=== PATIENT | female | born 1950 | race Caucasian/White ===

== ENCOUNTER → 2016-05-26 | Outpatient (REF) | payer MEDICARE, MEDICAID ==
[~2016-05-26] MED LIST: AMLO25TA PO; ASPI81TA85 PO; CARB20TA PO; CARV25TA PO; FLUO20CA8 PO; HYDR12.55 PO; LOSA100T36 PO; METF500T PO; OYST1TAB PO; PROZ20CA11 PO
== END ==
LOC: M SFHCCLAY 09:13
PROVIDERS: ATTEND Family Medicine
DX: R51 Headache (principal)
CPT/HCPCS: 85652; G0463

== ENCOUNTER → 2016-09-08 | Outpatient (REF) | payer MEDICARE, MEDICAID ==
[2016-09-08 18:33] LABS: ALBUMIN 3.8 GM/DL (3.2-5.2); ALBUMIN/GLOBULIN RATIO 1.12 (1.00-1.93); BILIRUBIN,TOTAL 0.4 MG/DL (0.2-1.0); CALCIUM LEVEL 9.2 MG/DL (8.8-10.2); CREATININE FOR GFR 1.03 MG/DL (0.55-1.02); GLOMERULAR FILTRATION RATE 56.7 (>45); POTASSIUM SERUM 3.9 MEQ/L (3.5-5.1); TOTAL PROTEIN 7.2 GM/DL (6.4-8.2)
[2016-09-08 18:57] LABS: MEAN CORPUSCULAR HEMOGLOBIN 31.2 pg (27.0-33.0); MEAN CORPUSCULAR HGB CONC 34.8 g/dl (32.0-36.5); MEAN CORPUSCULAR VOLUME 89.6 fl (80.0-96.0); PLATELET COUNT, AUTOMATED 109 k/mm3 (150-450); RED CELL DISTRIBUTION WIDTH 12.7 % (11.5-14.5)
[2016-09-08 21:47] LABS: BASOPHILS 1 % (0-4); EOSINOPHILS 3 % (0-5); PLATELET CLUMPS MODERATE AMT
== END ==
LOC: M SFHCCLAY 10:18
PROVIDERS: ATTEND Family Medicine
DX: G40.909 Epilepsy, unspecified, not intractable, without status epilepticus (principal); E11.9 Type 2 diabetes mellitus without complications; E78.2 Mixed hyperlipidemia; I10 Essential (primary) hypertension; K76.0 Fatty (change of) liver, not elsewhere classified; G47.30 Sleep apnea, unspecified; F32.9 Major depressive disorder, single episode, unspecified
CPT/HCPCS: 36415; 80053; 80061; 80156; 83036; 85025; G0463

== ENCOUNTER 2017-01-10 11:08 | Emergency (ER) | payer MEDICARE, MEDICAID ==
[~2017-01-10] VITALS: Ht 165.1 cm; Wt 78.5 kg
[2017-01-10 11:08] VITALS: BP 175/90
[~2017-01-10 11:08] MED LIST changes: -METF500T PO; +METF500T13 PO
[2017-01-10] MEDS ORDERED: METHOCARBAMOL 500 MG TAB PO ONE (12:45)
[2017-01-10] MEDS ORDERED: IBUPROFEN 600 MG TAB PO ONE (12:45)
[2017-01-10] MEDS ORDERED: ROBA500T PO (12:47)
[2017-01-10] MEDS ORDERED: IBUP-1022 PO (12:47)
[2017-01-10] MEDS ORDERED: DIAZ5TAB PO (13:43)
== END 2017-01-10 13:10 | disposition home or self-care (01) ==
LOC: M ED 11:08
DX: M54.41 Lumbago with sciatica, right side (principal); E11.9 Type 2 diabetes mellitus without complications; I10 Essential (primary) hypertension; Z79.899 Other long term (current) drug therapy; Z79.82 Long term (current) use of aspirin; Z88.8 Allergy status to other drugs, medicaments and biological substances

== ENCOUNTER → 2017-01-26 | Outpatient (REF) | payer MEDICARE, MEDICAID ==
[~2017-01-26] MED LIST changes: +DIAZ5TAB PO; +IBUP-1022 PO; +ROBA500T PO
[2017-01-26 19:19] LABS: ANION GAP 6 MEQ/L (8-16); BLOOD UREA NITROGEN 10 MG/DL (7-18); CALCIUM LEVEL 9.1 MG/DL (8.8-10.2); CARBON DIOXIDE LEVEL 26 MEQ/L (21-32); CHLORIDE LEVEL 109 MEQ/L (98-107); CREATININE FOR GFR 0.79 MG/DL (0.55-1.02); GLOMERULAR FILTRATION RATE > 60.0 (>45); GLUCOSE, FASTING 162 MG/DL (80-110); SODIUM LEVEL 141 MEQ/L (136-145)
== END ==
LOC: M SFHCCLAY 10:52
PROVIDERS: ATTEND Family Medicine
DX: M54.40 Lumbago with sciatica, unspecified side (principal); E11.9 Type 2 diabetes mellitus without complications
CPT/HCPCS: 80048; 83036; G0463

== ENCOUNTER → 2017-02-02 | Outpatient (CLI) | payer MEDICARE, MEDICAID ==
--- NOTE | 2017-02-02 14:42 | REP ---
MR LUMBAR SPINE WITHOUT CONTRAST: HISTORY: Back pain. Decreased signal intensity on T2-weighted images is present in the lumbar intervertebral discs. The discs are decreased in height. These findings are consistent with disc degeneration. There is no disc bulge or herniation at the L1-2 level. The L1 nerves exit the neural foramina without compression. A diffuse disc bulge and small central disc protrusion are present at the L2-3 level. There is hypertrophy of the ligamenta flava and the posterior articulating facets. These findings produce minimal central canal stenosis. The L2 nerves exit the neural foramina without compression. A diffuse disc bulge and small left paracentral and intraforaminal disc protrusion are present at the L3-4 level. There is hypertrophy of the ligamenta flava and posterior articulating facets. There are 2 mm of grade 1 spondylolisthesis of L3 on L4. These findings produce mild central canal stenosis. There is compression of the left L3 nerve in the neural foramen. The right L3 nerve exits the neural foramen without compression. A diffuse disc bulge and small right paracentral disc extrusion are present at the L4-5 level. There is inferior migration of disc material. There is hypertrophy of the ligamenta flava and posterior articulating facets. These findings produce minimal central canal stenosis. There is compression of the right L5 nerve in the right L5 lateral recess. The L4 nerves exit the neural foramina without compression. A diffuse disc bulge and small disc extrusion central and eccentric to the left are present at the L5-S1 level. There is minimal compression of the thecal sac and right S1 nerve as it exits the thecal sac. There is hypertrophy of the posterior articulating facets. The L5 nerves exit the neural foramina without compression. The conus medullaris is normal in appearance terminating at the level of the L1-2 intervertebral disc. Normal signal intensity is present in the lumbar vertebr al bodies. IMPRESSION: 1. Minimal central canal stenosis at the L2-3 level secondary to disc bulge, disc protrusion, ligamentous and facet hypertrophy. 2. Mild central canal stenosis at the L3-4 level secondary to disc bulge, disc protrusion, ligamentous and facet hypertrophy and grade 1 spondylolisthesis. There is compression of the left L3 nerve in the neural foramen. 3. Minimal central canal stenosis at the L4-5 level secondary to disc bulge, disc extrusion, ligamentous and facet hypertrophy. 4. Diffuse disc bulge and small disc extrusion at the L5-S1 level with minimal compression of the thecal sac and left S1 nerve as it exits the thecal sac. Signed by Eugene Soriano MD 02/02/2017 02:59 P
== END ==
LOC: M RAD 12:21
PROVIDERS: ATTEND Family Medicine
DX: M54.40 Lumbago with sciatica, unspecified side (principal); M51.06 Intervertebral disc disorders with myelopathy, lumbar region

== ENCOUNTER → 2017-04-09 | Outpatient (CLI) | payer MEDICARE, MEDICAID ==
--- NOTE | 2017-04-09 14:53 | REP ---
Right ankle four views : There is no fracture or dislocation. Mineralization and joint spaces are normal. There are no calcifications or foreign bodies. There are calcaneal plantar and Achilles spurs. Impression: Negative right ankle. Except for plantar and Achilles spurs . Signed by Jacob Clifton MD 04/09/2017 02:45 P
--- NOTE | 2017-04-09 14:55 | REP ---
Right foot four views: There is joint space narrowing of the PIP and DIP articulations compatible with early osteoarthritis. The joint spaces are otherwise unremarkable. There is no fracture or dislocation. There are calcaneal plantar and Achilles spurs. Impression: PIP and DIP joint space narrowing. Calcaneal plantar and Achilles spurs. Signed by Jacob Clifton MD 04/09/2017 02:47 P
== END ==
LOC: M WUC 13:36
PROVIDERS: ATTEND Physician Assistant
DX: M77.31 Calcaneal spur, right foot (principal)

== ENCOUNTER → 2017-06-01 | Outpatient (REF) | payer MEDICARE, MEDICAID ==
[2017-06-01 18:09] LABS: BASO # 0.1 10^3/uL (0.0-0.2); BASO % 0.9 % (0.0-1.0); EOS # 0.1 10^3/uL (0.0-0.50); EOS % 1.8 % (0.0-3.0); HEMATOCRIT 38.1 % (36.0-47.0); IMMATURE GRANULOCYTE % 0.4 % (0-3.0); LYMPH # 1.5 10^3/uL (1.5-4.5); LYMPH % 26.8 % (24.0-44.0); MEAN CORPUSCULAR HEMOGLOBIN 30.4 pg (27.0-33.0); MEAN CORPUSCULAR HGB CONC 34.1 g/dl (32.0-36.5); MEAN CORPUSCULAR VOLUME 89.2 fl (80.0-96.0); MONO # 0.6 10^3/uL (0.0-0.8); MONO % 11.2 % (0.0-5.0); NEUTROPHILS # 3.3 10^3/uL (1.8-7.7); NEUTROPHILS % 58.9 % (36.0-66.0); RED BLOOD COUNT 4.27 10^6/uL (4.00-5.40); RED CELL DISTRIBUTION WIDTH 12.6 % (11.5-14.5); WHITE BLOOD COUNT 5.5 10^3/uL (4.0-10.0)
[2017-06-01 18:30] LABS: ESTIMATED AVERAGE GLUCOSE 151 MG/DL (60-110); HEMOGLOBIN A1c 6.9 %
[2017-06-01 18:41] LABS: ALBUMIN 4.1 GM/DL (3.2-5.2); ALBUMIN/GLOBULIN RATIO 1.24 (1.00-1.93); ALKALINE PHOSPHATASE 50 U/L (45-117); ALT/SGPT 39 U/L (12-78); ANION GAP 8 MEQ/L (8-16); AST/SGOT 32 U/L (7-37); BILIRUBIN,TOTAL 0.4 MG/DL (0.2-1.0); BLOOD UREA NITROGEN 14 MG/DL (7-18); CARBAMAZEPINE (TEGRETOL) LEVEL 6.5 UG/ML (4.0-10.0); CARBON DIOXIDE LEVEL 27 MEQ/L (21-32); CHLORIDE LEVEL 108 MEQ/L (98-107); CHOLESTEROL LEVEL 165 MG/DL (<200); CHOLESTEROL RISK RATIO 3.928 (<5); CREATININE FOR GFR 0.87 MG/DL (0.55-1.30); GLOMERULAR FILTRATION RATE > 60.0 (>45); GLUCOSE, FASTING 145 MG/DL (70-100); HDL CHOLESTEROL 42 MG/DL (>40); NON-HDL-C 123 MG/DL; POTASSIUM SERUM 3.8 MEQ/L (3.5-5.1); SODIUM LEVEL 143 MEQ/L (136-145); TOTAL PROTEIN 7.4 GM/DL (6.4-8.2); TRIGLYCERIDES LEVEL 135 MG/DL (<150)
[2017-06-01 18:44] LABS: POS COUNT POS FLAG
== END ==
LOC: M SFHCCLAY 10:27
DX: R53.81 Other malaise (principal); E11.9 Type 2 diabetes mellitus without complications; E78.2 Mixed hyperlipidemia; G40.909 Epilepsy, unspecified, not intractable, without status epilepticus
CPT/HCPCS: 84443

== ENCOUNTER → 2017-08-29 | Outpatient (REF) | payer MEDICARE, MEDICAID ==
[2017-08-29 17:43] LABS: ALBUMIN 3.9 GM/DL (3.2-5.2); ALBUMIN/GLOBULIN RATIO 1.15 (1.00-1.93); ALKALINE PHOSPHATASE 52 U/L (45-117); ALT/SGPT 28 U/L (12-78); ANION GAP 6 MEQ/L (8-16); AST/SGOT 25 U/L (7-37); BILIRUBIN,TOTAL 0.4 MG/DL (0.2-1.0); BLOOD UREA NITROGEN 9 MG/DL (7-18); CALCIUM LEVEL 9.1 MG/DL (8.8-10.2); CARBON DIOXIDE LEVEL 26 MEQ/L (21-32); CHLORIDE LEVEL 108 MEQ/L (98-107); CREATININE FOR GFR 0.89 MG/DL (0.55-1.30); GAMMA GLUTAMYLTRANSPEPTIDASE 131 U/L (5-55); GLOMERULAR FILTRATION RATE > 60.0 (>45); GLUCOSE, FASTING 191 MG/DL (70-100); POTASSIUM SERUM 3.8 MEQ/L (3.5-5.1); SODIUM LEVEL 140 MEQ/L (136-145); TOTAL PROTEIN 7.3 GM/DL (6.4-8.2)
[2017-08-29 17:45] LABS: ESTIMATED AVERAGE GLUCOSE 166 MG/DL (60-110); HEMOGLOBIN A1c 7.4 %
== END ==
LOC: M SFHCCLAY 11:32
DX: E11.9 Type 2 diabetes mellitus without complications (principal); K76.0 Fatty (change of) liver, not elsewhere classified
CPT/HCPCS: 82977

== ENCOUNTER 2017-09-21 09:50 | Outpatient (RCR) | payer MEDICARE, MEDICAID | END 2017-09-22 | disposition home or self-care (01) | LOC: M PT 09:50 | DX: Z51.89 Encounter for other specified aftercare (principal); M19.011 Primary osteoarthritis, right shoulder | CPT/HCPCS: 97162 ==

== ENCOUNTER 2017-09-28 12:31 | Outpatient (RCR) | payer MEDICARE, MEDICAID | END 2017-10-22 | LOC: M PT 12:31 | DX: Z51.89 Encounter for other specified aftercare (principal); M19.011 Primary osteoarthritis, right shoulder | CPT/HCPCS: 97110 ==

== ENCOUNTER → 2018-04-03 | Outpatient (REF) | payer MEDICARE, MEDICAID ==
[~2018-04-03] MED LIST changes: +LOSA-4 PO; -LOSA100T36 PO
[2018-04-03 17:32] LABS: BASO # 0.1 10^3/uL (0.0-0.2); BASO % 0.7 % (0.0-1.0); EOS # 0.2 10^3/uL (0.0-0.50); EOS % 2.4 % (0.0-3.0); HEMATOCRIT 37.1 % (36.0-47.0); HEMOGLOBIN 12.3 g/dl (12.0-15.5); LYMPH # 1.5 10^3/uL (1.5-4.5); LYMPH % 21.7 % (24.0-44.0); MEAN CORPUSCULAR HEMOGLOBIN 30.1 pg (27.0-33.0); MEAN CORPUSCULAR HGB CONC 33.2 g/dl (32.0-36.5); MEAN CORPUSCULAR VOLUME 90.9 fl (80.0-96.0); MONO # 0.8 10^3/uL (0.0-0.8); MONO % 11.2 % (0.0-5.0); NEUTROPHILS # 4.4 10^3/uL (1.8-7.7); NEUTROPHILS % 63.7 % (36.0-66.0); RED BLOOD COUNT 4.08 10^6/uL (4.00-5.40)
[2018-04-03 17:57] LABS: ALBUMIN 3.8 GM/DL (3.2-5.2); BILIRUBIN,TOTAL 0.4 MG/DL (0.2-1.0); CALCIUM LEVEL 9.2 MG/DL (8.8-10.2); CHOLESTEROL RISK RATIO 3.444 (<5); CREATININE FOR GFR 1.23 MG/DL (0.55-1.30); POTASSIUM SERUM 3.7 MEQ/L (3.5-5.1); TOTAL PROTEIN 7.3 GM/DL (6.4-8.2)
[2018-04-03 18:06] LABS: HEMOGLOBIN A1c 7.3 %
== END ==
LOC: M SFHCCLAY 11:43
PROVIDERS: ATTEND Family Medicine
DX: E11.9 Type 2 diabetes mellitus without complications (principal); E78.2 Mixed hyperlipidemia; Z51.81 Encounter for therapeutic drug level monitoring; Z79.01 Long term (current) use of anticoagulants; K76.0 Fatty (change of) liver, not elsewhere classified
CPT/HCPCS: 36415; 80053; 80061; 82977; 83036; 85025; G0463

== ENCOUNTER → 2018-04-14 | Outpatient (REF) | payer MEDICARE, MEDICAID ==
[2018-04-14 16:22] LABS: BASO # 0.1 10^3/uL (0.0-0.2); BASO % 0.9 % (0.0-1.0); EOS # 0.2 10^3/uL (0.0-0.50); EOS % 2.1 % (0.0-3.0); HEMATOCRIT 38.6 % (36.0-47.0); HEMOGLOBIN 12.9 g/dl (12.0-15.5); IMMATURE GRANULOCYTE % 0.4 % (0-3.0); LYMPH # 2.1 10^3/uL (1.5-4.5); LYMPH % 26.1 % (24.0-44.0); MEAN CORPUSCULAR HEMOGLOBIN 29.9 pg (27.0-33.0); MEAN CORPUSCULAR HGB CONC 33.4 g/dl (32.0-36.5); MEAN CORPUSCULAR VOLUME 89.4 fl (80.0-96.0); MONO # 0.9 10^3/uL (0.0-0.8); MONO % 11.5 % (0.0-5.0); NEUTROPHILS # 4.8 10^3/uL (1.8-7.7); RED BLOOD COUNT 4.32 10^6/uL (4.00-5.40); RED CELL DISTRIBUTION WIDTH 12.8 % (11.5-14.5); WHITE BLOOD COUNT 8.1 10^3/uL (4.0-10.0)
[2018-04-14 16:32] LABS: POS COUNT POS FLAG
[2018-04-14 16:34] LABS: ALBUMIN 3.7 GM/DL (3.2-5.2); ALKALINE PHOSPHATASE 57 U/L (45-117); ALT/SGPT 26 U/L (12-78); ANION GAP 11 MEQ/L (8-16); AST/SGOT 25 U/L (7-37); BILIRUBIN,TOTAL 0.5 MG/DL (0.2-1.0); BLOOD UREA NITROGEN 22 MG/DL (7-18); CARBAMAZEPINE (TEGRETOL) LEVEL 5.5 UG/ML (4.0-10.0); CARBON DIOXIDE LEVEL 23 MEQ/L (21-32); CHLORIDE LEVEL 108 MEQ/L (98-107); CREATININE FOR GFR 1.16 MG/DL (0.55-1.30); GLOMERULAR FILTRATION RATE 49.2 (>39); GLUCOSE, FASTING 101 MG/DL (70-100); POTASSIUM SERUM 3.9 MEQ/L (3.5-5.1); SODIUM LEVEL 142 MEQ/L (136-145); TOTAL PROTEIN 7.4 GM/DL (6.4-8.2)
[2018-04-14 17:05] LABS: ERYTHROCYTE SEDIMENTATION RATE 11 mm/hr (0-30)
== END ==
LOC: M SFHCCLAY 12:01
DX: R53.83 Other fatigue (principal)
CPT/HCPCS: 84443

== ENCOUNTER → 2018-07-03 | Outpatient (REF) | payer MEDICARE, MEDICAID ==
[~2018-07-03] MED LIST changes: +AMIO200T; +GLIP2.5T6; -LOSA-4 PO; +LOSA100T50 PO; +XARE20TA
[2018-07-03 16:50] LABS: HEMOGLOBIN A1c 6.4 %
[2018-07-03 16:53] LABS: ALBUMIN 3.8 GM/DL (3.2-5.2); BILIRUBIN,TOTAL 0.3 MG/DL (0.2-1.0); CALCIUM LEVEL 9.5 MG/DL (8.8-10.2); CREATININE FOR GFR 1.02 MG/DL (0.55-1.30); POTASSIUM SERUM 3.8 MEQ/L (3.5-5.1); TOTAL PROTEIN 7.5 GM/DL (6.4-8.2)
== END ==
LOC: M SFHCCLAY 11:48
PROVIDERS: ATTEND Family Medicine
DX: E11.9 Type 2 diabetes mellitus without complications (principal)

== ENCOUNTER → 2018-07-10 | Outpatient (CLI) | payer MEDICARE, MEDICAID ==
[~2018-07-10] MED LIST changes: -AMIO200T; -GLIP2.5T6; -XARE20TA
--- NOTE | 2018-07-10 13:36 | REPMRS ---
Patient History The patient states she has not had a clinical breast exam in over a year. Patient is postmenopausal. Family history of breast cancer under age 50 in daughter. 3D TOMOSYNTHESIS WAS PERFORMED. Digital Woman Screen Mammo: July 10, 2018 - Exam #: [id number] Bilateral CC and MLO view(s) were taken. Technologist: Louisa Stone Technologist Prior study comparison: April 12, 2016, digital woman screen mammo performed at [facility]. FINDINGS: There are scattered fibroglandular densities. There has been no change in the appearance of the mammogram from the prior studies. There is a mild amount of residual fibroglandular tissue which is fairly symmetric. There is no interval development of dominant mass, architectural distortion, or clustered microcalcification suggestive of malignancy. Assessment: BI-RADS/ACR category 1 mammogram. Negative Mammogram. Recommendation Routine screening mammogram in 1 year (for women over age 40). This mammogram was interpreted with the aid of an FDA-approved computer-aided dectection system. Electronically Signed By: Jacob Saucedo MD 07/10/18 [id number]
== END ==
LOC: M WHC 11:34
PROVIDERS: ATTEND Family Medicine
DX: Z12.31 Encounter for screening mammogram for malignant neoplasm of breast (principal); Z80.3 Family history of malignant neoplasm of breast

== ENCOUNTER 2018-07-29 12:09 | Emergency (ER) | payer MEDICARE, MEDICAID ==
[~2018-07-29] VITALS: Ht 162.6 cm; Wt 77.3 kg
[2018-07-29] MEDS ORDERED: GLIP2.5T6 (12:21)
[2018-07-29] MEDS ORDERED: XARE20TA (12:21)
[2018-07-29] MEDS ORDERED: AMIO200T (12:21)
--- NOTE | 2018-07-29 12:56 | REP ---
Clinical: Headache. Comparison: 01/23/2014 . Findings: Age-related atrophy and microvascular ischemic changes are appreciated. The ventricles and sulci are symmetric. Saucedo-white differentiation is maintained. There is no evidence for acute intracranial hemorrhage, mass/mass effect, pathology or infarction. No extra-axial fluid collection. Calvarium is intact. Paranasal sinuses and mastoid air cells are clear. Impression: Age related atrophy and microvascular ischemic changes. No acute intracranial hemorrhage, infarction, or mass/mass effect. Electronically Signed by Jerome Person MD 07/29/2018 12:47 P
--- NOTE | 2018-07-29 12:58 | REP ---
Clinical: Neck pain and headache. Technique: Axial noncontrast images from the skull base to the thoracic inlet with coronal and sagittal re-formations. Comparison: 01/23/2014. Findings: Moderate multilevel degenerative disc osteophyte complexes are appreciated primarily involving C4-5, C5-6, C6-7 which remain relatively similar to prior examination. Alignment and lordosis maintained. No acute fracture / compression injury or subluxation. Spinal canal is patent. Posterior elements and spinous processes are intact. Neural foramen are grossly normal bilaterally. Surrounding soft tissues are unremarkable. Impression: Moderate multilevel degenerative disc osteophyte complexes similar to prior examination. Electronically Signed by Jerome Person MD 07/29/2018 12:49 P
[2018-07-29] MEDS ORDERED: ACETAMINOPHEN 325 MG TAB PO ONE (13:00)
[2018-07-29] MEDS ORDERED: ONDANSETRON 4 MG ORAL DISINTEGRATING TAB (Q0162 PER 1MG) PO ONE (13:00)
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
--- NOTE | 2018-07-29 13:26 | REP ---
Clinical: Trauma . Comparison: 01/24/2015 . Technique: PA and lateral. Findings: The mediastinum and cardiac silhouette are normal. The lung ov[place]o are clear and without acute consolidation, effusion, or pneumothorax. The skeletal structures are intact and normal. Impression: 1. No acute cardiopulmonary process. Electronically Signed by Jerome Person MD 07/29/2018 01:17 P
[2018-07-29 14:13] VITALS: BP 136/65
== END 2018-07-29 14:14 | disposition home or self-care (01) ==
LOC: M ED 12:09
DX: S00.90XA Unspecified superficial injury of unspecified part of head, initial encounter (principal); S49.91XA Unspecified injury of right shoulder and upper arm, initial encounter; R07.89 Other chest pain; M50.30 Other cervical disc degeneration, unspecified cervical region; M19.011 Primary osteoarthritis, right shoulder; T76.11XA Adult physical abuse, suspected, initial encounter; Y04.8XXA Assault by other bodily force, initial encounter; Y92.098 Other place in other non-institutional residence as the place of occurrence of the external cause; I10 Essential (primary) hypertension; R56.9 Unspecified convulsions; E78.00 Pure hypercholesterolemia, unspecified; E11.9 Type 2 diabetes mellitus without complications; M54.9 Dorsalgia, unspecified; Z79.899 Other long term (current) drug therapy; Z79.82 Long term (current) use of aspirin; Z79.84 Long term (current) use of oral hypoglycemic drugs; Z79.01 Long term (current) use of anticoagulants
CPT/HCPCS: 70450; 71046; 72125; 73030; 99284; Q0162

== ENCOUNTER → 2018-10-04 | Outpatient (REF) | payer MEDICARE, MEDICAID ==
[~2018-10-04] MED LIST changes: +AMIO200T; +GLIP2.5T6; +XARE20TA
[2018-10-04 17:03] LABS: ALBUMIN 3.4 GM/DL (3.2-5.2); BILIRUBIN,TOTAL 0.2 MG/DL (0.2-1.0); CALCIUM LEVEL 8.6 MG/DL (8.8-10.2); CREATININE FOR GFR 1.1 MG/DL (0.55-1.30); GLOMERULAR FILTRATION RATE 52.3 (>39); POTASSIUM SERUM 4.3 MEQ/L (3.5-5.1); TOTAL PROTEIN 6.9 GM/DL (6.4-8.2)
== END ==
LOC: M SFHCCLAY 11:59
PROVIDERS: ATTEND Family Medicine
DX: E11.9 Type 2 diabetes mellitus without complications (principal)
CPT/HCPCS: 36415; 80053; 83036; G0463

== ENCOUNTER 2018-11-11 14:35 | Inpatient (IN) | payer MEDICARE, MEDICAID ==
[~2018-11-11] VITALS: Ht 162.6 cm; Wt 79.1 kg
[~2018-11-11 14:35] MED LIST changes: -AMIO200T; +AMIO200T PO; -GLIP2.5T6; +GLIP2.5T6 PO; -XARE20TA; +XARE20TA PO
[2018-11-11 16:00] LABS: BASO % 0.6 % (0.0-1.0); EOS % 0.4 % (0.0-3.0); HEMATOCRIT 24.2 % (36.0-47.0); HEMOGLOBIN 7.6 g/dl (12.0-15.5); LYMPH # 1.1 10^3/uL (1.5-4.5); LYMPH % 16.3 % (24.0-44.0); MEAN CORPUSCULAR HEMOGLOBIN 26.6 pg (27.0-33.0); MEAN CORPUSCULAR HGB CONC 31.4 g/dl (32.0-36.5); MEAN CORPUSCULAR VOLUME 84.6 fl (80.0-96.0); MONO # 0.6 10^3/uL (0.0-0.8); MONO % 8.4 % (0.0-5.0); NEUTROPHILS # 5.2 10^3/uL (1.8-7.7); PLATELET COUNT, AUTOMATED 182 10^3/uL (150-450); RED BLOOD COUNT 2.86 10^6/uL (4.00-5.40)
[2018-11-11] MEDS ORDERED: NS 500 ML IV ONE (16:15)
[2018-11-11 16:30] LABS: INR 2.46; PARTIAL THROMBOPLASTIN TIME 33.7 SECONDS (25.0-38.4); PROTHROMBIN TIME 26.5 SECONDS (11.8-14.0)
[2018-11-11 16:39] LABS: ALBUMIN 3.3 GM/DL (3.2-5.2); ALT/SGPT 20 U/L (12-78); BILIRUBIN,DIRECT < 0.1 MG/DL (0.0-0.2); BILIRUBIN,TOTAL 0.3 MG/DL (0.2-1.0); BLOOD UREA NITROGEN 24 MG/DL (7-18); CALCIUM LEVEL 9.2 MG/DL (8.8-10.2); CARBON DIOXIDE LEVEL 25 MEQ/L (21-32); CHLORIDE LEVEL 107 MEQ/L (98-107); CK-MB VALUE MASS 1.1 NG/ML (<3.6); CPK CREATINE PHOSPHOKINASE 63 U/L (26-192); CREATININE FOR GFR 1.02 MG/DL (0.55-1.30); GLUCOSE, FASTING 134 MG/DL (70-100); MB/CK RELATIVE INDEX 1.75 (< OR =4); POTASSIUM SERUM 3.6 MEQ/L (3.5-5.1); SODIUM LEVEL 141 MEQ/L (136-145); TOTAL PROTEIN 7.1 GM/DL (6.4-8.2); TROPONIN I < 0.02 NG/ML (< 0.10)
[2018-11-11] MEDS ORDERED: HYDR25TAB PO (16:45)
[2018-11-11] MEDS ORDERED: SPIR-10 PO (16:48)
[2018-11-11] MEDS ORDERED: SYST1SOL4 OU (16:49)
[2018-11-11] MEDS ORDERED: PANTOPRAZOLE 40MG INJ (PROTONIX) (C9113) IV ONE (18:15)
[2018-11-11] MEDS: D5W/0.9% SODIUM CHLORIDE 1,000 ML IV SCH (18:30)
[2018-11-11] MEDS: PANTOPRAZOLE SODIUM 40 MG in D5W 50 ML IV SCH ×2 (18:55→23:22)
--- NOTE | 2018-11-11 19:27 | ECGEPIP ---
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
[2018-11-11] MEDS ORDERED: OCTREOTIDE ACETATE 100 MCG/ML VIAL (J2354) IV ONE (19:30)
[2018-11-11] MEDS: cefTRIAXone SOD 1 GM in D5W MINI-BAG PLUS 50 ML IV SCH (20:00)
[2018-11-11] MEDS: OCTREOTIDE ACETATE 1,200 MCG in NS 238.8 ML IV SCH (20:00)
[2018-11-11] MEDS ORDERED: ACETAMINOPHEN 325 MG TAB As Ordered ONE (20:57)
[2018-11-11] MEDS: carBAMazepine 200 MG TAB PO SCH (21:00)
[2018-11-11] MEDS: CARVedilol 12.5 MG TAB PO SCH (21:00)
[2018-11-11] MEDS: LOSARTAN 50 MG TAB PO SCH (21:00)
[2018-11-11] MEDS: AMIODARONE 200 MG TAB (PACERONE) PO SCH (21:00)
[2018-11-11] MEDS ORDERED: ONDANSETRON 4MG/2ML VIAL (J2405) As Ordered ONE (21:32)
[2018-11-12] VITALS (12 sets, daily range): BP systolic 118–160; BP diastolic 58–86
[2018-11-12] MEDS ORDERED: FUROSEMIDE 40 MG/4 ML VIAL (J1940) IV SCH
[2018-11-12 00:01] LABS: HEMATOCRIT 29.4 % (36.0-47.0); HEMOGLOBIN 9.4 g/dl (12.0-15.5); MEAN CORPUSCULAR HEMOGLOBIN 27.1 pg (27.0-33.0); MEAN CORPUSCULAR VOLUME 84.7 fl (80.0-96.0); PLATELET COUNT, AUTOMATED 167 10^3/uL (150-450); RED BLOOD COUNT 3.47 10^6/uL (4.00-5.40); WHITE BLOOD COUNT 9.3 10^3/uL (4.0-10.0)
[2018-11-12] MEDS: PANTOPRAZOLE SODIUM 40 MG in D5W 50 ML IV SCH ×5 (00:16→22:52)
[2018-11-12] MEDS: ONDANSETRON 4MG/2ML VIAL (J2405) IV PRN ×2 (00:18→04:06)
--- NOTE | 2018-11-12 02:35 | HPEPDOC ---
General Date of Admission Nov 11, 2018 at 17:54 Date of Service: Nov 11, 2018 Chief Complaint The patient is a 68-year-old female admitted with a reason for visit of Gib, Syncope. Source: Patient, Family History of Present Illness 68 year olfd female with pmh of afib on coumadin, diabetes, hypertension, seizure disorder presented to the ED for syncopal episode. The patient was in her usual state of health last light before she went to bed. She woke up at 1 am feeling "sick to my stomach" She had a large amount of vomiting of blood mixed with clots. She did not want to come to ED then or contact her PMD. This afternoon she went to the [employer] with her family and were having a cook out at around noon she again felt sick and wanted to walk to the bathroom . But then she started to walk to wards the bathrooms with her walker but became very weak and dizzy so sat down on her seat in the wheel chair. Then as per daughter who wa with her said that she became non responsive. She was lowered to the ground and the life guards could not feel her pulse so started CPR. As per family cpr was continued for 15 mins however no such report was obtained from the EMS people. Patient her self said that she remembers severe pressure in her chest once only. Then the lifeguards turned he to her side until the ambulance arrived. In the ED she was found to have an HH of 7.9 much lower than usual. Guaiac done in the ED showed significant amount of melanotic stool in the rectum. She was admitted for GIB and syncope. in the ED she complained of some chest pain on the left chest wall below the breast 5/10 in intensity with no radiation, dull aching in character some time sharp also Home Medications Scheduled Amiodarone HCl (Amiodarone HCl) 200 Mg Tab, 200 MG PO BID, (Reported) Aspirin (Aspir 81) 81 Mg Tab, 81 MG PO DAILY, (Reported) Calcium Carbonate (Calcium) 500 Mg Tab, 500 MG PO DAILY, (Reported) Carbamazepine (Carbamazepine) 200 Mg Tab, 200 MG PO TID, (Reported) Carvedilol (Carvedilol) 25 Mg Tab, 25 MG PO BID, (Reported) Fluoxetine Hcl (Fluoxetine HCl) 20 Mg Cap, 20 MG PO DAILY, (Reported) Glipizide (Glipizide ER) 2.5 Mg Tab, 2.5 MG PO DAILY, (Reported) Hydrochlorothiazide (Hydrochlorothiazide) 25 Mg Tablet, 25 MG PO DAILY, (Reported) Losartan Potassium (Losartan Potassium) 100 Mg Tab, 100 MG PO DAILY, (Reported) Metformin HCl (Metformin HCl) 500 Mg Tab, 500 MG PO BID, (Reported) Rivaroxaban (Xarelto) 20 Mg Tab, 20 MG PO DAILY, (Reported) Spironolactone (Spironolactone) 25 Mg Tablet, 25 MG PO DAILY, (Reported) Scheduled PRN Propylene Glycol/Peg 400/Pf (Systane 0.3-0.4% Eye Drop) 1 Each Droperette, 1 DROP OU QID PRN for DRY EYES, (Reported) Allergies Coded Allergies: cyclobenzaprine (Verified Adverse Reaction, Intermediate, confusion, 07/29/18) propoxyphene (Verified Adverse Reaction, Intermediate, CONFUSION, 07/29/18) Past Medical History Medical History ATRIAL FIBRILLATION , TYPE II DIABETES , HYPERTENSION , SEIZURES , HERNIATED DISCS IN THE LUMBER REGION , CHRONIC BACK PAIN , DEGENERATIVE DISC DISEASE OF THE CERVICAL SPINE DEPRESSION , FX.LEFT HUMERUS , LIVER CIRRHOSIS PER CT IN 2014 WITH RECANALIZED UMBILICAL VEIN LUMBER SPINAL STENOSIS LEFT TOE FRACTURE HAD CAST REMOVED RECENTLY OSTEOARTHRITIS OF SHOULDER Surgical History BACK SURGERY CARDIAC CATHETERIZATION CHOLECYSTECTOMY 03/28/15 Hysteroscopy with polypectomy and dilatation and curettage. Family History FATHER: , UNCERTAIN MOTHER: , HEART 7 BROTHER(S) , 7 SISTER(S) . YOUNGEST BROTHER OF HEART PROBLEMS, ANOTHER BROTHER DRANK AND HAD HEART PROBLEMS. SOME SISTERS HAVE DIABETES Social History * Smoker: non-smoker Alcohol: Denies Drugs: denies A-FIB/CHADSVASC A-FIB History Current/History of A-Fib/PAF?: Yes Current PO Anticoag Therapy: Yes Review of Systems Constitutional: Reports: Weakness; Denies: Chills, Fever, Night Sweats Eyes: Denies: Pain, Vision change ENT: Denies: Head Aches, Ear Pain, Dysphagia Skin: Denies: Rash, Lesions, Breakdown Pulmonary: Denies: Dyspnea, Cough Cardiovascular: Reports: Chest Pain (HAD SOME CHEST COMPRESSIONS AT THE BEECH), Lt Headedness; Denies: Palpitations, Orthopnea, Paroxysmal Noc. Dyspnea Gastrointestinal: Reports: Nausea, Vomiting, Melena, Other Symptoms (HEMETEMESIS) Genitourinary: Denies: Dysuria, Frequency, Incontinence, Retention Hematologic: Denies: Bruising, Bleeding Excessively Musculoskeletal: Reports: Neck Pain, Back Pain, Shoulder Pain, Foot Pain, Joint Pain Neurological: Denies: Weakness, Numbness, Change in speech, Confusion Psych: Reports: Anxiety Physical Examination General Exam: Positive: Alert, Cooperative, No Acute Distress Eye Exam: Positive: Conjunctiva & lids normal, EOMI; Negative: Sclera icteric ENT Exam: Positive: Atraumatic, Mucous membr. moist/pink, Pharynx Normal Neck Exam: Positive: Supple; Negative: JVD, thyromegaly Chest Exam: Positive: Clear to auscultation, Normal air movement Heart Exam: Positive: Irregular Rhythm, Normal S1, Normal S2; Negative: Gallops, Murmurs, Rubs Telemetry: Positive: Atrial fibrillation Abdomen Exam: Positive: BS Hyperactive, Soft, Other (OBESE); Negative: Tenderness, Hepatospenomegaly Extremity Exam: Negative: Clubbing, Cyanosis, Edema Skin Exam: Positive: Nl turgor and temperature; Negative: Breakdown, Lesion Neuro Exam: Positive: Normal Speech, Strength at 5/5 X4 ext, Normal Tone Psych Exam: Positive: Memory Intact, Oriented x 3 Vital Signs Vital Signs Date Time Temp Pulse Resp B/P (MAP) Pulse Ox O2 Delivery O2 Flow Rate FiO2 11/11/18 18:45 98.2 76 16 147/83 (104) 99 Room Air Laboratory Data Labs 24H Laboratory Tests 2 11/11/18 15:48: Prothrombin Time 26.5H, Prothromb Time International Ratio 2.46, Activated Partial Thromboplast Time 33.7 11/11/18 15:49: Immature Granulocyte % (Auto) 0.3, White Blood Count 7.0, Red Blood Count 2.86L, Hemoglobin 7.6L, Hematocrit 24.2L, Mean Corpuscular Volume 84.6, Mean Corpuscular Hemoglobin 26.6L, Mean Corpuscular Hemoglobin Concent 31.4L, Red Cell Distribution Width 14.4, Platelet Count 182, Neutrophils (%) (Auto) 74.0H, Lymphocytes (%) (Auto) 16.3L, Monocytes (%) (Auto) 8.4H, Eosinophils (%) (Auto) 0.4, Basophils (%) (Auto) 0.6, Neutrophils # (Auto) 5.2, Lymphocytes # (Auto) 1.1L, Monocytes # (Auto) 0.6, Eosinophils # (Auto) 0.0, Basophils # (Auto) 0.0, Nucleated Red Blood Cells % (auto) 0.0, Anion Gap 9, Glomerular Filtration Rate 57.0, Calcium Level 9.2, Aspartate Amino Transf (AST/SGOT) 15, Alanine Aminotransferase (ALT/SGPT) 20, Alkaline Phosphatase 44L, Total Bilirubin 0.3, Direct Bilirubin < 0.1, Total Creatine Kinase 63, Creatine Kinase MB 1.1, Creatine Kinase MB Relative Index 1.75, Troponin I < 0.02, Total Protein 7.1, Albumin 3.3, Albumin/Globulin Ratio 0.87L, Thyroid Stimulating Hormone (TSH) 1.500 11/11/18 15:59: Bedside Glucose (Misc Panel) 135H CBC/BMP Laboratory Tests 11/11/18 15:49 Red Blood Count 2.86 L, Mean Corpuscular Volume 84.6, Mean Corpuscular Hemoglobin 26.6 L, Mean Corpuscular Hemoglobin Concent 31.4 L, Red Cell Distribution Width 14.4, Neutrophils (%) (Auto) 74.0 H, Lymphocytes (%) (Auto) 16.3 L, Monocytes (%) (Auto) 8.4 H, Eosinophils (%) (Auto) 0.4, Basophils (%) (Auto) 0.6, Neutrophils # (Auto) 5.2, Lymphocytes # (Auto) 1.1 L, Monocytes # (Auto) 0.6, Eosinophils # (Auto) 0.0, Basophils # (Auto) 0.0 Assessment/Plan Gastrointestinal bleeding with Acute blood loss anemia upper GIB as had hemetemesis and melvina. ordered 2 units of transfusion. monitor HH and transfuse as necessary Old CT abdomen for 2014 revealed cirrhotic nature of the liver with scalloped margin and recanalization of umbilical vein. The etiology could be Peptic ulcer disease, varices, AVMS, oral anticoagulant. started on pronix infusion and octreotide infusion will monitor for hepatic encephalopathy will cover with ceftriaxone GI for EGD tomorrow NPO Dex/ Ns Syncope probably due to blood loss and acute anemia will monitor under tele Chronic Afib rate controlled continue coreg, amiodarone xarelto on hold. Hypertension continue home meds with hold parameters, losartan and coreg. Diabetes Hold all home meds will put on sliding scale of insulin Seizure disorder continue carbamazepine. Plan / VTE VTE Prophylaxis Ordered?: Yes NIKKI WALTERS MD Nov 11, 2018 19:44
[2018-11-12 05:39] LABS: BASO # 0.1 10^3/uL (0.0-0.2); BASO % 0.9 % (0.0-1.0); EOS # 0.1 10^3/uL (0.0-0.50); EOS % 0.8 % (0.0-3.0); HEMATOCRIT 27.8 % (36.0-47.0); HEMOGLOBIN 8.7 g/dl (12.0-15.5); LYMPH # 1.3 10^3/uL (1.5-4.5); LYMPH % 16.1 % (24.0-44.0); MEAN CORPUSCULAR HEMOGLOBIN 26.2 pg (27.0-33.0); MEAN CORPUSCULAR HGB CONC 31.3 g/dl (32.0-36.5); MEAN CORPUSCULAR VOLUME 83.7 fl (80.0-96.0); MONO # 0.6 10^3/uL (0.0-0.8); NEUTROPHILS # 5.9 10^3/uL (1.8-7.7); NEUTROPHILS % 73.8 % (36.0-66.0); PLATELET COUNT, AUTOMATED 168 10^3/uL (150-450); RED BLOOD COUNT 3.32 10^6/uL (4.00-5.40)
[2018-11-12 05:48] LABS: CALCIUM LEVEL 8.2 MG/DL (8.8-10.2); CREATININE FOR GFR 1.26 MG/DL (0.55-1.30); GLOMERULAR FILTRATION RATE 44.7 (>39); POTASSIUM SERUM 3.7 MEQ/L (3.5-5.1)
[2018-11-12] MEDS ORDERED: PROPOFOL 200 MG/20 ML VIAL As Ordered ONE (07:20)
[2018-11-12] MEDS ORDERED: LIDOCAINE 2% INJ 100 MG/5 ML SDV (FOR ANES.) As Ordered ONE (07:20)
[2018-11-12] MEDS ORDERED: MIDAZOLAM INJ 2 MG/2 ML VIAL (J2250) As Ordered ONE (08:01)
[2018-11-12] MEDS ORDERED: METOCLOPRAMIDE INJ 10MG/2ML VIAL (J2765) As Ordered ONE (08:01)
[2018-11-12] MEDS ORDERED: SUCCINYLCHOLINE 100 MG/5 ML SYRINGE (J0330) As Ordered ONE (08:19)
[2018-11-12] MEDS ORDERED: ROCURONIUM BROMIDE 50 MG/5 ML VIAL As Ordered ONE (08:20)
[2018-11-12] MEDS ORDERED: fentaNYL 100 MCG/2 ML INJECTION (J3010) As Ordered ONE (08:21)
--- NOTE | 2018-11-12 08:46 | REP ---
CHEST, PORTABLE UPRIGHT: Two AP portable upright views of the chest are performed. There is cardiomegaly again noted. There is mild bibasilar interstitial prominence, which is chronic and unchanged. Mediastinal silhouette is unchanged. There are degenerative changes of the spine. IMPRESSION: Cardiomegaly without evidence of acute infiltrate. Electronically Signed by Jacob Saucedo MD 11/12/2018 10:42 P
--- NOTE | 2018-11-12 09:08 | ROOR ---
Patient Name: Ronda Mejia Procedure Date: 11/12/2018 7:50 AM Note Status: Finalized Procedure: Upper GI endoscopy Indications: Acute post hemorrhagic anemia, Hematemesis, Melena Providers: Mike Sanchez MD Referring MD: 2. Inpatient 2. Inpatient Requesting Provider: Medicines: Monitored Anesthesia Care Complications: No immediate complications. Procedure: Pre-Anesthesia Assessment: - Prior to the procedure, a History and Physical was performed, and patient medications and allergies were reviewed. The patient is competent. The risks and benefits of the procedure and the sedation options and risks were discussed with the patient. All questions were answered and informed consent was obtained. Patient identification and proposed procedure were verified by the physician, the nurse and the anesthesiologist in the procedure room. Mental Status Examination: alert and oriented. Airway Examination: normal oropharyngeal airway and neck mobility. Respiratory Examination: clear to auscultation. CV Examination: normal. Prophylactic Antibiotics: The patient does not require prophylactic antibiotics. Prior Anticoagulants: The patient has taken no previous anticoagulant or antiplatelet agents. ASA Grade Assessment: III - A patient with severe systemic disease. After reviewing the risks and benefits, the patient was deemed in satisfactory condition to undergo the procedure. The anesthesia plan was to use monitored anesthesia care (MAC). Immediately prior to administration of medications, the patient was re-assessed for adequacy to receive sedatives. The heart rate, respiratory rate, oxygen saturations, blood pressure, adequacy of pulmonary ventilation, and response to care were monitored throughout the procedure. The physical status of the patient was re-assessed after the procedure. The Endoscope was introduced through the mouth, and advanced to the second part of duodenum. The upper GI endoscopy was accomplished without difficulty. The patient tolerated the procedure well. Findings: Three columns of grade III, large (> 5 mm) varices were found in the lower third of the esophagus, 26 cm from the incisors. Stigmata of recent bleeding were evident and red lucina signs were present. Four bands were successfully placed with complete eradication, resulting in deflation of varices. There was no bleeding at the end of the procedure. Diffuse moderate inflammation characterized by congestion (edema), erosions and granularity was found in the gastric antrum. The duodenal bulb and second portion of the duodenum were normal. Impression: - Recently bleeding grade III and large (> 5 mm) esophageal varices. Completely eradicated. Banded. - Gastritis. - Normal duodenal bulb and second portion of the duodenum. - No specimens collected. Recommendation: - Patient has a contact number available for emergencies. The signs and symptoms of potential delayed complications were discussed with the patient. Return to normal activities tomorrow. Written discharge instructions were provided to the patient. - NPO for 6 hours and then start on clear liquid diet for 24 hours and then advance if tolerated to low sodium diet ( <2gm per day). - IV PPI drip for 24 hours and then switch to oral PPI for total of 6 weeks. - Continue IV Octreotide drip of 50mcg/hr for 3- 5 days - Antibiotics (ceftriaxone - 1 gm once daily if not contra-indicated) for total of 7 days. ( if being discharged can switch to ciprofloxacin oral). - Monitor Hemoglobin/Hematocrit every 6- 8 hours: transfuse as needed to maintain Hb around 7-8. ( Do not transfuse over that level). - ICU/PCU monitoring for 24 hours. - Do Not place NG or OG tube. - Give antiemetics PRN for 24 hours. - Depending on clinical status, to discuss the risks and benefits of anti-coagulants use. At this time the risk of recurrent variceal bleeding is very high and to consider holding Xarelto if not contraindicated for atleast 5 - 7 days. - Update GI if any acute change in status. - At the time of discharge, please start on non selective betablocker ( prefer propranolol)-- dose titrated based on the BP and heart rate ( goal 55 - 60 / min). - Upon discharge please give outpatient appointment in GI clinic in 2-3 weeks. ( please call [phone]). Attending Participation: I personally performed the entire procedure. Mike Sanchez MD Mike Sanchez MD 11/12/2018 9:08:24 AM Electronically signed by Mike Sanchez MD Number of Addenda: 0 Note Initiated On: 11/12/2018 7:50 AM Estimated Blood Loss: Estimated blood loss: none.
--- NOTE | 2018-11-12 09:12 | REP ---
CT BRAIN WITHOUT CONTRAST: CT brain performed without IV contrast. There is mild atrophy. There is no midline shift or mass effect. Saucedo-white differentiation is well maintained. There is no acute hemorrhage or extra-axial fluid collection. No skull fracture is seen. IMPRESSION: No evidence of acute bleed or skull fracture. Electronically Signed by Jacob Saucedo MD 11/12/2018 10:47 P
[2018-11-12] MEDS ORDERED: ONDANSETRON 4MG/2ML VIAL (J2405) IV PRN (09:45)
[2018-11-12] MEDS ORDERED: LR 1,000 ML IV SCH (09:45)
[2018-11-12] MEDS ORDERED: fentaNYL 100 MCG/2 ML INJECTION (J3010) IV PRN (09:45)
--- NOTE | 2018-11-12 09:53 | CR.PDOC ---
General Date of Consultation: Nov 12, 2018 Referring Provider: NIKKI WALTERS MD Attending Physician: PAYTON HOU MD Consultation Primary physician/ hospitalist: Reason for consult: GI bleeding and syncope HPI: 68 year old female with of afib on Xarelto, DM, HTN , Cirrhosis, S/P cholecystectomy and seizure disorder presented to the ED for syncopal episode and vomiting along with blood and clots.GI was consulted for the same. Patient reports having one episode of vomiting with blood and clots at around 1am (11/11/18), Later feeling very weak and dizzy and had an episode of syncope Patient was admitted and noted with drop in hemoglobin and hematocrit . Patient reports one episode of dark tarry stools in ER and feeling nausea over night, but no further episodes of hematemesis or melena. Off Note: In ED patient complained of chest pain on the left chest wall below the breast 5/10 in intensity with no radiation, dull aching in character at time sharp as well. Pertinent negative GI symptoms: Patient denies fever, sick contacts, recent travel, diarrhea, abdominal pain, loss of appetite, early satiety or unintentional weight loss. No history of hematochezia. Review of Systems: GI: as stated above CVS: chest pain, No palpitations, No leg swelling. 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 Skin: No rash : No hematuria, No burning sensation of the urine ENT: No ear discharge/ pain, No dysphagia. Eyes: No photophobia. Jaundice Home medications: reviewed. Antithrombotic agents ASA-81mg, Xarelto 20mg. Medical h/o: As above. Surgical h/o: S/P cholecystectomy. Social h/o: Alcohol Denies , smoking Denies , IVDA/ drugs Denies . Family h/o of GI cancers - None Prior Endoscopies: --- EGD - none --- Colonoscopy - none. Prior GI evaluations: none in [facility]. Exam: Vitals: reviewed General: Alert and oriented x 3, not in distress HEENT: NO pallor, no icterus. Normal oropharynx, NO cervical lymph nodes. Chest: symmetric with bilateral clear air entry, CVS: S1, S2 heard, normal, no murmurs . Abdomen: non-distended, no surgical scars, soft, non-tender, no palpable masses, normal bowel sounds heard. Rectal exam: Patient refused / Deferred at this time in view of scheduled colonoscopy. Extremities: no pedal edema, pulses palpable. SENIOR INTEGRATION DEVELOPER: no focal motor or sensory deficits. Moves all extremities Skin: no rash. Labs: reviewed. Imaging: reviewed. Impression: - Acute onset hematemesis with melena , drop in hemaglobin and hematocrit, in a patient on anticoagulation with Xarelto and past abdominal imaging showing suspected cirrhosis.- DDX-- Variceal bleeding vs PUD vs MVT vs gastritis. Recommendations: - Patient educated about the test results, possible differential diagnoses and All questions answered. - Hold Xarelto for now if not contraindicated. - IV pantoprazole drip for 24 hours. - Monitor hemoglobin and hematocrit and transfuse as needed to keep HB around 7- 8mg/dl. - In view of suspected liver cirrhosis, will also start on IV octreotide drip and IV antibiotics for now. - Will schedule for urgent EGD after optimal resuscitation. - The procedure, indications, risks (bleeding, perforation, infection, hypotension, respiratory depression, allergy, need for endotracheal intubation, surgery, colostomy, cardiac arrest, even ), benefits, limitations (e.g., missing a lesion), and all other alternatives (including no intervention) were explained to the patient who understood and agreed for the procedure. - NPO . - Follow procedure for post procedure recommendations. Plan of care discussed with patient and primary team. Patient verbalized understanding and agreed with the plan. Laboratory Data CBC/BMP Laboratory Tests 11/11/18 15:49 Red Blood Count 2.86 L, Mean Corpuscular Volume 84.6, Mean Corpuscular Hemoglobin 26.6 L, Mean Corpuscular Hemoglobin Concent 31.4 L, Red Cell Distribution Width 14.4, Neutrophils (%) (Auto) 74.0 H, Lymphocytes (%) (Auto) 16.3 L, Monocytes (%) (Auto) 8.4 H, Eosinophils (%) (Auto) 0.4, Basophils (%) (Auto) 0.6, Neutrophils # (Auto) 5.2, Lymphocytes # (Auto) 1.1 L, Monocytes # (Auto) 0.6, Eosinophils # (Auto) 0.0, Basophils # (Auto) 0.0 11/11/18 23:50 Red Blood Count 3.47 L, Mean Corpuscular Volume 84.7, Mean Corpuscular Hemoglobin 27.1, Mean Corpuscular Hemoglobin Concent 32.0, Red Cell Distribution Width 14.2 11/12/18 04:58 Red Blood Count 3.32 L, Mean Corpuscular Volume 83.7, Mean Corpuscular Hemoglobin 26.2 L, Mean Corpuscular Hemoglobin Concent 31.3 L, Red Cell Distribution Width 14.4, Neutrophils (%) (Auto) 73.8 H, Lymphocytes (%) (Auto) 16.1 L, Monocytes (%) (Auto) 8.0 H, Eosinophils (%) (Auto) 0.8, Basophils (%) (Auto) 0.9, Neutrophils # (Auto) 5.9, Lymphocytes # (Auto) 1.3 L, Monocytes # (Auto) 0.6, Eosinophils # (Auto) 0.1, Basophils # (Auto) 0.1, Calcium Level 8.2 L Allergies Coded Allergies: cyclobenzaprine (Verified Adverse Reaction, Intermediate, confusion, 07/29/18) propoxyphene (Verified Adverse Reaction, Intermediate, CONFUSION, 07/29/18) Home Medications Scheduled Amiodarone HCl (Amiodarone HCl) 200 Mg Tab, 200 MG PO BID, (Reported) Aspirin (Aspir 81) 81 Mg Tab, 81 MG PO DAILY, (Reported) Calcium Carbonate (Calcium) 500 Mg Tab, 500 MG PO DAILY, (Reported) Carbamazepine (Carbamazepine) 200 Mg Tab, 200 MG PO TID, (Reported) Carvedilol (Carvedilol) 25 Mg Tab, 25 MG PO BID, (Reported) Fluoxetine Hcl (Fluoxetine HCl) 20 Mg Cap, 20 MG PO DAILY, (Reported) Glipizide (Glipizide ER) 2.5 Mg Tab, 2.5 MG PO DAILY, (Reported) Hydrochlorothiazide (Hydrochlorothiazide) 25 Mg Tablet, 25 MG PO DAILY, (Reported) Losartan Potassium (Losartan Potassium) 100 Mg Tab, 100 MG PO DAILY, (Reported) Metformin HCl (Metformin HCl) 500 Mg Tab, 500 MG PO BID, (Reported) Rivaroxaban (Xarelto) 20 Mg Tab, 20 MG PO DAILY, (Reported) Spironolactone (Spironolactone) 25 Mg Tablet, 25 MG PO DAILY, (Reported) Scheduled PRN Propylene Glycol/Peg 400/Pf (Systane 0.3-0.4% Eye Drop) 1 Each Droperette, 1 DROP OU QID PRN for DRY EYES, (Reported) PAYTON HOU MD Nov 12, 2018 08:01
--- NOTE | 2018-11-12 10:04 | IPNPDOC ---
Date Seen The patient was seen on 11/12/18. Progress Note Interval history: Patient underwent Urgent EGD in OR today. Patient tolerated procedure well. No immediate post procedure complications. Post procedure exam: Vitals: stable. Abdomen: soft, non distended, Non-tender, normal bowel sounds. Procedure findings: - Recently bleeding grade III and large (> 5 mm) esophageal varices. Completely eradicated. Banded. - Gastritis. - Normal duodenal bulb and second portion of the duodenum. - No specimens collected. Recommendations: - Patient has a contact number available for emergencies. The signs and symptoms of potential delayed complications were discussed with the patient. Return to normal activities tomorrow. Written discharge instructions were provided to the patient. - NPO for 6 hours and then start on clear liquid diet for 24 hours and then advance if tolerated to low sodium diet ( <2gm per day). - IV PPI drip for 24 hours and then switch to oral PPI for total of 6 weeks. - Continue IV Octreotide drip of 50mcg/hr for 3- 5 days - Antibiotics (ceftriaxone - 1 gm once daily if not contra-indicated) for total of 7 days. ( if being discharged can switch to ciprofloxacin oral). - Monitor Hemoglobin/Hematocrit every 6- 8 hours: transfuse as needed to maintain Hb around 7-8. ( Do not transfuse over that level). - ICU/PCU monitoring for 24 hours. - Do Not place NG or OG tube. - Give antiemetics PRN for 24 hours. - Depending on clinical status, to discuss the risks and benefits of anti- coagulants use. At this time the risk of recurrent variceal bleeding is very high and to consider holding Xarelto if not contraindicated for atleast 5 - 7 days. - Update GI if any acute change in status. - At the time of discharge, please start on non selective beta promise ( prefer propranolol or Coreg)-- dose titrated based on the BP and heart rate ( goal 55 - 60 / min). - Upon discharge please give outpatient appointment in GI clinic in 2-3 weeks. ( please call [phone]). Plan of care discussed with patient and primary team. VS, I&O, 24H, Fishbone Laboratory Data CBC/BMP Laboratory Tests 11/11/18 15:49 Red Blood Count 2.86 L, Mean Corpuscular Volume 84.6, Mean Corpuscular Hemoglobin 26.6 L, Mean Corpuscular Hemoglobin Concent 31.4 L, Red Cell Distribution Width 14.4, Neutrophils (%) (Auto) 74.0 H, Lymphocytes (%) (Auto) 1 6.3 L, Monocytes (%) (Auto) 8.4 H, Eosinophils (%) (Auto) 0.4, Basophils (%) (Auto) 0.6, Neutrophils # (Auto) 5.2, Lymphocytes # (Auto) 1.1 L, Monocytes # (Auto) 0.6, Eosinophils # (Auto) 0.0, Basophils # (Auto) 0.0 11/11/18 23:50 Red Blood Count 3.47 L, Mean Corpuscular Volume 84.7, Mean Corpuscular Hemoglobin 27.1, Mean Corpuscular Hemoglobin Concent 32.0, Red Cell Distribution Width 14.2 11/12/18 04:58 Red Blood Count 3.32 L, Mean Corpuscular Volume 83.7, Mean Corpuscular Hemoglobin 26.2 L, Mean Corpuscular Hemoglobin Concent 31.3 L, Red Cell Di stribution Width 14.4, Neutrophils (%) (Auto) 73.8 H, Lymphocytes (%) (Auto) 16.1 L, Monocytes (%) (Auto) 8.0 H, Eosinophils (%) (Auto) 0.8, Basophils (%) (Auto) 0.9, Neutrophils # (Auto) 5.9, Lymphocytes # (Auto) 1.3 L, Monocytes # (Auto) 0.6, Eosinophils # (Auto) 0.1, Basophils # (Auto) 0.1, Calcium Level 8.2 L PAYTON HOU MD Nov 12, 2018 10:04
[2018-11-12] MEDS: D5W/0.9% SODIUM CHLORIDE 1,000 ML IV SCH ×2 (10:42→21:40)
[2018-11-12] MEDS: AMIODARONE 200 MG TAB (PACERONE) PO SCH ×2 (10:43→21:04)
[2018-11-12] MEDS: carBAMazepine 200 MG TAB PO SCH ×3 (10:43→21:05)
[2018-11-12] MEDS: CARVedilol 12.5 MG TAB PO SCH ×2 (10:43→21:05)
[2018-11-12] MEDS: LOSARTAN 50 MG TAB PO SCH ×2 (10:44→21:04)
[2018-11-12 11:55] LABS: HEMOGLOBIN 8.5 g/dl (12.0-15.5)
[2018-11-12] MEDS ORDERED: GLUCAGON FOR INJ 1 MG VIAL (J1610) SC PRN (13:00)
[2018-11-12] MEDS ORDERED: GLUCOSE 4 GM CHEW TABLET PO PRN (13:00)
[2018-11-12] MEDS ORDERED: DEXTROSE 50% 50 ML SYRINGE IV PRN (13:00)
[2018-11-12] MEDS: HumaLOG INSULIN (NovoLOG) PER UNIT SC SCH ×2 (18:13→21:00)
[2018-11-12 18:27] LABS: HEMATOCRIT 28.7 % (36.0-47.0)
[2018-11-12] MEDS: cefTRIAXone SOD 1 GM in D5W MINI-BAG PLUS 50 ML IV SCH (19:46)
[2018-11-12] MEDS: OCTREOTIDE ACETATE 1,200 MCG in NS 238.8 ML IV SCH (19:47)
--- NOTE | 2018-11-12 21:43 | HPE ---
DATE OF ADMISSION: 11/12/2018 Ronda is seen after undergoing esophagogastroduodenoscopy (EGD) today. She was found to have bleeding grade III large esophageal varices eradicated by banding. She has a past history of cirrhosis. This was discovered on a CT scan of the abdomen and pelvis in 2014, prior to a cholecystectomy. In reviewing her office notes, it looks like she saw Dr. Killian for gastroenterology (GI) in 2016 for a few occasions, had alpha-fetoprotein monitoring in office visits, but then fell out of care and has not had a GI evaluation in the last three years ( was unaware of the cirrhosis, but daughter actually pointed out that "had cirrhosis on a CAT scan," prior to cholecystectomy). Patient had large volume hematemesis yesterday for which she refused to come to the emergency room. She ultimately came and was admitted for acute blood loss anemia secondary to esophageal variceal bleeding requiring a blood transfusion. SOCIAL HISTORY: She never smoked. Does not drink any alcohol. She has a history of: 1. Atrial fibrillation and is followed by [facility] cardiology/Dr. Saha, most recently there 03/07/2018. She had an echocardiogram done then that showed left atrium enlargement, 48 mm, ejection fraction 50-60%, severe biatrial enlargement, moderate aortic insufficiency, trace mitral insufficiency. She is on chronic anticoagulant therapy with Xarelto. 2. She has type 2 diabetes on glipizide. Last hemoglobin A1c showed good control of her diabetes at 7%. Previously was at 6.4%. 3. History of hypertensive heart disease. 4. Seizure disorder. 5. Depression. 6. Degenerative disc disease with some herniated discs. HOME MEDICATIONS: - metformin 5 mg twice a day - glipizide ER 2.5 mg a day - carbamazepine 200 mg three times a day - Xarelto 20 mg daily - hydrochlorothiazide 25 mg a day - aldactone 25 mg daily - amiodarone 200 mg twice a day - losartan 100 mg daily - carvedilol 25 mg twice a day - Prozac 20 mg daily - aspirin 81 mg daily PHYSICAL EXAMINATION: Blood pressure 140/80, pulse is 70, respiratory rate 20, 97.6 degrees. GENERAL APPEARANCE: She is lying in bed after returning from the postanesthesia care unit (PACU). She is now in the progressive care unit (PCU). She is alert, conversant, no distress. She has no asterixis. No facial droop or weakness. LUNGS: Clear. HEART: Regular rate and rhythm. No murmur. ABDOMEN: Soft. Nontender. No ascites. No masses. EXTREMITIES: No clubbing or cyanosis. Trace peripheral edema. LABORATORIES: Sodium 141, potassium 3.7, BUN 21, creatinine 1.2, glucose 212. White count 8, hemoglobin 8.5 after transfusion, platelets 168. IMPRESSION: 1. Upper gastrointestinal (GI) bleed with acute blood loss anemia requiring transfusion secondary to bleeding esophageal varices from cirrhosis. Appreciate Dr. Sanchez's input. The patient is now nothing by mouth for six hours and clear liquids for 24 hours and advance her diet to a 2 gram sodium diet. She is on intravenous (IV) Protonix until tomorrow and then switched to oral proton pump inhibitor (PPI) for six weeks. She is on IV octreotide at 50 mcg per hour for the next 3-5 days. She is receiving Rocephin 1 gram IV daily for subacute bacterial endocarditis (SBE) prophylaxis. If discharged less than seven days, advises oral Cipro. Advised holding the Xarelto for now. Recommends on selective beta-promise (patient already on carvedilol) upon discharge we will titrate the dose to 55-60%. He plans to follow her in the office. Serial complete blood counts (CBCs) have been ordered. I met with the family. We discussed the case. There are aware of the serious nature of her condition. 2. Cirrhosis. She had a workup for this in 2016. It was unrevealing. Antimitochondrial antibody was negative. Antinuclear antibody (MAEVE) was negative. Hepatitis B and C were negative. Antineutrophil cytoplasmic antibodies (ANCAs) were negative. Tissue transglutaminase (tTG) was unremarkable. With a history of diabetes, I will do a hemachromatosis workup. Will also order an alpha-fetoprotein. This has not been done since 2016 and at that time, her alpha-fetoprotein had gone from 1.8 to 3.6 over a short period of time. 3. Diabetes. Sliding scale insulin with fingerstick blood sugars ordered. Hold her metformin and her glipizide. 4. Atrial fibrillation. Discussed with family the dilemma of anticoagulant therapy in a patient with esophageal varices who has suffered significant GI bleeding. They are aware of this diagnosis now and the implications. We are holding her Xarelto. Continue her carvedilol 25 mg twice a day and amiodarone. 5. Hypertensive heart disease. Continue her carvedilol as well as her losartan 50 mg twice a day. 6. Seizure disorder. On Tegretol 200 mg three times a day. Will get a Tegretol level in the morning. 7. History of fatty liver. Previous imaging has shown fatty liver. That is probably the etiology of the cirrhosis.
[2018-11-13] VITALS (8 sets, daily range): BP systolic 120–180; BP diastolic 57–84
[2018-11-13 00:47] LABS: HEMATOCRIT 25.5 % (36.0-47.0); HEMOGLOBIN 8.1 g/dl (12.0-15.5)
[2018-11-13] MEDS: PANTOPRAZOLE SODIUM 40 MG in D5W 50 ML IV SCH ×2 (04:07→08:49)
[2018-11-13 05:19] LABS: BASO % 0.7 % (0.0-1.0); EOS # 0.2 10^3/uL (0.0-0.50); EOS % 2.5 % (0.0-3.0); HEMATOCRIT 25.2 % (36.0-47.0); LYMPH # 0.9 10^3/uL (1.5-4.5); MEAN CORPUSCULAR HEMOGLOBIN 27.5 pg (27.0-33.0); MEAN CORPUSCULAR HGB CONC 31.7 g/dl (32.0-36.5); MEAN CORPUSCULAR VOLUME 86.6 fl (80.0-96.0); MONO # 0.5 10^3/uL (0.0-0.8); NEUTROPHILS # 4.3 10^3/uL (1.8-7.7); NEUTROPHILS % 72.5 % (36.0-66.0); PLATELET COUNT, AUTOMATED 135 10^3/uL (150-450); RED BLOOD COUNT 2.91 10^6/uL (4.00-5.40); WHITE BLOOD COUNT 5.9 10^3/uL (4.0-10.0)
[2018-11-13 05:37] LABS: CREATININE FOR GFR 1.02 MG/DL (0.55-1.30); POTASSIUM SERUM 3.3 MEQ/L (3.5-5.1)
[2018-11-13] MEDS: carBAMazepine 200 MG TAB PO SCH ×3 (08:45→20:19)
[2018-11-13] MEDS: AMIODARONE 200 MG TAB (PACERONE) PO SCH ×2 (08:45→20:19)
[2018-11-13] MEDS: LOSARTAN 50 MG TAB PO SCH ×2 (08:46→20:06)
[2018-11-13] MEDS: CARVedilol 12.5 MG TAB PO SCH ×2 (08:46→20:06)
[2018-11-13] MEDS: HumaLOG INSULIN (NovoLOG) PER UNIT SC SCH ×4 (08:47→20:07)
[2018-11-13] MEDS ORDERED: POTASSIUM CHLORIDE 10 MEQ SR TABLET PO ONE (09:00)
--- NOTE | 2018-11-13 09:16 | IPNPDOC ---
Subjective Date Seen The patient was seen on 11/13/18. Subjective Chief Complaint/HPI GIB, syncope Events since last encounter Tolerating Clears liquids. Denies abdominal pain. Anxious to return home. Constitutional: Denies: Chills, Fever, Night Sweats Pulmonary: Denies: Dyspnea, Cough Cardiovascular: Denies: Chest Pain, Palpitations, Orthopnea, Paroxysmal Noc. Dyspnea, Lt Headedness Gastrointestinal: Denies: Nausea, Vomiting, Abdominal Pain, Diarrhea, Constipation Psych: Reports: Mood Normal; Denies: Depression, Memory Issues Objective Physical Examination General Exam: Positive: Alert, Cooperative, No Acute Distress Eye Exam: Positive: Conjunctiva & lids normal, EOMI; Negative: Sclera icteric ENT Exam: Positive: Atraumatic, Mucous membr. moist/pink, Pharynx Normal Neck Exam: Positive: Supple; Negative: JVD, thyromegaly Chest Exam: Positive: Clear to auscultation, Normal air movement Heart Exam: Positive: Irregular Rhythm, Normal S1, Normal S2; Negative: Gallops, Murmurs, Rubs Telemetry: Positive: Atrial fibrillation Abdomen Exam: Positive: Normal bowel sounds, Soft, Other (OBESE); Negative: Tenderness, Hepatospenomegaly Extremity Exam: Negative: Clubbing, Cyanosis, Edema Skin Exam: Positive: Nl turgor and temperature; Negative: Breakdown, Lesion Neuro Exam: Positive: Normal Speech, Strength at 5/5 X4 ext, Normal Tone Psych Exam: Positive: Memory Intact, Oriented x 3 Assessment /Plan Problems (1) GIB (gastrointestinal bleeding) Problem Text: Upper gastrointestinal (GI) bleed with acute blood loss anemia requiring transfusion secondary to bleeding esophageal varices from cirrhosis. Appreciate Dr. Sanchez's input. Will advance her diet to a 2 gram sodium diet. Switch to oral proton pump inhibitor (PPI) for six weeks. She is on IV octreotide at 50 mcg per hour for the next 3-5 days. She is receiving Rocephin 1 gram IV daily for subacute bacterial endocarditis (SBE) prophylaxis. If discharged less than seven days, advises oral Cipro. Advised holding the Xarelto for now. Serial complete blood counts (CBCs) have been ordered. I met with the family. We discussed the case. There are aware of the serious nature of her condition. (2) Syncope Status: Acute Problem Text: Cardio Recommends placing patient on selective beta-promise (patient already on HD carvedilol 25 BID c excellent rate control) upon discharge we will titrate the dose to 55-60%. favor non-selective BB for portal HTN He plans to follow her in the office. (3) Atrial fibrillation Status: Chronic Problem Text: Patient with esophageal varices who has suffered significant GI bleeding. patient and family aware of this diagnosis now and the implications. We are holding her Xarelto. Continue her carvedilol 25 mg twice a day and amiodarone. (4) Anemia Status: Acute (5) HTN (hypertension) Status: Chronic (6) Seizure disorder Status: Chronic Problem Text: On Tegretol 200 mg three times a day. (7) Diabetes Status: Chronic Problem Text: Sliding scale insulin per protocol with fingersticks. Hold her metformin and her glipizide. (8) Cirrhosis of liver Problem Text: he had a workup for this in 2016. It was unrevealing. Antimitochondrial antibody was negative. Antinuclear antibody (MAEVE) was negative. Hepatitis B and C were negative. Antineutrophil cytoplasmic antibodies (ANCAs) were negative. Tissue transglutaminase (tTG) was unremarkable. Hemachromatosis workup ordered and pending. Will also order an alpha-fetoprotein. This has not been done since 2016 and at that time, her alpha-fetoprotein had gone from 1.8 to 3.6 over a short period of time. Plan/VTE VTE Prophylaxis Ordered?: No VTE Exclusion Pharmacological: Bleeding Risk VS, I&O, 24H, Fishbone Vital Signs/I&O Vital Signs Date Time Temp Pulse Resp B/P (MAP) Pulse Ox O2 Delivery O2 Flow Rate FiO2 11/13/18 08:46 158/74 11/13/18 08:00 97.4 72 20 95 11/12/18 20:00 2.0 11/11/18 23:31 Room Air I&O- Last 24 Hours up to 6 AM 11/13/18 06:00 Intake Total 2867.5 ml Output Total 325 ml Balance 2542.5 ml Laboratory Data 24H LABS Laboratory Tests 2 11/12/18 18:04: Bedside Glucose (Misc Panel) 192H 11/12/18 18:08: 11/12/18 20:40: Bedside Glucose (Misc Panel) 168H 11/13/18 04:57: Immature Granulocyte % (Auto) 0.3, White Blood Count 5.9, Red Blood Count 2.91L, Hemoglobin 8.0L, Hematocrit 25.2L, Mean Corpuscular Volume 86.6, Mean Corpuscular Hemoglobin 27.5, Mean Corpuscular Hemoglobin Concent 31.7L, Red Cell Distribution Width 14.5, Platelet Count 135L, Neutrophils (%) (Auto) 72.5H, Lymphocytes (%) (Auto) 16.0L, Monocytes (%) (Auto) 8.0H, Eosinophils (%) (Auto) 2.5, Basophils (%) (Auto) 0.7, Neutrophils # (Auto) 4.3, Lymphocytes # (Auto) 0.9L, Monocytes # (Auto) 0.5, Eosinophils # (Auto) 0.2, Basophils # (Auto) 0.0, Nucleated Red Blood Cells % (auto) 0.0, Anion Gap 5L, Glomerular Filtration Rate 57.0, Blood Urea Nitrogen 18, Creatinine 1.02, Sodium Level 142, Potassium Level 3.3L, Chloride Level 111H, Carbon Dioxide Level 26, Calcium Level 8.0L CBC/BMP Laboratory Tests 11/12/18 11:46 11/12/18 18:08 11/13/18 00:23 11/13/18 04:57 Red Blood Count 2.91 L, Mean Corpuscular Volume 86.6, Mean Corpuscular Hemoglobin 27.5, Mean Corpuscular Hemoglobin Concent 31.7 L, Red Cell Distribution Width 14.5, Neutrophils (%) (Auto) 72.5 H, Lymphocytes (%) (Auto) 16.0 L, Monocytes (%) (Auto) 8.0 H, Eosinophils (%) (Auto) 2.5, Basophils (%) (Auto) 0.7, Neutrophils # (Auto) 4.3, Lymphocytes # (Auto) 0.9 L, Monocytes # (Auto) 0.5, Eosinophils # (Auto) 0.2, Basophils # (Auto) 0.0, Calcium Level 8.0 L Ines Patel Nov 13, 2018 09:16 Pierre Chavez M.D. Nov 13, 2018 16:23
[2018-11-13] MEDS: PANTOPRAZOLE 40MG TAB (PROTONIX) PO SCH ×2 (09:50→20:19)
[2018-11-13] MEDS: D5W/0.9% SODIUM CHLORIDE 1,000 ML IV SCH (10:30)
[2018-11-13 12:09] LABS: HEMATOCRIT 26.6 % (36.0-47.0); HEMOGLOBIN 8.1 g/dl (12.0-15.5)
[2018-11-13 17:40] LABS: HEMATOCRIT 26.9 % (36.0-47.0); HEMOGLOBIN 8.7 g/dl (12.0-15.5)
[2018-11-13] MEDS: OCTREOTIDE ACETATE 1,200 MCG in NS 238.8 ML IV SCH (20:19)
[2018-11-13] MEDS: cefTRIAXone SOD 1 GM in D5W MINI-BAG PLUS 50 ML IV SCH (20:20)
[2018-11-14 00:15] LABS: HEMATOCRIT 26.4 % (36.0-47.0); HEMOGLOBIN 8.3 g/dl (12.0-15.5)
[2018-11-14 04:00] VITALS: BP 141/79
[2018-11-14 05:05] LABS: BASO % 0.5 % (0.0-1.0); EOS # 0.2 10^3/uL (0.0-0.50); EOS % 2.7 % (0.0-3.0); HEMATOCRIT 25.9 % (36.0-47.0); HEMOGLOBIN 8.2 g/dl (12.0-15.5); LYMPH # 1.1 10^3/uL (1.5-4.5); LYMPH % 12.8 % (24.0-44.0); MEAN CORPUSCULAR HEMOGLOBIN 26.9 pg (27.0-33.0); MEAN CORPUSCULAR HGB CONC 31.7 g/dl (32.0-36.5); MEAN CORPUSCULAR VOLUME 84.9 fl (80.0-96.0); MONO # 0.8 10^3/uL (0.0-0.8); MONO % 9.5 % (0.0-5.0); NEUTROPHILS # 6.1 10^3/uL (1.8-7.7); NEUTROPHILS % 74.1 % (36.0-66.0); PLATELET COUNT, AUTOMATED 156 10^3/uL (150-450); RED BLOOD COUNT 3.05 10^6/uL (4.00-5.40); WHITE BLOOD COUNT 8.2 10^3/uL (4.0-10.0)
[2018-11-14 05:27] LABS: CALCIUM LEVEL 8.4 MG/DL (8.8-10.2); CREATININE FOR GFR 1.02 MG/DL (0.55-1.30); POTASSIUM SERUM 3.5 MEQ/L (3.5-5.1)
[2018-11-14 08:00] VITALS: BP 184/88
[2018-11-14] MEDS: PANTOPRAZOLE 40MG TAB (PROTONIX) PO SCH ×2 (08:33→20:25)
[2018-11-14] MEDS: CARVedilol 12.5 MG TAB PO SCH ×2 (08:34→20:25)
[2018-11-14] MEDS: AMIODARONE 200 MG TAB (PACERONE) PO SCH ×2 (08:34→20:25)
[2018-11-14] MEDS: LOSARTAN 50 MG TAB PO SCH ×2 (08:34→20:25)
[2018-11-14] MEDS: carBAMazepine 200 MG TAB PO SCH ×3 (08:34→20:25)
[2018-11-14] MEDS: HumaLOG INSULIN (NovoLOG) PER UNIT SC SCH ×4 (08:35→21:00)
--- NOTE | 2018-11-14 09:09 | IPNPDOC ---
Subjective Date Seen The patient was seen on 11/14/18. Subjective Chief Complaint/HPI GIB, syncope Constitutional: Denies: Chills, Fever, Night Sweats Pulmonary: Denies: Dyspnea, Cough Cardiovascular: Denies: Chest Pain, Palpitations, Orthopnea, Paroxysmal Noc. Dyspnea, Lt Headedness Gastrointestinal: Denies: Nausea, Vomiting, Abdominal Pain, Diarrhea, Constipation Genitourinary: Denies: Dysuria, Frequency, Incontinence, Retention Objective Physical Examination General Exam: Positive: Alert, Cooperative, No Acute Distress Eye Exam: Positive: Conjunctiva & lids normal, EOMI; Negative: Sclera icteric ENT Exam: Positive: Atraumatic, Mucous membr. moist/pink, Pharynx Normal Neck Exam: Positive: Supple; Negative: JVD, thyromegaly Chest Exam: Positive: Clear to auscultation, Normal air movement Heart Exam: Positive: Irregular Rhythm, Normal S1, Normal S2; Negative: Gallops, Murmurs, Rubs Telemetry: Positive: Atrial fibrillation Abdomen Exam: Positive: Normal bowel sounds, Soft, Other (OBESE); Negative: Tenderness, Hepatospenomegaly Extremity Exam: Negative: Clubbing, Cyanosis, Edema Skin Exam: Positive: Nl turgor and temperature; Negative: Breakdown, Lesion Neuro Exam: Positive: Normal Speech, Strength at 5/5 X4 ext, Normal Tone Psych Exam: Positive: Memory Intact, Oriented x 3 Assessment /Plan Problems (1) GIB (gastrointestinal bleeding) Problem Text: 11/14/18: will DC Octreotide today and monitor. Hgb is stable. Upper gastrointestinal (GI) bleed with acute blood loss anemia requiring transfusion secondary to bleeding esophageal varices from cirrhosis. Appreciate Dr. Sanchez's input. Will advance her diet to a 2 gram sodium diet. Switch to oral proton pump inhibitor (PPI) for six weeks. She is on IV octreotide at 50 mcg per hour for the next 3-5 days. She is receiving Rocephin 1 gram IV daily for subacute bacterial endocarditis (SBE) prophylaxis. If discharged less than seven days, advises oral Cipro. Advised holding the Xarelto for now. Serial complete blood counts (CBCs) have been ordered. I met with the family. We discussed the case. There are aware of the serious nature of her condition. (2) Syncope Status: Acute Problem Text: 11/14/18: Carvedilol hash been held due to BP parameters. Changes to hold for SBP <100 and HR<55. Per GI note: goal is to keep HR 55-60. Cardio Recommends placing patient on selective beta-promise (patient already on HD carvedilol 25 BID c excellent rate control) upon discharge we will titrate the dose to 55-60%. favor non-selective BB for portal HTN He plans to follow her in the office. (3) Atrial fibrillation Status: Chronic Problem Text: Patient with esophageal varices who has suffered significant GI bleeding. patient and family aware of this diagnosis now and the implications. We are holding her Xarelto. Continue her carvedilol 25 mg twice a day and amiodarone. (4) Anemia Status: Acute (5) HTN (hypertension) Status: Chronic (6) Seizure disorder Status: Chronic Problem Text: On Tegretol 200 mg three times a day. (7) Diabetes Status: Chronic Problem Text: Sliding scale insulin per protocol with fingersticks. Hold her metformin and her glipizide. (8) Cirrhosis of liver Problem Text: he had a workup for this in 2016. It was unrevealing. Antimitochondrial antibody was negative. Antinuclear antibody (MAEVE) was negative. Hepatitis B and C were negative. Antineutrophil cytoplasmic antibodies (ANCAs) were negative. Tissue transglutaminase (tTG) was unremarkable. Hemachromatosis workup ordered and pending. Will also order an alpha-fetoprotein. This has not been done since 2016 and at that time, her alpha-fetoprotein had gone from 1.8 to 3.6 over a short period of time. Plan/VTE VTE Prophylaxis Ordered?: No VTE Exclusion Pharmacological: Bleeding Risk VS, I&O, 24H, Fishbone Vital Signs/I&O Vital Signs Date Time Temp Pulse Resp B/P (MAP) Pulse Ox O2 Delivery O2 Flow Rate FiO2 11/14/18 08:34 184/88 11/14/18 08:34 78 11/14/18 08:00 100.0 20 91 11/12/18 20:00 2.0 11/11/18 23:31 Room Air I&O- Last 24 Hours up to 6 AM 11/14/18 06:00 Intake Total 2150 ml Output Total 600 ml Balance 1550 ml Laboratory Data 24H LABS Laboratory Tests 2 11/13/18 12:09: Bedside Glucose (Misc Panel) 179H 11/13/18 16:23: Bedside Glucose (Misc Panel) 130H 11/13/18 20:04: Bedside Glucose (Misc Panel) 159H 11/14/18 04:51: Immature Granulocyte % (Auto) 0.4, White Blood Count 8.2, Red Blood Count 3.05L, Hemoglobin 8.2L, Hematocrit 25.9L, Mean Corpuscular Volume 84.9, Mean Corpuscular Hemoglobin 26.9L, Mean Corpuscular Hemoglobin Concent 31.7L, Red Cell Distribution Width 14.9H, Platelet Count 156, Neutrophils (%) (Auto) 74.1H, Lymphocytes (%) (Auto) 12.8L, Monocytes (%) (Auto) 9.5H, Eosinophils (%) (Auto) 2.7, Basophils (%) (Auto) 0.5, Neutrophils # (Auto) 6.1, Lymphocytes # (Auto) 1.1L, Monocytes # (Auto) 0.8, Eosinophils # (Auto) 0.2, Basophils # (Auto) 0.0, Nucleated Red Blood Cells % (auto) 0.0 11/14/18 04:52: Anion Gap 8, Glomerular Filtration Rate 57.0, Blood Urea Nitrogen 15, Creatinine 1.02, Sodium Level 144, Potassium Level 3.5, Chloride Level 112H, Carbon Dioxide Level 24, Calcium Level 8.4L CBC/BMP Laboratory Tests 11/13/18 11:45 11/13/18 17:28 11/14/18 00:02 11/14/18 04:51 Red Blood Count 3.05 L, Mean Corpuscular Volume 84.9, Mean Corpuscular Hemoglobin 26.9 L, Mean Corpuscular Hemoglobin Concent 31.7 L, Red Cell Distribution Width 14.9 H, Neutrophils (%) (Auto) 74.1 H, Lymphocytes (%) (Auto) 12.8 L, Monocytes (%) (Auto) 9.5 H, Eosinophils (%) (Auto) 2.7, Basophils (%) (Auto) 0.5, Neutrophils # (Auto) 6.1, Lymphocytes # (Auto) 1.1 L, Monocytes # (Auto) 0.8, Eosinophils # (Auto) 0.2, Basophils # (Auto) 0.0 11/14/18 04:52 Calcium Level 8.4 L Ines Patel [facility] Nov 14, 2018 09:09
[2018-11-14 12:00] VITALS: BP 160/80
[2018-11-14 16:10] VITALS: BP 158/84
[2018-11-14] MEDS ORDERED: MAALOX 30 ML SUSP *UDC PO ONE (19:00)
[2018-11-14] MEDS: cefTRIAXone SOD 1 GM in D5W MINI-BAG PLUS 50 ML IV SCH (20:24)
[2018-11-14 22:00] VITALS: BP 158/79
[2018-11-15 06:00] VITALS: BP 150/94
[2018-11-15 06:16] LABS: BASO % 0.5 % (0.0-1.0); EOS # 0.1 10^3/uL (0.0-0.50); EOS % 2.2 % (0.0-3.0); HEMATOCRIT 25.5 % (36.0-47.0); HEMOGLOBIN 8.2 g/dl (12.0-15.5); LYMPH # 0.9 10^3/uL (1.5-4.5); LYMPH % 13.7 % (24.0-44.0); MEAN CORPUSCULAR HEMOGLOBIN 27.6 pg (27.0-33.0); MEAN CORPUSCULAR HGB CONC 32.2 g/dl (32.0-36.5); MEAN CORPUSCULAR VOLUME 85.9 fl (80.0-96.0); MONO # 0.7 10^3/uL (0.0-0.8); MONO % 10.3 % (0.0-5.0); NEUTROPHILS # 4.7 10^3/uL (1.8-7.7); NEUTROPHILS % 72.8 % (36.0-66.0); PLATELET COUNT, AUTOMATED 134 10^3/uL (150-450); RED BLOOD COUNT 2.97 10^6/uL (4.00-5.40); WHITE BLOOD COUNT 6.5 10^3/uL (4.0-10.0)
[2018-11-15 06:33] LABS: BLOOD UREA NITROGEN 13 MG/DL (7-18); CALCIUM LEVEL 8.2 MG/DL (8.8-10.2); CARBON DIOXIDE LEVEL 25 MEQ/L (21-32); CHLORIDE LEVEL 110 MEQ/L (98-107); GLOMERULAR FILTRATION RATE > 60.0 (>39); GLUCOSE, FASTING 160 MG/DL (70-100); POTASSIUM SERUM 3.6 MEQ/L (3.5-5.1); SODIUM LEVEL 141 MEQ/L (136-145)
[2018-11-15] MEDS: AMIODARONE 200 MG TAB (PACERONE) PO SCH (09:00)
[2018-11-15] MEDS: HumaLOG INSULIN (NovoLOG) PER UNIT SC SCH (09:14)
[2018-11-15] MEDS ORDERED: PANT40TA3 PO (09:16)
[2018-11-15 09:20] VITALS: BP 158/92
[2018-11-15] MEDS: CARVedilol 12.5 MG TAB PO SCH (09:20)
[2018-11-15] MEDS: LOSARTAN 50 MG TAB PO SCH (09:21)
[2018-11-15] MEDS: PANTOPRAZOLE 40MG TAB (PROTONIX) PO SCH (09:21)
[2018-11-15] MEDS ORDERED: COZA50TA PO (09:22)
[2018-11-15] MEDS: carBAMazepine 200 MG TAB PO SCH (09:22)
[2018-11-15] MEDS ORDERED: TESS100C PO (09:23)
[2018-11-15] MEDS ORDERED: CIPR500T3 PO (09:44)
--- NOTE | 2018-11-16 12:34 | DSES ---
DATE OF ADMISSION: 11/11/2018 DATE OF DISCHARGE: 11/15/2018 PRIMARY CARE PROVIDER: Esdras Araujo MD ATTENDING PHYSICIAN: Kenneth Haq MD HISTORY OF PRESENT ILLNESS: This is a 68-year-old female who presented to [facility] Emergency Department. Prior to the patient's presentation, she woke up the previous day feeling sick to her stomach with a large amount of vomiting of blood mixed with clots and declined calling her primary care doctor or going to the emergency department. The patient subsequently attended a family outing. She felt sick, attempted to walk to the bathroom, became weak, and then subsequently had a syncopal episode. Per reports of the family, the patient had cardiopulmonary resuscitation (CPR) administered by lifeguards. However, there is no emergency medical services (EMS) documentation of such. On presentation to the emergency department (ED), the patient was found to have a hemoglobin of 7.9 with a positive guaiac with melanotic stool. The patient was admitted for a gastrointestinal (GI) bleed and syncope to the family medicine service. HOSPITAL COURSE: The patient is status post GI consult with Dr. Sanchez, who provided an esophagogastroduodenoscopy (EGD) on 11/12/2018. The patient was noted to have grade 3 large esophageal varices. These were eradicated and banded. She was noted to have gastritis, as well. The patient was placed on pantoprazole 40 mg intravenous (IV) drip for 24 hours. She was subsequently switched over to an oral proton pump inhibitor (PPI), Protonix 40 mg by mouth twice a day. The patient was also maintained on an IV octreotide drip of 50 mcg/h for 72 hours. She tolerated this well. She was placed on ceftriaxone for subacute bacterial endocarditis (SBE) prophylaxis and should receive a full 7 days of antibiotics. Will be sent home on oral ciprofloxacin, as well. The patient's hemoglobin and hematocrit remained stable throughout her hospitalization. Most recent hemoglobin is 8.2. She has tolerated a regular diet. Has been able to ambulate and has been cleared with physical therapy. She has been maintained on her beta promise of carvedilol 25 mg by mouth twice a day for rate control, as well as for her cirrhosis of her liver, along with esophageal varices. On physical examination today, vital signs are stable. She is afebrile.] HEENT: Neck is supple without lymphadenopathy or jugular venous distention (JVD). Cardiovascular: Heart rate and rhythm are regular. Pulmonary: Lungs are clear. Abdomen: Is soft and nontender. Bilateral lower extremities are without any edema. Neurologic: The patient is alert and oriented times three. Psychiatric: Affect is appropriate. Conversation is congruent. DISCHARGE DIAGNOSES: 1. Syncopal episode. 2. Gastrointestinal bleed. 3. Acute blood loss anemia secondary to gastrointestinal bleed. 4. Cirrhosis of the liver with esophageal varices. 5. Hypertension. 6. Chronic obstructive pulmonary disease (COPD). PLAN: The patient will be discharged to home. Home health has been added on for monitoring within the home. She will followup with primary care provider within the next 5-7 days. She will followup with gastroenterology within the next 1-2 weeks. Diet is a carbohydrate-consistent as-tolerated diet. Medications are as follows: - Tessalon Perles 100 mg by mouth three times a day (The patient has significant cough, and it does cause some pain within the chest wall. She was advised bracing and to followup with her trial paralegal regarding recurrent cough.) - losartan potassium 50 mg by mouth twice a day - pantoprazole sodium 40 mg one by mouth twice a day - amiodarone 200 mg by mouth twice a day - aspirin 81 mg by mouth daily - calcium carbonate 500 mg by mouth daily - carbamazepine 200 mg by mouth three times a day - carvedilol 25 mg by mouth twice a day - fluoxetine 20 mg by mouth daily - glipizide 2.5 mg by mouth daily - hydrochlorothiazide 25 mg by mouth daily - metformin 500 mg by mouth twice a day - Systane eyedrops one drop both eyes (OU) four times a day as needed dry eyes - spironolactone 25 mg by mouth daily Medications that were changed include: losartan potassium was changed from 100 mg daily to 50 mg twice a day, and her Xarelto is on hold until she has followup with her primary care provider and consider resuming this medication. We are maintaining her on a baby aspirin daily. The patient is discharged in stable and satisfactory condition with no further questions at time of discharge.
== END 2018-11-15 10:51 | disposition home health service (06) | DRG 432 ==
LOC: M ED 15:44 → M ED INP 17:54 → M PCU 11-12 02:19 → M MSPAV 11-14 16:13
PROVIDERS: ADMIT Internal Medicine Nephrology; ATTEND Family Medicine
PROC: 0W3P8ZZ Control Bleeding in Gastrointestinal Tract, Via Natural or Artificial Opening Endoscopic (ICD-10-PCS; principal; 2018-11-12 08:00)
DX: K74.60 Unspecified cirrhosis of liver (principal); I85.01 Esophageal varices with bleeding; D62 Acute posthemorrhagic anemia; I11.9 Hypertensive heart disease without heart failure; J44.9 Chronic obstructive pulmonary disease, unspecified; Z79.82 Long term (current) use of aspirin; Z79.899 Other long term (current) drug therapy; Z79.01 Long term (current) use of anticoagulants; I48.91 Unspecified atrial fibrillation; E11.9 Type 2 diabetes mellitus without complications; G40.909 Epilepsy, unspecified, not intractable, without status epilepticus; R55 Syncope and collapse; Z88.8 Allergy status to other drugs, medicaments and biological substances; M50.30 Other cervical disc degeneration, unspecified cervical region; M51.26 Other intervertebral disc displacement, lumbar region; F32.9 Major depressive disorder, single episode, unspecified

== ENCOUNTER → 2018-11-23 | Outpatient (REF) | payer MEDICARE, MEDICAID ==
[~2018-11-23] MED LIST changes: +CIPR500T3 PO; +COZA50TA PO; +HYDR25TAB PO; +PANT40TA3 PO; +SPIR-10 PO; +SYST1SOL4 OU; +TESS100C PO
[2018-11-23 17:17] LABS: HEMATOCRIT 27.3 % (36.0-47.0); HEMOGLOBIN 8.6 g/dl (12.0-15.5); MEAN CORPUSCULAR HEMOGLOBIN 26.5 pg (27.0-33.0); MEAN CORPUSCULAR HGB CONC 31.5 g/dl (32.0-36.5); MEAN CORPUSCULAR VOLUME 84.3 fl (80.0-96.0); RED BLOOD COUNT 3.24 10^6/uL (4.00-5.40); WHITE BLOOD COUNT 6.3 10^3/uL (4.0-10.0)
== END ==
LOC: M SFHCCLAY 10:24
PROVIDERS: ATTEND Family Medicine
DX: K29.71 Gastritis, unspecified, with bleeding (principal); I85.11 Secondary esophageal varices with bleeding

== ENCOUNTER → 2018-12-20 | Outpatient (CLI) | payer MEDICARE, MEDICAID ==
[~2018-12-20] MED LIST changes: +FLUO20CA20 PO; -FLUO20CA8 PO
[2018-12-20 07:34] LABS: EOS # 0.1 10^3/uL (0.0-0.50); EOS % 2.3 % (0.0-3.0); HEMOGLOBIN 8.4 g/dl (12.0-15.5); LYMPH # 0.8 10^3/uL (1.5-4.5); LYMPH % 20.6 % (24.0-44.0); MEAN CORPUSCULAR HEMOGLOBIN 24.2 pg (27.0-33.0); MEAN CORPUSCULAR HGB CONC 31.1 g/dl (32.0-36.5); MEAN CORPUSCULAR VOLUME 77.8 fl (80.0-96.0); MONO # 0.5 10^3/uL (0.0-0.8); MONO % 11.8 % (0.0-5.0); NEUTROPHILS # 2.6 10^3/uL (1.8-7.7); PLATELET COUNT, AUTOMATED 174 10^3/uL (150-450); RED BLOOD COUNT 3.47 10^6/uL (4.00-5.40)
[2018-12-20 07:47] LABS: INR 1.26; PROTHROMBIN TIME 15.5 SECONDS (11.8-14.0)
[2018-12-20 07:48] LABS: PARTIAL THROMBOPLASTIN TIME 31.2 SECONDS (25.0-38.4)
[2018-12-20 07:57] LABS: ALBUMIN 3.6 GM/DL (3.2-5.2); ALT/SGPT 28 U/L (12-78); BILIRUBIN,DIRECT 0.1 MG/DL (0.0-0.2); BILIRUBIN,TOTAL 0.3 MG/DL (0.2-1.0); BLOOD UREA NITROGEN 13 MG/DL (7-18); CREATININE FOR GFR 0.99 MG/DL (0.55-1.30); IRON (FE) 24 UG/DL (50-170); PERCENT SATURATION 6.2 % (13.2-45.0); TOTAL IRON BINDING CAPACITY 388 UG/DL (250-450); TOTAL PROTEIN 7.4 GM/DL (6.4-8.2)
[2018-12-20 09:46] LABS: HEPATITIS B SURFACE ANTIBODY NEGATIVE (POSITIVE)
--- NOTE | 2018-12-20 12:09 | REP ---
Complete abdominal ultrasound for unspecified cirrhosis to evaluate for HCC, ascites and splenic size: The the patient has a cholecystectomy. There is no intrahepatic or extrahepatic biliary duct dilatation. The common duct measures 4.6 mm in diameter. The hepatic parenchyma is coarsened compatible with diffuse hepatocellular disease. No focal hepatic masses are identified. The The visualized areas of the pancreas are unremarkable. The spleen is enlarged measuring 14.2 x 5.1 x 14.8 cm today a splenic index is 1072. The kidneys are normal size. The right kidney measures 11.7 x 5.5 x 5.5 cm. The left kidney measures 11.7 x 4.1 x 4.1 cm. There are no solid or cystic renal masses. There are no calculi. There is no hydronephrosis. There is no abdominal aortic aneurysm. No ascites is identified in any of the abdominal quadrants. Impression: Coarsened hepatic echotexture compatible with diffuse hepatocellular disease. There are no hepatic masses. There is no ascites. The spleen is enlarged. There is a cholecystectomy. There is no biliary duct dilatation. Electronically Signed by Jacob Clifton MD 12/20/2018 09:41 A
[2018-12-22 00:06] LABS: ANTI-SMOOTH MUSCLE ANTIBODY 6 Units (0-19); HEPATITIS A IgG TOTAL Positive (Negative); LIVER-KIDNEY MICROSOMAL ABY <20.1 Units (0.0-20.0)
== END ==
LOC: M LAB 07:07
PROVIDERS: ATTEND Internal Medicine Gastroenterology
DX: R16.1 Splenomegaly, not elsewhere classified (principal); K74.60 Unspecified cirrhosis of liver
CPT/HCPCS: 36415; 76700; 80076; 82105; 82565; 83550; 84520; 85025; 85610; 85730; 86255; 86376; 86706; 86708; G0463

== ENCOUNTER 2019-01-24 18:51 | Emergency (ER) | payer MEDICARE, MEDICAID ==
[~2019-01-24] VITALS: Ht 167.6 cm; Wt 78.6 kg
[~2019-01-24 18:51] MED LIST changes: -FLUO20CA20 PO; +FLUO20CA8 PO
[2019-01-24 19:36] LABS: BASO % 0.6 % (0.0-1.0); EOS # 0.1 10^3/uL (0.0-0.5); EOS % 1.5 % (0.0-3.0); HEMATOCRIT 31.4 % (36.0-47.0); LYMPH # 0.6 10^3/uL (1.5-5.0); LYMPH % 12.1 % (24.0-44.0); MEAN CORPUSCULAR HEMOGLOBIN 25.7 pg (27.0-33.0); MEAN CORPUSCULAR HGB CONC 31.8 g/dl (32.0-36.5); MEAN CORPUSCULAR VOLUME 80.7 fl (80.0-96.0); MONO # 0.6 10^3/uL (0.0-0.8); MONO % 10.7 % (0.0-5.0); NEUTROPHILS % 74.5 % (36.0-66.0); PLATELET COUNT, AUTOMATED 155 10^3/uL (150-450); RED BLOOD COUNT 3.89 10^6/uL (4.00-5.40); WHITE BLOOD COUNT 5.3 10^3/uL (4.0-10.0)
[2019-01-24 19:46] LABS: INR 1.16; PARTIAL THROMBOPLASTIN TIME 28.1 SECONDS (25.0-38.4); PROTHROMBIN TIME 14.6 SECONDS (11.8-14.0)
[2019-01-24 19:55] LABS: ALBUMIN 3.6 GM/DL (3.2-5.2); ALT/SGPT 23 U/L (12-78); BILIRUBIN,DIRECT 0.2 MG/DL (0.0-0.2); BILIRUBIN,TOTAL 0.4 MG/DL (0.2-1.0); BLOOD UREA NITROGEN 15 MG/DL (7-18); CALCIUM LEVEL 8.9 MG/DL (8.8-10.2); CARBON DIOXIDE LEVEL 25 MEQ/L (21-32); CHLORIDE LEVEL 104 MEQ/L (98-107); CK-MB VALUE MASS 1.2 NG/ML (<3.6); CPK CREATINE PHOSPHOKINASE 69 U/L (26-192); CREATININE FOR GFR 1.11 MG/DL (0.55-1.30); GLOMERULAR FILTRATION RATE 51.7 (>39); GLUCOSE, FASTING 176 MG/DL (70-100); LIPASE 281 U/L (73-393); MB/CK RELATIVE INDEX 1.74 (< OR =4); POTASSIUM SERUM 3.8 MEQ/L (3.5-5.1); SODIUM LEVEL 138 MEQ/L (136-145); TOTAL PROTEIN 7.5 GM/DL (6.4-8.2); TROPONIN I < 0.02 NG/ML (< 0.10)
[2019-01-24] MEDS ORDERED: carBAMazepine 200 MG TAB PO ONE (20:00)
[2019-01-24] MEDS ORDERED: SPIRONOLACTONE 25 MG TAB PO ONE (20:00)
[2019-01-24] MEDS ORDERED: CARVedilol 12.5 MG TAB PO ONE (20:00)
[2019-01-24] MEDS ORDERED: MORPHINE 4 MG/ML 1ML VIAL/SYRINGE (J2270) IV ONE (20:00)
[2019-01-24] MEDS ORDERED: LOSARTAN 50 MG TAB PO ONE (20:00)
[2019-01-24] MEDS ORDERED: ISOVUE-370 76% 100ML VIAL (Q9967) As Ordered ONE (20:07)
[2019-01-24 20:25] VITALS: BP 175/79
--- NOTE | 2019-01-24 20:49 | REPVR ---
PROCEDURE INFORMATION: Exam: CT Angiography Chest With Contrast Exam date and time: 01/24/2019 8:10 PM Clinical history: 68 years old, female; Chest pain; Additional info: Chest and upper back pain TECHNIQUE: Imaging protocol: Computed tomographic angiography of the chest with intravenous contrast. 3D rendering: MIP reconstructed images were created and reviewed. Radiation optimization: All CT scans at this facility use at least one of these dose optimization techniques: automated exposure control; mA and/or kV adjustment per patient size (includes targeted exams where dose is matched to clinical indication); or iterative reconstruction. Contrast material: ISOVUE 370; Contrast volume: 75 ml; Contrast route: IV; COMPARISON: CR Chest, 1 view 11/11/2018 4:15 PM FINDINGS: Pulmonary arteries: No focal pulmonary artery filling defect to suggest acute pulmonary embolus. Aorta: No thoracic aortic aneurysm or dissection. Lungs: No suspicious lung mass or air space process. No central endobronchial lesion. Pleural space: No pleural effusion or pneumothorax. Heart: Multi-chamber cardiac dilatation is noted. No evidence of acute pulmonary edema. Liver: Liver demonstrates nodular contours, suggesting cirrhosis. Lymph nodes: No enlarged mediastinal lymph nodes. Bones/joints: Bony structures are unremarkable except for benign DISH changes. IMPRESSION: 1. No evidence of acute pulmonary emboli or aortic dissection. 2. No acute intrathoracic abnormality. 3. Multichamber cardiac enlargement but no active pulmonary edema. 4. Hepatic cirrhosis Electronically signed by: Александр Grant On 01/24/2019 20:49:10 PM
--- NOTE | 2019-01-24 20:51 | ECGEPIP ---
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
[2019-01-25 01:16] LABS: MB/CK RELATIVE INDEX 1.92 (< OR =4); TROPONIN I 0.03 NG/ML (< 0.10)
[2019-01-25 02:01] VITALS: BP 164/76
--- NOTE | 2019-01-25 07:12 | ECGEPIP ---
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
== END 2019-01-25 01:59 | disposition home or self-care (01) ==
LOC: M ED 18:51
DX: M54.6 Pain in thoracic spine (principal); I48.91 Unspecified atrial fibrillation; R94.31 Abnormal electrocardiogram [ECG] [EKG]; E11.9 Type 2 diabetes mellitus without complications; I10 Essential (primary) hypertension; R56.9 Unspecified convulsions; Z86.73 Personal history of transient ischemic attack (TIA), and cerebral infarction without residual deficits; Z82.49 Family history of ischemic heart disease and other diseases of the circulatory system; Z79.82 Long term (current) use of aspirin; Z79.84 Long term (current) use of oral hypoglycemic drugs; Z79.899 Other long term (current) drug therapy; Z88.8 Allergy status to other drugs, medicaments and biological substances
CPT/HCPCS: 71275; 80048; 80076; 82550; 82553; 83690; 84484; 85025; 85610; 85730; 93005; 93041; 94760; 96374; 99285; J2270; Q9967

== ENCOUNTER 2019-05-19 16:03 | Emergency (ER) | payer MEDICARE, MEDICAID ==
[~2019-05-19] VITALS: Ht 165.1 cm; Wt 80.4 kg
[~2019-05-19 16:03] MED LIST changes: +FLUO20CA20 PO; -FLUO20CA8 PO
[2019-05-19] MEDS ORDERED: IPRATROPIUM 0.5MG/ALBUTEROL 2.5MG INH SOL UD 3ML (DUONEB)(J7620) NEB ONE (16:30)
[2019-05-19] MEDS ORDERED: methylPREDNISolone INJ 125 MG/2 ML VIAL (J2930) IV ONE (16:30)
[2019-05-19 17:03] LABS: EOS # 0.2 10^3/uL (0.0-0.5); EOS % 3.7 % (0.0-3.0); HEMATOCRIT 34.3 % (36.0-47.0); LYMPH # 0.9 10^3/uL (1.5-5.0); LYMPH % 22.4 % (24.0-44.0); MEAN CORPUSCULAR HEMOGLOBIN 28.9 pg (27.0-33.0); MEAN CORPUSCULAR HGB CONC 32.1 g/dl (32.0-36.5); MEAN CORPUSCULAR VOLUME 90.3 fl (80.0-96.0); MONO # 0.4 10^3/uL (0.0-0.8); NEUTROPHILS # 2.5 10^3/uL (1.5-8.5); NEUTROPHILS % 61.7 % (36.0-66.0); PLATELET COUNT, AUTOMATED 113 10^3/uL (150-450)
[2019-05-19 17:27] LABS: INFLUENZA A AMPLIFICATION NEGATIVE (NEGATIVE); INFLUENZA B AMPLIFICATION NEGATIVE (NEGATIVE)
[2019-05-19 17:30] LABS: ALBUMIN 3.7 GM/DL (3.2-5.2); BILIRUBIN,DIRECT 0.2 MG/DL (0.0-0.2); BILIRUBIN,TOTAL 0.4 MG/DL (0.2-1.0); CALCIUM LEVEL 8.5 MG/DL (8.8-10.2); CREATININE FOR GFR 1.12 MG/DL (0.55-1.30); GLOMERULAR FILTRATION RATE 51.1 (>39); POTASSIUM SERUM 3.5 MEQ/L (3.5-5.1); TOTAL PROTEIN 7.5 GM/DL (6.4-8.2)
[2019-05-19] MEDS ORDERED: NS 1,000 ML IV ONE (17:45)
[2019-05-19 19:15] VITALS: BP 178/82
[2019-05-19] MEDS ORDERED: DOXY100C37 PO (19:35)
[2019-05-19] MEDS ORDERED: TESS100C PO (19:35)
[2019-05-19] MEDS ORDERED: DOXYCYCLINE HYCLATE 100 MG TAB PO ONE (19:45)
--- NOTE | 2019-05-20 08:13 | REP ---
AP PORTABLE CHEST: 05/19/2019. Comparison: 11/11/2018 AP portable chest, CT angio 01/24/2019. Clinical history: SIRS. Findings: Lungs are well inflated. The CP angles are sharply defined. No effusion, infiltrate, atelectasis or mass. Mild underlying interstitial changes are stable. There is cardiomegaly as before. There is no pulmonary edema. The aorta is normal for age. Airway intact. Bony thorax shows some marginal osteophytes . There are some degenerative changes in the shoulders. Impression: 1. Cardiomegaly without edema or effusion. 2. No definite infiltrate. Electronically Signed by George Nielsen MD 05/20/2019 08:12 P
== END 2019-05-19 19:54 | disposition home or self-care (01) ==
LOC: M ED 16:03
DX: J20.9 Acute bronchitis, unspecified (principal); I51.7 Cardiomegaly; H92.09 Otalgia, unspecified ear; R68.83 Chills (without fever); E11.9 Type 2 diabetes mellitus without complications; G47.30 Sleep apnea, unspecified; E78.5 Hyperlipidemia, unspecified; Z88.2 Allergy status to sulfonamides; Z88.6 Allergy status to analgesic agent; Z79.1 Long term (current) use of non-steroidal anti-inflammatories (NSAID); Z79.02 Long term (current) use of antithrombotics/antiplatelets; Z79.899 Other long term (current) drug therapy
CPT/HCPCS: 71045; 80048; 80076; 83605; 83880; 85025; 87040; 87502; 93041; 94640; 94760; 96361; 96374; 99285; J2930

== ENCOUNTER → 2019-06-14 | Outpatient (REF) | payer MEDICARE, MEDICAID ==
[~2019-06-14] MED LIST changes: +DOXY100C37 PO
[2019-06-14 12:27] LABS: BASO % 0.9 % (0.0-1.0); EOS # 0.1 10^3/uL (0.0-0.5); EOS % 2.9 % (0.0-3.0); HEMATOCRIT 34.9 % (36.0-47.0); HEMOGLOBIN 11.2 g/dl (12.0-15.5); LYMPH # 0.9 10^3/uL (1.5-5.0); LYMPH % 24.9 % (24.0-44.0); MEAN CORPUSCULAR HEMOGLOBIN 28.9 pg (27.0-33.0); MEAN CORPUSCULAR HGB CONC 32.1 g/dl (32.0-36.5); MEAN CORPUSCULAR VOLUME 89.9 fl (80.0-96.0); MONO # 0.4 10^3/uL (0.0-0.8); MONO % 12.3 % (0.0-5.0); NEUTROPHILS # 2.1 10^3/uL (1.5-8.5); NEUTROPHILS % 58.4 % (36.0-66.0); RED BLOOD COUNT 3.88 10^6/uL (4.00-5.40); WHITE BLOOD COUNT 3.5 10^3/uL (4.0-10.0)
[2019-06-14 12:33] LABS: ALBUMIN 3.4 GM/DL (3.2-5.2); BILIRUBIN,TOTAL 0.6 MG/DL (0.2-1.0); CALCIUM LEVEL 8.9 MG/DL (8.8-10.2); CHOLESTEROL RISK RATIO 4.325 (<5); CREATININE FOR GFR 1.07 MG/DL (0.55-1.30); GLOMERULAR FILTRATION RATE 53.8 (>39); POTASSIUM SERUM 3.6 MEQ/L (3.5-5.1)
[2019-06-14 13:33] LABS: HEMOGLOBIN A1c 8.2 %
== END ==
LOC: M SFHCCLAY 08:53
PROVIDERS: ATTEND Family Medicine
DX: D50.0 Iron deficiency anemia secondary to blood loss (chronic) (principal); I10 Essential (primary) hypertension; E11.9 Type 2 diabetes mellitus without complications; E78.2 Mixed hyperlipidemia

== ENCOUNTER → 2019-08-29 | Outpatient (CLI) | payer MEDICARE, MEDICAID ==
--- NOTE | 2019-08-29 09:43 | REP ---
RIGHT UPPER QUADRANT ULTRASOUND: Real-time sonographic evaluation of the right upper quadrant performed. The patient has had a prior cholecystectomy. There is no intrahepatic or extrahepatic biliary dilation, the common bile duct measuring 6 mm. No free fluid is seen. The liver is heterogeneous and coarsened in echotexture with a somewhat nodular pattern. Possible hypoechoic nodule in the right lobe measures 5 x 3 x 7 mm. Visualized pancreas is grossly unremarkable, not well seen due to underlying bowel gas. Right kidney demonstrates no hydronephrosis with normal size 10.3 cm in length. Exophytic cyst of the right kidney mid aspect measures 1.4 cm in diameter. IMPRESSION: Status post cholecystectomy with no biliary dilatation or free fluid. Heterogeneous coarsened echotexture of the liver may represent cirrhotic change. There is a possible nodule posteriorly of the right lobe of the liver 5 x 3 x 7 mm. Recommend followup ultrasound in 6 months. Electronically Signed by Jacob Saucedo MD 08/29/2019 10:53 A
== END ==
LOC: M RAD 08:00
PROVIDERS: ATTEND Internal Medicine Gastroenterology
DX: K74.60 Unspecified cirrhosis of liver (principal); Z90.49 Acquired absence of other specified parts of digestive tract

== ENCOUNTER → 2019-10-05 | Outpatient (REF) | payer MEDICARE, MEDICAID ==
[~2019-10-05] MED LIST changes: -AMIO200T PO; +AMIO200T3 PO; -ASPI81TA85 PO; +ASPI81TA86 PO; +PANT40TA29 PO; -PANT40TA3 PO
[2019-10-05 17:00] LABS: ALBUMIN 3.4 GM/DL (3.2-5.2); BILIRUBIN,TOTAL 0.6 MG/DL (0.2-1.0); CALCIUM LEVEL 8.9 MG/DL (8.8-10.2); CREATININE FOR GFR 1.01 MG/DL (0.55-1.30); GLOMERULAR FILTRATION RATE 57.5 (>39); POTASSIUM SERUM 4.1 MEQ/L (3.5-5.1); TOTAL PROTEIN 7.3 GM/DL (6.4-8.2)
[2019-10-05 18:09] LABS: HEMOGLOBIN A1c 8.8 %
== END ==
LOC: M SFHCCLAY 12:22
PROVIDERS: ATTEND Family Medicine
DX: E11.9 Type 2 diabetes mellitus without complications (principal)
CPT/HCPCS: 36415; 80053; 83036; G0463

== ENCOUNTER → 2020-01-29 | Outpatient (REF) | payer MEDICARE, MEDICAID ==
[2020-01-29 16:52] LABS: CALCIUM LEVEL 8.9 MG/DL (8.8-10.2); CREATININE FOR GFR 1.19 MG/DL (0.55-1.30); GLOMERULAR FILTRATION RATE 47.6 (>39); POTASSIUM SERUM 4.2 MEQ/L (3.5-5.1)
[2020-01-29 17:50] LABS: HEMOGLOBIN A1c 8.7 %
[2020-01-30 17:35] LABS: MALB URINE SIEMENS 21.7 MG/L; MAU/CREAT RATIO 16.5 MCG/MG (0.0-30.0)
== END ==
LOC: M SFHCCLAY 10:29
PROVIDERS: ATTEND Family Medicine
DX: E11.9 Type 2 diabetes mellitus without complications (principal); Z23 Encounter for immunization
CPT/HCPCS: 80048; 82043; 83036; 90682; 90732; G0008; G0009; G0463

== ENCOUNTER 2020-02-15 16:49 | Emergency (ER) | payer MEDICARE, MEDICAID ==
[~2020-02-15] VITALS: Ht 162.6 cm; Wt 78.3 kg
[2020-02-15 17:42] LABS: BASO % 0.9 % (0.0-1.0); EOS # 0.1 10^3/uL (0.0-0.5); EOS % 2.1 % (0.0-3.0); HEMATOCRIT 31.9 % (36.0-47.0); HEMOGLOBIN 10.6 g/dl (12.0-15.5); LYMPH # 0.9 10^3/uL (1.5-5.0); LYMPH % 26.6 % (24.0-44.0); MEAN CORPUSCULAR HGB CONC 33.2 g/dl (32.0-36.5); MEAN CORPUSCULAR VOLUME 87.2 fl (80.0-96.0); MONO # 0.3 10^3/uL (0.0-0.8); MONO % 10.4 % (0.0-5.0); NEUTROPHILS % 59.7 % (36.0-66.0); PLATELET COUNT, AUTOMATED 104 10^3/uL (150-450); RED BLOOD COUNT 3.66 10^6/uL (4.00-5.40); WHITE BLOOD COUNT 3.3 10^3/uL (4.0-10.0)
--- NOTE | 2020-02-15 17:50 | REP ---
INDICATION: CHEST PAIN COMPARISON: 05/19/2019 TECHNIQUE: PORTABLE AP FINDINGS: The mediastinum and cardiac silhouette are stable and within normal limits for portable technique. The lung [place] are clear without acute consolidation, effusion, or pneumothorax. Skeletal structures are intact. IMPRESSION: No acute cardiopulmonary process appreciated. <Electronically signed by Jerome Person > 02/15/20 [id number]
[2020-02-15 18:05] LABS: ALBUMIN 3.4 GM/DL (3.2-5.2); ALT/SGPT 26 U/L (12-78); BILIRUBIN,DIRECT 0.2 MG/DL (0.0-0.2); BILIRUBIN,TOTAL 0.4 MG/DL (0.2-1.0); BLOOD UREA NITROGEN 23 MG/DL (7-18); CALCIUM LEVEL 8.8 MG/DL (8.8-10.2); CARBON DIOXIDE LEVEL 22 MEQ/L (21-32); CHLORIDE LEVEL 108 MEQ/L (98-107); CK-MB VALUE MASS 1.1 NG/ML (<3.6); CPK CREATINE PHOSPHOKINASE 66 U/L (26-192); GLOMERULAR FILTRATION RATE 36.3 (>39); GLUCOSE, FASTING 222 MG/DL (70-100); MB/CK RELATIVE INDEX 1.67 (< OR =4); NT-PRO BNP 160 PG/ML (<125); POTASSIUM SERUM 3.9 MEQ/L (3.5-5.1); SODIUM LEVEL 141 MEQ/L (136-145); TOTAL PROTEIN 7.3 GM/DL (6.4-8.2); TROPONIN I < 0.02 NG/ML (< 0.10)
[2020-02-15] MEDS ORDERED: ISOVUE-370 76% 100ML VIAL As Ordered ONE (18:27)
--- NOTE | 2020-02-15 20:17 | REPVR ---
PROCEDURE INFORMATION: Exam: CT Angiography Chest With Contrast Exam date and time: 02/15/2020 6:13 PM Age: 70 years old Clinical indication: Chest pain TECHNIQUE: Imaging protocol: Computed tomographic angiography of the chest with intravenous contrast. 3D rendering (Not supervised by radiologist): MIP and/or 3D reconstructed images were created by the technologist. Radiation optimization: All CT scans at this facility use at least one of these dose optimization techniques: automated exposure control; mA and/or kV adjustment per patient size (includes targeted exams where dose is matched to clinical indication); or iterative reconstruction. Contrast material: ISOVUE 370; Contrast volume: 100 ml; Contrast route: INTRAVENOUS (IV); COMPARISON: CT ANGIO CHEST 01/24/2019 8:09 PM FINDINGS: Pulmonary arteries: There is opacification of the pulmonary arteries with no evidence of pulmonary embolus. Aorta: Unremarkable. No aortic aneurysm. No aortic dissection. Lungs: No consolidation. Pleural space: There is no evidence of pneumothorax or pleural effusion. Heart: There is mild cardiomegaly and there is no pericardial effusion. Mediastinal space: There is mild diffuse thickening of the esophagus and suggest correlation with a esophagram. Lymph nodes: There are small lymph nodes within the mediastinum. Bones/joints: There are bridging anterior osteophytes of the thoracic spine with mild kyphosis. Soft tissues: Unremarkable. Other findings: There is a 9 mm density at the junction of the left lung base and diaphragm and also seen on the examination of 2019 probably partial volume averaging of the diaphragm. IMPRESSION: 1. Mild cardiomegaly. 2. Clear appearing lungs. 3. There is mild thickening of the esophagus and suggest correlation with an esophagram to exclude any possibility of abnormality. Electronically signed by: Zac Albarado On 02/15/2020 20:17:28 PM
--- NOTE | 2020-02-15 20:39 | ECGEPIP ---
[facility] - ED Test Date: 2020-02-15 Pat Name: TU CUBA Department: Room: - Gender: Female Senior Partner: NASIR : 1950 Requested By: MADISYN Lombardo Order Number: [id number] Reading MD: Anu Zepeda Measurements Intervals [place] Rate: 77 P: MA: 0 QRS: 71 QRSD: 92 T: 133 QT: 391 QTc: 443 Interpretive Statements ATRIAL FIBRILLATION NSTTW abnormalities INCREASED RATE 01/25/19 Electronically Signed on 02-15-2020 20:38:56 EDT by Anu Zepeda
--- NOTE | 2020-02-15 21:12 | REPVR ---
PROCEDURE INFORMATION: Exam: CT Abdomen And Pelvis With Contrast Exam date and time: 02/15/2020 6:13 PM Age: 70 years old Clinical indication: Other: Pancytopenia; Abdominal pain; Additional info: Pancytopenia, epigastric pain TECHNIQUE: Imaging protocol: Computed tomography of the abdomen and pelvis with intravenous contrast. Radiation optimization: All CT scans at this facility use at least one of these dose optimization techniques: automated exposure control; mA and/or kV adjustment per patient size (includes targeted exams where dose is matched to clinical indication); or iterative reconstruction. Contrast material: ISOVUE 370; Contrast volume: 100 ml; Contrast route: INTRAVENOUS (IV); COMPARISON: CT ABD PELVIS WITH CONTRAST 01/24/2015 12:09 PM FINDINGS: Liver: There is lobulation of the margin of the liver which can be seen with cirrhosis. There is mild fatty infiltration liver. Gallbladder and bile ducts: Gallbladder has been removed. Normal common bile duct. Pancreas: Normal size pancreas. Spleen: There is mild splenomegaly. Adrenals: Normal appearing adrenal glands. Kidneys and ureters: There is enhancement of both kidneys. Left renal artery is small compared to the right. Stomach and bowel: Unremarkable. No obstruction. No mucosal thickening. Appendix: Normal appearing appendix. Intraperitoneal space: There is no evidence of pneumoperitoneum. Vasculature: There is atherosclerotic change in calcification of the aorta There is a linear flap at the proximal left iliac artery measuring 1.7 cm in length and this may be from chronic dissection and atherosclerotic change. This is unchanged since 2015 exam. There is opacification of the aorta and also opacification of the iliac arteries. There is opacification of the SMA with some atherosclerotic change the origin. Lymph nodes: There is no evidence mesenteric lymphadenopathy. Urinary bladder: Unremarkable as visualized. Reproductive: Normal size uterus. There is a 3.7 cm x 3.3 cm round mass probably from the right ovary. This may represent a complex cyst and this appears unchanged since 01/24/2015. Bones/joints: There is a large posterior disc osteophyte complex L2-L3 causing moderate impression on the thecal sac. There is moderate posterior disc protrusion L3-L4 causing moderate impression on the thecal sac and severe L3 neural foraminal narrowing. There is moderate broad-based disc protrusion L4-L5 causing moderate impression on the thecal sac. There is moderate broad-based disc protrusion L5-S1 causing moderate impression on the thecal sac much greater on the left. Soft tissues: Unremarkable. IMPRESSION: 1. Linear flap of the left iliac artery unchanged since 2014 and consistent with a chronic flap in atherosclerotic change. 2. 3.7 cm complex cyst right adnexa unchanged since 2014. 3. Multiple areas of disc protrusion as discussed. Electronically signed by: Zac Albarado On 02/15/2020 21:12:46 PM
[2020-02-15 21:45] VITALS: BP 177/76
--- NOTE | 2020-02-16 06:44 | ED PDOC ---
Post-Departure Follow-Up dr pugh faxed formal report of cta chest and ct abd/p for fu Annabel Chaves MD Feb 16, 2020 06:43
[2020-02-18 09:53] LABS: TOTAL PROTEIN 7.3 GM/DL (6.4-8.2)
[2020-02-18 10:24] LABS: ALBUMIN 4.09 GM/DL (3.29-5.55); ALPHA-1-GLOBULIN % 4.1 % (2.9-4.9); ALPHA-2-GLOBULINS 0.74 GM/DL (0.42-0.99); ALPHA-2-GLOBULINS % 10.1 % (7.1-11.8); BETA-1-GLOBULINS 0.47 GM/DL (0.28-0.60); BETA-1-GLOBULINS % 6.4 % (4.7-7.2); BETA-2-GLOBULINS 0.36 GM/DL (0.19-0.55); BETA-2-GLOBULINS % 4.9 % (3.2-6.5); GAMMA GLOBULIN % 18.5 % (11.1-18.8); GAMMA GLOBULINS 1.35 GM/DL (0.65-1.58)
== END 2020-02-15 21:58 | disposition home or self-care (01) ==
LOC: M ED 16:49
DX: R07.89 Other chest pain (principal); D61.818 Other pancytopenia; R06.02 Shortness of breath; I48.91 Unspecified atrial fibrillation; K22.8 Other specified diseases of esophagus; E11.9 Type 2 diabetes mellitus without complications; I51.7 Cardiomegaly; N83.291 Other ovarian cyst, right side; M51.26 Other intervertebral disc displacement, lumbar region; M51.27 Other intervertebral disc displacement, lumbosacral region; J45.909 Unspecified asthma, uncomplicated; G40.909 Epilepsy, unspecified, not intractable, without status epilepticus; F33.9 Major depressive disorder, recurrent, unspecified; Z88.6 Allergy status to analgesic agent; Z79.899 Other long term (current) drug therapy
CPT/HCPCS: 36415; 71045; 71275; 74177; 80047; 80048; 80076; 82550; 82553; 83880; 84165; 84484; 85025; 93005; 93041; 94760; 99285; Q9967

== ENCOUNTER 2020-07-10 21:42 | Emergency (ER) | payer MEDICARE, MEDICAID ==
[~2020-07-10] VITALS: Ht 170.2 cm; Wt 76.5 kg
[~2020-07-10 21:42] MED LIST changes: +ASPI81CH33 PO; +HYDR-3490 PO; -HYDR25TAB PO
[2020-07-10] MEDS ORDERED: NS 1,000 ML IV ONE (21:55)
[2020-07-10 22:12] LABS: BASO # 0.1 10^3/uL (0.0-0.2); BASO % 0.9 % (0.0-1.0); EOS # 0.2 10^3/uL (0.0-0.5); EOS % 3.4 % (0.0-3.0); HEMATOCRIT 25.8 % (36.0-47.0); HEMOGLOBIN 8.1 g/dl (12.0-15.5); LYMPH # 1.3 10^3/uL (1.5-5.0); MEAN CORPUSCULAR HGB CONC 31.4 g/dl (32.0-36.5); MEAN CORPUSCULAR VOLUME 92.5 fl (80.0-96.0); MONO # 0.8 10^3/uL (0.0-0.8); MONO % 12.1 % (2.0-8.0); NEUTROPHILS # 4.3 10^3/uL (1.5-8.5); NEUTROPHILS % 63.9 % (36.0-66.0); PLATELET COUNT, AUTOMATED 128 10^3/uL (150-450); RED BLOOD COUNT 2.79 10^6/uL (4.00-5.40); WHITE BLOOD COUNT 6.8 10^3/uL (4.0-10.0)
[2020-07-10 22:19] LABS: INR 1.35
[2020-07-10 22:20] LABS: PARTIAL THROMBOPLASTIN TIME 24.7 SECONDS (24.2-38.5)
[2020-07-10 22:42] LABS: ALBUMIN 2.8 GM/DL (3.2-5.2); BILIRUBIN,DIRECT 0.2 MG/DL (0.0-0.2); BILIRUBIN,TOTAL 0.4 MG/DL (0.2-1.0); TOTAL PROTEIN 5.9 GM/DL (6.4-8.2)
[2020-07-10] MEDS ORDERED: PANTOPRAZOLE 40MG VIAL (C9113 PER 1) IV ONE (23:00)
[2020-07-10] MEDS ORDERED: OCTREOTIDE ACETATE 1,200 MCG in NS 238.8 ML IV SCH (23:00)
[2020-07-10 23:44] VITALS: BP 161/75
[2020-07-10 23:59] VITALS: BP 158/75
[2020-07-11 00:02] LABS: RSV AMPLIFICATION NEGATIVE (NEGATIVE)
[2020-07-11 00:48] VITALS: BP 154/69
--- NOTE | 2020-07-11 07:49 | ECGEPIP ---
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
== END 2020-07-11 01:31 | disposition short-term general hospital (02) ==
LOC: EDBD 21:42 → M ED 21:42
DX: K92.2 Gastrointestinal hemorrhage, unspecified (principal); K92.0 Hematemesis; D64.9 Anemia, unspecified; I48.91 Unspecified atrial fibrillation; E11.9 Type 2 diabetes mellitus without complications; I11.0 Hypertensive heart disease with heart failure; E78.5 Hyperlipidemia, unspecified; G40.909 Epilepsy, unspecified, not intractable, without status epilepticus; Z88.8 Allergy status to other drugs, medicaments and biological substances; Z79.899 Other long term (current) drug therapy; Z79.84 Long term (current) use of oral hypoglycemic drugs
CPT/HCPCS: 36415; 36430; 80047; 80076; 83605; 83690; 85025; 85610; 85730; 86850; 86900; 86901; 86920; 87631; 93005; 93041; 96361; 96365; 96366; 96375; 99285; C9113; J2354; P9016

== ENCOUNTER → 2020-07-24 | Outpatient (REF) | payer MEDICARE, MEDICAID ==
[2020-07-24 11:48] LABS: HEMATOCRIT 29.4 % (36.0-47.0); HEMOGLOBIN 9.4 g/dl (12.0-15.5); MEAN CORPUSCULAR HEMOGLOBIN 29.5 pg (27.0-33.0); MEAN CORPUSCULAR VOLUME 92.2 fl (80.0-96.0); RED BLOOD COUNT 3.19 10^6/uL (4.00-5.40); WHITE BLOOD COUNT 4.5 10^3/uL (4.0-10.0)
[2020-07-24 13:42] LABS: CALCIUM LEVEL 8.6 MG/DL (8.8-10.2); CHOLESTEROL RISK RATIO 4.789 (<5); CREATININE FOR GFR 1.03 MG/DL (0.55-1.30); GLOMERULAR FILTRATION RATE 56.1 (>39); POTASSIUM SERUM 3.8 MEQ/L (3.5-5.1)
[2020-07-24 15:14] LABS: HEMOGLOBIN A1c 6.4 %
== END ==
LOC: M SFHCCLAY 07:31
PROVIDERS: ATTEND Family Medicine
DX: E11.9 Type 2 diabetes mellitus without complications (principal); Z87.19 Personal history of other diseases of the digestive system

== ENCOUNTER → 2020-11-04 | Outpatient (REF) | payer MEDICARE, MEDICAID ==
[~2020-11-04] MED LIST changes: -DOXY100C37 PO; +DOXY1CAP62 PO; +PROP20TA72
[2020-11-04 16:22] LABS: HEMATOCRIT 29.1 % (36.0-47.0); HEMOGLOBIN 8.7 g/dl (12.0-15.5); MEAN CORPUSCULAR HEMOGLOBIN 25.7 pg (27.0-33.0); MEAN CORPUSCULAR HGB CONC 29.9 g/dl (32.0-36.5); MEAN CORPUSCULAR VOLUME 86.1 fl (80.0-96.0); RED BLOOD COUNT 3.38 10^6/uL (4.00-5.40)
[2020-11-04 16:37] LABS: CALCIUM LEVEL 8.6 MG/DL (8.8-10.2); CREATININE FOR GFR 1.11 MG/DL (0.55-1.30); GLOMERULAR FILTRATION RATE 51.4 (>39); POTASSIUM SERUM 4.3 MEQ/L (3.5-5.1)
[2020-11-04 17:19] LABS: HEMOGLOBIN A1c 7.9 %
== END ==
LOC: M SFHCCLAY 10:23
PROVIDERS: ATTEND Family Medicine
DX: E11.9 Type 2 diabetes mellitus without complications (principal); Z87.19 Personal history of other diseases of the digestive system; J44.9 Chronic obstructive pulmonary disease, unspecified; R26.2 Difficulty in walking, not elsewhere classified
CPT/HCPCS: 80048; 83036; 85027; G0463

== ENCOUNTER 2020-11-05 09:17 | Emergency (ER) | payer MEDICARE, MEDICAID ==
[~2020-11-05] VITALS: Ht 160 cm; Wt 163.0 kg
[~2020-11-05 09:17] MED LIST changes: -PROP20TA72
[2020-11-05] MEDS ORDERED: PROP20TA72 (09:26)
--- NOTE | 2020-11-05 09:53 | REP ---
INDICATION: trauma COMPARISON: 11/11/2018 TECHNIQUE: Axial noncontrast images from the skull base to the thoracic inlet with coronal reformations. This CT examination was performed using the following dose reduction techniques: Automated exposure control, adjustment of mA and/or kv according to the patient's size, and use of iterative reconstruction technique. FINDINGS: Atrophy with periventricular leukomalacia and microvascular ischemic changes are appreciated. The ventricles and sulci are symmetric. Saucedo-white differentiation is maintained. There is no evidence for acute intracranial hemorrhage, mass/mass effect, pathology or infarction. No extra-axial fluid collection. Calvarium is intact. Paranasal sinuses and mastoid air cells are clear. IMPRESSION: Atrophy and microvascular ischemic changes. No acute intracranial hemorrhage, infarction, or mass/mass effect. <Electronically signed by Jerome Person > 11/05/20 [id number]
[2020-11-05] MEDS ORDERED: LIDOCAINE 1% MDV 20ML VIAL SC ONE (10:05)
[2020-11-05] MEDS ORDERED: BOOSTRIX/ADACEL VACCINE (DIPHTH/PERTUSS/ACELL/TETANUS) 0.5ML SYR IM ONE (10:35)
[2020-11-05 10:52] LABS: BASO # 0.1 10^3/uL (0.0-0.2); BASO % 1.1 % (0.0-1.0); EOS # 0.1 10^3/uL (0.0-0.5); HEMOGLOBIN 9.2 g/dl (12.0-15.5); LYMPH # 0.7 10^3/uL (1.5-5.0); LYMPH % 14.9 % (24.0-44.0); MEAN CORPUSCULAR HEMOGLOBIN 26.1 pg (27.0-33.0); MEAN CORPUSCULAR HGB CONC 30.7 g/dl (32.0-36.5); MEAN CORPUSCULAR VOLUME 85.2 fl (80.0-96.0); MONO # 0.5 10^3/uL (0.0-0.8); NEUTROPHILS # 3.3 10^3/uL (1.5-8.5); NEUTROPHILS % 70.6 % (36.0-66.0); PLATELET COUNT, AUTOMATED 116 10^3/uL (150-450); RED BLOOD COUNT 3.52 10^6/uL (4.00-5.40); WHITE BLOOD COUNT 4.6 10^3/uL (4.0-10.0)
[2020-11-05 11:19] LABS: ALBUMIN 3.6 GM/DL (3.2-5.2); ALT/SGPT 22 U/L (12-78); BILIRUBIN,DIRECT 0.2 MG/DL (0.0-0.2); BILIRUBIN,TOTAL 0.7 MG/DL (0.2-1.0); BLOOD UREA NITROGEN 17 MG/DL (7-18); CALCIUM LEVEL 9.1 MG/DL (8.8-10.2); CARBON DIOXIDE LEVEL 23 MEQ/L (21-32); CHLORIDE LEVEL 108 MEQ/L (98-107); CK-MB VALUE MASS < 1.0 NG/ML (<3.6); CPK CREATINE PHOSPHOKINASE 64 U/L (26-192); CREATININE FOR GFR 1.34 MG/DL (0.55-1.30); FREE T4 0.87 NG/DL (0.76-1.46); GLOMERULAR FILTRATION RATE 41.4 (>39); GLUCOSE, FASTING 162 MG/DL (70-100); MB/CK RELATIVE INDEX 1.56 (< OR =4); POTASSIUM SERUM 4.2 MEQ/L (3.5-5.1); SODIUM LEVEL 140 MEQ/L (136-145); TOTAL PROTEIN 8.1 GM/DL (6.4-8.2); TROPONIN I < 0.02 NG/ML (< 0.10)
--- NOTE | 2020-11-05 11:25 | REP ---
INDICATION: trauma. COMPARISON: Comparison portable chest x-ray February 15, 2020. TECHNIQUE: Two views.. FINDINGS: The heart is moderately enlarged. Cardiothoracic ratio is 58.7%. Pulmonary vasculature is cephalized. There is no evidence of pleural effusion or pulmonary edema. There are degenerative changes in the thoracic spine. No focal infiltrate is seen. EKG monitoring electrodes are seen. IMPRESSION: Moderate cardiac enlargement. Vascular cephalization. Otherwise no acute disease.. <Electronically signed by Billy Alston > 11/05/20 1129
[2020-11-05 12:28] VITALS: BP 175/74
--- NOTE | 2020-11-05 20:49 | ECGEPIP ---
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
== END 2020-11-05 12:29 | disposition home or self-care (01) ==
LOC: M ED 09:17
DX: S01.01XA Laceration without foreign body of scalp, initial encounter (principal); W01.0XXA Fall on same level from slipping, tripping and stumbling without subsequent striking against object, initial encounter; Y92.003 Bedroom of unspecified non-institutional (private) residence as the place of occurrence of the external cause; Y93.9 Activity, unspecified; Y99.8 Other external cause status; D64.9 Anemia, unspecified; I48.91 Unspecified atrial fibrillation; E11.9 Type 2 diabetes mellitus without complications; I51.7 Cardiomegaly; R56.9 Unspecified convulsions; J44.9 Chronic obstructive pulmonary disease, unspecified; K74.60 Unspecified cirrhosis of liver; F33.9 Major depressive disorder, recurrent, unspecified; Z88.8 Allergy status to other drugs, medicaments and biological substances; Z79.899 Other long term (current) drug therapy

== ENCOUNTER → 2020-11-26 | Outpatient (CLI) | payer MEDICARE, MEDICAID ==
[~2020-11-26] MED LIST changes: +PROP20TA72
[2020-11-26 11:07] LABS: EOS # 0.1 10^3/uL (0.0-0.5); EOS % 2.3 % (0.0-3.0); HEMATOCRIT 28.1 % (36.0-47.0); HEMOGLOBIN 8.5 g/dl (12.0-15.5); LYMPH # 0.7 10^3/uL (1.5-5.0); LYMPH % 16.7 % (24.0-44.0); MEAN CORPUSCULAR HEMOGLOBIN 26.6 pg (27.0-33.0); MEAN CORPUSCULAR HGB CONC 30.2 g/dl (32.0-36.5); MEAN CORPUSCULAR VOLUME 87.8 fl (80.0-96.0); MONO # 0.4 10^3/uL (0.0-0.8); MONO % 9.5 % (2.0-8.0); NEUTROPHILS # 2.7 10^3/uL (1.5-8.5); WHITE BLOOD COUNT 3.9 10^3/uL (4.0-10.0)
[2020-11-26 11:44] LABS: ALBUMIN 3.4 GM/DL (3.2-5.2); ALT/SGPT 22 U/L (12-78); BILIRUBIN,DIRECT 0.2 MG/DL (0.0-0.2); BILIRUBIN,TOTAL 0.4 MG/DL (0.2-1.0); IRON (FE) 36 UG/DL (50-170); PERCENT SATURATION 9.3 % (13.2-45.0); TOTAL IRON BINDING CAPACITY 387 UG/DL (250-450); TOTAL PROTEIN 7.4 GM/DL (6.4-8.2)
[2020-11-26 11:50] LABS: FOLATE 7.9 NG/ML; VITAMIN B12 LEVEL 378 PG/ML
== END ==
LOC: M LAB 09:47
PROVIDERS: ATTEND Internal Medicine Gastroenterology
DX: K74.60 Unspecified cirrhosis of liver (principal)

== ENCOUNTER 2021-01-01 11:57 | Emergency (ER) | payer MEDICARE, MEDICAID ==
[~2021-01-01] VITALS: Ht 162.6 cm; Wt 77.7 kg
--- NOTE | 2021-01-01 12:36 | REP ---
INDICATION: DYSPNEA/COUGH. COMPARISON: Comparison chest x-ray November 05, 2020. TECHNIQUE: Portable upright AP chest radiograph. FINDINGS: The lungs are symmetrically aerated and free of infiltrate. There is mild linear fibrosis behind the heart in the left base. Pleural angles are sharp. Heart is mildly enlarged unchanged. Pulmonary vasculature is slightly cephalized. There is no evidence of pleural effusion or pulmonary edema. IMPRESSION: Cardiomegaly with cephalization. No pleural effusion or pulmonary edema. Mild linear fibrosis left base. <Electronically signed by Billy Alston > 01/01/21 [id number]
[2021-01-01 12:44] LABS: VENOUS BASE EXCESS -3.2 (-2.0-2.0); VENOUS HCO3 20.7 MEQ/L (23.0-27.0); VENOUS PARTIAL PRESSURE CO2 32.3 mmHg (38.0-50.0); VENOUS PARTIAL PRESSURE O2 95.9 mmHg (30.0-50.0); VENOUS PH 7.424 UNITS (7.330-7.430); VENOUS STANDARD HCO3 21.8 MEQ/L; VENOUS TOTAL CO2 21.7 MEQ/L (24.0-28.0)
[2021-01-01 12:50] LABS: EOS # 0.1 10^3/uL (0.0-0.5); EOS % 2.4 % (0.0-3.0); HEMATOCRIT 26.1 % (36.0-47.0); HEMOGLOBIN 8.3 g/dl (12.0-15.5); LYMPH # 0.6 10^3/uL (1.5-5.0); LYMPH % 20.8 % (24.0-44.0); MEAN CORPUSCULAR HGB CONC 31.8 g/dl (32.0-36.5); MONO # 0.3 10^3/uL (0.0-0.8); MONO % 11.6 % (2.0-8.0); NEUTROPHILS # 1.9 10^3/uL (1.5-8.5); NEUTROPHILS % 63.9 % (36.0-66.0); PLATELET COUNT, AUTOMATED 110 10^3/uL (150-450); RED BLOOD COUNT 3.07 10^6/uL (4.00-5.40); WHITE BLOOD COUNT 2.9 10^3/uL (4.0-10.0)
[2021-01-01 14:00] LABS: ALBUMIN 3.1 GM/DL (3.2-5.2); ALT/SGPT 25 U/L (12-78); BILIRUBIN,DIRECT 0.2 MG/DL (0.0-0.2); BILIRUBIN,TOTAL 0.4 MG/DL (0.2-1.0); BLOOD UREA NITROGEN 14 MG/DL (7-18); CALCIUM LEVEL 8.6 MG/DL (8.8-10.2); CARBON DIOXIDE LEVEL 22 MEQ/L (21-32); CHLORIDE LEVEL 110 MEQ/L (98-107); CK-MB VALUE MASS 1.1 NG/ML (<3.6); CPK CREATINE PHOSPHOKINASE 63 U/L (26-192); CREATININE FOR GFR 1.07 MG/DL (0.55-1.30); GLOMERULAR FILTRATION RATE 53.7 (>39); GLUCOSE, FASTING 160 MG/DL (70-100); MB/CK RELATIVE INDEX 1.75 (< OR =4); NT-PRO BNP 270 PG/ML (<125); POTASSIUM SERUM 3.5 MEQ/L (3.5-5.1); SODIUM LEVEL 141 MEQ/L (136-145); TOTAL PROTEIN 7.2 GM/DL (6.4-8.2); TROPONIN I < 0.02 NG/ML (< 0.10)
--- NOTE | 2021-01-01 14:26 | REP ---
INDICATION: abdominal swelling; ?liver mass; HCC evaluation; ascites?. COMPARISON: Ultrasound 08/29/2019, CT 02/15/2020. TECHNIQUE: Real-time sonographic evaluation of right upper quadrant performed. FINDINGS: There has been a prior cholecystectomy.. There is no intrahepatic or extrahepatic biliary dilatation, common bile duct measures 6 mm in maximum diameter. There is diffuse coarsened heterogeneous echotexture of the liver compatible with cirrhosis. Possible solid nodule is seen in the periphery of the right lobe of the liver 1.5 x 1.1 x 1.2 cm. Pancreas is not well seen due to overlying bowel gas, the visualized portions are grossly unremarkable. The right kidney demonstrates no hydronephrosis, with a normal size of 10.2 cm in length. There is a simple appearing cyst in the mid right kidney 8 mm in diameter.There is very mild diffuse ascites. IMPRESSION: Possible solid nodule periphery right lobe of the liver 1.5 cm in maximum diameter. Recommend further evaluation with dedicated MRI of the liver with and without contrast. Mild diffuse ascites. <Electronically signed by Jacob Saucedo > 01/01/21 [id number]
[2021-01-01] MEDS ORDERED: hydrALAZINE 20MG/ML 1ML VIAL (J0360 PER 20MG) IV ONE (14:35)
[2021-01-01 14:39] VITALS: BP 207/93
[2021-01-01 15:56] VITALS: BP 166/78
[2021-01-01] MEDS ORDERED: FUROSEMIDE 20 MG TAB PO ONE (16:05)
[2021-01-01] MEDS ORDERED: LASI20TA3 PO (16:08)
--- NOTE | 2021-01-01 19:04 | ECGEPIP ---
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
--- NOTE | 2021-01-05 15:01 | ED PDOC ---
Post-Departure Follow-Up radiology repor tfaxed to Anu Louie MD Jan 05, 2021 15:01
== END 2021-01-01 16:52 | disposition home or self-care (01) ==
LOC: M ED 11:57
DX: R18.8 Other ascites (principal); K76.89 Other specified diseases of liver; R06.02 Shortness of breath; I48.91 Unspecified atrial fibrillation; I51.7 Cardiomegaly; J44.9 Chronic obstructive pulmonary disease, unspecified; Z86.73 Personal history of transient ischemic attack (TIA), and cerebral infarction without residual deficits; K74.60 Unspecified cirrhosis of liver; K57.30 Diverticulosis of large intestine without perforation or abscess without bleeding; K21.9 Gastro-esophageal reflux disease without esophagitis; Z88.8 Allergy status to other drugs, medicaments and biological substances; Z79.899 Other long term (current) drug therapy
CPT/HCPCS: 71045; 76705; 80048; 80076; 82550; 82553; 82803; 83605; 83880; 84443; 84484; 85025; 87798; 93005; 93041; 94760; 96374; 99284; J0360

== ENCOUNTER → 2021-02-06 | Outpatient (CLI) | payer MEDICARE, MEDICAID ==
[~2021-02-06] MED LIST changes: +FURO20TA2 PO; +LASI20TA3 PO; +PANT-23 PO; +PROP20TA72 PO
[2021-02-06 14:18] LABS: CREATININE FOR GFR 1.95 MG/DL (0.55-1.30); GLOMERULAR FILTRATION RATE 26.8 (>39)
== END ==
LOC: M LAB 12:22
PROVIDERS: ATTEND Internal Medicine Gastroenterology
DX: D37.6 Neoplasm of uncertain behavior of liver, gallbladder and bile ducts (principal); K74.60 Unspecified cirrhosis of liver

== ENCOUNTER → 2021-02-06 | Outpatient (CLI) | payer MEDICARE, MEDICAID ==
[2021-02-06 13:58] LABS: BASO % 0.7 % (0.0-1.0); EOS # 0.1 10^3/uL (0.0-0.5); EOS % 1.4 % (0.0-3.0); HEMATOCRIT 30.9 % (36.0-47.0); HEMOGLOBIN 9.7 g/dl (12.0-15.5); LYMPH # 0.7 10^3/uL (1.5-5.0); LYMPH % 17.8 % (24.0-44.0); MEAN CORPUSCULAR HEMOGLOBIN 26.6 pg (27.0-33.0); MEAN CORPUSCULAR HGB CONC 31.4 g/dl (32.0-36.5); MEAN CORPUSCULAR VOLUME 84.9 fl (80.0-96.0); MONO # 0.4 10^3/uL (0.0-0.8); MONO % 10.1 % (2.0-8.0); NEUTROPHILS # 2.9 10^3/uL (1.5-8.5); NEUTROPHILS % 69.8 % (36.0-66.0); RED BLOOD COUNT 3.64 10^6/uL (4.00-5.40); WHITE BLOOD COUNT 4.2 10^3/uL (4.0-10.0)
[2021-02-06 14:28] LABS: ALBUMIN 3.6 GM/DL (3.2-5.2); BILIRUBIN,TOTAL 0.5 MG/DL (0.2-1.0); CALCIUM LEVEL 9.4 MG/DL (8.8-10.2); CREATININE FOR GFR 1.87 MG/DL (0.55-1.30); FREE T4 0.85 NG/DL (0.76-1.46); GLOMERULAR FILTRATION RATE 28.2 (>39); POTASSIUM SERUM 3.5 MEQ/L (3.5-5.1); TOTAL PROTEIN 7.9 GM/DL (6.4-8.2)
== END ==
LOC: M LAB 12:19
PROVIDERS: ATTEND Family Medicine
DX: R41.0 Disorientation, unspecified (principal); K70.30 Alcoholic cirrhosis of liver without ascites; D50.0 Iron deficiency anemia secondary to blood loss (chronic)

== ENCOUNTER 2021-02-07 14:13 | Inpatient (IN) | payer MEDICARE, MEDICAID ==
[~2021-02-07] VITALS: Ht 162.6 cm; Wt 84.3 kg
[2021-02-07] MEDS: amLODIPine 5 MG TAB PO SCH (09:00)
[~2021-02-07 14:13] MED LIST changes: +DOXY-443 PO; -DOXY1CAP62 PO; -FURO20TA2 PO; +MIRALAX *UNIT DOSE* 17GM PACKET PO SCH; -PANT-23 PO; -PROP20TA72 PO
--- OUTSIDE RECORDS SUMMARY | 2021-02-07 14:20 | CCD | Continuity of Care Document ---
Author Author Ronda HOU M.D. Organization Unknown Address [address] [place] [address], [address] [place] [address] Phone [phone] Care Team Providers Care Costumer Assistant Name Role Phone Esdras Araujo MD ([place]) AUTM [phone] AUTM Unavailable AUTM Unavailable Shahida Franklin D.O. AUTM [phone] Problems Active Problems Provider Date Difficulty breathing Katheryn Chen M.D. Onset: Obstructive sleep apnea syndrome Jeanne Fontaine Onset: 07/21/2011 Sleep apnea Katheryn Chen M.D. Onset: 07/2010 Pulmonary function studies abnormal Katheryn Chen M.D. Onset: 11/26/2010 Essential hypertension Katheryn Chen M.D. Onset: 02/22/2011 Body mass index 30+ - obesity Katheryn Chen M.D. Onset: 06/07/2012 Obesity Katheryn Chen M.D. Onset: Periodic limb movement disorder Miah Fontaine Onset: 06/05/2013 Disturbance of consciousness Katheryn Chen M.D. O nset: 10/14/2015 Chronic nonalcoholic liver disease KERRY Prather Onset: 02/16/2017 Cirrhosis - non-alcoholic LUCRECIA Prather Onset: 02/16/2017 Cirrhosis - non-alcoholic Itz Killian MD Onset: 10/25/2 017 [place] Farshad Phillip MD Onset: 02/16/2017 Biliary cirrhosis Farshad Phillip MD Onset: 02/16/2017 Body mass index 25-29 - overweight Katheryn Chen M.D. Onset: 02/16/2017 Overweight Katheryn Chen M.D. Onset: Social History Type Date Description Comments Sex Unknown ETOH Use Denies alcohol use Tobacco Use Reviewed: 01/10/19 Patient has never smoked Recreational Drug Use Denies Drug Use Smoking Status Reviewed: 01/03/20 Patient has never smoked Allergies, Adverse Reactions, Alerts Active Allergies Criticality Reaction | Severity Comments Date Flexeril Unable to assess criticality hallucinations 11/26/2010 Darvocet Unable to assess criticality hallucinations 11/26/2010 Medications Active Medications SIG Qnty Indications Ordering Provide r Date Aerochamber Plus Misc as directed with mdi 1units Katheryn Chne M.D. Losartan Potassium 100mg Tablets 1tab bid Unknown Metformin HCL 500mg Tablets 1 tab bid Unknown Carvedilol 25mg Tablets 1tab bid Unknown Hydrochlorothiazide 25mg Tablets 1tab qd Unknown Carbamazepine 200mg Tablets 1tab po tid Unknown Aspirin 81mg Tablets 1tab qd Unknown CPAP 13cm marras Katheryn Chen M.D. Prozac 20mg Capsules 1cap qd Unknown Pantoprazole Sodium 40mg Tablets D R 1tab bid Unknown Spironolactone 25mg Tablets 1 tab qd Unknown Immunizations CPT Code Status Date Vaccine Lot # [id number] Given 03/02/2012 Influenza Virus Split 3 Yrs And Above For Intramuscular Use 58655 Given 02/01/2011 Influenza Virus Split 3 Yrs And Above For Intramuscular Use 62066 Given 03/07/2009 Pneumococcal PPSV23 36074 Given 02/28/2009 Influenza Vaccine 14498 Given Unknown TB Intradermal Test Vital Signs Date Vital Result Comment 11/26/2020 9:21am BP Systolic 122 mmHg BP Diastolic 64 mmHg Height 64 inches 5'4" Weight 170.00 lb BMI (Body Mass Index) 29.2 kg/m2 [place] Body Weight 120 lb Weight 77.112 kg BSA (Body Surface Area) 1.83 m2 08/07/2020 9:34am Height 65 inches 5'5" Weight 176.00 lb BMI (Body Mass Index) 29.3 kg/m2 [place] Body Weight 125 lb Weight 79.834 kg BSA (Body Surface Area) 1.87 m2 Results Test Acquired Date Facility Test Result H/L Range Note Liver Profile 11/26/2020 [facility] nter Main Lab [address] [place] [address] [phone] Ast/Sgot 21 U/L Normal 7-37 Alt/SGPT 22 U/L Normal 12-78 Alkaline Phosphatase 115 U/L Normal 45-117 Bilirubin,Total 0.4 mg/dL Normal 0.2-1.0 Bilirubin,Direct 0.2 mg/dL Normal 0.0-0.2 Total Protein 7.4 GM/DL Normal 6.4-8.2 Albumin 3.4 GM/DL Normal 3.2-5.2 Albumin/Globulin Ratio 0.9 Low 1.2-2.2 Laboratory test finding 11/26/2020 [facility] Main Lab [address] [place] [address] [phone] Alpha Fetoprotein Tumor Quant < 1.3 NG/ML Normal < 8.1 1 CBC With Differential 11/26/2020 [facility] Main Lab [address] [place] [address] [phone] White Blood Count 3.9 10 Low 4.0-10.0 Red Blood Count 3.20 10 Low 4.00-5.40 Hemoglobin 8.5 g/dL Low 12.0-15.5 Hematocrit 28.1 % Low 36.0-47.0 Mean Corpuscular Volume 87.8 fl Normal 80.0-96.0 Mean Corpuscular Hemoglobin 26.6 pg Low 27.0-33.0 Mean Corpuscular HGB Conc 30.2 g/dL Low 32.0-36.5 Red Cell Distribution Width 15.9 % High 11.5-14.5 Platelet Count, Automated TNP 10 Normal 150-450 2 Neutrophils % 70.0 % High 36.0-66.0 Lymph % 16.7 % Low 24.0-44.0 [place] % 9.5 % High 2.0-8.0 Eos % 2.3 % Normal 0.0-3.0 Baso % 1.0 % Normal 0.0-1.0 Immature Granulocyte % 0.5 % Normal 0-3.0 Nucleated Red Blood Cell % 0.0 % Normal 0-0 Neutrophils # 2.7 10 Normal 1.5-8.5 Lymph # 0.7 10 Low 1.5-5.0 [place] # 0.4 10 Normal 0.0-0.8 Eos # 0.1 10 Normal 0.0-0.5 Baso # 0.0 10 Normal 0.0-0.2 Total Iron Binding Capacit 11/26/2020 [facility] Main Lab [address] [place] [address] [phone] Iron (Fe) 36 g/dL Low 50-170 Total Iron Binding Capacity 387 g/dL Normal 250-450 Percent Saturation 9.3 % Low 13.2-45.0 Vitamin B12 & Folate 11/26/2020 [facility] enter Main Lab [address] [place] [address] [phone] Vitamin B12 Level 378 pg/mL Normal 3 Folate 7.9 NG/ML Normal 4 1 THE AFP ASSAY IS PERFORMED O N THE [place] BY CHEMILUMINESCENCE AND SHOULD NOT BE COMPARED INTERCHANGEABLY WITH OTHER METHODS. IT SHOULD NOT BE USED ALONE A SCREENING TEST OR DIAGNOSIS FOR THE PRESENCE OR ABSENCE OF MALIGNANT DISEASE. THESE RESULTS ARE NOT INTERPRETABLE IN FEMALES. PREDICTIONS OF DISEASE RECURRENCE SHOULD NOT BE BASED SOLELY ON VALUES OBTAINED FROM SERIAL PATIENT SERUM VALUES. 2 Platelet count invalid due t o platelet clumping. Suggest ordering platelet blue test to confirm clumping is not due to EDTA. 3 VITAMIN B12 NORMAL RANGE NORMAL 247 - 911 PG/ML INDETERMINATE 211 - 246 PG/ML DEFICIENT LESS THAN 211 PG/ML 4 FOLATE NORMAL RANGE NORMAL GREATER THAN 5.4 NG/ML INDETERMINATE 3.4-5.4 NG/ML DEFICIENT LESS THAN 3.4 NG/ML Procedures Date Code Description Status 11/26/2020 52572 Office/Outpatient Established Mo d MDM 30-39 Min Completed 08/07/2020 66007 Office/Outpatient Established Lo w MDM 20-29 Min Completed Medical Devices Description No Information Available Encounters Type Date Location Provider Dx Diagnosis Office Visit 11/26/2020 8:30a [facility] Mike Hou M.D. K74.60 Unspecified cirrhosis of aayush er I85.01 Esophageal varices with blee ding K76.0 Fatty (change of) liver, not elsewhere classified D64.9 Anemia, unspecified Office Visit 08/07/2020 10:15a [facility] Montana Law MD K14.0 Glossitis Assessments Date Code Description Provider 11/26/2020 K74.60 Unspecified cirrhosis of liver C karishma Hou M.D. 11/26/2020 I85.01 Esophageal varices with bleeding Mike Hou M.D. 11/26/2020 K76.0 Fatty (change of) liver, not els ewhere classified Mike Hou M.D. 11/26/2020 D64.9 Anemia, unspecified Mike abdi M.D. 08/07/2020 K14.0 Glossitis [place] Law MD Plan of Treatment Future Appointment(s):* 01/21/2021 11:40 am - Mike Hou M.D. at [facility] * 01/06/2021 9:30 am - Roni Douglas MD at [facility] Pulmonary/Thoracic Functional Status Functional Condition Comment Date Status Independent with all ADL's Activ e Independent with all IADL's Acti ve Mental Status Mental Condition Comment Date Status Cognitive ability not impaired A ctive Referrals Refer to Reason for Referral Status Appt Date Itz Killian M.D. CIRRHOSIS OF LIVER, HEMATEMESIS Scheduled 09/24/2020 [facility], Gastroenterology [address], [address] [place] [address] [phone]
--- OUTSIDE RECORDS SUMMARY | 2021-02-07 14:20 | CCD | Continuity of Care Document ---
Author Author Ronda HARDING N.P. Organization Unknown Address [address] [place] [address] Phone [phone] Care Team Providers Care Wetlands Technician Name Role Phone Esdras Araujo MD ([place]) AUTM AUTM Unavailable AUTM Unavailable Shahida Franklin D.O. AUTM [phone] Problems Active Problems Provider Date Difficulty breathing [...] Cirrhosis - non-alcoholic Itz Killian MD Onset: 017 [place] Phillip MD Onset: 02/16/2017 Biliary cirrhosis Farshad Phillip MD Onset: 02/16/2017 Body mass index 25-29 - overweight Katheryn Chen M.D. Onset: 02/16/2017 Overweight Katheryn Chen M.D. Onset: Social History Type Date Description Comments Sex Unknown ETOH Use Denies alcohol use Tobacco Use Reviewed: 01/10/19 Patient has never smoked Recreational Drug Use Denies Drug Use Smoking Status Reviewed: 01/01/21 Patient has never smoked Allergies, Adverse Reactions, Alerts Active Allergies Criticality Reaction | Severity Comments Date Flexeril Unable to assess criticality hallucinations 11/26/2010 Darvocet Unable to assess criticality hallucinations 11/26/2010 Medications Active Medications SIG Qnty Indications Ordering Provide r Date Aerochamber Plus Misc as directed with mdi 1units Katheryn Chen M.D. Losartan Potassium 100mg Tablets 1tab bid Unknown Metformin HCL 500mg Tablets 1 tab bid Unknown Carvedilol 25mg Tablets 1tab bid Unknown Hydrochlorothiazide 25mg Tablets 1tab qd Unknown Carbamazepine 200mg Tablets 1tab po tid Unknown CPAP 13cm marras Katheryn Chen M.D. Prozac 20mg Capsules 1cap qd Unknown Pantoprazole Sodium 40mg Tablets D R 1tab bid Unknown Spironolactone 25mg Tablets 1 tab qd Unknown Immunizations CPT Code Status Date Vaccine Lot # [id number] Given 03/02/2012 Influenza Virus Split 3 Yrs And Above For Intramuscular Use 92846 Given 02/01/2011 Influenza Virus Split 3 Yrs And Above For Intramuscular Use 48944 Given 03/07/2009 Pneumococcal PPSV23 23594 Given 02/28/2009 Influenza Vaccine 48740 Given Unknown TB Intradermal Test Vital Signs Date Vital Result Comment 01/01/2021 10:57am BP Systolic 162 mmHg [employer]D SERVICES ARCHITECT Recheck: 1 50/84 BP Diastolic 80 mmHg [employer]OUD SERVICES ARCHITECT Recheck: 150/84 Heart Rate 92 /min O2 % BldC Oximetry 99 % Height 64 inches 5'4" [place] Body Weight 120 lb 11/26/2020 9:21am BP Systolic 122 mmHg BP Diastolic 64 mmHg Height 64 inches 5'4" Weight 170.00 lb BMI (Body Mass Index) 29.2 kg/m2 [place] Body Weight 120 lb Weight 77.112 kg BSA (Body Surface Area) 1.83 m2 Results Test Acquired Date Facility Test Result H/L Range Note Liver Profile 11/26/2020 [facility] nter Main Lab [address] [place] [address] [phone] Ast/Sgot 21 U/L Normal 7-37 Alt/SGPT 22 U/L Normal 12-78 Alkaline Phosphatase 115 U/L Normal 45-117 Bilirubin,Total 0.4 mg/dL Normal 0.2-1.0 Bilirubin,Direct 0.2 mg/dL Normal 0.0-0.2 Total Protein 7.4 GM/DL Normal 6.4-8.2 Albumin 3.4 GM/DL Normal 3.2-5.2 Albumin/Globulin Ratio 0.9 Low 1.2-2.2 Laboratory test finding 11/26/2020 [facility] Main Lab [address] [place] [address] [phone] Alpha Fetoprotein Tumor Quant < 1.3 NG/ML Normal < 8.1 1 CBC With Differential 11/26/2020 [facility] Main Lab [address] [place] [address] [phone] White Blood Count 3.9 10 Low 4.0-10.0 [...] 36.0-66.0 Lymph % 16.7 % Low 24.0-44.0 [place] % 9.5 % High 2.0-8.0 Eos % 2.3 % Normal 0.0-3.0 Baso % 1.0 % Normal 0.0-1.0 Immature Granulocyte % 0.5 % Normal 0-3.0 Nucleated Red Blood Cell % 0.0 % Normal 0-0 Neutrophils # 2.7 10 Normal 1.5-8.5 Lymph # 0.7 10 Low 1.5-5.0 [place] # 0.4 10 Normal 0.0-0.8 Eos # 0.1 10 Normal 0.0-0.5 Baso # 0.0 10 Normal 0.0-0.2 Total Iron Binding Capacit 11/26/2020 [facility] Center Main Lab [address] [place], [place] [id number] [phone] Iron (Fe) 36 g/dL Low 50-170 Total Iron Binding Capacity 387 g/dL Normal 250-450 Percent Saturation 9.3 % Low 13.2-45.0 Vitamin B12 & Folate 11/26/2020 [facility] enter Main Lab [address] [place] [address] [phone] Vitamin B12 Level 378 pg/mL Normal 3 Folate 7.9 NG/ML Normal 4 1 THE AFP ASSAY IS PERFORMED O N THE [place] BY CHEMILUMINESCENCE AND SHOULD NOT BE COMPARED [...] NG/ML Procedures Date Code Description Status 11/26/2020 24377 Office/Outpatient Established Mo d MDM 30-39 Min Completed 08/07/2020 01543 Office/Outpatient Established Lo w MDM 20-29 Min Completed Medical Devices Description No Information Available Encounters Type Date Location Provider Dx Diagnosis Office Visit 11/26/2020 8:30a [facility] Mike Sanchez M.D. K74.60 Unspecified cirrhosis of aayush er I85.01 Esophageal varices with blee ding K76.0 Fatty (change of) liver, not elsewhere classified D64.9 Anemia, unspecified Office Visit 08/07/2020 10:15a [facility] Montana Law MD K14.0 Glossitis Assessments Date Code Description Provider 01/01/2021 G47.33 Obstructive sleep apnea (adult) (pediatric) Teresita Harding, N.P. 11/26/2020 K74.60 Unspecified cirrhosis of liver C karishma Sanchez M.D. 11/26/2020 I85.01 Esophageal varices with bleeding Mike Sanchez M.D. 11/26/2020 K76.0 Fatty (change of) liver, not els ewhere classified Mike Sanchez M.D. 11/26/2020 D64.9 Anemia, unspecified Mike abdi M.D. 08/07/2020 K14.0 Glossitis [place] Law MD Plan of Treatment Future Appointment(s):* 01/21/2021 11:40 am - Mike Sanchez M.D. at [facility] 01/01/2021 - Teresita Harding, N.P.* G47.33 Obstructive sleep apnea (adult) (pediatric) * * Comments:* 1. No changes were made to the CPAP pressure at today's visit. 2. The patient is aware to call with any problems related to CPAP use, snoring through the mask or return of daytime sleepiness. 3. Per the patient's request, a CPAP supply order has been sent to the [facility]. * Follow up:* 1. Patient going to ER by POV. 2. Follow up in one year to reassess CPAP compliance or sooner should problems develop. Functional Status Functional Condition Comment Date Status Independent with all ADL's Activ e Independent with all IADL's Acti ve Mental Status Mental Condition Comment Date Status Cognitive ability not impaired A ctive Referrals Refer to Reason for Referral Status Appt Date Itz Killian M.D. CIRRHOSIS OF LIVER, HEMATEMESIS Scheduled 09/24/2020 [facility], Gastroenterology [address], [address] [place] [address] [phone]
--- OUTSIDE RECORDS SUMMARY | 2021-02-07 14:21 | CCD ---
Author Author [facility] Organization [facility] Address Unknown Phone Unavailable Care Team Providers Care Mens Locker Room Attendant Name Role Phone Lenny Ibarra Unavailable PROBLEMS Type Condition ICD9-CM Code [id number] Code Onset Dates Condition S tatus W/U Status Risk SNOMED Code Notes Problem Type 2 diabetes mellitus without complications E11 .9 Active confirmed 42113847 Problem Epilepsy G40.909 Active confirmed 33522338 Problem Depression F32.9 Active confirmed 08070763 Problem Essential (primary) hypertension I10 Active conf irmed 71598211 Problem Mixed hyperlipidemia E78.2 Active confirmed 922819727 Problem Sleep apnea G47.30 Active confirmed 26608000 Problem Sciatica of right side M54.31 Active confirmed 21783378 Problem Fatty liver K76.0 Active confirmed 55627775 7 Problem Atrial fibrillation, chronic I48.2 Active confirme d 05040821 Problem penitentiary current use of anticoagulant Z79.01 A ctive confirmed 983150327 Problem Anemia, blood loss D50.0 Active confirmed 4 15365412 Problem Alcoholic cirrhosis of liver without ascites K70.3 0 Active confirmed 275064490 Problem Low back pain with radiation M54.40 Active confirme d 974832995 Problem Impaired ambulation R26.2 Active confirmed 902485603 Problem Unilateral hearing loss H91.90 Active confirmed 84603735 Problem Secondary esophageal varices with bleeding I85.11 Active confirmed 29263299 Problem Chronic obstructive pulmonary disease, unspecified COPD ty pe J44.9 Active confirmed 27417135 Problem Bilateral hearing loss, unspecified hearing loss type H91.93 Active confirmed 67516428 Problem Pancytopenia D61.818 Active confirmed 408845 005 ALLERGIES Allergen (clinical drug ingredient) Drug/Non Drug Allergy do cumented on EMR Reaction Allergy Type Onset Date Status Darvocet-N 100 dizzy Drug Allergy Active Flexeril dizzy Drug Allergy Active ENCOUNTERS from 1950 to 2020-11-14 Encounter Location Date Provider Diagnosis [address] [place] [address] Oct, Lenny Gwinn Laceration of scalp without complication, subsequent encounter S01.01XD and Encounter for staple removal Z48.02 IMMUNIZATIONS Vaccine Route Administration Date Status Influenza 18 yrs & older Flublok IM Intramuscular Jan 29, 2020 Administered Pneumococcal Adult 0.5mL Pneumovax 23 IM Intramuscular Jan 28 020 Administered Influenza (High Dose 65 & up) IM Intramuscular Feb 25, 2016 A dministered Influenza (High Dose 65 & up) IM Intramuscular Feb 28, 2017 A dministered Influenza 18 yrs & older Flublok IM Intramuscular Jan 29, 2019 Administered Influenza 6mo & up Fluzone IM Intramuscular Jan 27, 2010 Admi nistered Influenza (High Dose 65 & up) IM Intramuscular Mar 04, 2015 A dministered Pneumococcal 0.5mL Prevnar 13 IM Intramuscular Mar 04, 2015 A dministered Pneumococcal Adult 0.5mL Pneumovax 23 Unknown Jan 17 007 Administered Pneumococcal Adult 0.5mL Pneumovax 23 IM Intramuscular Jan 17, 2007 Administered Influenza 6mo & up Fluzone IM Intramuscular Feb 14, 2014 Admi nistered Influenza 6mo & up Fluzone IM Intramuscular Jan 09, 2013 Admi nistered Influenza 6mo & up Fluzone IM Intramuscular Mar 21, 2012 Admi nistered Influenza 6mo & up Fluzone IM Intramuscular Jan 26, 2011 Admi nistered SOCIAL HISTORY Tobacco Use: Social History Observation Description Date Details (start date - stop date) Never Smoker Sex Assigned At : Social History Observation Description Sex Assigned At Unknown Education: Question Answer Notes Level of Education: Not finished High School Audit Question Answer Notes Total Score: 0 Interpretation: Alcohol Education Language: Question Answer Notes Languages spoken: Pashto Adventist: Question Answer Notes Adventist 33 None Sexual Hx: Question Answer Notes Had sex in the last 12 months (vaginal, oral, or anal)? No Have you ever had an STD? No Drug and Alcohol Question Answer Notes Total Score: 0 Interpretation: No problems reported Alcohol Screening: Question Answer Notes Did you have a drink containing alcohol in the past year? No Points 0 Interpretation Negative BMI Care Goal Follow-Up Question Answer Notes Above Normal BMI Follow-Up Dietary management educatio n, guidance, and counseling -29.3 Tobacco Use: Question Answer Notes Are you a: never smoker never smoker/updated 07/04/2019 REASON FOR REFERRAL No Information VITAL SIGNS Weight 166 lbs Oct, Height 5'3 1/2" in Oct, BMI 28.94 kg/m2 Oct, Heart Rate 75 /min Oct, Respiratory Rate 18 /min Oct, Temperature 97.1 degrees Fahrenheit Oct, Oximetry 99%RA Oct, Blood pressure systolic 144 mm Hg Oct, Blood pressure diastolic 76 mm Hg Oct, MEDICATIONS Medication SIG (Take, Route, Frequency, Duration) Notes Start Da te End Date Status Lactulose 10 GM 1 packet Orally Once a day for 30 day(s) Active Folic Acid 1 MG 1 tablet Orally Once a day for 30 day(s) Active Lancets 0 Dx: E11.9 SQ BID for 90 day(s) May, Active Propranolol HCl 20 MG 1 tablet Orally bid Active One Touch Ultra System Kit -- as directed -- daily Jun, Active One Touch Delica 33 gauge as directed BID Dx E11.9 Active carBAMazepine 200 MG TAKE ONE TABLET BY MOUTH THREE TIMES A DAY for 9 0 Active Glucometer as directed _ _ for 30 days Jul, Active Blood Glucose Test - as directed In Vitro bid for 30 days Jun, Active Hydrochlorothiazide 25 mg 1 tablet Orally Once a day for 90 Active Prozac 20 mg 1 capsule in the morning Orally Once a day for 90 days Active Aldactone 25 MG 1 tablet Orally Once a day for 90 Active metFORMIN HCl 500 mg 1 tablet with meals Orally Twice a day for 90 da y(s) Active Multivitamin Adult - as directed Orally Not-Taking Losartan Potassium 100 MG 1/2 tab Orally twice daily for 30 Days Active One Touch Ultra Test Strips . dx: e11.9 Dx code E11.9 BID for 90 day(s) May, Active Pantoprazole Sodium 40 MG 1 tablet Orally twice daily for 90 day(s) Active PROCEDURES No Information RESULTS No Results REASON FOR VISIT [facility] follow up - staple removal MEDICAL (GENERAL) HISTORY Type Description Date Medical History chest pain Medical History type II diabetes Medical History hypertension Medical History seizures Medical History herniated disc Medical History depression Medical History ? TIA Medical History fx.left humerus Medical History Gall bladder sludge Medical History A-fib Medical History Liver cirrhosis with varicies Medical History COPD Surgical History back surgery Surgical History cardiac catheterization Surgical History Gall bladder removed 03/28/15 Hospitalization History ? of TIA 11/29/2012 Hospitalization History with surgery -one night 03/28/15 Hospitalization History [facility] 08/26/16 Hospitalization History Urgent Care-right foot /ankle pain Hospitalization History [facility] left little toe 10/10 Hospitalization History [facility] GI bleed 10/2018 Hospitalization History [facility]-ER chest pain 01/25/19 Hospitalization History [facility] neck and back 01/27/19 Hospitalization History [facility] ER-bronchitis 05/19/2019 Hospitalization History [facility]- Hematemesis/ Upper GI Bleed 07/10-07/16/2020 Goals Section No Information Health Concerns No Information MEDICAL EQUIPMENT No Information MENTAL STATUS No Information FUNCTIONAL STATUS No Information ASSESSMENTS Encounter Date Diagnosis Assessment Notes Treatment Notes Treatm ent Clinical Notes Oct, Laceration of scalp without complication, subsequent encounter (ICD-10 - S01.01XD) You have a laceration at this time that was closed with liliam. The wound is healing well.the liliam were removed without incident. Return here or follow up with your primary care provider if wound develops any signs of infection such as redness, pain/tenderness, foul smelling discharge, swelling, or wound dehiscence. You may take motrin or Tylenol for the pain as needed. Oct, Encounter for staple removal (ICD-10 - Z48.02) Oct, Other Medication/s di scussed with patient and questions answered. RTC as needed for worsening or unresolved symptoms. Patient states understanding and agreement with this plan. PLAN OF TREATMENT Treatment Notes Assessment Notes Clinical Notes Laceration of scalp without complication, subsequent e ncounter You have a laceration at this time that was closed with lilima. The wound is healing well.the liliam were removed without incident. Return here or follow up with your primary care provider if wound develops any signs of infection such as redness, pain/tenderness, foul smelling discharge, swelling, or wound dehiscence. You may take motrin or Tylenol for the pain as needed. Next Appt Details As needed Reason: Provider Name:Shahida Franklin, 2021-01 03:00:00 PM, [address] , , [place], [address], Insurance Providers Payer Name Payer Address Payer Phone Insured Name Patient Relati onship to Insured Coverage Start Date Coverage End Date MEDICARE Part A and B [address] [facility] [phone] [place] MEDICAID [employer] [address] [facility] [id number] [place]
--- OUTSIDE RECORDS SUMMARY | 2021-02-07 14:21 | CCD ---
Author Author [facility] Organization [facility] Address Unknown Phone Unavailable Care Team Providers Care Residential Direct Support Professional Name Role Phone Shahida Franklin Unavailable PROBLEMS Type Condition ICD9-CM Code GYR93-WB Code Onset Dates Condition S tatus W/U Status Risk SNOMED Code Notes Problem Type 2 diabetes mellitus without complications E11 .9 Active confirmed 73871149 Problem Epilepsy G40.909 Active confirmed 66666404 Problem Depression F32.9 Active confirmed 40678228 Problem Essential (primary) hypertension I10 Active conf irmed 89977338 Problem Mixed hyperlipidemia E78.2 Active confirmed 795631194 Problem Sleep apnea G47.30 Active confirmed 79531384 Problem Sciatica of right side M54.31 Active confirmed 07858374 Problem Fatty liver K76.0 Active confirmed 15039567 7 Problem Atrial fibrillation, chronic I48.2 Active confirme d 01093577 Problem retirement current use of anticoagulant Z79.01 A ctive confirmed 413167396 Problem Anemia, blood loss D50.0 Active confirmed 4 90517951 Problem Alcoholic cirrhosis of liver without ascites K70.3 0 Active confirmed 057850535 Problem Low back pain with radiation M54.40 Active confirme d 174946025 Problem Impaired ambulation R26.2 Active confirmed 706083803 Problem Unilateral hearing loss H91.90 Active confirmed 39669896 Problem Secondary esophageal varices with bleeding I85.11 Active confirmed 51122187 Problem Chronic obstructive pulmonary disease, unspecified COPD ty pe J44.9 Active confirmed 59024457 Problem Bilateral hearing loss, unspecified hearing loss type H91.93 Active confirmed 72145519 Problem Pancytopenia D61.818 Active confirmed 651496 005 ALLERGIES Allergen (clinical drug ingredient) Drug/Non Drug Allergy do cumented on EMR Reaction Allergy Type Onset Date Status Darvocet-N 100 dizzy Drug Allergy Active Flexeril dizzy Drug Allergy Active ENCOUNTERS from 1950 to 2020-12-02 Encounter Location Date Provider Diagnosis [facility] Pedro Pablo [address]OWN [phone] [place] [address] Nov, Shahida Franklin IMMUNIZATIONS Vaccine Route Administration Date Status Influenza [...] 23 IM Intramuscular Jan 17, 2007 Administered Pneumococcal 0.5mL Prevnar 13 IM Intramuscular Mar 04, 2015 A dministered Influenza 6mo & up Fluzone IM Intramuscular [...] Education Language: Question Answer Notes Languages spoken: Chinese Worship: Question Answer Notes Worship 33 None Sexual Hx: Question Answer Notes [...] REASON FOR REFERRAL No Information VITAL SIGNS No information MEDICATIONS Medication SIG (Take, Route, Frequency, Duration) Notes Start Da te End Date Status Propranolol HCl 20 MG 1 tablet Orally bid Active Lactulose 10 GM 1 packet Orally Once a day for 30 day(s) Active Lancets 0 Dx: E11.9 SQ BID for 90 day(s) May, Active Spironolactone 25 MG TAKE ONE TABLET BY MOUTH EVERY DAY for 90 Active One Touch Ultra System Kit -- as directed -- daily Jun, Active One Touch Delica 33 gauge as directed BID Dx E11.9 Active carBAMazepine 200 MG TAKE ONE TABLET BY MOUTH THREE TIMES A DAY for 9 0 Active Glucometer as directed _ _ for 30 days 1 TOUCH BARRELL FLEX Jul, Active Blood Glucose Test - as directed In Vitro bid for 30 days On e touch verio. Dx: E11.9 Jun, Active Hydrochlorothiazide 25 mg 1 tablet Orally Once a day for 90 Active Prozac 20 mg 1 capsule in the morning Orally Once a day for 90 days Active Pantoprazole Sodium 40 MG 1 tablet Orally twice daily for 90 day(s) Active metFORMIN HCl 500 mg 1 tablet with meals Orally Twice a day for 90 da y(s) Active Multivitamin Adult - as directed Orally Not-Taking Losartan Potassium 100 MG 1/2 tab Orally twice daily for 30 Days Active One Touch Ultra Test Strips . dx: e11.9 Dx code E11.9 BID for 90 day(s) May, Active Folic Acid 1 MG 1 tablet Orally Once a day for 30 day(s) Active PROCEDURES No Information RESULTS No Results REASON FOR VISIT Low hemoglobin MEDICAL (GENERAL) HISTORY Type Description Date Medical [...] with surgery -one night 03/28/15 Hospitalization History [facility]-Low back pain 5/4/17 Hospitalization History Urgent Care-right foot /ankle pain Hospitalization History [facility] left little toe 10/[address] [facility] GI bleed 10/[address] [facility]-ER chest pain 01/25/19 Hospitalization History [facility] neck and back 01/27/[address] [facility] ER-bronchitis 05/19/[address] [facility]- Hematemesis/ Upper GI Bleed 07/10-07/16/2020 Goals Section No Information Health Concerns No Information MEDICAL EQUIPMENT No Information MENTAL STATUS No Information FUNCTIONAL STATUS No Information ASSESSMENTS No Information PLAN OF TREATMENT Medication Medication Name Sig Start Date Stop Date Spironolactone 25 MG TAKE ONE TABLET BY MOUTH EVERY DAY for 90 Next Appt Details Provider Name:Shahida Franklin, 2021-01 03:00:00 PM, [address] , , [place], [address], Insurance Providers Payer Name Payer Address Payer Phone Insured Name Patient Relati onship to Insured Coverage Start Date Coverage End Date MEDICAID [employer] [address] [facility] [id number] [place] MEDICARE Part A and B [address] [facility] [address] [phone] [place]
--- OUTSIDE RECORDS SUMMARY | 2021-02-07 14:21 | CCD | Continuity of Care Document ---
Author Author Ronda HOU M.D. Organization Unknown Address [address] [place] [address], [address] [place] [address] Phone [phone] Care Team Providers Care Theater Manager Name Role Phone Esdras Araujo MD ([place]) AUTM [phone] AUTM Unavailable AUTM Unavailable Shahida Franklin D.O. AUTM [phone] Problems Active Problems Provider Date Difficulty breathing [...] - non-alcoholic Itz Killian MD Onset: 017 [place] Farshad Phillip MD Onset: 02/16/2017 [...] smoked Allergies, Adverse Reactions, Alerts Active Allergies Reaction Severity Comments Date Flexeril hallucinations 11/26/2010 Darvocet hallucinations 11/26/2010 Medications Active Medications SIG Qnty Indications Ordering Provide r Date Nystatin 129723Sari/ML Suspension 2 teaspoon swish and spit three times a day 473ml London Law MD 10/24/2019 Thiamine HCL 100mg Tablets 1 by mouth every day 30tabs Mike Hou M.D. 2019 Folic Acid 1mg Tablets one tablet by mouth every day after meals 30tabs Mike Hou M.D. 09/21/2019 Multivitamin Adults Tablets 1 tab by mouth every day before meals 30tabs K74.60 Mike Hou M.D. 12/05/2018 Aerochamber Plus Misc as directed with michael 1units Katheryn Chen M.D. Spironolactone 25mg Tablets 1tab po qd Unknown Calcium Carbonate 500mg Chewtabs 1tab po qd Unknown Amiodarone HCL 200mg Tablets 1tab po bid Unknown Pantoprazole Sodium 40mg Tablets D R 1tab po bid Unknown Prozac 20mg Capsules 1cap po qd Unknown CPAP 13cm marras Katheryn Chen M.D. Aspirin 81mg Tablets 1tab po qd Unknown Carbamazepine 200mg Tablets 1tab po tid Unknown Hydrochlorothiazide 25mg Tablets 1tab po qd Unknown Carvedilol 25mg Tablets 1tab po bid Unknown Metformin HCL 500mg Tablets 1tab po bid Unknown Losartan Potassium 50mg Tablets 1tab po qd Unknown Immunizations CPT Code Status Date Vaccine Lot # 15670 Given 03/02/2012 Influenza Virus Split 3 Yrs And Above For Intramuscular Use 03443 Given 02/01/2011 Influenza Virus Split 3 Yrs And Above For Intramuscular Use 44964 Given 03/07/2009 Pneumococcal PPSV23 53451 Given 02/28/2009 Influenza Vaccine 04822 Given Unknown TB Intradermal Test Vital Signs Date Vital Result Comment 08/07/2020 9:34am Height 65 inches 5'5" Weight 176.00 lb BMI (Body Mass Index) 29.3 kg/m2 [place] Body Weight 125 lb Weight 79.834 kg BSA (Body Surface Area) 1.87 m2 01/03/2020 12:54pm BP Systolic 118 mmHg BP Diastolic 80 mmHg Heart Rate 80 /min O2 % BldC Oximetry 96 % Room Air Height 65 inches 5'5" Weight 176.00 lb BMI (Body Mass Index) 29.3 kg/m2 [place] Body Weight 125 lb Weight 79.834 kg BSA (Body Surface Area) 1.87 m2 Results Description No Information Available Procedures Date Code Description Status 08/07/2020 05704 Office/Outpatient Established Lo w MDM 20-29 Min Completed Medical Devices Description No Information Available Encounters Type Date Location Provider Dx Diagnosis Office Visit 08/07/2020 10:15a [facility] [place] Law MD K14.0 Glossitis Assessments Date Code Description Provider 11/26/2020 K74.60 Unspecified cirrhosis of liver C karishma Hou M.D. 11/26/2020 I85.01 Esophageal varices with bleeding Mike Hou M.D. 11/26/2020 K76.0 Fatty (change of) liver, not els ewhere classified Mike Hou M.D. 11/26/2020 D64.9 Anemia, unspecified Mike abdi M.D. 08/07/2020 K14.0 Glossitis Montnaa Law MD Plan of Treatment Future Appointment(s):* 01/06/2021 9:30 am - Roni Douglas MD at [facility] Pulmonary/Thoracic 11/26/2020 - Mike Hou M.D.* K74.60 Unspecified cirrhosis of liver * I85.01 Esophageal varices with bleeding * K76.0 Fatty (change of) liver, not elsewhere classified * D64.9 Anemia, unspecified * * Recommendations:* -- Educated patient about the prior test results and differential diagnosis. All questions answered. -- Recommend Hepatitis B vaccination at PCP clinic or public health clinic. -- Continue Coreg ( will cover for secondary variceal bleeding prevention prophylaxis). -- Avoid NSAIDS. No contraindication for Aspirin if required for cardiac reasons. -- For obesity patient educated about weight loss - atleast 10 % over the next 6 Months. Patient is educated about [employer] assistant manager referral as well. -- Decision for anticoagulation by Patients jury consultant, depending on the risks and benefits. Currently no overt GI bleeding. -- Continue on lactulose 1- 2 times daily for encephalopathy. titrate dose to get atleast 1-2 loose stools per day. -- Will continue with iron supplements with colace, Thiamine and folic acid ( multivitamin tablet) -- Patient to continue with pantoprazole 40 mg once daily for now. -- Patient is recommended Colonoscopy due to persistent ROSEMARIE but patient refused colonoscopy. Patient explained about the risks. -- Next surveillance ultrasound and labs in 6 months - Feb 2020 -- Discussed with patient about the referral to liver transplant center but she refused. Routine care of cirrhotic patient: -- Alcohol cessation/abstinence. Alcohol consumption worsens liver disease even in small quantities when you have underlying cirrhosis. -- Hepatocellular cancer screening: Twice yearly ultrasound and AFP level. -- Esophageal Variceal screening: At least every 3 years if not taking nonselective beta promise. -- Vaccination: Hepatitis A, hepatitis B, pneumococcal vaccine if not taken before. Yearly influenza vaccine. -- Bone health: Bone density every 3 years and measurement of vitamin D level twice yearly. -- Nutrition: A high-protein ( 1.6 gm/ kg body weight) and low sodium ( <2gm/day) diet. Patients with encephalopathy, benefit from protein snack in the evening. -- Medications to avoid: Benzodiazepines, NSAIDs, sedating medications. Use opioids only then absolutely necessary. Tylenol <2gm/day dose is safe in cirrhotic patients who do not consume alcohol. -- Return to GI clinic in 2 months for follow up of the symptoms.. -- Follow up with PMD for routine medical care and other age appropriate health maintenance. Functional Status Functional Condition Comment Date Status Independent with all ADL's Activ e Independent with all IADL's Acti ve Mental Status Mental Condition Comment Date Status Cognitive ability not impaired A ctive Referrals Refer to Reason for Referral Status Appt Date Itz Killian M.D. CIRRHOSIS OF LIVER, HEMATEMESIS Scheduled 09/24/2020 [facility], Gastroenterology [address] [place] [address], [place] [address] [phone]
--- OUTSIDE RECORDS SUMMARY | 2021-02-07 14:22 | CCD ---
Author Author [facility] Organization [facility] Address Unknown Phone Unavailable Care Team Providers Care Mental Health Counselor Name Role Phone Wooten, P Ramses Unavailable Unavailable Wooten, P Ramses Unavailable Unavailable Wooten, P Ramses Unavailable Unavailable Wooten, P Ramses Unavailable Unavailable Wooten, P Ramses Unavailable Unavailable Wooten, P Ramses Unavailable Unavailable Wooten, P Ramses Unavailable Unavailable Ketty HOU MD Unavailable Unavailable Ketty HOU MD Unavailable Unavailable Ketty HOU MD Unavailable Unavailable Ketty HOU MD Unavailable Unavailable Ketty HOU MD Unavailable Unavailable Ketty HOU MD Unavailable Unavailable Ketty HOU MD Unavailable Unavailable Ketty HOU MD Unavailable Unavailable Ketty HOU MD Unavailable Unavailable Ketty HOU MD Unavailable Unavailable Ketty HOU MD Unavailable Unavailable Ketty HOU MD Unavailable Unavailable Ketty HOU MD Unavailable Unavailable Ketty HOU MD Unavailable Unavailable Ketty HOU MD Unavailable Unavailable Ketty HOU MD Unavailable Unavailable Ketty HOU MD Unavailable Unavailable Ketty HOU MD Unavailable Unavailable Ketty HOU MD Unavailable Unavailable Ketty HOU MD Unavailable Unavailable Ketty HOU MD Unavailable Unavailable Ketty HOU MD Unavailable Unavailable Ketty HOU MD Unavailable Unavailable Ketty HOU MD Unavailable Unavailable Ketty HOU MD Unavailable Unavailable Ketty HOU MD Unavailable Unavailable Ketty HOU MD Unavailable Unavailable Ketty HOU MD Unavailable Unavailable Ketty HOU MD Unavailable Unavailable Ketty HOU MD Unavailable Unavailable Ketty HOU MD Unavailable Unavailable Ketty HOU MD Unavailable Unavailable Ketty HOU MD Unavailable Unavailable CHEPAK, ILONA Unavailable Unavailable Faustino, Nicole Lanceupa Unavailable Unavailable FaustinoNicoleupa Unavailable Unavailable FaustinoNicoleupa Unavailable Unavailable FaustinoNicoleupa Unavailable Unavailable FaustinoNicoleupa Unavailable Unavailable FaustinoNicoleupa Unavailable Unavailable Faustino, Nicole Lanceupa Unavailable Unavailable FaustinoNicoleupa Unavailable Unavailable FaustinoNicoleupa Unavailable Unavailable Faustino R Casiupa MD Unavailable Unavailable Faustino, Nicole Lanceupa MD Unavailable Unavailable Faustino, R Anupa Unavailable Unavailable SUSHANT MULLEN MD Unavailable Unavailable SUSHANT MULLEN MD Unavailable Unavailable SUSHANT MULLEN MD Unavailable Unavailable SUSHANT MULLEN MD Unavailable Unavailable Oly GAMBLE Unavailable Unavailable TANIA DENG MD Unavailable Unavailable TANIA DENG MD Unavailable Unavailable TANIA DENG MD Unavailable Unavailable TANIA DENG MD Unavailable Unavailable TANIA DENG MD Unavailable Unavailable TANIA DENG MD Unavailable Unavailable TANIA DENG MD Unavailable Unavailable TANIA DENG MD Unavailable Unavailable TANIA DENG MD Unavailable Unavailable TANIA DENG MD Unavailable Unavailable TANIA DENG MD Unavailable Unavailable TANIA DENG MD Unavailable Unavailable TANIA DENG MD Unavailable Unavailable TANIA DENG MD Unavailable Unavailable TANIA DENG MD Unavailable Unavailable Kvng Law MD Unavailable Unavailable Abriss, Kvng Boyle MD Unavailable Unavailable Abrshira, Kvng Boyle MD Unavailable Unavailable Abrshira, Kvng Boyle MD Unavailable Unavailable Abrshira, Kvng Boyle MD Unavailable Unavailable Abrshira, Kvng Boyle MD Unavailable Unavailable Kvng Law MD Unavailable Unavailable Abrshira, Kvng Boyle MD Unavailable Unavailable Abrshira, Kvng Boyle MD Unavailable Unavailable Abriss, Kvng Boyle MD Unavailable Unavailable Abriss, Kvng Boyle MD Unavailable Unavailable Abriss, Kvng Boyle MD Unavailable Unavailable Abriss, Kvng Boyle MD Unavailable Unavailable Abriss, Kvng Boyle MD Unavailable Unavailable Abriss, Kvng Boyle MD Unavailable Unavailable Abrshira, Kvng Boyle MD Unavailable Unavailable Abrshira, Kvng Boyle MD Unavailable Unavailable Abrshira, Kvng Boyle MD Unavailable Unavailable Abriss, Kvng Boyle MD Unavailable Unavailable Nicole CAMPA PATRICIA Unavailable Unavailable Hurtado, Satya Unavailable Unavailable Hurtado, Satya Unavailable Unavailable Hurtado, Satya Unavailable Unavailable Hurtado, Satya Unavailable Unavailable Hurtado, Satya Unavailable Unavailable Frost, L Vanessa PA Unavailable Unavailable Frost, L Vanessa PA Unavailable Unavailable Frost, L Vanessa PA Unavailable Unavailable Frost, L Vanessa PA Unavailable Unavailable Frost, L Vanessa PA Unavailable Unavailable Frost, L Vanessa PA Unavailable Unavailable Frost, L Vanessa PA Unavailable Unavailable Frost, L Vanessa PA Unavailable Unavailable Frost, L Vanessa PA Unavailable Unavailable Frost, L Vanessa PA Unavailable Unavailable Frost, L Vanessa PA Unavailable Unavailable Frost, L Vanessa PA Unavailable Unavailable Frost, L Vanessa PA Unavailable Unavailable Frost, L Vanessa PA Unavailable Unavailable Frost, L Vanessa PA Unavailable Unavailable Frost, L Vanessa PA Unavailable Unavailable Frost, L Vanessa PA Unavailable Unavailable Frost, L Vanessa PA Unavailable Unavailable Frost, L Vanessa PA Unavailable Unavailable Frost, L Vanessa PA Unavailable Unavailable Frost, L Vanessa PA Unavailable Unavailable Frost, L Vanessa PA Unavailable Unavailable Frost, L Vanessa PA Unavailable Unavailable Frost, L Vanessa PA Unavailable Unavailable Frost, L Vanessa PA Unavailable Unavailable Frost, L Vanessa PA Unavailable Unavailable Frost, L Vanessa PA Unavailable Unavailable Frost, L Vanessa PA Unavailable Unavailable Frost, L Vanessa PA Unavailable Unavailable Frost, L Vanessa PA Unavailable Unavailable Frost, L Vanessa PA Unavailable Unavailable Frost, L Vanessa PA Unavailable Unavailable Frost, L Vanessa PA Unavailable Unavailable Frost, L Vanessa PA Unavailable Unavailable Frost, L Vanessa PA Unavailable Unavailable Frost, L Vanessa PA Unavailable Unavailable Frost, L Vanessa PA Unavailable Unavailable Frost, L Vanessa PA Unavailable Unavailable Frost, L Vanessa PA Unavailable Unavailable HADZIPASICRISTHIAN Aldridge MD Unavailable Unavailable HADZIPASICCRISTHIAN MD Unavailable Unavailable DouglasMode MD Unavailable Unavailable Douglas, Mode Tamayo MD Unavailable Unavailable Douglas, Mode Tamayo MD Unavailable Unavailable Douglas, Mode Tamayo MD Unavailable Unavailable Douglas, Mode Tamayo MD Unavailable Unavailable Douglas, Mode Tamayo MD Unavailable Unavailable DouglasMode MD Unavailable Unavailable Douglas, Mode Tamayo MD Unavailable Unavailable Douglas, Mode Tamayo MD Unavailable Unavailable Douglas, Mode Tamayo MD Unavailable Unavailable Douglas, Mode Tamayo MD Unavailable Unavailable Douglas, Mode Tamayo MD Unavailable Unavailable Douglas, Mode Tamayo MD Unavailable Unavailable DouglasMode MD Unavailable Unavailable Mode Douglas MD Unavailable Unavailable Mode Douglas MD Unavailable Unavailable Mode Douglas MD Unavailable Unavailable DouglasMode MD Unavailable Unavailable DouglasMode MD Unavailable Unavailable DouglasMode MD Unavailable Unavailable DouglasMode MD Unavailable Unavailable DouglasMode MD Unavailable Unavailable DouglasMode MD Unavailable Unavailable DouglasMode MD Unavailable Unavailable DouglasMode MD Unavailable Unavailable DouglasMode MD Unavailable Unavailable DouglasMode MD Unavailable Unavailable Douglas, Mode Tamayo MD Unavailable Unavailable DouglasMode MD Unavailable Unavailable DouglasMode MD Unavailable Unavailable DouglasMode MD Unavailable Unavailable Mode Douglas MD Unavailable Unavailable Mode Douglas MD Unavailable Unavailable Mode Douglas MD Unavailable Unavailable Mode Douglas MD Unavailable Unavailable DouglasMode MD Unavailable Unavailable DouglasMode MD Unavailable Unavailable DouglasMode MD Unavailable Unavailable DouglasMode MD Unavailable Unavailable DouglasMode MD Unavailable Unavailable DouglasMode MD Unavailable Unavailable Mode Douglas MD Unavailable Unavailable DouglasMode MD Unavailable Unavailable DouglasMode MD Unavailable Unavailable DouglasMode MD Unavailable Unavailable DouglasMode MD Unavailable Unavailable DouglasMode MD Unavailable Unavailable DouglasMode MD Unavailable Unavailable DouglasMode MD Unavailable Unavailable DouglasMode MD Unavailable Unavailable Mode Douglas MD Unavailable Unavailable Mode Douglas MD Unavailable Unavailable Mode Douglas MD Unavailable Unavailable Mode Douglas MD Unavailable Unavailable Re-disclosure Warning The records that you are about to access may contain information from federally-assisted alcohol or drug abuse programs. If such information is present, then the following federally mandated warning applies: This information has been disclosed to you from records protected by federal confidentiality rules (42 CFR part 2). The federal rules prohibit you from making any further disclosure of this information unless further disclosure is expressly permitted by the written consent of the person to whom it pertains or as otherwise permitted by 42 CFR part 2. A general authorization for the release of medical or other information is NOT sufficient for this purpose. The Federal rules restrict any use of the information to criminally investigate or prosecute any alcohol or drug abuse patient.The records that you are about to access may contain highly sensitive health information, the redisclosure of which is protected by Article 27-F of the [facility] Public Health law. If you continue you may have access to information: Regarding HIV / AIDS; Provided by facilities licensed or operated by the [facility] Office of Mental Health; or Provided by the [facility] Office for People With Developmental Disabilities. If such information is present, then the following [facility] mandated warning applies: This information has been disclosed to you from confidential records which are protected by state law. State law prohibits you from making any further disclosure of this information without the specific written consent of the person to whom it pertains, or as otherwise permitted by law. Any unauthorized further disclosure in violation of state law may result in a fine or senior care sentence or both. A general authorization for the release of medical or other information is NOT sufficient authorization for further disc losure. Family History Family Member Name Family Member Gender Family Member Status Date o f Status Description Data Source(s) Unknown Unknown Problem MEDENT ([facility]) Unknown Male Problem MEDENT ([facility]) Unknown Female Problem MEDENT ([facility]) Unknown Unknown Problem [facility] ([facility] Encounters Encounter Providers Location Date Indications Data Source(s ) Outpatient Attender: Satya HurtadoAttender: SATYA MERRITT 05/27/2021 12:00:00 AM [facility] Outpatient Attender: PAYTON Silver/Stefanie/Damaso narvaez/Maria D 11/26/2020 08:30:00 AM EDT MEDENT ([facility]) [place] [address] [facility] [facility] [address] 11/26/2020 12:00:00 AM EDT eCW1 ([facility]) [place]patient [address] [facility] [address] 11/10/2020 12:00:00 AM EDT eCW1 ([facility]) Unknown [address] [facility] [address] 11/07/2020 12:00:00 AM EDT eCW1 ([facility]) Outpatient [address] [facility] [address] 11/04/2020 12:00:00 AM EDT eCW1 ([facility] [place] [address] [facility] [address] 11/04/2020 12:00:00 AM EDT eCW1 ([facility] Unknown [address] [facility] [address] 11/03/2020 12:00:00 AM EDT eCW1 ([facility]) Unknown [address] [facility] [place] [address] 10/29/2020 12:00:00 AM EDT eCW1 ([facility] Unknown [address] [facility] [address] 09/30/2020 12:00:00 AM EDT eCW1 ([facility] Unknown [address] [facility] [address] 09/23/2020 12:00:00 AM EDT eCW1 ([facility]) Outpatient Attender: [place] Silver/Stefanie/Thomas/Re indl 08/07/2020 10:15:00 AM EDT MEDENT ([facility]) Unknown [address] [facility] [place] [address] 07/29/2020 12:00:00 AM EDT eCW1 ([facility] Outpatient [address] [facility] [address] 07/28/2020 12:00:00 AM EDT eCW1 ([facility]) Outpatient [address] [facility] [address] 07/23/2020 12:00:00 AM EDT eCW1 ([facility]) Inpatient Attender: JIGNESH Freddie er: Anupa Faustino MDAttender: SUSHANT MULLEN MDAttender: TANIA DENG MDAttender: CRISTHIAN HADZIPASIC MDAttender: Ramses SepulvedaaraAdmitter: CRISTHIAN HADZIPASIC MDReferrer: CRISTHIAN HADZIPASIC MDConsultant: Anupa Faustino MDConsultant: PATRICIA KATHERYN [id number] 07/11/2020 12:00:00 AM EDT - 07/16/2020 06:25:00 PM EDT Hematemesis [facility] Hematemesis Patient discharged. Unknown [address] [facility] [place] [address] 07/04/2020 12:00:00 AM EST eCW1 ([facility]) Unknown [address] [facility] [address] 07/03/2020 12:00:00 AM EST eCW1 ([facility]) Outpatient [address] [facility] [place] [address] 04/29/2020 12:00:00 AM EST eCW1 ([facility]) Unknown [address] [facility] [place] [address] 04/09/2020 12:00:00 AM EST eCW1 ([facility]) Unknown [address] [facility] [place] [address] 04/03/2020 12:00:00 AM EST eCW1 ([facility]) Unknown [address] [facility] [place] [address] 03/24/2020 12:00:00 AM EST eCW1 ([facility]) Outpatient [address] [facility] [place] [address] 02/26/2020 12:00:00 AM EST eCW1 ([facility]) Unknown [address] [facility] [place] [address] 02/18/2020 12:00:00 AM EDT eCW1 ([facility]) Outpatient Attender: Vanessa MERA [email or web address] 12:00:00 AM EDT - 02/15/2020 02:27:44 PM EDT [facility] Outpatient [address] [facility] [address] 01/29/2020 12:00:00 AM EDT eCW1 ([facility]) Outpatient Attender: Roni Silver/Princess/Nicole velasco 01/03/2020 01:00:00 PM EDT MEDDON ([facility] Immunizations Vaccine Date Status Description Data Source(s) influenza, recombinant, quadrIvalent,injectable, prese rvative free 01/29/2020 04:52:00 PM EDT completed eCW1 ([facility]) influenza, recombinant, quadrIvalent,injectable, prese rvative free 01/29/2020 04:52:00 PM EDT completed eCW1 ([facility]) influenza, recombinant, quadrIvalent,injectable, prese rvative free 01/29/2020 04:52:00 PM EDT completed eCW1 ([facility]) influenza, recombinant, quadrIvalent,injectable, prese rvative free 01/29/2020 04:52:00 PM EDT completed eCW1 ([facility]) influenza, recombinant, quadrIvalent,injectable, prese rvative free 01/29/2020 04:52:00 PM EDT completed eCW1 ([facility]) influenza, recombinant, quadrIvalent,injectable, prese rvative free 01/29/2020 04:52:00 PM EDT completed eCW1 ([facility]) influenza, recombinant, quadrIvalent,injectable, prese rvative free 01/29/2020 04:52:00 PM EDT completed eCW1 ([facility]) influenza, recombinant, quadrIvalent,injectable, prese rvative free 01/29/2020 04:52:00 PM EDT completed eCW1 ([facility]) influenza, recombinant, quadrIvalent,injectable, prese rvative free 01/29/2020 04:52:00 PM EDT completed eCW1 ([facility]) influenza, recombinant, quadrIvalent,injectable, prese rvative free 01/29/2020 04:52:00 PM EDT completed eCW1 ([facility]) influenza, recombinant, quadrIvalent,injectable, prese rvative free 01/29/2020 04:52:00 PM EDT completed eCW1 ([facility]) influenza, recombinant, quadrIvalent,injectable, prese rvative free 01/29/2020 04:52:00 PM EDT completed eCW1 ([facility]) influenza, recombinant, quadrIvalent,injectable, prese rvative free 01/29/2020 04:52:00 PM EDT completed eCW1 ([facility]) influenza, recombinant, quadrIvalent,injectable, prese rvative free 01/29/2020 04:52:00 PM EDT completed eCW1 ([facility]) influenza, recombinant, quadrIvalent,injectable, prese rvative free 01/29/2020 04:52:00 PM EDT completed eCW1 ([facility]) influenza, recombinant, quadrIvalent,injectable, prese rvative free 01/29/2020 04:52:00 PM EDT completed eCW1 ([facility]) influenza, recombinant, quadrIvalent,injectable, prese rvative free 01/29/2020 04:52:00 PM EDT completed eCW1 ([facility]) influenza, recombinant, quadrIvalent,injectable, prese rvative free 01/29/2020 04:52:00 PM EDT completed eCW1 ([facility]) influenza, recombinant, quadrIvalent,injectable, prese rvative free 01/29/2020 04:52:00 PM EDT completed eCW1 ([facility]) influenza, recombinant, quadrIvalent,injectable, prese rvative free 01/29/2020 04:52:00 PM EDT completed eCW1 ([facility]) influenza, recombinant, quadrIvalent,injectable, prese rvative free 01/29/2020 04:52:00 PM EDT completed eCW1 ([facility]) pneumococcal polysaccharide PPV23 01/29/2020 04:51:00 PM EDT comple bola eCW1 ([facility]) pneumococcal polysaccharide PPV23 01/29/2020 04:51:00 PM EDT comple bola eCW1 ([facility]) pneumococcal polysaccharide PPV23 01/29/2020 04:51:00 PM EDT comple bola eCW1 ([facility]) pneumococcal polysaccharide PPV23 01/29/2020 04:51:00 PM EDT comple bola eCW1 ([facility]) pneumococcal polysaccharide PPV23 01/29/2020 04:51:00 PM EDT comple bola eCW1 ([facility]) pneumococcal polysaccharide PPV23 01/29/2020 04:51:00 PM EDT comple bola eCW1 ([facility]) pneumococcal polysaccharide PPV23 01/29/2020 04:51:00 PM EDT comple bola eCW1 ([facility]) pneumococcal polysaccharide PPV23 01/29/2020 04:51:00 PM EDT comple bola eCW1 ([facility]) pneumococcal polysaccharide PPV23 01/29/2020 04:51:00 PM EDT comple bola eCW1 ([facility]) pneumococcal polysaccharide PPV23 01/29/2020 04:51:00 PM EDT comple bola eCW1 ([facility]) pneumococcal polysaccharide PPV23 01/29/2020 04:51:00 PM EDT comple bola eCW1 ([facility]) pneumococcal polysaccharide PPV23 01/29/2020 04:51:00 PM EDT comple bola eCW1 ([facility]) pneumococcal polysaccharide PPV23 01/29/2020 04:51:00 PM EDT comple bola eCW1 ([facility]) pneumococcal polysaccharide PPV23 01/29/2020 04:51:00 PM EDT comple bola eCW1 ([facility]) pneumococcal polysaccharide PPV23 01/29/2020 04:51:00 PM EDT comple bola eCW1 ([facility]) pneumococcal polysaccharide PPV23 01/29/2020 04:51:00 PM EDT comple bola eCW1 ([facility]) pneumococcal polysaccharide PPV23 01/29/2020 04:51:00 PM EDT comple bola eCW1 ([facility]) pneumococcal polysaccharide PPV23 01/29/2020 04:51:00 PM EDT comple bola eCW1 ([facility]) pneumococcal polysaccharide PPV23 01/29/2020 04:51:00 PM EDT comple bola eCW1 ([facility]) pneumococcal polysaccharide PPV23 01/29/2020 04:51:00 PM EDT comple bola eCW1 ([facility]) pneumococcal polysaccharide PPV23 01/29/2020 04:51:00 PM EDT comple bola eCW1 ([facility]) Medications Medication Brand Name Start Date Product Form Dose Route Admi nistrative Instructions Pharmacy Instructions Status Indications Reaction Description Data Source(s) 20 mg 01/30/2021 12:00:00 AM EDT tablet 60 TAKE ONE TABLET BY MOUTH IN THE MORNING AND TAKE ONE TABLET IN THE EVENING FOR DIURESIS TAKE ONE TABLET BY MOUTH IN THE MORNING AND TAKE ONE TABLET IN THE EVENING FOR DIURESIS SOLD: 01/31/2021 [facility] 20 mg 01/01/2021 12:00:00 AM EDT tablet 30 TAKE ONE TABLET BY MOUTH EVERY DAY TAKE ONE TABLET BY MOUTH EVERY DAY SOLD: 01/02/2021 [facility] 100 mg 12/02/2020 12:00:00 AM EDT tablet 90 TAKE ONE TABLET BY MOUTH EVERY DAY TAKE ONE TABLET BY MOUTH EVERY DAY SOLD: 12/02/2020 [facility] 25 mg 12/01/2020 12:00:00 AM EDT tablet 90 TAKE ONE TABLET BY MOUTH EVERY DAY TAKE ONE TABLET BY MOUTH EVERY DAY SOLD: 12/02/2020 [facility] pantoprazole 40 MG Delayed Release Oral Tablet PANTOPRAZOLE SODIUM 11/04/2020 12:00:00 AM EDT tablet,delayed release (DR/EC) 180 T LYLE ONE TABLET BY MOUTH TWICE A DAY TAKE ONE TABLET BY MOUTH TWICE A DAY SOLD: 11/05/2020 [facility] 25 mg 09/30/2020 12:00:00 AM EDT tablet 90 TAKE ONE TABLET BY MOUTH EVERY DAY TAKE ONE TABLET BY MOUTH EVERY DAY SOLD: 01/05/2021 [facility] 200 mg 09/30/2020 12:00:00 AM EDT tablet 270 TAKE ONE TABLET BY MOUTH THREE TIMES A DAY TAKE ONE TABLET BY MOUTH THREE TIMES A DAY SOLD: 10/02/2020 [facility] 25 mg 09/30/2020 12:00:00 AM EDT tablet 90 TAKE ONE TABLET BY MOUTH EVERY DAY TAKE ONE TABLET BY MOUTH EVERY DAY SOLD: 10/02/2020 [facility] 500 mg 09/30/2020 12:00:00 AM EDT tablet 180 TAKE ONE TABLET BY MOUTH TWICE A DAY WITH MEALS TAKE ONE TABLET BY MOUTH TWICE A DAY WITH MEALS SOLD: 10/02/[address] [facility] pantoprazole 40 MG Delayed Release Oral Tablet PANTOPRAZOLE SODIUM 09/30/2020 12:00:00 AM EDT tablet,delayed release (DR/EC) 60 T LYLE ONE TABLET BY MOUTH TWICE A DAY TAKE ONE TABLET BY MOUTH TWICE A DAY SOLD: 10/02/2020 [facility] 500 mg 09/30/2020 12:00:00 AM EDT tablet 180 TAKE ONE TABLET BY MOUTH TWICE A DAY WITH MEALS TAKE ONE TABLET BY MOUTH TWICE A DAY WITH MEALS SOLD: 01/05/2021 [facility] 200 mg 09/30/2020 12:00:00 AM EDT tablet 270 TAKE ONE TABLET BY MOUTH THREE TIMES A DAY TAKE ONE TABLET BY MOUTH THREE TIMES A DAY SOLD: 01/05/2021 [facility] 20 mg 09/23/2020 12:00:00 AM EDT capsule 90 TAKE ONE CAPSULE BY MOUTH EVERY MORNING TAKE ONE CAPSULE BY MOUTH EVERY MORNING SOLD: 09/26/2020 [facility] 100 mg 08/25/2020 12:00:00 AM EDT tablet 30 TAKE ONE-HALF TABLET BY MOUTH TWICE A DAY TAKE ONE-HALF TABLET BY MOUTH TWICE A DAY SOLD: 08/28/2020 [facility] 100 mg 08/25/2020 12:00:00 AM EDT tablet 30 TAKE ONE-HALF TABLET BY MOUTH TWICE A DAY TAKE ONE-HALF TABLET BY MOUTH TWICE A DAY SOLD: 10/02/2020 [facility] 100 mg 08/25/2020 12:00:00 AM EDT tablet 30 TAKE ONE-HALF TABLET BY MOUTH TWICE A DAY TAKE ONE-HALF TABLET BY MOUTH TWICE A DAY SOLD: 11/02/2020 [facility] 200 mg 08/21/2020 12:00:00 AM EDT tablet 90 TAKE ONE TABLET BY MOUTH THREE TIMES A DAY TAKE ONE TABLET BY MOUTH THREE TIMES A DAY SOLD: 08/28/[address] [facility] BLOOD-GLUCOSE METER 07/30/2020 12:00:00 AM EDT misc 1 DIRECTED DIRECTED SOLD: 08/01/2020 [facility] Glucometer UNK 07/29/2020 12:00:00 AM EDT active Glucometer eCW1 ([facility]) Glucometer UNK 07/29/2020 12:00:00 AM EDT active Glucometer eCW1 ([facility]) Glucometer UNK 07/29/2020 12:00:00 AM EDT active Glucometer eCW1 ([facility]) Glucometer UNK 07/29/2020 12:00:00 AM EDT active Glucometer eCW1 ([facility]) Glucometer UNK 07/29/2020 12:00:00 AM EDT active Glucometer eCW1 ([facility]) Glucometer UNK 07/29/2020 12:00:00 AM EDT active Glucometer eCW1 ([facility]) Glucometer UNK 07/29/2020 12:00:00 AM EDT active Glucometer eCW1 ([facility]) Glucometer UNK 07/29/2020 12:00:00 AM EDT active Glucometer eCW1 ([facility]) Glucometer UNK 07/29/2020 12:00:00 AM EDT active Glucometer eCW1 ([facility]) Glucometer UNK 07/29/2020 12:00:00 AM EDT active Glucometer eCW1 ([facility]) Glucometer UNK 07/29/2020 12:00:00 AM EDT active Glucometer eCW1 ([facility]) 10 gram/15 mL 07/17/2020 12:00:00 AM EDT solution 450 TAKE 15 MLS BY MOUTH THREE TIMES A DAY FOR 10 DAYS. TITRATE TO HAVE 2 TO 3 BOWEL MOVEMENTS PER DAY. CAN HOLD DOSE IF REACHED TARGET NUMBER OF BM TAKE 15 MLS BY MOUTH THREE TIMES A DAY FOR 10 DAYS. TITRATE TO HAVE 2 TO 3 BOWEL MOVEMENTS PER DAY. CAN HOLD DOSE IF REACHED TARGET NUMBER OF BM SOLD: 07/17/[facility] 20 mg 07/17/2020 12:00:00 AM EDT tablet 60 TAKE ONE TABLET BY MOUTH TWO TIMES A DAY TAKE ONE TABLET BY MOUTH TWO TIMES A DAY SOLD: 10/18/[facility] 200 mg 07/17/2020 12:00:00 AM EDT tablet 4 TAKE ONE TABLET BY MOUTH TWICE A DAY FOR 2 DAYS TAKE ONE TABLET BY MOUTH TWICE A DAY FOR 2 DAYS SOLD: 2020 [facility] 20 mg 07/17/2020 12:00:00 AM EDT tablet 60 TAKE ONE TABLET BY MOUTH TWO TIMES A DAY TAKE ONE TABLET BY MOUTH TWO TIMES A DAY SOLD: 11/18/[address] [facility] 20 mg 07/17/2020 12:00:00 AM EDT tablet 60 TAKE ONE TABLET BY MOUTH TWO TIMES A DAY TAKE ONE TABLET BY MOUTH TWO TIMES A DAY SOLD: 07/17/[address] [facility] Nadolol 40 MG Oral Tablet Nadolol 40 MG Oral Tablet (C ORGARD) Nadolol 40 MG Oral Tablet (CORGARD) 07/17/2020 12:00:00 AM EDT 40 mg Oral a ctive Take 1 tablet by mouth daily [facility] Nadolol 20 MG Oral Tablet Nadolol 20 MG Oral Tablet (C ORGARD) Nadolol 20 MG Oral Tablet (CORGARD) 07/17/2020 12:00:00 AM EDT 20 mg Oral a borted Take 1 tablet by mouth daily [facility] 20 mg 07/17/2020 12:00:00 AM EDT tablet 60 TAKE ONE TABLET BY MOUTH TWO TIMES A DAY TAKE ONE TABLET BY MOUTH TWO TIMES A DAY SOLD: 08/15/[address] [facility] 20 mg 07/17/2020 12:00:00 AM EDT tablet 60 TAKE ONE TABLET BY MOUTH TWO TIMES A DAY TAKE ONE TABLET BY MOUTH TWO TIMES A DAY SOLD: 09/15/[address] [facility] pantoprazole 40 MG Delayed Release Oral Tablet pantoprazole (PROTONIX) EC tablet 40 mg pantoprazole (PROTONIX) EC tablet 40 mg 07/16/2020 05:30:00 PM E DT 40 mg Oral active 40 mg, Ora l, Two times daily before breakfast and dinner, First dose (after last modification) on Tue07/16/20 at 1730, For 30 doses
Do not crush or chew
[facility] Medication administered onsite Nadolol 20 MG Oral Tablet nadolol (CORGARD) tablet 20 mg nadolol (CORGARD) tablet 20 mg 07/16/2020 04:30:00 PM EDT 20 mg Oral activ e 20 mg, Oral, Once, Tue07/16/20 at 1630, For 1 dose [facility] Medication administered onsite pantoprazole 40 MG Delayed Release Oral Tablet pantoprazole (PROTONIX) EC tablet 40 mg pantoprazole (PROTONIX) EC tablet 40 mg 07/16/2020 09:00:00 AM E DT 40 mg Oral aborted 40 mg, Ora l, Daily Standard, First dose on Tue07/16/20 at 0900, For 30 days
Do not crush or chew
[facility] Medication administered onsite potassium chloride (K-DUR) dissolvable tablet 20 mEq [id number] 07/16/2020 08:00:00 AM EDT 20 meq Oral completed 20 mEq, Oral, Every 4 hours, First dose on Tue07/16/20 at 0800, For 2 doses
Do not crush or chew
[facility] Medication administered onsite pantoprazole 40 MG Delayed Release Oral Tablet Pantoprazole Sodium 40 MG Oral Tablet Delayed Release (PROTONIX) Pantoprazole Sodium 40 MG Oral Tablet De layed Release (PROTONIX) 07/16/2020 12:00:00 AM EDT 40 mg Oral active Take 1 tablet by mouth Two Times Daily [facility] cefpodoxime 200 MG Oral Tablet Cefpodoxime Proxetil 20 0 MG Oral Tablet (VANTIN) Cefpodoxime Proxetil 200 MG Oral Tablet (VANTIN) 07/16/2020 12:00:00 AM EDT 200 mg Oral active Take 1 tablet by mouth T wo Times Daily for 2 days [facility] Lactulose 83.3 MG/ML Oral Solution Lactulose 10 GM Ora l Packet (CEPHULAC) Lactulose 10 GM Oral Packet (CEPHULAC) 07/16/2020 12:00:00 AM EDT 10 g Oral active Take 1 packet by mouth Three times daily [facility] insulin lispro (HUMALOG) injection LOW D OSE CLEAR LIQUID INSULIN patients 1-8 Units [id number] 07/15/2020 08:00:00 AM EDT U Subcutaneous active 1-8 Units, Subcutaneous, Three Times Daily-With Meals, First dose on Tue07/15/20 at 0800, For 30 days
Nursing MUST open the 'SQ Insulin Dosing Charts' Sidebar Report, or, the Patient Summary or Summary Report within the ED.
[facility] Medication administered onsite 50 ML Magnesium Sulfate 40 MG/ML Injecti on magnesium sulfate infusion 2 g/50 mL (premix) magnesium sulfate infusion 2 g/50 mL (premix) 07/15/19 09:15:00 AM EDT 2 g Intravenous completed 2 g, Intravenous, Administer over 60 Minutes, Once, Tue07/14/20 at 0915, For 1 dose [facility] Medication administered onsite calcium gluconate 2 g in sodium chloride 0.9 % 50 mL IVPB 07/14/2020 09:00:00 AM EDT 2 g Intravenous completed 2 g, Intravenous, Administer over 60 Minutes, Once, Tue07/14/20 at 0900, For 1 dose
Dosed in mg of calcium gluconate. 1 g calcium gluconate = 93 mg elemental calcium = 4.65 mEq elemental calcium.
[facility] Medication administered onsite Nadolol 20 MG Oral Tablet nadolol (CORGARD) tablet 20 mg nadolol (CORGARD) tablet 20 mg 07/14/2020 09:00:00 AM EDT 20 mg Oral abort ed 20 mg, Oral, Daily Standard, First dose on Tue07/14/20 at 0900, For 30 days [facility] Medication administered onsite Acetaminophen 10 MG/ML Injectable Soluti on acetaminophen (OFIRMEV) infusion 1,000 mg acetaminophen (OFIRMEV) infusion 1,000 mg 07/13/2020 07:00:00 PM EDT 1000 mg Intravenous completed 1,000 mg , Intravenous, Once, Tue07/13/20 at 1900, For 1 dose
Maximum daily dose of acetaminophen is 3,000 mg from all sources in 24 hours.
[facility] Medication administered onsite insulin lispro (HUMALOG) injection LOW DOSE NPO INSULI N patients 1-5 Units [id number] 07/13/2020 06:30:00 PM EDT U Subcutaneous aborted 1-5 Units, Subcutaneous, Every 4 hours, First dose on 07/13/20 at 1830, For 30 days
Nursing MUST open the 'SQ Insulin Dosing Charts' Sidebar Report, or, the Patient Summary or Summary Report within the ED.
[facility] Medication administered onsite Glucagon 1 MG Injection glucagon (human recombinant) ( GLUCAGEN) injection 1 mg glucagon (human recombinant) (GLUCAGEN) injection 1 mg 07/13/2020 06:16:54 PM EDT 1 mg Intramuscular active 1 mg, Intramuscular, PRN, for glucose <55 without IV access, Starting 07/13/20 at 1816, For 30 days [facility] Medication administered onsite pantoprazole (PROTONIX) 0.4 mg/mL in sodium chloride 0.9 % 2 50 mL infusion 07/13/2020 06:00:00 PM EDT 8 mg/h Intravenous aborted 8 mg/hr (20 mL/hr), Intravenous, at 20 mL/hr, Continuous, Starting 07/13/20 at 1800, For 30 days
Indication: Active GI bleed [facility] Medication administered onsite ondansetron (ZOFRAN) injection 4 mg [id number] 07/13/2020 04:51:3 2 PM EDT 4 mg Intravenous completed 4 mg, In travenous, Once PRN, Nausea, Vomiting, Starting 07/13/20 at 1651, For 1 dose, Recovery [facility] Medication administered onsite 2 ML Metoclopramide 5 MG/ML Prefilled Sy ringe metoclopramide (REGLAN) injection 10 mg metoclopramide (REGLAN) injection 10 mg 07/13/2020 11:43:31 AM E DT 10 mg Intravenous active 10 mg, I ntravenous, Every 6 hours PRN, Nausea, Starting 07/13/20 at 1143, For 30 days [facility] Medication administered onsite Acetaminophen 10 MG/ML Injectable Soluti on acetaminophen (OFIRMEV) infusion 1,000 mg acetaminophen (OFIRMEV) infusion 1,000 mg 07/13/2020 11:30:00 AM EDT 1000 mg Intravenous completed 1,000 mg , Intravenous, Once, 07/13/20 at 1130, For 1 dose
Maximum daily dose of acetaminophen is 3,000 mg from all sources in 24 hours.
[facility] Medication administered onsite octreotide (SANDOSTATIN) 5 mcg/mL in sodium chloride 0.9 % 2 50 mL infusion 07/12/2020 05:00:00 PM EDT 50 ug/h Intravenous aborted 50 mcg/hr (10 mL/hr), Intravenous, at 10 mL/hr, Continuous, Starting 07/12/20 at 1700, For 30 days [facility] Medication administered onsite Lactulose 83.3 MG/ML Oral Solution lactulose (CEPHULAC ) packet 10 g lactulose (CEPHULAC) packet 10 g 07/12/2020 05:00:00 PM EDT 10 g Oral active 10 g, Oral, Three Times Daily Standard, First dose on 07/12/20 at 1700, For 30 days
Dissolve in 4 oz water
[facility] Medication administered onsite 1 ML Octreotide 0.05 MG/ML Prefilled Syr girish octreotide (SANDOSTATIN) injection 50 mcg octreotide (SANDOSTATIN) injection 50 mcg 07/12/2020 05:00:00 PM EDT 50 ug Intravenous completed 50 mcg, Intravenous, Once, 07/12/20 at 1700, For 1 dose [facility] Medication administered onsite iohexol (OMNIPAQUE) 300 MG/ML contrast injection 100 mL [id number] 07/12/2020 02:00:00 PM EDT 100 mL Given by IV completed 100 mL, Given by IV, 1 TIME IMAGING, 07/12/20 at 1400, For 1 dose [facility] Medication administered onsite insulin lispro (HumaLOG) injection LOW DOSE EATING INS ULIN patients 1-8 Units [id number] 07/12/2020 01:00:00 PM EDT U Subcutaneous aborted 1-8 Units, Subcutaneous, Three Times Daily-With Meals, First dose on 07/12/20 at 1300, For 30 days
Nursing MUST open the 'SQ Insulin Dosing Charts' Sidebar Report, or, the Patient Summary or Summary Report within the ED.
[facility] Medication administered onsite Glucose 0.417 MG/MG Oral Gel glucose (GLUTOSE) 40 % or al gel 15 g glucose (GLUTOSE) 40 % oral gel 15 g 07/12/2020 12:28:39 PM EDT 15 g Oral active 15 g, Oral, PRN, Low blood s ugar, for gluose 55-69 mg/dl and able to take PO, Starting 07/12/20 at 1228, For 30 days [facility] Medication administered onsite dextrose 50 % IV solution 25 mL [id number] 07/12/2020 12:28:39 PM E DT 25 mL Intravenous active 25 mL, Intrav enous, PRN, Other, blood glucose <55, Starting 07/12/20 at 1228, For 30 days
Not for midline administration.
[facility] Medication administered onsite Propranolol Hydrochloride 10 MG Oral Tablet propranolo l (INDERAL) tablet 10 mg propranolol (INDERAL) tablet 10 mg 07/12/2020 09:00:00 AM EDT 10 mg Oral aborted 10 mg, Oral, 2 Times Daily, First dose on 07/12/20 at 0900, For 30 days
Check vital signs before administering
[facility] Medication administered onsite multivitamin tablet 1 tablet [id number] 07/12/2020 09:00:00 AM EDT 1 {tbl} Oral active 1 tablet, Oral , Daily Standard, First dose on 07/12/20 at 0900, For 30 days [facility] Medication administered onsite pantoprazole 4 MG/ML Injectable Solution pantoprazole (PROTONIX) injection 40 mg pantoprazole (PROTONIX) injection 40 mg 07/11/2020 09:00:00 PM EDT 40 mg Intravenous aborted 40 mg, Intrav enous, Every 12 hours Standard (2 times per day), First dose on Tue07/11/20 at 2100, For 30 days
Dilute with 10 mL of 0.9% NaCl.Give IVP over 2 minutes. Flush before and after.
[facility] Medication administered onsite Lactulose 83.3 MG/ML Oral Solution lactulose (CEPHULAC ) packet 10 g lactulose (CEPHULAC) packet 10 g 07/11/2020 07:00:00 PM EDT 10 g Oral completed 10 g, Oral, Once, Tue07/11/20 at 1900, For 1 dose
Dissolve in 4 oz water
[facility] Medication administered onsite sodium chloride 0.9 % infusion [id number] 07/11/2020 11:01:04 AM EDT completed Starting 06/23 at 1101, For 1 dose
Amelia Yusuf: antoniat override
[facility] Medication administered onsite Carbamazepine 200 MG Oral Tablet carBAMazepine (TEGRET OL) tablet 200 mg carBAMazepine (TEGRETOL) tablet 200 mg 07/11/2020 09:00:00 AM EDT 2 00 mg Oral active 200 mg, Oral, T hree Times Daily Standard, First dose on Tue07/11/20 at 0900, For 30 days [facility] Medication administered onsite Acetaminophen 325 MG Oral Tablet acetaminophen (TYLENO L) tablet 650 mg acetaminophen (TYLENOL) tablet 650 mg 07/11/2020 07:16:03 AM EDT 65 0 mg Oral aborted 650 mg, Oral, E very 4 hours PRN, Mild Pain (Pain Scale Score 1- 3), Headaches, Fever, Starting Tue07/11/20 at 0716, For 30 days
Maximum daily dose of acetaminophen is 3,000 mg from all sources in 24 hours.
[facility] Medication administered onsite Calcium Chloride 0.0014 MEQ/ML / Potassi um Chloride 0.004 MEQ/ML / Sodium Chloride 0.103 MEQ/ML / Sodium Lactate 0.028 MEQ/ML Injectable Solution lactated ringers infusion lactated ringers infusion 07/11/2020 07:15:00 AM EDT 100 mL/h Intravenous completed at 100 m L/hr, Intravenous, Continuous, Starting Tue07/11/20 at 0715, For 24 hours [facility] Medication administered onsite Ceftriaxone 1000 MG Injection cefTRIAXone (ROCEPHIN) I VPB (premix) 1 g cefTRIAXone (ROCEPHIN) IVPB (premix) 1 g 07/11/2020 07:15:00 AM EDT 1 g Intravenous active 1 g, Intraven ous, at 100 mL/hr, Every 24 hours, First dose on Tue07/11/20 at 0715, For 7 days
Discouraged Uses: Empiric treatment of post-surgical meningitis (ceftazidime preferred)
[facility] Medication administered onsite insulin lispro (HUMALOG) injection LOW DOSE NPO INSULI N patients 1-5 Units [id number] 07/11/2020 06:45:00 AM EDT U Subcutaneous aborted 1-5 Units, Subcutaneous, Every 4 hours, First dose on Tue07/11/20 at 0645, For 30 days
Nursing MUST open the 'SQ Insulin Dosing Charts' Sidebar Report, or, the Patient Summary or Summary Report within the ED.
[facility] Medication administered onsite lactated ringers bolus 1,000 mL [id number] 07/11/2020 05:15:00 AM EDT 1000 mL Intravenous completed 1,000 mL , Intravenous, Once, Tue07/11/20 at 0515, For 1 dose [facility] Medication administered onsite octreotide (SANDOSTATIN) 5 mcg/mL in sodium chloride 0.9 % 2 50 mL infusion 07/11/2020 04:00:00 AM EDT 50 ug/h Intravenous aborted 50 mcg/hr (10 mL/hr), Intravenous, at 10 mL/hr, Continuous, Starting Tue07/11/20 at 0400, For 30 days [facility] Medication administered onsite pantoprazole (PROTONIX) 0.4 mg/mL in sodium chloride 0.9 % 2 50 mL infusion 07/11/2020 03:45:00 AM EDT 8 mg/h Intravenous aborted 8 mg/hr (20 mL/hr), Intravenous, at 20 mL/hr, Continuous, Starting Tue07/11/20 at 0345, For 30 days
Indication: Other (please write indication in comments) [facility] Medication administered onsite Blood Glucose Test - Blood Glucose Test - 07/08/2020 12:00:00 AM EDT active Blood Glucose Test - eCW1 ([facility]) Blood Glucose Test - Blood Glucose Test - 07/08/2020 12:00:00 AM EDT active Blood Glucose Test - eCW1 ([facility]) Blood Glucose Test - Blood Glucose Test - 07/08/2020 12:00:00 AM EDT active Blood Glucose Test - eCW1 ([facility]) BLOOD SUGAR DIAGNOSTIC 07/08/2020 12:00:00 AM EDT strip 100 USE DIRECTED TWO TIMES A DAY USE DIRECTED TWO TIMES A DAY SOLD: 12/25/[address] [facility] Blood Glucose Test - Blood Glucose Test - 07/08/2020 12:00:00 AM EDT active Blood Glucose Test - eCW1 ([facility]) BLOOD SUGAR DIAGNOSTIC 07/08/2020 12:00:00 AM EDT strip 100 USE DIRECTED TWO TIMES A DAY USE DIRECTED TWO TIMES A DAY SOLD: 07/10/[address] [facility] Blood Glucose Test - Blood Glucose Test - 07/08/2020 12:00:00 AM EDT active Blood Glucose Test - eCW1 ([facility]) Blood Glucose Test - Blood Glucose Test - 07/08/2020 12:00:00 AM EDT active Blood Glucose Test - eCW1 ([facility]) Blood Glucose Test - Blood Glucose Test - 07/08/2020 12:00:00 AM EDT active Blood Glucose Test - eCW1 ([facility]) Blood Glucose Test - Blood Glucose Test - 07/08/2020 12:00:00 AM EDT active Blood Glucose Test - eCW1 ([facility]) Blood Glucose Test - Blood Glucose Test - 07/08/2020 12:00:00 AM EDT active Blood Glucose Test - eCW1 ([facility]) Blood Glucose Test - Blood Glucose Test - 07/08/2020 12:00:00 AM EDT active Blood Glucose Test - eCW1 ([facility]) Blood Glucose Test - Blood Glucose Test - 07/08/2020 12:00:00 AM EDT active Blood Glucose Test - eCW1 ([facility]) Blood Glucose Test - Blood Glucose Test - 07/08/2020 12:00:00 AM EDT active Blood Glucose Test - eCW1 ([facility]) Blood Glucose Test - Blood Glucose Test - 07/08/2020 12:00:00 AM EDT active Blood Glucose Test - eCW1 ([facility]) Hydrochlorothiazide 25 MG Oral Tablet hy droCHLOROthiazide 25 MG Oral Tablet (HYDRODIURIL) hydroCHLOROthiazide 25 MG Oral Tablet (HYDRODIURIL) 12:00:00 AM EST 25 mg Oral active Take 25 mg by mouth daily [facility] pantoprazole 40 MG Delayed Release Oral Tablet Pantoprazole Sodium 40 MG Oral Tablet Delayed Release (PROTONIX) Pantoprazole Sodium 40 MG Oral Tablet De layed Release (PROTONIX) 06/26/2020 12:00:00 AM EST 40 mg Oral aborted Take 40 mg by mouth Two Times Daily [facility] carvedilol 25 MG Oral Tablet Carvedilol 25 MG Oral Tab let (COREG) Carvedilol 25 MG Oral Tablet (COREG) 06/26/2020 12:00:00 AM EST aborted TAKE ONE TABLET BY MOUTH TWICE A DAY WITH FOOD [facility] Losartan Potassium 100 MG Oral Tablet Lo sartan Potassium 100 MG Oral Tablet (COZAAR) Losartan Potassium 100 MG Oral Tablet (COZAAR) 12:00:00 AM EST active TAKE ONE HALF TAB LET BY MOUTH TWICE A DAY [facility] Metformin hydrochloride 500 MG Oral Tabl et metFORMIN HCl 500 MG Oral Tablet (GLUCOPHAGE) metFORMIN HCl 500 MG Oral Tablet (GLUCOPHAGE) 06/19/19 12:00:00 AM EST 500 mg Oral active Take 500 mg by mo uth Two Times Daily [facility] 25 mg 05/07/2020 12:00:00 AM EST tablet 90 TAKE ONE TABLET BY MOUTH EVERY DAY TAKE ONE TABLET BY MOUTH EVERY DAY SOLD: 05/14/[facility] 25 mg 05/07/2020 12:00:00 AM EST tablet 90 TAKE ONE TABLET BY MOUTH EVERY DAY TAKE ONE TABLET BY MOUTH EVERY DAY SOLD: 09/02/2020 [facility] Spironolactone 25 MG Oral Tablet Spironolactone 25 MG Oral Tablet (ALDACTONE) Spironolactone 25 MG Oral Tablet (ALDACTONE) 05/07/2020 12:00:00 AM EST 25 mg Oral active Take 25 mg by mouth daily [facility] 200 mg 05/06/2020 12:00:00 AM EST tablet 90 TAKE ONE TABLET BY MOUTH THREE TIMES A DAY TAKE ONE TABLET BY MOUTH THREE TIMES A DAY SOLD: 07/28/2020 [facility] 200 mg 05/06/2020 12:00:00 AM EST tablet 90 TAKE ONE TABLET BY MOUTH THREE TIMES A DAY TAKE ONE TABLET BY MOUTH THREE TIMES A DAY SOLD: 05/07/2020 [facility] Carbamazepine 200 MG Oral Tablet carBAMazepine 200 MG Oral Tablet (TEGRETOL) carBAMazepine 200 MG Oral Tablet (TEGRETOL) 05/06/2020 12:00:00 AM EST 200 mg Oral active Take 200 mg by mouth Three times daily [facility] 33 gauge 04/10/2020 12:00:00 AM EST misc 100 USE DIRECTED TWO TIMES A DAY USE DIRECTED TWO TIMES A DAY SOLD: 04/12/2020 [facility] 100 mg 04/04/2020 12:00:00 AM EST tablet 30 TAKE ONE-HALF TABLET BY MOUTH TWICE A DAY TAKE ONE-HALF TABLET BY MOUTH TWICE A DAY SOLD: 04/05/2020 [facility] 100 mg 04/04/2020 12:00:00 AM EST tablet 30 TAKE ONE-HALF TABLET BY MOUTH TWICE A DAY TAKE ONE-HALF TABLET BY MOUTH TWICE A DAY SOLD: 05/07/2020 [facility] 100 mg 04/04/2020 12:00:00 AM EST tablet 30 TAKE ONE-HALF TABLET BY MOUTH TWICE A DAY TAKE ONE-HALF TABLET BY MOUTH TWICE A DAY SOLD: 07/28/2020 [facility] 100 mg 04/04/2020 12:00:00 AM EST tablet 30 TAKE ONE-HALF TABLET BY MOUTH TWICE A DAY TAKE ONE-HALF TABLET BY MOUTH TWICE A DAY SOLD: 06/25/2020 [facility] carvedilol 25 MG Oral Tablet CARVEDILOL 03/25/2020 12:00:00 AM EST tab let 180 TAKE ONE TABLET BY MOUTH TWICE A DAY WITH FOOD TAKE ONE TABLET BY MOUTH TWICE A DAY WITH FOOD SOLD: 03/26/2020 [facility] 25 mg 03/25/2020 12:00:00 AM EST tablet 90 TAKE ONE TABLET BY MOUTH EVERY DAY TAKE ONE TABLET BY MOUTH EVERY DAY SOLD: 03/26/2020 [facility] pantoprazole 40 MG Delayed Release Oral Tablet PANTOPRAZOLE SODIUM 03/25/2020 12:00:00 AM EST tablet,delayed release (DR/EC) 180 T LYLE ONE TABLET BY MOUTH TWICE A DAY TAKE ONE TABLET BY MOUTH TWICE A DAY SOLD: 06/28/2020 [facility] pantoprazole 40 MG Delayed Release Oral Tablet PANTOPRAZOLE SODIUM 03/25/2020 12:00:00 AM EST tablet,delayed release (DR/EC) 180 T LYLE ONE TABLET BY MOUTH TWICE A DAY TAKE ONE TABLET BY MOUTH TWICE A DAY SOLD: 03/26/2020 [facility] carvedilol 25 MG Oral Tablet CARVEDILOL 03/25/2020 12:00:00 AM EST tab let 180 TAKE ONE TABLET BY MOUTH TWICE A DAY WITH FOOD TAKE ONE TABLET BY MOUTH TWICE A DAY WITH FOOD SOLD: 07/01/2020 [facility] 25 mg 03/25/2020 12:00:00 AM EST tablet 90 TAKE ONE TABLET BY MOUTH EVERY DAY TAKE ONE TABLET BY MOUTH EVERY DAY SOLD: 07/01/2020 [facility] 25 mg 02/19/2020 12:00:00 AM EDT tablet 90 TAKE ONE TABLET BY MOUTH EVERY DAY TAKE ONE TABLET BY MOUTH EVERY DAY SOLD: 02/20/2020 [facility] benzonatate 100 MG Oral Capsule [Tessalon Perles] Constance santos Perles 100 MG Tessalon Perles 100 MG 01/29/2020 12:00:00 AM EDT 1.0 {capsule_as_nee ded} active Tessalon Perles 100 MG eCW1 ([facility]) benzonatate 100 MG Oral Capsule [Tessalon Perles] Constance santos Perles 100 MG Tessalon Perles 100 MG 01/29/2020 12:00:00 AM EDT 1.0 {capsule_as_nee ded} active Tessalon Perles 100 MG eCW1 ([facility]) benzonatate 100 MG Oral Capsule [Tessalon Perles] Constance [facility]os Perles 100 MG Tessalon Perles 100 MG 01/29/2020 12:00:00 AM EDT 1.0 {capsule_as_nee ded} active Tessalon Perles 100 MG eCW1 ([facility]) benzonatate 100 MG Oral Capsule [Tessalon Perles] Constance [facility]os Per[facility] 100 MG Tessalon Perles 100 MG 01/29/2020 12:00:00 AM EDT 1.0 {capsule_as_nee ded} active Tessalon Perles 100 MG eCW1 ([facility]) benzonatate 100 MG Oral Capsule [Tessalon Perles] [facility] Per[facility] 100 MG Tessalon Perles 100 MG 01/29/2020 12:00:00 AM EDT 1.0 {capsule_as_nee ded} active Tessalon Perles 100 MG eCW1 ([facility]) benzonatate 100 MG Oral Capsule [Tessalon Perles] [facility] Per[facility] 100 MG Tessalon Perles 100 MG 01/29/2020 12:00:00 AM EDT 1.0 {capsule_as_nee ded} active Tessalon Perles 100 MG eCW1 ([facility]) benzonatate 100 MG Oral Capsule BENZONATATE 01/29/2020 12:00:00 AM EDT capsule 42 TAKE ONE CAPSULE BY MOUTH THREE TIMES A DAY NEEDED FOR 14 DAYS TAKE ONE CAPSULE BY MOUTH THREE TIMES A DAY NEEDED FOR 14 DAYS SOLD: 01/30/[facility] benzonatate 100 MG Oral Capsule [Tessalon Perles] Constance santos Perles 100 MG Tessalon Perles 100 MG 01/29/2020 12:00:00 AM EDT 1.0 {capsule_as_nee ded} active Tessalon Perles 100 MG eCW1 ([facility]) benzonatate 100 MG Oral Capsule [Tessalon Perles] [facility] Per[facility] 100 MG Tessalon Perles 100 MG 01/29/2020 12:00:00 AM EDT 1.0 {capsule_as_nee ded} active Tessalon Perles 100 MG eCW1 ([facility]) benzonatate 100 MG Oral Capsule [Tessalon Perles] [facility]os Perles 100 MG Tessalon Perles 100 MG 01/29/2020 12:00:00 AM EDT 1.0 {capsule_as_nee ded} active Tessalon Perles 100 MG eCW1 ([facility]) 200 mg 01/18/2020 12:00:00 AM EDT tablet 90 TAKE ONE TABLET BY MOUTH THREE TIMES A DAY TAKE ONE TABLET BY MOUTH THREE TIMES A DAY SOLD: 03/07/[facility] 200 mg 01/18/2020 12:00:00 AM EDT tablet 90 TAKE ONE TABLET BY MOUTH THREE TIMES A DAY TAKE ONE TABLET BY MOUTH THREE TIMES A DAY SOLD: 01/20/[address] [facility] 200 mg 01/18/2020 12:00:00 AM EDT tablet 90 TAKE ONE TABLET BY MOUTH THREE TIMES A DAY TAKE ONE TABLET BY MOUTH THREE TIMES A DAY SOLD: 04/07/2020 [facility] 33 gauge 12/28/2019 12:00:00 AM EDT misc 200 USE TO CHECK BLOOD GLUCOSE TWO TIMES A DAY DIRECTED USE TO CHECK BLOOD GLUCOSE TWO TIMES A DAY DIRECTED SOLD: 12/30/2019 [facility] BLOOD SUGAR DIAGNOSTIC 12/28/2019 12:00:00 AM EDT strip 200 USE TO TEST BLOOD GLUCOSE TWO TIMES A DAY DIRECTED USE TO TEST BLOOD GLUCOSE TWO TIMES A DAY DIRECTED SOLD: 12/30/2019 [facility] Metformin hydrochloride 500 MG Oral Tablet METFORMIN HCL 12/26/2019 12:00:00 AM EDT tablet 180 TAKE ONE TABLET BY MOUTH TWI CE A DAY TAKE ONE TABLET BY MOUTH TWICE A DAY SOLD: 06/23/2020 [facility] 500 mg 12/26/2019 12:00:00 AM EDT tablet 180 TAKE ONE TABLET BY MOUTH TWICE A DAY TAKE ONE TABLET BY MOUTH TWICE A DAY SOLD: 03/26/2020 [facility] Metformin hydrochloride 500 MG Oral Tablet METFORMIN HCL 12/26/2019 12:00:00 AM EDT tablet 180 TAKE ONE TABLET BY MOUTH TWI CE A DAY TAKE ONE TABLET BY MOUTH TWICE A DAY SOLD: 12/30/2019 [facility] Fluoxetine 20 MG Oral Capsule FLUoxetine HCl 20 MG Ora l Capsule (PROZAC) FLUoxetine HCl 20 MG Oral Capsule (PROZAC) 12/26/2019 12:00:00 AM EDT 20 mg Oral active Take 20 mg by mouth every morning [facility] Folic Acid 1 MG Oral Tablet Folic Acid 1 MG Oral Table t (FOLVITE) Folic Acid 1 MG Oral Tablet (FOLVITE) 12/26/2019 12:00:00 AM EDT active TAKE ONE TABLET BY MOUTH EVERY DAY AFTER A MEAL [facility] MULTIVITAMIN 09/21/2019 12:00:00 AM EDT tablet 30 TAKE ONE TABLET BY MOUTH EVERY DAY BEFORE A MEAL TAKE ONE TABLET BY MOUTH EVERY DAY BEFORE A MEAL SOLD: 12/30/2019 [facility] carvedilol 25 MG Oral Tablet CARVEDILOL 09/21/2019 12:00:00 AM EDT tab let 180 TAKE ONE TABLET BY MOUTH TWICE A DAY WITH FOOD TAKE ONE TABLET BY MOUTH TWICE A DAY WITH FOOD SOLD: 12/30/2019 [facility] 1 mg 09/21/2019 12:00:00 AM EDT tablet 30 TAKE ONE TABLET BY MOUTH EVERY DAY AFTER A MEAL TAKE ONE TABLET BY MOUTH EVERY DAY AFTER A MEAL SOLD: 12/30/2019 [facility] 20 mg 09/15/2019 12:00:00 AM EDT capsule 90 TAKE ONE CAPSULE BY MOUTH EVERY MORNING TAKE ONE CAPSULE BY MOUTH EVERY MORNING SOLD: 12/30/2019 [facility] 40 mg 09/05/2019 12:00:00 AM EDT tablet,delayed release (DR/EC) 60 TAKE ONE TABLET BY MOUTH TWICE A DAY TAKE ONE TABLET BY MOUTH TWICE A DAY SOLD: 12/20/2019 [facility] 25 mg 09/05/2019 12:00:00 AM EDT tablet 30 TAKE ONE TABLET BY MOUTH EVERY DAY TAKE ONE TABLET BY MOUTH EVERY DAY SOLD: 12/20/2019 [facility] pantoprazole 40 MG Delayed Release Oral Tablet PANTOPRAZOLE SODIUM 09/05/2019 12:00:00 AM EDT tablet,delayed release (DR/EC) 60 T LYLE ONE TABLET BY MOUTH TWICE A DAY TAKE ONE TABLET BY MOUTH TWICE A DAY SOLD: 01/20/2020 [facility] 100 mg 09/05/2019 12:00:00 AM EDT tablet 30 TAKE ONE-HALF TABLET BY MOUTH TWICE A DAY TAKE ONE-HALF TABLET BY MOUTH TWICE A DAY SOLD: 03/02/2020 [facility] 100 mg 09/05/2019 12:00:00 AM EDT tablet 30 TAKE ONE-HALF TABLET BY MOUTH TWICE A DAY TAKE ONE-HALF TABLET BY MOUTH TWICE A DAY SOLD: 12/20/2019 [facility] 100 mg 09/05/2019 12:00:00 AM EDT tablet 30 TAKE ONE-HALF TABLET BY MOUTH TWICE A DAY TAKE ONE-HALF TABLET BY MOUTH TWICE A DAY SOLD: 01/27/2020 [facility] 25 mg 09/05/2019 12:00:00 AM EDT tablet 30 TAKE ONE TABLET BY MOUTH EVERY DAY TAKE ONE TABLET BY MOUTH EVERY DAY SOLD: 02/20/2020 [facility] 25 mg 09/05/2019 12:00:00 AM EDT tablet 30 TAKE ONE TABLET BY MOUTH EVERY DAY TAKE ONE TABLET BY MOUTH EVERY DAY SOLD: 01/20/2020 [facility] pantoprazole 40 MG Delayed Release Oral Tablet PANTOPRAZOLE SODIUM 09/05/2019 12:00:00 AM EDT tablet,delayed release (DR/EC) 60 T LYLE ONE TABLET BY MOUTH TWICE A DAY TAKE ONE TABLET BY MOUTH TWICE A DAY SOLD: 02/20/2020 [facility] Insurance Providers Payer name Policy type / Coverage type Policy ID Covered republican ID Covered republican's relationship to minaya Policy Minaya Plan Information [facility] I [id number] Self [id number] MEDICAID [id number] Self [id number] MEDICARE [id number] Kelle [id number] MEDICARE [id number] M [place] Primary [id number] Self [id number] [place] Primary [id number] Self [id number] [place] Primary [id number] Self [id number] MEDICARE A [id number] Self [id number] [place] Primary [id number] Self [facility] [[email or web address]] MEDICARE DIVISION [id number] S [id number] MEDICARE - [facility] [id number] S [id number] Medicaid [place] Medigap Part B [id number] Self [id number] Medicaid [place] Med[place] Part B [id number] Self [id number] [place] [id number] Self [place] [id number] Self [id number] [place] Primary [id number] Self [id number] [place] Primary [id number] Self [id number] Medicare [place] Medicare Primary [id number] Self [id number] [place] Primary [id number] Self [id number] MEDICAID [id number] SP [id number] MEDICAID [id number] S [id number] MEDICAID [id number] Kelle [id number] ANS-Medicare Part B [id number] ANSI-Medicaid [id number] ANSI-Medicaid [id number] Medicaid [facility] Part B [id number] Self [id number] Medicare Natl Gov't Servi Medicare Primary [id number] Self [id number] ANS-Medicare Part B [id number] ANSI-Medicaid [id number] ANSI-Medicaid [id number] MEDICAID [id number] S [id number] [facility] [[email or web address] MEDICARE DIVISION [id number] S [id number] MEDICARE - [place] [id number] S [id number] ANSI-Medicaid [id number] ANSI-Medicare Part B [id number] ANSI-Medicaid [id number] ANSI-Medicaid [id number] ANSI-Medicaid [id number] ANSI-Medicare Part B [id number] ANSI-Medicaid [id number] ANSI-Medicare Part B [id number] ANSI-Medicaid [id number] ANSI-Medicare Part B [id number] ANSI-Medicaid [id number] ANSI-Medicaid [id number] ANSI-Medicaid [id number] ANSI-Medicare Part B [id number] ANSI-Medicaid [id number] Medicaid [facility] Part B [id number] Self [id number] Medicare Natl Gov't Servi Medicare Primary [id number] Self [id number] Medicaid [facility] Part B [id number] Self [id number] Medicare [facility] Gov't Servi Medicare Primary [id number] Self [id number] MEDICARE [id number] SP [id number] M MEDICAID [id number] SP [id number] MEDICARE [id number] SP [id number] M MEDICARE C [id number] S [id number] [place] [id number] Self Medicare [facility] Medicare Primary [id number] Self [facility] S [id number] S [id number] UNHC COMMUNITY PLAN MCDO [id number] SP [id number] MEDICAID GME W [id number] S [id number] PCP [facility] COMMUNITY PL O [id number] S [id number] MEDICAID W [id number] S [id number] UNHC COMMUNITY PLAN MCDO [id number] SP [id number] UNAVAILABLE [place] BLE [id number] [facility] MEDICAID [id number] SP [id number] UNAVAILABLE [place] BLE MEDICARE [id number] SP [id number] [place] [id number] SP [id number] MEDICARE [id number] SP [id number] SELF PAY ONLY [id number] SP [id number] MEDICARE C [id number] S [id number] MEDICAID M [id number] S [id number] MEDICAID [id number] SP [id number] [facility] PART B C [id number] S [id number] [facility]-Medicaid [id number] [facility]-Medicaid [id number] [facility]-Medicare Part B [id number] ANSI-Medicaid [id number] ANSI-Medicaid [id number] ANSI-Medicare Part B [id number] ANSI-Medicaid [id number] ANSI-Medicare Part B [id number] ANSI-Medicaid [id number] ANSI-Medicaid [id number] ANSI-Medicaid [id number] ANSI-Medicare Part B [id number] [place] [id number] Self [id number] Problems, Conditions, and Diagnoses Code Display Name Description Problem Type Effective Dates Data Source(s) K92.0 Hematemesis Hematemesis Diagnosis 07/11/2020 06:26:48 AM EDT [facility] K70.30 Alcoholic cirrhosis of liver without asc ites Alcoholic cirrhosis of liver without ascites Diagnosis 07/11/2020 05:18:02 AM EDT [facility] E11.9 Type 2 diabetes mellitus without complic ations Type 2 diabetes mellitus without complications Diagnosis 07/11/2020 03:07:00 AM EDT [facility] I10 Essential (primary) hypertension Essential (primary) h ypertension Diagnosis 07/11/2020 03:07:00 AM [facility] Z20.822 Contact with and (suspected) exposure to covid-19 Contact with and (suspected) exposure to covid-19 Diagnosis 07/11/2020 03:07:00 AM [facility] N17.9 Acute kidney failure, unspecified Acute kidney f ailure, unspecified Diagnosis 07/11/2020 03:07:00 AM [facility] I85.10 Secondary esophageal varices without ble eding Secondary esophageal varices without bleeding Diagnosis 07/11/2020 03:07:00 AM [facility] R69 Illness, unspecified Illness, unspecified Diagnosis 07/11/2020 03:07:00 AM [facility] variceal bleed, hematemesis variceal bleed, hematemesi s Diagnosis 07/11/2020 03:07:00 AM [facility] E78.2 Mixed hyperlipidemia Mixed hyperlipidemia Diagnosis 02/15/2020 01:08:37 PM EDT [facility] I48.91 Unspecified atrial fibrillation Unspecified atri al fibrillation Diagnosis 02/15/2020 01:08:37 PM EDT [facility] R26.2 [id number] Impaired ambulation Problem 11/04/2020 12:00 :00 AM EDT [facility] ([facility]) K70.30 [id number] Alcoholic cirrhosis of liver without asci caryl Problem 07/23/2020 12:00:00 AM EDT eCW1 ([facility]) D61.818 [id number] Pancytopenia Problem 02/26/2020 12:00:00 AM EST eCW1 ([facility]) J44.9 [id number] Chronic obstructive pulmonary di sease, unspecified COPD type Problem 01/29/2020 12:00:00 AM EDT eCW1 ([facility]) Surgeries/Procedures Procedure Description Date Indications Data Source(s) OFFICE OUTPATIENT VISIT 25 MINUTES 11/26/2020 12:00:00 AM EDT [facility] ([facility], ) OFFICE OUTPATIENT VISIT 15 MINUTES 08/07/2020 12:00:00 AM EDT [facility] ([facility], ) POCT GLUCOSE, DOCKED <td>POCT GLUCOSE, DOCKED</td ><td>Routine</td><td>07/16/2020 4:44 PM EDT</td><td></td><td> </td> 07/16/2020 04:44:00 PM [facility] BLOOD COUNT COMPLETE AUTO&AUTO DIFRNTL WBC COUNT <td>C BC AND DIFFERENTIAL</td><td>Routine</td><td>07/16/2020 4:26 PM EDT</td><td></td><td> </td> 07/16/2020 04:26:00 PM [facility] TRANSFUSE RBC (ONCE) <td>TRANSFUSE RBC (ONCE)</td ><td>STAT</td><td>07/16/2020 2:13 PM EDT</td><td></td><td></td> 07/16/2020 02:13:25 PM [facility] POCT GLUCOSE, DOCKED <td>POCT GLUCOSE, DOCKED</td ><td>Routine</td><td>07/16/2020 7:48 AM EDT</td><td></td><td> </td> 07/16/2020 07:48:00 AM [facility] BLOOD TYPING ABO <td>TYPE AND SCREEN</td><td> Routine</td><td>07/16/2020 6:52 AM EDT</td><td></td><td></td> 07/16/2020 06:52:00 AM EDT [facility] BLOOD COUNT COMPLETE AUTO&AUTO DIFRNTL WBC COUNT <td>C BC AND DIFFERENTIAL</td><td>Timed</td><td>07/16/2020 4:45 AM EDT</td><td></td><td> </td> 07/16/2020 04:45:00 AM [facility] AMMONIA <td>AMMONIA LEVEL</td><td>Ro utine</td><td>07/16/2020 4:45 AM EDT</td><td></td><td> </td> 07/16/2020 04:45:00 AM [facility] COMPREHENSIVE METABOLIC PANEL <td>COMPREHENSIVE METABO LIC PANEL</td><td>Routine</td><td>07/16/2020 4:45 AM EDT</td><td></td><td> </td> 07/16/2020 04:45:00 AM [facility] BLOOD COUNT COMPLETE AUTO&AUTO DIFRNTL WBC COUNT <td>C BC AND DIFFERENTIAL</td><td>Timed</td><td>07/16/2020 12:00 AM EDT</td><td></td><td> </td> 07/16/2020 12:00:00 AM [facility] GLUCOSE QUANTITATIVE BLOOD XCPT REAGENT STRIP <td>POCT GLUCOSE, DOCKED</td><td>Routine</td><td>07/15/2020 9:14 PM EDT</td><td></td><td> </td> 07/15/2020 09:14:00 PM [facility] BLOOD COUNT COMPLETE AUTO&AUTO DIFRNTL WBC COUNT <td>C BC AND DIFFERENTIAL</td><td>Timed</td><td>07/15/2020 6:41 PM EDT</td><td></td><td> </td> 07/15/2020 06:41:00 PM [facility] GLUCOSE QUANTITATIVE BLOOD XCPT REAGENT STRIP <td>POCT GLUCOSE, DOCKED</td><td>Routine</td><td>07/15/2020 4:56 PM EDT</td><td></td><td> </td> 07/15/2020 04:56:00 PM [facility] BLOOD COUNT COMPLETE AUTOMATED <td>CBC</td><td>STAT</t d><td>07/15/2020 1:46 PM EDT</td><td></td><td> </td> 07/15/2020 01:46:00 PM [facility] BLOOD COUNT COMPLETE AUTO&AUTO DIFRNTL WBC COUNT <td>C BC AND DIFFERENTIAL</td><td>Timed</td><td>07/15/2020 12:27 PM EDT</td><td></td><td> </td> 07/15/2020 12:27:00 PM [facility] GLUCOSE QUANTITATIVE BLOOD XCPT REAGENT STRIP <td>POCT GLUCOSE, DOCKED</td><td>Routine</td><td>07/15/2020 12:26 PM EDT</td><td></td><td> </td> 07/15/2020 12:26:00 PM [facility] GLUCOSE QUANTITATIVE BLOOD XCPT REAGENT STRIP <td>POCT GLUCOSE, DOCKED</td><td>Routine</td><td>07/15/2020 7:49 AM EDT</td><td></td><td> </td> 07/15/2020 07:49:00 AM [facility] BLOOD COUNT COMPLETE AUTO&AUTO DIFRNTL WBC COUNT <td>C BC AND DIFFERENTIAL</td><td>Timed</td><td>07/15/2020 5:53 AM EDT</td><td></td><td> </td> 07/15/2020 05:53:00 AM [facility] AMMONIA <td>AMMONIA LEVEL</td><td>Ro utine</td><td>07/15/2020 5:53 AM EDT</td><td></td><td> </td> 07/15/2020 05:53:00 AM [facility] BASIC METABOLIC PANEL CALCIUM TOTAL <td>BASIC METABOLI C PANEL</td><td>Routine</td><td>07/15/2020 5:53 AM EDT</td><td></td><td> </td> 07/15/2020 05:53:00 AM [facility] BLOOD COUNT COMPLETE AUTO&AUTO DIFRNTL WBC COUNT <td>C BC AND DIFFERENTIAL</td><td>Timed</td><td>07/14/2020 11:51 PM EDT</td><td></td><td> </td> 07/14/2020 11:51:00 PM [facility] GLUCOSE QUANTITATIVE BLOOD XCPT REAGENT STRIP <td>POCT GLUCOSE, DOCKED</td><td>Routine</td><td>07/14/2020 10:09 PM EDT</td><td></td><td> </td> 07/14/2020 10:09:00 PM [facility] GLUCOSE QUANTITATIVE BLOOD XCPT REAGENT STRIP <td>POCT GLUCOSE, DOCKED</td><td>Routine</td><td>07/14/2020 8:25 PM EDT</td><td></td><td> </td> 07/14/2020 08:25:00 PM [facility] BLOOD COUNT COMPLETE AUTO&AUTO DIFRNTL WBC COUNT <td>C BC AND DIFFERENTIAL</td><td>Timed</td><td>07/14/2020 5:45 PM EDT</td><td></td><td> </td> 07/14/2020 05:45:00 PM [facility] GLUCOSE QUANTITATIVE BLOOD XCPT REAGENT STRIP <td>POCT GLUCOSE, DOCKED</td><td>Routine</td><td>07/14/2020 3:49 PM EDT</td><td></td><td> </td> 07/14/2020 03:49:00 PM [facility] BLOOD COUNT COMPLETE AUTO&AUTO DIFRNTL WBC COUNT <td>C BC AND DIFFERENTIAL</td><td>Timed</td><td>07/14/2020 12:01 PM EDT</td><td></td><td> </td> 07/14/2020 12:01:00 PM [facility] GLUCOSE QUANTITATIVE BLOOD XCPT REAGENT STRIP <td>POCT GLUCOSE, DOCKED</td><td>Routine</td><td>07/14/2020 11:58 AM EDT</td><td></td><td> </td> 07/14/2020 11:58:00 AM [facility] GLUCOSE QUANTITATIVE BLOOD XCPT REAGENT STRIP <td>POCT GLUCOSE, DOCKED</td><td>Routine</td><td>07/14/2020 8:05 AM EDT</td><td></td><td> </td> 07/14/2020 08:05:00 AM [facility] GLUCOSE QUANTITATIVE BLOOD XCPT REAGENT STRIP <td>POCT GLUCOSE, DOCKED</td><td>Routine</td><td>07/14/2020 6:16 AM EDT</td><td></td><td> </td> 07/14/2020 06:16:00 AM [facility] PROTHROMBIN TIME <td>PROTIME INR</td><td>Rout ine</td><td>07/14/2020 6:12 AM EDT</td><td></td><td> </td> 07/14/2020 06:12:00 AM [facility] BLOOD COUNT COMPLETE AUTO&AUTO DIFRNTL WBC COUNT <td>C BC AND DIFFERENTIAL</td><td>Timed</td><td>07/14/2020 6:12 AM EDT</td><td></td><td> </td> 07/14/2020 06:12:00 AM [facility] PHOSPHORUS INORGANIC <td>PHOSPHORUS LEVEL</td><td >Routine</td><td>07/14/2020 6:12 AM EDT</td><td></td><td> </td> 07/14/2020 06:12:00 AM [facility] MAGNESIUM <td>MAGNESIUM LEVEL</td><td> Routine</td><td>07/14/2020 6:12 AM EDT</td><td></td><td> </td> 07/14/2020 06:12:00 AM [facility] CALCIUM IONIZED <td>CALCIUM, IONIZED</td><td >Routine</td><td>07/14/2020 6:12 AM EDT</td><td></td><td> </td> 07/14/2020 06:12:00 AM [facility] BASIC METABOLIC PANEL CALCIUM TOTAL <td>BASIC METABOLI C PANEL</td><td>Routine</td><td>07/14/2020 6:12 AM EDT</td><td></td><td> </td> 07/14/2020 06:12:00 AM [facility] TRANSFUSE RBC (ONCE) <td>TRANSFUSE RBC (ONCE)</td ><td>STAT</td><td>07/14/2020 5:48 AM EDT</td><td></td><td></td> 07/14/2020 05:48:43 AM [facility] GLUCOSE QUANTITATIVE BLOOD XCPT REAGENT STRIP <td>POCT GLUCOSE, DOCKED</td><td>Routine</td><td>07/14/2020 2:23 AM EDT</td><td></td><td> </td> 07/14/2020 02:23:00 AM [facility] CONFIRMATORY TYPE <td>CONFIRMATORY TYPE</td><t d>Routine</td><td>07/14/2020 1:23 AM EDT</td><td></td><td> </td> 07/14/2020 01:23:00 AM [facility] BLOOD COUNT COMPLETE AUTOMATED <td>CBC</td><td>STAT</t d><td>07/14/2020 1:23 AM EDT</td><td></td><td> </td> 07/14/2020 01:23:00 AM [facility] BLOOD COUNT COMPLETE AUTO&AUTO DIFRNTL WBC COUNT <td>C BC AND DIFFERENTIAL</td><td>Timed</td><td>07/14/2020 12:25 AM EDT</td><td></td><td> </td> 07/14/2020 12:25:00 AM [facility] GLUCOSE QUANTITATIVE BLOOD XCPT REAGENT STRIP <td>POCT GLUCOSE, DOCKED</td><td>Routine</td><td>07/13/2020 10:35 PM EDT</td><td></td><td> </td> 07/13/2020 10:35:00 PM [facility] XR ABDOMEN AP ABD SUPINE ONLY [id number] <td>XR ABDOMEN AP ABD SUPINE ONLY [id number]</td><td>STAT</td><td>07/13/2020 9:01 PM EDT</td><td></td><td> </td> 07/13/2020 09:01:23 PM [facility] GLUCOSE QUANTITATIVE BLOOD XCPT REAGENT STRIP <td>POCT GLUCOSE, DOCKED</td><td>Routine</td><td>07/13/2020 6:14 PM EDT</td><td></td><td> </td> 07/13/2020 06:14:00 PM [facility] GLUCOSE QUANTITATIVE BLOOD XCPT REAGENT STRIP <td>POCT GLUCOSE, DOCKED</td><td>Routine</td><td>07/13/2020 5:14 PM EDT</td><td></td><td> </td> 07/13/2020 05:14:00 PM [facility] UPPER GI ENDOSCOPY; DX, W/WO SPECIMEN COLLECTION, BRUS MARILU/WASHING (SEP PROC) <td>UPPER GI ENDOSCOPY; DX, W/WO SPECIMEN COLLECTION, BRUSHING/WASHING (SEP PROC)</td><td></td><td>07/13/2020 4:30 PM EDT</td><td> hematemesis</td><td></td> 07/13/2020 04:30:00 PM EDT - 07/13/2020 05:02:00 PM [facility] DUP-SCAN ARTL CHENG ABDL/PEL/SCROT&/RPR ORGN LMTD <td>US DOPPLER ABDOMEN PELVIS ORGANS LIMITED [id number]</td><td>Routine</td><td>07/13/2020 12:47 PM EDT</td><td></td><td> </td> 07/13/2020 12:47:50 PM EDT [facility] US PELVIC NONOBSTETRIC REAL-TIME IMAGE COMPLETE <td>US PELVIS COMPLETE [id number]</td><td>Routine</td><td>07/13/2020 12:47 PM EDT</td><td> Diagnosis unknown</td><td> </td> 07/13/2020 12:47:39 PM EDT Diagnosis unknown [facility] Diagnosis unknown GLUCOSE QUANTITATIVE BLOOD XCPT REAGENT STRIP <td>POCT GLUCOSE, DOCKED</td><td>Routine</td><td>07/13/2020 12:16 PM EDT</td><td></td><td> </td> 07/13/2020 12:16:00 PM [facility] GLUCOSE QUANTITATIVE BLOOD XCPT REAGENT STRIP <td>POCT GLUCOSE, DOCKED</td><td>Routine</td><td>07/13/2020 7:52 AM EDT</td><td></td><td> </td> 07/13/2020 07:52:00 AM [facility] LEVEL I SURG PATHOLOGY GROSS EXAMINATION ONLY <td>SURG ICAL PATHOLOGY EXAM ([facility] ONLY)</td><td>Routine</td><td>07/13/2020 12:00 AM EDT</td><td></td><td> </td> 07/13/2020 12:00:00 AM [facility] UPPER GI ENDOSCOPY <td>UPPER GI ENDOSCOPY</td>< td></td><td>07/13/2020 12:00 AM EDT</td><td></td><td></td> 07/13/2020 12:00:00 AM EDT [facility] GLUCOSE QUANTITATIVE BLOOD XCPT REAGENT STRIP <td>POCT GLUCOSE, DOCKED</td><td>Routine</td><td>07/12/2020 9:30 PM EDT</td><td></td><td> </td> 07/12/2020 09:30:00 PM [facility] BLOOD COUNT COMPLETE AUTO&AUTO DIFRNTL WBC COUNT <td>C BC AND DIFFERENTIAL</td><td>Timed</td><td>07/12/2020 6:51 PM EDT</td><td></td><td> </td> 07/12/2020 06:51:00 PM [facility] GLUCOSE QUANTITATIVE BLOOD XCPT REAGENT STRIP <td>POCT GLUCOSE, DOCKED</td><td>Routine</td><td>07/12/2020 4:31 PM EDT</td><td></td><td> </td> 07/12/2020 04:31:[address] [facility] [address] ABDOEN & PELVIS W/CONTRAST MATERIAL <td>CT ABDOMEN PELVIS WITH CONTRAST [id number]</td><td>Routine</td><td>07/12/2020 2:43 PM EDT</td><td></td><td> </td> 07/12/2020 02:43:28 PM [facility] GLUCOSE QUANTITATIVE BLOOD XCPT REAGENT STRIP <td>POCT GLUCOSE, DOCKED</td><td>Routine</td><td>07/12/2020 12:09 PM EDT</td><td></td><td> </td> 07/12/2020 12:09:00 PM [facility] ALPHA-FETOPROTEIN SERUM <td>AFP TUMOR MARKER</td><td >Routine</td><td>07/12/2020 8:44 AM EDT</td><td></td><td> </td> 07/12/2020 08:44:00 AM [facility] ANTIBODY HELICOBACTER PYLORI <td>H. PYLORI IGM AB</td><td>Routine</td><td>07/12/2020 8:44 AM EDT</td><td></td><td> </td> 07/12/2020 08:44:00 AM [facility] BASIC METABOLIC PANEL CALCIUM TOTAL <td>BASIC METABOLI C PANEL</td><td>Routine</td><td>07/12/2020 8:44 AM EDT</td><td></td><td> </td> 07/12/2020 08:44:00 AM [facility] GLUCOSE QUANTITATIVE BLOOD XCPT REAGENT STRIP <td>POCT GLUCOSE, DOCKED</td><td>Routine</td><td>07/12/2020 8:00 AM EDT</td><td></td><td> </td> 07/12/2020 08:00:00 AM [facility] BLOOD COUNT COMPLETE AUTO&AUTO DIFRNTL WBC COUNT <td>C BC AND DIFFERENTIAL</td><td>Timed</td><td>07/12/2020 6:48 AM EDT</td><td></td><td> </td> 07/12/2020 06:48:00 AM [facility] GLUCOSE QUANTITATIVE BLOOD XCPT REAGENT STRIP <td>POCT GLUCOSE, DOCKED</td><td>Routine</td><td>07/12/2020 4:34 AM EDT</td><td></td><td> </td> 07/12/2020 04:34:00 AM [facility] [facility] HELICOBACTER PYLORI <td>HELICOBACT PYLORI AB IGG</td><td>Routine</td><td>07/12/2020 12:39 AM EDT</td><td></td><td> </td> 07/12/2020 12:39:00 AM [facility] BLOOD COUNT COMPLETE AUTO&AUTO DIFRNTL WBC COUNT <td>C BC AND DIFFERENTIAL</td><td>Timed</td><td>07/12/2020 12:39 AM EDT</td><td></td><td> </td> 07/12/2020 12:39:00 AM [facility] FOLIC ACID SERUM <td>FOLATE</td><td>Routine</ td><td>07/12/2020 12:39 AM EDT</td><td></td><td> </td> 07/12/2020 12:39:00 AM [facility] GLUCOSE QUANTITATIVE BLOOD XCPT REAGENT STRIP <td>POCT GLUCOSE, DOCKED</td><td>Routine</td><td>07/11/2020 11:33 PM EDT</td><td></td><td> </td> 07/11/2020 11:33:00 PM [facility] GLUCOSE QUANTITATIVE BLOOD XCPT REAGENT STRIP <td>POCT GLUCOSE, DOCKED</td><td>Routine</td><td>07/11/2020 7:50 PM EDT</td><td></td><td> </td> 07/11/2020 07:50:00 PM [facility] PROTHROMBIN TIME <td>PROTIME INR</td><td>Rout ine</td><td>07/11/2020 6:15 PM EDT</td><td></td><td> </td> 07/11/2020 06:15:00 PM [facility] BLOOD COUNT COMPLETE AUTO&AUTO DIFRNTL WBC COUNT <td>C BC AND DIFFERENTIAL</td><td>Timed</td><td>07/11/2020 6:15 PM EDT</td><td></td><td> </td> 07/11/2020 06:15:00 PM [facility] UPPER GI ENDOSCOPY; DX, W/WO SPECIMEN COLLECTION, BRUS MARILU/WASHING (SEP PROC) <td>UPPER GI ENDOSCOPY; DX, W/WO SPECIMEN COLLECTION, BRUSHING/WASHING (SEP PROC)</td><td></td><td>07/11/2020 4:45 PM EDT</td><td> concern for hematemesis</td><td></td> 07/11/2020 04:45:00 PM EDT - 07/11/2020 05:08:00 PM [facility] GLUCOSE QUANTITATIVE BLOOD XCPT REAGENT STRIP <td>POCT GLUCOSE, DOCKED</td><td>Routine</td><td>07/11/2020 3:46 PM EDT</td><td></td><td> </td> 07/11/2020 03:46:00 PM [facility] HEPATITIS C ANTIBODY <td>HEPATITIS C ANTIBODY</td ><td>Routine</td><td>07/11/2020 12:09 PM EDT</td><td></td><td> </td> 07/11/2020 12:09:00 PM [facility] BLOOD COUNT COMPLETE AUTO&AUTO DIFRNTL WBC COUNT <td>C BC AND DIFFERENTIAL</td><td>Timed</td><td>07/11/2020 12:09 PM EDT</td><td></td><td> </td> 07/11/2020 12:09:00 PM [facility] GLUCOSE QUANTITATIVE BLOOD XCPT REAGENT STRIP <td>POCT GLUCOSE, DOCKED</td><td>Routine</td><td>07/11/2020 11:59 AM EDT</td><td></td><td> </td> 07/11/2020 11:59:00 AM [facility] GLUCOSE QUANTITATIVE BLOOD XCPT REAGENT STRIP <td>POCT GLUCOSE, DOCKED</td><td>Routine</td><td>07/11/2020 7:40 AM EDT</td><td></td><td> </td> 07/11/2020 07:40:00 AM [facility] XR CHEST FRONTAL ONLY [id number] <td>XR CHEST FRONTAL ONLY 79939</td><td>STAT</td><td>07/11/2020 4:39 AM EDT</td><td></td><td> </td> 07/11/2020 04:39:09 AM [facility] RESPIRATORY PATHOGEN PANEL <td>RESPIRATORY PATHOGEN PANEL</td><td>Routine</td><td>07/11/2020 3:59 AM EDT</td><td></td><td> </td> 07/11/2020 03:59:00 AM [facility] COVID-19 PCR <td>COVID-19 PCR</td><td>Rou nieves</td><td>07/11/2020 3:59 AM EDT</td><td></td><td> </td> 07/11/2020 03:59:00 AM [facility] PROTHROMBIN TIME <td>PROTIME INR</td><td>STAT </td><td>07/11/2020 3:22 AM EDT</td><td></td><td> </td> 07/11/2020 03:22:00 AM [facility] BLOOD COUNT COMPLETE AUTO&AUTO DIFRNTL WBC COUNT <td>C BC AND DIFFERENTIAL</td><td>Routine</td><td>07/11/2020 3:22 AM EDT</td><td></td><td> </td> 07/11/2020 03:22:00 AM [facility] BLOOD TYPING ABO <td>TYPE AND SCREEN</td><td> STAT</td><td>07/11/2020 3:22 AM EDT</td><td></td><td> </td> 07/11/2020 03:22:00 AM [facility] TROPONIN QUANTITATIVE <td>TROPONIN T</td><td>STAT< /td><td>07/11/2020 3:22 AM EDT</td><td></td><td> </td> 07/11/2020 03:22:00 AM [facility] LIPASE <td>LIPASE LEVEL</td><td>STA T</td><td>07/11/2020 3:22 AM EDT</td><td></td><td> </td> 07/11/2020 03:22:00 AM [facility] HEMOGLOBIN GLYCOSYLATED A1C <td>HEMOGLOBIN A1C</td><td>Routine</td><td>07/11/2020 3:22 AM EDT</td><td></td><td> </td> 07/11/2020 03:22:00 AM [facility] COMPREHENSIVE METABOLIC PANEL <td>COMPREHENSIVE METABO LIC PANEL</td><td>STAT</td><td>07/11/2020 3:22 AM EDT</td><td></td><td> </td> 07/11/2020 03:22:00 AM [facility] UPPER GI ENDOSCOPY <td>UPPER GI ENDOSCOPY</td>< td></td><td>07/11/2020 12:00 AM EDT</td><td></td><td></td> 07/11/2020 12:00:00 AM EDT [facility] RADEX FOOT COMPLETE MINIMUM 3 VIEWS 12/18/2019 12:00:0 0 AM EDT [facility] ([facility] ) Results ID Date Data Source [id number] 01/01/2021 12:41:00 PM EDT [facility] Name Value Range Interpretation Code Description Data Rosemary rce(s) Supporting Document(s) SARS-CoV-2 (COVID 19) NEGATIVE - SARS-CoV-2 (COVID19) [facility] This lab was ordered by [facility] a nd reported by [facility]. ID Date Data Source [id number] 11/26/2020 10:02:00 AM EDT [facility] ([facility], ) Name Value Range Interpretation Code Description Data Rosemary rce(s) Supporting Document(s) Vitamin B12 Level 378 pg/mL Normal (applies to non-numeri c results) [facility] ([facility], ) VITAMIN B12 NORMAL RANGE NORMAL 247 - 911 PG/ML INDETERMINATE 211 - 246 PG/ML DEFICIENT LESS THAN 211 PG/ML Folate 7.9 ng/mL Normal (applies to non-numeric resul ts) [facility] ([facility]) FOLATE NORMAL RANGE NORMAL GREATER THAN 5.4 NG/ML INDETERMINATE 3.4-5.4 NG/ML DEFICIENT LESS THAN 3.4 NG/ML ID Date Data Source [id number] 11/26/2020 10:02:00 AM EDT [facility] ([facility], ) Name Value Range Interpretation Code Description Data Rosemary rce(s) Supporting Document(s) Total Iron Binding Capacity 387 ug/dL 250-450 Norm al (applies to non-numeric results) [facility] ([facility], ) Iron (Fe) 36 ug/dL 50-170 Below low normal [facility] ( [facility], ) Percent Saturation 9.3 % 13.2-45.0 Below low normal [facility]) ID Date Data Source [id number] 11/26/2020 10:02:00 AM EDT [facility] ([facility]) Name Value Range Interpretation Code Description Data Rosemary rce(s) Supporting Document(s) Red Blood Count 3.20 10 4.00-5.40 Below low normal [facility] ([facility]) White Blood Count 3.9 10 4.0-10.0 Below low normal [facility] ([facility]) Hemoglobin 8.5 g/dL 12.0-15.5 Below low normal [facility] ( [facility]) Hematocrit 28.1 % 36.0-47.0 Below low normal [facility] Mean Corpuscular Volume 87.8 fl 80.0-96.0 Normal ( applies to non-numeric results) [facility] ([facility]) Mean Corpuscular Hemoglobin 26.6 pg 27.0-33.0 Below low normal [facility] Red Cell Distribution Width 15.9 % 11.5-14.5 Above high normal [facility] Mean Corpuscular HGB Conc 30.2 g/dL 32.0-36.5 Below low normal [facility]) Platelet Count, Automated Laboratory test result 150-450 Normal (applies to non- numeric results) [facility] ([facility]) Platelet count invalid due to platelet c lumping. Suggest ordering platelet blue test to confirm clumping is not due to EDTA. Neutrophils % 70.0 % 36.0-66.0 Above high normal [facility] ([facility]) [place] % 9.5 % 2.0-8.0 Above high normal [facility] ([facility]) Lymph % 16.7 % 24.0-44.0 Below low normal [facility] ( [facility]) Eos % 2.3 % 0.0-3.0 Normal (applies to non-numeric resul ts) [facility] ([facility]) Baso % 1.0 % 0.0-1.0 Normal (applies to non-numeric resul ts) [facility]) Immature Granulocyte % 0.5 % 0-3.0 Normal (applies to non-n umeric results) [facility] ([facility]) Nucleated Red Blood Cell % 0.0 % 0-0 Normal (applies to n on-numeric results) [facility] ([facility]) Neutrophils # 2.7 10 1.5-8.5 Normal (applies to non-numeric re sults) [facility] ([facility]) Lymph # 0.7 10 1.5-5.0 Below low normal [facility] ( [facility]) Eos # 0.1 10 0.0-0.5 Normal (applies to non-numeric resul ts) [facility]) [place] # 0.4 10 0.0-0.8 Normal (applies to non-numeric resul ts) [facility] ([facility]) Baso # 0.0 10 0.0-0.2 Normal (applies to non-numeric resul ts) [facility]) ID Date Data Source [id number] [facility] Name Value Range Interpretation Code Description Data Rosemary rce(s) Supporting Document(s) Aqchs-3-Vhwrdscdtum [Mass/volume] in Serum or Plasma Laboratory test result Normal (applies to non-numeric results) [facility]) THE AFP ASSAY IS PERFORMED ON THE [employer] BY CHEMILUMINESCENCE AND SHOULD NOT BE COMPARED INTERCHANGEABLY WITH OTHER METHODS. IT SHOULD NOT BE USED ALONE A SCREENING TEST OR DIAGNOSIS FOR THE PRESENCE OR ABSENCE OF MALIGNANT DISEASE. THESE RESULTS ARE NOT INTERPRETABLE IN FEMALES. PREDICTIONS OF DISEASE RECURRENCE SHOULD NOT BE BASED SOLELY ON VALUES OBTAINED FROM SERIAL PATIENT SERUM VALUES. ID Date Data Source [id number] 11/26/2020 10:02:00 AM EDT [facility] ([facility]) Name Value Range Interpretation Code Description Data Rosemary rce(s) Supporting Document(s) Ast/Sgot 21 U/L 7-37 Normal (applies to non-numeric resul ts) [facility]) Alt/SGPT 22 U/L 12-78 Normal (applies to non-numeric resul ts) [facility]) Alkaline Phosphatase 115 U/L 45-117 Normal (applies to non-num guillermo results) [facility]) Bilirubin,Total 0.4 mg/dL 0.2-1.0 Normal (applies to non-numeric results) [facility] ([facility], ) Bilirubin,Direct 0.2 mg/dL 0.0-0.2 Normal (applies to non-numeric results) [facility] ([facility]) Total Protein 7.4 GM/DL 6.4-8.2 Normal (applies to non-numeric re sults) [facility] ([facility]) Albumin 3.4 GM/DL 3.2-5.2 Normal (applies to non-numeric resul ts) [facility] ([facility]) Albumin/Globulin Ratio 0.9 1.2-2.2 Below low normal [facility] ([facility]) ID Date Data Source Basic Metabolic Profile (BMP) 11/04/2020 12:00:00 AM EDT eCW 1 ([facility]) Name Value Range Interpretation Code Description Data Rosemary rce(s) Supporting Document(s) 194 70-100 GLUCOSE, FASTING eCW1 ([facility]) 1.11 0.55-1.30 CREATININE FOR GFR eCW1 ([facility]) 17 7-18 BLOOD UREA NITROGEN eCW1 ([facility]) 51.4 >39 GLOMERULAR FILTRATION RATE eCW 1 ([facility]) 138 136-145 SODIUM LEVEL eCW1 ([facility]) 108 98-107 CHLORIDE LEVEL eCW1 ([facility]) 4.3 3.5-5.1 POTASSIUM SERUM eCW1 ([facility] 1928[facility]1983) 23 21-32 CARBON DIOXIDE LEVEL eCW1 ([facility]) 8.6 8.8-10.2 CALCIUM LEVEL eCW1 ([facility]) ID Date Data Source [id number] 11/04/2020 12:00:00 AM EDT eCW1 ([facility]) Name Value Range Interpretation Code Description Data Rosemary rce(s) Supporting Document(s) Hemoglobin A1c/Hemoglobin.total in Blood 7.9 HEMOGLOBIN A1c eCW1 ([facility]) ID Date Data Source CBC - Complete Blood Count 11/04/2020 12:00:00 AM EDT eCW1 ( [facility]) Name Value Range Interpretation Code Description Data Rosemary rce(s) Supporting Document(s) 3.38 4.00-5.40 RED BLOOD COUNT eCW1 ([facility] 1928[facility]1983) 4.0 4.0-10.0 WHITE BLOOD COUNT eCW1 ([facility]) 8.7 12.0-15.5 HEMOGLOBIN eCW1 ([facility]) 86.1 80.0-96.0 MEAN CORPUSCULAR VOLUME e CW1 ([facility]) 29.1 36.0-47.0 HEMATOCRIT eCW1 ([facility]) 16.0 11.5-14.5 RED CELL DISTRIBUTION WID TH eCW1 ([facility]) 25.7 27.0-33.0 MEAN CORPUSCULAR HEMOGLOB IN eCW1 ([facility]) 29.9 32.0-36.5 MEAN CORPUSCULAR HGB CONC eCW1 ([facility]) TNP 150-450 PLATELET COUNT, AUTOMATED eCW1 ([facility]) ID Date Data Source [id number] 07/16/2020 05:22:25 PM EDT [facility] Name Value Range Interpretation Code Description Data Rosemary rce(s) Supporting Document(s) Discharge Summary [facility] HRGGOi2rKjOPYeBj93/SRCdoQXTik9VzFBajEHo9RBvgIEPpC8PuGEO5nY2eJPT0XYgDCkWxHkTiZtT8 lbm [file] 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 lead+HAGflIReJXNzSrhAtfYf8nP4vyYCqaO73CR5jV8GmbSWP6+wU9kg0MqMA+90vm6a8hJsI1iZGUrN [file] AgICAgICAgICAgICAgICAgICAgICAgICAgICAgICAg ICAgICAgICAgICAgICAgICAgICAgICAgICAgICAgICANCiAgICAgICAgICAgICAgICAgICAgICAgICAg ICAgICAgICAgICAgICAgICAgICAgICAgICAgICAgICAgICAgICAgICAgICAgICAgICAgICAgICAgICAg ICAgICAgICAgICAgICANCiAgICAgICAgICAgICAgIC AgICAgICAgICAgICAgICAgICAgICAgICAgICAgICAgICAgICAgICAgICAgICAgICAgICAgICAgICAgIC AgICAgICAgICAgICAgICAgICAgICAgICANCiAgICAgICAgICAgICAgICAgICAgICAgICAgICAgICAgIC AgICAgICAgICAgICAgICAgICAgICAgICAgICAgICAg ICAgICAgICAgICAgICAgICAgICAgICAgICAgICAgICAgICANCiAgICAgICAgICAgICAgICAgICAgICAg ICAgICAgICAgICAgICAgICAgICAgICAgICAgICAgICAgICAgICAgICAgICAgICAgICAgICAgICAgICAg ICAgICAgICAgICAgICAgICANCiAgICAgICAgICAgIC AgICAgICAgICAgICAgICAgICAgICAgICAgICAgICAgICAgICAgICAgICAgICAgICAgICAgICAgICAgIC AgICAgICAgICAgICAgICAgICAgICAgICAgICANCiAgICAgICAgICAgICAgICAgICAgICAgICAgICAgIC AgICAgICAgICAgICAgICAgICAgICAgICAgICAgICAg ICAgICAgICAgICAgICAgICAgICAgICAgICAgICAgICAgICAgICANCiAgICAgICAgICAgICAgICAgICAg ICAgICAgICAgICAgICAgICAgICAgICAgICAgICAgICAgICAgICAgICAgICAgICAgICAgICAgICAgICAg ICAgICAgICAgICAgICAgICAgICANCiAgICAgICAgIC AgICAgICAgICAgICAgICAgICAgICAgICAgICAgICAgICAgICAgICAgICAgICAgICAgICAgICAgICAgIC AgICAgICAgICAgICAgICAgICAgICAgICAgICAgICANCiAgICAgICAgICAgICAgICAgICAgICAgICAgIC AgICAgICAgICAgICAgICAgICAgICAgICAgICAgICAg ICAgICAgICAgICAgICAgICAgICAgICAgICAgICAgICAgICAgICAgICANCjw/wJMhN5hltGIdxqR6J3rd Qk9EJm1YOI3fz7WsXCUwPDwbvaIkVseCEwDnKUFlIalBLkn0FBvvZO1HdNAcR6NdM9KoKSsfXC6EPMYy XOCjhHGtECWaHDVqUrX6OWKoGNbuLS9SnNTvZOxiPH PsHLDwTmCjQBEiXVOwKRBzQXIhXSZNUWPcGBGrAoXpFRkrXS5Gn6AobRB1KBx+Yt2DRA2cf8HiUBwcRN FeCG9qhx0CQMyVSjQrT5TnsjQ2KSX5YNYjMn1DRGCaAZTwhIAaWTNpANZGRbTtF0YwpF19YHWJTo1+DQ giirWwOxdOHcL1UFMen9ZuCCt0OD5ADLVeOMy3sLCz PCnvQ3roddqbUSS7xW8ofkvfRyyyGPC8mHusmcCXJRl3tW0lhyaiOKDbZONuFx1wIE3qRBTeROHuXeU2 XAKTYA6YNTUuWZNvvVBbXUWvLRTKZC4KQUfpBBI4RFZlboJkrPTjXXbvJO0BUGCxtqQuTtxxPYXEWRt+ Ru0TAZ1di4NhMZf0HHCrCU6cpf7ZWWoSLtMrL9L9nU EqL9L1XLalXb0VDSGbVYOsDiJhACJCTHnjUM5WRG2fwkT3DV9JiJUmZXAiSKBktLBxTYg0B83cnBLjTC rhZT3WBXG+Eleanor+Ah0AHLQmRNJfJMOlIjTmNXXVLpRrB1NuL2NTd6CoS7VjWA82pBnbliUwSZsuLT6WUR 4lEUFdGQLISS1DmSAmjE9uimVdXYDkXWRLRkCcJ43k pUJoWFHeHCG9YBDjOy3QYZKaB2MsnfSifBdxcjQoBYNjDNOONK3PIBidxnGtrDOjhGzwAE50lTxfBA0G Gm7VCdIoLU1rqg1OnJAaSt4WAIG6VT9JWGMiZMGyNCBoKBL7KRAfYcYjIWffXIHePNPoTMU2UVCqDMLa ZS4YRkPlYANqQujfXSVoWTFcMNYlaq0YPRZzTLQpMX c3ATIsZICzWOJfINecHQTcMFGbTQL3WPIoFBQxUX9RNeEwZOPyAMZqRRSuHDDbUGEypx3DVUCnYYJfFo ZqJGBqDLGlDYBvUKdhBWPuMIE1YRZsVZGqOXCsZG9DHhNbBIXvLCnfJeCtSZQeATXcai0PDMHpGFOdRR r7MXLdBGZjWLGdVYmxXVHdIMHmAbBbWKSwWBSmGH7H ItGtDROvLLC0IoEmLSHqVZJosd9MKNWbYEGiQfR1WXRzWMOqXQPwSCrwZHBnPVRcFPL6IUPvZVNnYH2H ZbLyITBnPCM6BtUuSCOiDHHqwh2YAXHkYEZjJFKjZoHyWPAaSOKpDZyiNBGwMWA5INT1FWAwEAMxHL7I PeXsMORyUOKfPQHlQKBqCOPvnx9RKATzSFCqJKl1PN ByIHZqSSAnDIdpNWLkEGG6EWarCDUzYVUbOO1JSoQvDYMzVQIuYtItYBQcTBGkgz3JXMPxQEElEsUqRY XwZOVkBCDfRUctEYUbEHO9GPQ9ALFxGQEbPB6SYlLaHDGwOQd0GTEdXTOqFYEldj9IZLUwSKSiYNG5Ug PvMFPvWQPzRDjiCGZzCKF5YLE0VSEnKAQlNH1WDoOe KRMbYma1XRClQGCtEUJcqe7YOXZdJRPuOBf3ApJvJGFwFCDyFMotPSMkZDQ0YAk5KUTcAVIdRT7GEzAf RLZpVyQ1DNJuGFWySVQtej6XVVQnJPSsEKNyFPKfQAPuCUHaJUwpBQOwFKVjSsR3NXWmASLkNB5ZRrFk APKzDlFuQoMkPVNwRBVlpb1ZLOMiSWYtWgU5YSOzHX CcISIuYOcaFPMrHFE3AzvgLVRjPLLvGY4HPlDfHMMcMaO3RqNoOKVjZBAphc6ACUNrXCJrZkQ0MKNwNI XxVICwXJzfTNXnLSK6ETZ3RUPsWKFdWU2NUjKuJIJbBtq1NUZzVVEtKXUeqx6NCIVaUHSlWTR6WCAwQZ OyOEScIBguLJDuWYW6DdK3NGLvSBUhMD6KVhOdQCvz RKPVTxs8UOpaJ6m4BOJ2QF7LX5Cas7FfOMEfFDNXMJvaDA3wooEjLOVvAq4XV3xUYrwwHDG6TQL9TCXo L0IpKMC3YXRcLlvlXZhwKTccXnj4EU7jVOF4IfcuNNAeIUM0IlD9MqhyKHE3LRNjNTU3AVCmECO2QaAt PN8NYh6OFgL8DBV8zNJiXk0JYfn2SnPNClQvYK4ZFOl= ID Date Data Source [id number] [facility] Value Range Interpretation Code Description Data Rosemary rce(s) Supporting Document(s) Glucose [Mass/volume] in Capillary blood by Glucometer 179 mg/dL 70- 140 H [facility] ID Date Data Source [id number] 07/16/2020 04:41:[address] [facility] Name Value Range Interpretation Code Description Data Rosemary rce(s) Supporting Document(s) Leukocytes [#/volume] in Blood by Automated count 8.1 10*3/uL 4-10 [facility] Erythrocytes [#/volume] in Blood by Automated count 3.01 10*6/uL 4.1- 5.3 L [facility] Hemoglobin [Mass/volume] in Blood 9.1 g/dL 11.5-15.5 L [facility] Hematocrit [Volume Fraction] of Blood by Automated count 27.0 % 3 6-45 L [facility] Erythrocyte mean corpuscular volume [Entitic volume] by Auto mated count 89.5 fL 80-96 [facility] Erythrocyte mean corpuscular hemoglobin [Entitic mass] by Automated count 30.1 pg 27-33 [facility] Erythrocyte mean corpuscular hemoglobin concentration [Mass/volume] by Automated count 33.7 g/dL 32.0-36.0 [facility] distribution width [Ratio] by Automated count 14.9 % 11.5-14.5 H [facility] Platelets [#/volume] in Blood by Automated count 121 10*3/uL 150-400 L [facility] Differential cell count method - Blood [facility] Neutrophils/100 leukocytes in Blood by Automated count 70 % [facility] Lymphocytes/100 leukocytes in Blood by Automated count 15 % [facility] Monocytes/100 leukocytes in Blood by Automated count 12 % [facility] Eosinophils/100 leukocytes in Blood by Automated count 2 % [facility] Basophils/100 leukocytes in Blood by Automated count 1 % [facility] Neutrophils [#/volume] in Blood by Automated count 5.72 10*3/uL 1.8-7 .0 [facility] Lymphocytes [#/volume] in Blood by Automated count 1.20 10*3/uL 1.2-4 .0 [facility] Monocytes [#/volume] in Blood by Automated count 0.99 10*3/uL 0-0.8 H [facility] Eosinophils [#/volume] in Blood by Automated count 0.17 10*3/uL 0-0.5 [facility] Basophils [#/volume] in Blood by Automated count 0.06 10*3/uL 0-0.2 [facility] Nucleated erythrocytes/100 leukocytes [Ratio] in Blood by Automated count 0 /100{WBCs} 0-0 [facility] ID Date Data Source [id number] 07/16/2020 07:58:35 AM EDT [facility] Name Value Range Interpretation Code Description Data Rosemary rce(s) Supporting Document(s) Glucose [Mass/volume] in Capillary blood by Glucometer 175 mg/dL 70- 140 H [facility] ID Date Data Source [id number] 07/18/2020 07:41:30 AM EDT [facility] Name Value Range Interpretation Code Description Data Rosemary rce(s) Supporting Document(s) ABO and Rh group [Type] in Blood [facility] Blood group antibody screen [Presence] in Serum or Plasma [facility] Performed at [facility], [address] , [place], [id number] ID Date Data Source [id number] 07/16/2020 05:55:[address] [facility] Name Value Range Interpretation Code Description Data Rosemary rce(s) Supporting Document(s) Leukocytes [#/volume] in Blood by Automated count 5.2 10*3/uL 4-10 [facility] Erythrocytes [#/volume] in Blood by Automated count 2.20 10*6/uL 4.1- 5.3 L [facility] Hemoglobin [Mass/volume] in Blood 6.9 g/dL 11.5-15.5 L [facility] Hematocrit [Volume Fraction] of Blood by Automated count 20.0 % 3 6-45 [facility] [place] [id number] at [phone] Erythrocyte mean corpuscular volume [Entitic volume] by Auto mated count 90.6 fL 80-96 [facility] Erythrocyte mean corpuscular hemoglobin [Entitic mass] by Automated count 31.3 pg 27-33 [facility] Erythrocyte mean corpuscular hemoglobin concentration [Mass/volume] by Automated count 34.5 g/dL 32.0-36.0 [facility] Erythrocyte distribution width [Ratio] by Automated count 15.2 % 11.5-14.5 H [facility] Platelets [#/volume] in Blood by Automated count 89 10*3/uL 150-400 L [facility] Differential cell count method - Blood [facility] Neutrophils/100 leukocytes in Blood by Automated count 62 % [facility] Lymphocytes/100 leukocytes in Blood by Automated count 23 % [facility] Monocytes/100 leukocytes in Blood by Automated count 11 % [facility] Eosinophils/100 leukocytes in Blood by Automated count 3 % [facility] Basophils/100 leukocytes in Blood by Automated count 1 % [facility] Neutrophils [#/volume] in Blood by Automated count 3.27 10*3/uL 1.8-7 .0 [facility] Lymphocytes [#/volume] in Blood by Automated count 1.18 10*3/uL 1.2-4 .0 L [facility] Monocytes [#/volume] in Blood by Automated count 0.56 10*3/uL 0-0.8 [facility] Eosinophils [#/volume] in Blood by Automated count 0.13 10*3/uL 0-0.5 [facility] Basophils [#/volume] in Blood by Automated count 0.04 10*3/uL 0-0.2 [facility] Nucleated erythrocytes/100 leukocytes [Ratio] in Blood by Automated count 0 /100{WBCs} 0-0 [facility] ID Date Data Source [id number] 07/16/2020 06:05:05 AM EDT [facility] Name Value Range Interpretation Code Description Data Rosemary rce(s) Supporting Document(s) Albumin [Mass/volume] in Serum or Plasma by Bromocresol green (BCG) dye binding method 3.3 g/dL 3.5-5.2 [facility] Bilirubin.total [Mass/volume] in Serum or Plasma 0.4 mg/dL <1.2 [facility] Calcium [Mass/volume] in Serum or Plasma 7.3 mg/dL 8.8-10.2 L [facility] Chloride [Moles/volume] in Serum or Plasma 108 mmol/L 98-107 H [facility] Creatinine [Mass/volume] in Serum or Plasma 0.95 mg/dL 0.50-0.90 H [facility] Glucose [Mass/volume] in Serum or Plasma 164 mg/dL 70-140 H [facility] Alkaline phosphatase [Enzymatic activity/volume] in Serum or Plasma 71 U/L 35-104 [facility] Potassium [Moles/volume] in Serum or Plasma 3.3 mmol/L 3.4-5.1 L [facility] Protein [Mass/volume] in Serum or Plasma 5.4 g/dL 6.4-8.3 L [facility] Sodium [Moles/volume] in Serum or Plasma 138 mmol/L 136-145 [facility] Aspartate aminotransferase [Enzymatic activity/volume] in Serum or Plasma 18 U/L <32 [facility] Urea nitrogen [Mass/volume] in Serum or Plasma 12 mg/dL 8-23 [facility] Osmolality of Serum or Plasma by calculation 289 mosm/kg 275-300 [facility] Creatinine/Urea nitrogen [Mass Ratio] in Serum or Plasma 13 [facility] Bicarbonate [Moles/volume] in Serum 22 mmol/L 22-29 [facility] Alanine aminotransferase [Enzymatic activity/volume] in Seru m or Plasma 9 U/L <33 [facility] Anion gap 3 in Serum or Plasma 9 mmol/L 8-15 [facility] Glomerular filtration rate/1.73 sq M pre dicted among non-blacks [Volume Rate/Area] in Serum or Plasma by Creatinine-based formula (MDRD) 59 mL/min/1.73m2 >60 L [facility] Glomerular filtration rate/1.73 sq M pre dicted among blacks [Volume Rate/Area] in Serum or Plasma by Creatinine-based formula (MDRD) 68 mL/min/1.73m2 >60 [facility] ID Date Data Source [id number] 07/16/2020 05:36:32 AM [facility] Name Value Range Interpretation Code Description Data Rosemary rce(s) Supporting Document(s) Ammonia [Moles/volume] in Plasma 38 umol/L 11-51 [facility] ID Date Data Source [id number] 07/16/2020 12:21:[address] [facility] Name Value Range Interpretation Code Description Data Rosemary rce(s) Supporting Document(s) Leukocytes [#/volume] in Blood by Automated count 6.8 10*3/uL 4-10 [facility] Erythrocytes [#/volume] in Blood by Automated count 2.32 10*6/uL 4.1- 5.3 L [facility] Hemoglobin [Mass/volume] in Blood 7.1 g/dL 11.5-15.5 [facility] Hematocrit [Volume Fraction] of Blood by Automated count 20.9 % 3 6-45 [facility] Called to and read back by [id number] at [id number] Erythrocyte mean corpuscular volume [Entitic volume] by Auto mated count 90.2 fL 80-96 [facility] Erythrocyte mean corpuscular hemoglobin [Entitic mass] by Automated count 30.4 pg 27-33 [facility] Erythrocyte mean corpuscular hemoglobin concentration [Mass/volume] by Automated count 33.7 g/dL 32.0-36.0 [facility] Erythrocyte distribution width [Ratio] by Automated count 15.2 % 11.5-14.5 H [facility] Platelets [#/volume] in Blood by Automated count 111 10*3/uL 150-400 L [facility] Differential cell count method - Blood [facility] Neutrophils/100 leukocytes in Blood by Automated count 64 % [facility] Lymphocytes/100 leukocytes in Blood by Automated count 19 % [facility] Monocytes/100 leukocytes in Blood by Automated count 13 % [facility] Eosinophils/100 leukocytes in Blood by Automated count 3 % [facility] Basophils/100 leukocytes in Blood by Automated count 1 % [facility] Neutrophils [#/volume] in Blood by Automated count 4.40 10*3/uL 1.8-7 .0 [facility] Lymphocytes [#/volume] in Blood by Automated count 1.29 10*3/uL 1.2-4 .0 [facility] Monocytes [#/volume] in Blood by Automated count 0.91 10*3/uL 0-0.8 H [facility] Eosinophils [#/volume] in Blood by Automated count 0.17 10*3/uL 0-0.5 [facility] Basophils [#/volume] in Blood by Automated count 0.08 10*3/uL 0-0.2 [facility] Nucleated erythrocytes/100 leukocytes [Ratio] in Blood by Automated count 0 /100{WBCs} 0-0 [facility] ID Date Data Source [id number] 07/15/2020 09:16:[address] [facility] Name Value Range Interpretation Code Description Data Rosemary rce(s) Supporting Document(s) Glucose [Mass/volume] in Capillary blood by Glucometer 139 mg/dL 70- 140 [facility] ID Date Data Source [id number] 07/15/2020 07:00:10 PM [facility] Value Range Interpretation Code Description Data Rosemary rce(s) Supporting Document(s) Leukocytes [#/volume] in Blood by Automated count 8.5 10*3/uL 4-10 [facility] Erythrocytes [#/volume] in Blood by Automated count 2.33 10*6/uL 4.1- 5.3 L [facility] Hemoglobin [Mass/volume] in Blood 7.2 g/dL 11.5-15.5 L [facility] Hematocrit [Volume Fraction] of Blood by Automated count 21.3 % 3 6-45 L [facility] Erythrocyte mean corpuscular volume [Entitic volume] by Auto mated count 91.2 fL 80-96 [facility] Erythrocyte mean corpuscular hemoglobin [Entitic mass] by Automated count 30.7 pg 27-33 [facility] Erythrocyte mean corpuscular hemoglobin concentration [Mass/volume] by Automated count 33.7 g/dL 32.0-36.0 [facility] Erythrocyte distribution width [Ratio] by Automated count 15.4 % 11.5-14.5 H [facility] Platelets [#/volume] in Blood by Automated count 127 10*3/uL 150-400 L [facility] Differential cell count method - Blood [facility] Neutrophils/100 leukocytes in Blood by Automated count 71 % [facility] Lymphocytes/100 leukocytes in Blood by Automated count 14 % [facility] Monocytes/100 leukocytes in Blood by Automated count 12 % [facility] Eosinophils/100 leukocytes in Blood by Automated count 2 % [facility] Basophils/100 leukocytes in Blood by Automated count 1 % [facility] Neutrophils [#/volume] in Blood by Automated count 6.11 10*3/uL 1.8-7 .0 [facility] Lymphocytes [#/volume] in Blood by Automated count 1.18 10*3/uL 1.2-4 .0 [facility] Monocytes [#/volume] in Blood by Automated count 0.99 10*3/uL 0-0.8 H [facility] Eosinophils [#/volume] in Blood by Automated count 0.20 10*3/uL 0-0.5 [facility] Basophils [#/volume] in Blood by Automated count 0.06 10*3/uL 0-0.2 [facility] Nucleated erythrocytes/100 leukocytes [Ratio] in Blood by Automated count 0 /100{WBCs} 0-0 [facility] ID Date Data Source [id number] 07/15/2020 04:58:[address] [facility] Name Value Range Interpretation Code Description Data Rosemary rce(s) Supporting Document(s) Glucose [Mass/volume] in Capillary blood by Glucometer 219 mg/dL 70- 140 H [facility] ID Date Data Source [id number] 07/15/2020 01:52:[address] [facility] Name Value Range Interpretation Code Description Data Rosemary rce(s) Supporting Document(s) Leukocytes [#/volume] in Blood by Automated count 9.3 10*3/uL 4-10 [facility] Erythrocytes [#/volume] in Blood by Automated count 2.69 10*6/uL 4.1- 5.3 L [facility] Hemoglobin [Mass/volume] in Blood 8.1 g/dL 11.5-15.5 L [facility] Hematocrit [Volume Fraction] of Blood by Automated count 24.7 % 3 6-45 L [facility] Erythrocyte mean corpuscular volume [Entitic volume] by Auto mated count 91.6 fL 80-96 [facility] Erythrocyte mean corpuscular hemoglobin [Entitic mass] by Automated count 30.0 pg -33 [facility] Erythrocyte mean corpuscular hemoglobin concentration [Mass/volume] by Automated count 32.8 g/dL 32.0-36.0 [facility] Erythrocyte distribution width [Ratio] by Automated count 15.6 % 11.5-14.5 H [facility] Platelets [#/volume] in Blood by Automated count 139 10*3/uL 150-400 L [facility] ID Date Data Source [id number] 07/15/2020 01:33:06 PM EDT [facility] Name Value Range Interpretation Code Description Data Rosemary rce(s) Supporting Document(s) Leukocytes [#/volume] in Blood by Automated count 4-10 [facility] RAMU/61093/4W ON [id number] AT 1332 BY 6511 Erythrocytes [#/volume] in Blood by Automated count 4.1-5. 3 [facility] RAMU/32507/4W ON [id number] AT 1332 BY 6511 Hemoglobin [Mass/volume] in Blood 11.5-15.5 [facility] RAMU/67800/4W ON [id number] AT 1332 BY 6511 Hematocrit [Volume Fraction] of Blood by Automated count 3 6-45 [facility] RAMU/60864/4W ON [id number] AT 1332 BY 6511 Erythrocyte mean corpuscular volume [Entitic volume] by Automate d count 80-96 [facility] RAMU/06715/4W ON [id number] AT 1332 BY 6511 Erythrocyte mean corpuscular hemoglobin [Entitic mass] by Au tomated count 27-33 [facility] RAMU/12579/4W ON 224690 AT 1332 BY 6511 Erythrocyte mean corpuscular hemoglobin concentration [Mass/volume] by Automated count 32.0-36.0 [facility] al RAMU/41786/4W ON 130425 AT 1332 BY 6511 Erythrocyte distribution width [Ratio] by Automated count 11.5-14.5 [facility]/94337/4W ON 621789 AT 1332 BY 6511 Platelets [#/volume] in Blood by Automated count 150-400 [facility] RAMU/09659/4W ON [id number] AT 1332 BY 6511 Sample quality of Dried blood spot [facility]/91836/4W ON 120596 AT 1332 BY 6511 Differential cell count method - Blood [facility]//4W ON 117859 AT 1332 BY 6511 ID Date Data Source [id number] 07/15/2020 12:32:18 PM [facility] Value Range Interpretation Code Description Data Rosemary rce(s) Supporting Document(s) Glucose [Mass/volume] in Capillary blood by Glucometer 223 mg/dL 70- 140 H [facility] ID Date Data Source [id number] 07/15/2020 07:55:45 AM [facility] Value Range Interpretation Code Description Data Rosemary rce(s) Supporting Document(s) Glucose [Mass/volume] in Capillary blood by Glucometer 161 mg/dL 70- 140 H [facility] ID Date Data Source [id number] 07/15/2020 06:54:58 AM [facility] Value Range Interpretation Code Description Data Rosemary rce(s) Supporting Document(s) Leukocytes [#/volume] in Blood by Automated count 6.4 10*3/uL 4-10 [facility] Erythrocytes [#/volume] in Blood by Automated count 2.35 10*6/uL 4.1- 5.3 L [facility] Hemoglobin [Mass/volume] in Blood 7.2 g/dL 11.5-15.5 L [facility] Hematocrit [Volume Fraction] of Blood by Automated count 21.5 % 3 6-45 L [facility] Erythrocyte mean corpuscular volume [Entitic volume] by Auto mated count 91.4 fL 80-96 [facility] Erythrocyte mean corpuscular hemoglobin [Entitic mass] by Automated count 30.6 pg 27-33 [facility] Erythrocyte mean corpuscular hemoglobin concentration [Mass/volume] by Automated count 33.4 g/dL 32.0-36.0 [facility] Erythrocyte distribution width [Ratio] by Automated count 15.1 % 11.5-14.5 H [facility] Platelets [#/volume] in Blood by Automated count 101 10*3/uL 150-400 L [facility] Differential cell count method - Blood [facility] Neutrophils/100 leukocytes in Blood by Automated count 67 % [facility] Lymphocytes/100 leukocytes in Blood by Automated count 18 % [facility] Monocytes/100 leukocytes in Blood by Automated count 11 % [facility] Eosinophils/100 leukocytes in Blood by Automated count 3 % [facility] Basophils/100 leukocytes in Blood by Automated count 1 % [facility] Neutrophils [#/volume] in Blood by Automated count 4.27 10*3/uL 1.8-7 .0 [facility] Lymphocytes [#/volume] in Blood by Automated count 1.17 10*3/uL 1.2-4 .0 L [facility] Monocytes [#/volume] in Blood by Automated count 0.71 10*3/uL 0-0.8 [facility] Eosinophils [#/volume] in Blood by Automated count 0.22 10*3/uL 0-0.5 [facility] Basophils [#/volume] in Blood by Automated count 0.05 10*3/uL 0-0.2 [facility] Nucleated erythrocytes/100 leukocytes [Ratio] in Blood by Automated count 0 /100{WBCs} 0-0 [facility] ID Date Data Source [id number] 07/15/2020 07:14:[address] [facility] Name Value Range Interpretation Code Description Data Rosemary rce(s) Supporting Document(s) Bicarbonate [Moles/volume] in Serum 23 mmol/L 22-29 [facility] Chloride [Moles/volume] in Serum or Plasma 107 mmol/L 98-107 [facility] Creatinine [Mass/volume] in Serum or Plasma 1.10 mg/dL 0.50-0.90 H [facility] Glucose [Mass/volume] in Serum or Plasma 180 mg/dL 70-140 H [facility] Potassium [Moles/volume] in Serum or Plasma 3.6 mmol/L 3.4-5.1 [facility] Sodium [Moles/volume] in Serum or Plasma 139 mmol/L 136-145 [facility] Urea nitrogen [Mass/volume] in Serum or Plasma 16 mg/dL 12-15 [facility] Anion gap 3 in Serum or Plasma 10 mmol/L 8- [facility] Osmolality of Serum or Plasma by calculation 294 mosm/kg 275-300 [facility] Creatinine/Urea nitrogen [Mass Ratio] in Serum or Plasma 15 [facility] Calcium [Mass/volume] in Serum or Plasma 8.3 mg/dL 8.8-10.2 L [facility] Glomerular filtration rate/1.73 sq M pre dicted among non-blacks [Volume Rate/Area] in Serum or Plasma by Creatinine-based formula (MDRD) 49 mL/min/1.73m2 >60 L [facility] Glomerular filtration rate/1.73 sq M pre dicted among blacks [Volume Rate/Area] in Serum or Plasma by Creatinine-based formula (MDRD) 57 mL/min/1.73m2 >60 L [facility] ID Date Data Source [id number] 07/15/2020 08:47:[address] [facility] Name Value Range Interpretation Code Description Data Rosemary rce(s) Supporting Document(s) Ammonia [Moles/volume] in Plasma 11 [facility] NOTIFIED [id number] ON 4W AT 0843 ID Date Data Source [id number] 07/15/2020 01:12:[address] [facility] Name Value Range Interpretation Code Description Data Rosemary rce(s) Supporting Document(s) Leukocytes [#/volume] in Blood by Automated count 9.3 10*3/uL 4-10 [facility] Erythrocytes [#/volume] in Blood by Automated count 2.59 10*6/uL 4.1- 5.3 L [facility] Hemoglobin [Mass/volume] in Blood 7.9 g/dL 11.5-15.5 [facility] Hematocrit [Volume Fraction] of Blood by Automated count 23.3 % 3 6-45 L [facility] Erythrocyte mean corpuscular volume [Entitic volume] by Auto mated count 89.9 fL 80-96 [facility] Erythrocyte mean corpuscular hemoglobin [Entitic mass] by Automated count 30.5 pg 27-33 [facility] Erythrocyte mean corpuscular hemoglobin concentration [Mass/volume] by Automated count 33.9 g/dL 32.0-36.0 [facility] Erythrocyte distribution width [Ratio] by Automated count 14.8 % 11.5-14.5 H [facility] Platelets [#/volume] in Blood by Automated count 139 10*3/uL 150-400 L [facility] Differential cell count method - Blood [facility] Neutrophils/100 leukocytes in Blood by Automated count 67 % [facility] Lymphocytes/100 leukocytes in Blood by Automated count 18 % [facility] Monocytes/100 leukocytes in Blood by Automated count 11 % [facility] Eosinophils/100 leukocytes in Blood by Automated count 3 % [facility] Basophils/100 leukocytes in Blood by Automated count 1 % [facility] Neutrophils [#/volume] in Blood by Automated count 6.26 10*3/uL 1.8-7 .0 [facility] Lymphocytes [#/volume] in Blood by Automated count 1.65 10*3/uL 1.2-4 .0 [facility] Monocytes [#/volume] in Blood by Automated count 0.97 10*3/uL 0-0.8 H [facility] Eosinophils [#/volume] in Blood by Automated count 0.31 10*3/uL 0-0.5 [facility] Basophils [#/volume] in Blood by Automated count 0.07 10*3/uL 0-0.2 [facility] Nucleated erythrocytes/100 leukocytes [Ratio] in Blood by Automated count 0 /100{WBCs} 0-0 [facility] ID Date Data Source [id number] 07/14/2020 10:12:[address] [facility] Name Value Range Interpretation Code Description Data Rosemary rce(s) Supporting Document(s) Glucose [Mass/volume] in Capillary blood by Glucometer 174 mg/dL 70- 140 H [facility] ID Date Data Source [id number] 07/14/2020 08:27:08 PM [facility] Value Range Interpretation Code Description Data Rosemary rce(s) Supporting Document(s) Glucose [Mass/volume] in Capillary blood by Glucometer 191 mg/dL 70- 140 H [facility] ID Date Data Source [id number] 07/14/2020 05:56:27 PM [facility] Value Range Interpretation Code Description Data Rosemary rce(s) Supporting Document(s) Leukocytes [#/volume] in Blood by Automated count 8.8 10*3/uL 4-10 [facility] Erythrocytes [#/volume] in Blood by Automated count 2.65 10*6/uL 4.1- 5.3 L [facility] Hemoglobin [Mass/volume] in Blood 7.9 g/dL 11.5-15.5 L [facility] Hematocrit [Volume Fraction] of Blood by Automated count 23.9 % 3 6-45 L [facility] Erythrocyte mean corpuscular volume [Entitic volume] by Auto mated count 90.4 fL 80-96 [facility] Erythrocyte mean corpuscular hemoglobin [Entitic mass] by Automated count 29.8 pg 27-33 [facility] Erythrocyte mean corpuscular hemoglobin concentration [Mass/volume] by Automated count 32.9 g/dL 32.0-36.0 [facility] Erythrocyte distribution width [Ratio] by Automated count 15.0 % 11.5-14.5 H [facility] Platelets [#/volume] in Blood by Automated count 126 10*3/uL 150-400 L [facility] Differential cell count method - Blood [facility] Neutrophils/100 leukocytes in Blood by Automated count 69 % [facility] Lymphocytes/100 leukocytes in Blood by Automated count 17 % [facility] Monocytes/100 leukocytes in Blood by Automated count 10 % [facility] Eosinophils/100 leukocytes in Blood by Automated count 3 % [facility] Basophils/100 leukocytes in Blood by Automated count 1 % [facility] Neutrophils [#/volume] in Blood by Automated count 6.09 10*3/uL 1.8-7 .0 [facility] Lymphocytes [#/volume] in Blood by Automated count 1.47 10*3/uL 1.2-4 .0 [facility] Monocytes [#/volume] in Blood by Automated count 0.90 10*3/uL 0-0.8 H [facility] Eosinophils [#/volume] in Blood by Automated count 0.24 10*3/uL 0-0.5 [facility] Basophils [#/volume] in Blood by Automated count 0.09 10*3/uL 0-0.2 [facility] Nucleated erythrocytes/100 leukocytes [Ratio] in Blood by Automated count 0 /100{WBCs} 0-0 [facility] ID Date Data Source [id number] 07/14/2020 03:59:16 PM EDT [facility] Name Value Range Interpretation Code Description Data Rosemary rce(s) Supporting Document(s) Glucose [Mass/volume] in Capillary blood by Glucometer 156 mg/dL 70- 140 H [facility] ID Date Data Source [id number] 07/14/2020 02:08:56 PM EDT [facility] Name Value Range Interpretation Code Description Data Rosemary rce(s) Supporting Document(s) History and Physical [facility] [id number] [file] [id number] ID Date Data Source [id number] 07/14/2020 12:14:05 PM T [facility] Name Value Range Interpretation Code Description Data Rosemary rce(s) Supporting Document(s) Leukocytes [#/volume] in Blood by Automated count 8.8 10*3/uL 4-10 [facility] Erythrocytes [#/volume] in Blood by Automated count 2.51 10*6/uL 4.1- 5.3 L [facility] Hemoglobin [Mass/volume] in Blood 7.6 g/dL 11.5-15.5 L [facility] Hematocrit [Volume Fraction] of Blood by Automated count 22.9 % 3 6-45 L [facility] Erythrocyte mean corpuscular volume [Entitic volume] by Auto mated count 91.1 fL 80-96 [facility] Erythrocyte mean corpuscular hemoglobin [Entitic mass] by Automated count 30.3 pg 27-33 [facility] Erythrocyte mean corpuscular hemoglobin concentration [Mass/volume] by Automated count 33.3 g/dL 32.0-36.0 [facility] Erythrocyte distribution width [Ratio] by Automated count 15.0 % 11.5-14.5 H [facility] Platelets [#/volume] in Blood by Automated count 115 10*3/uL 150-400 L [facility] Differential cell count method - Blood [facility] Neutrophils/100 leukocytes in Blood by Automated count 73 % [facility] Lymphocytes/100 leukocytes in Blood by Automated count 15 % [facility] Monocytes/100 leukocytes in Blood by Automated count 8 % [facility] Eosinophils/100 leukocytes in Blood by Automated count 3 % [facility] Basophils/100 leukocytes in Blood by Automated count 1 % [facility] Neutrophils [#/volume] in Blood by Automated count 6.40 10*3/uL 1.8-7 .0 [facility] Lymphocytes [#/volume] in Blood by Automated count 1.35 10*3/uL 1.2-4 .0 [facility] Monocytes [#/volume] in Blood by Automated count 0.74 10*3/uL 0-0.8 [facility] Eosinophils [#/volume] in Blood by Automated count 0.23 10*3/uL 0-0.5 [facility] Basophils [#/volume] in Blood by Automated count 0.06 10*3/uL 0-0.2 [facility] Nucleated erythrocytes/100 leukocytes [Ratio] in Blood by Automated count 0 /100{WBCs} 0-0 [facility] ID Date Data Source [id number] 07/14/2020 12:00:20 PM EDT [facility] Name Value Range Interpretation Code Description Data Rosemary rce(s) Supporting Document(s) Glucose [Mass/volume] in Capillary blood by Glucometer 156 mg/dL 70- 140 H [facility] ID Date Data Source [id number] 07/14/2020 08:07:[address] [facility] Name Value Range Interpretation Code Description Data Rosemary rce(s) Supporting Document(s) Glucose [Mass/volume] in Capillary blood by Glucometer 182 mg/dL 70- 140 H [facility] ID Date Data Source [id number] 07/14/2020 06:23:15 AM [facility] Value Range Interpretation Code Description Data Rosemary rce(s) Supporting Document(s) Glucose [Mass/volume] in Capillary blood by Glucometer 201 mg/dL 70- 140 [facility] ID Date Data Source [id number] 07/14/2020 06:39:51 AM [facility] Value Range Interpretation Code Description Data Rosemary rce(s) Supporting Document(s) Leukocytes [#/volume] in Blood by Automated count 10.3 10*3/uL 4-10 H [facility] Erythrocytes [#/volume] in Blood by Automated count 2.61 10*6/uL 4.1- 5.3 [facility] Hemoglobin [Mass/volume] in Blood 7.9 g/dL 11.5-15.5 [facility] Hematocrit [Volume Fraction] of Blood by Automated count 23.4 % 3 6-45 [facility] Erythrocyte mean corpuscular volume [Entitic volume] by Auto mated count 89.7 fL 80-96 [facility] Erythrocyte mean corpuscular hemoglobin [Entitic mass] by Automated count 30.4 pg 27-33 [facility] Erythrocyte mean corpuscular hemoglobin concentration [Mass/volume] by Automated count 33.9 g/dL 32.0-36.0 [facility] Erythrocyte distribution width [Ratio] by Automated count 15.0 % 11.5-14.5 [facility] Platelets [#/volume] in Blood by Automated count 107 10*3/uL 150-400 L [facility] Differential cell count method - Blood [facility] Neutrophils/100 leukocytes in Blood by Automated count 83 % [facility] Lymphocytes/100 leukocytes in Blood by Automated count 10 % [facility] Monocytes/100 leukocytes in Blood by Automated count 6 % [facility] Eosinophils/100 leukocytes in Blood by Automated count 1 % [facility] Basophils/100 leukocytes in Blood by Automated count 0 % [facility] Neutrophils [#/volume] in Blood by Automated count 8.44 10*3/uL 1.8-7 .0 H [facility] Lymphocytes [#/volume] in Blood by Automated count 1.06 10*3/uL 1.2-4 .0 L [facility] Monocytes [#/volume] in Blood by Automated count 0.64 10*3/uL 0-0.8 [facility] Eosinophils [#/volume] in Blood by Automated count 0.15 10*3/uL 0-0.5 [facility] Basophils [#/volume] in Blood by Automated count 0.04 10*3/uL 0-0.2 [facility] Nucleated erythrocytes/100 leukocytes [Ratio] in Blood by Automated count 0 /100{WBCs} 0-0 [facility] ID Date Data Source [id number] 07/14/2020 06:52:[address] [facility] Name Value Range Interpretation Code Description Data Rosemary rce(s) Supporting Document(s) Prothrombin time (PT) 17.7 s 12.5-14.9 H [facility] INR in Platelet poor plasma by Coagulation assay 1.43 [facility] Routine intensity oral anticoagulation I NR is typically 2.0-3.0. Target INR must be clinically individualized. ID Date Data Source [id number] 07/14/2020 07:04:24 AM [facility] Value Range Interpretation Code Description Data Rosemary rce(s) Supporting Document(s) Bicarbonate [Moles/volume] in Serum 22 mmol/L 22-29 [facility] Chloride [Moles/volume] in Serum or Plasma 106 mmol/L 98-107 [facility] Creatinine [Mass/volume] in Serum or Plasma 1.04 mg/dL 0.50-0.90 H [facility] Glucose [Mass/volume] in Serum or Plasma 216 mg/dL 70-140 H [facility] Potassium [Moles/volume] in Serum or Plasma 4.4 mmol/L 3.4-5.1 [facility] Sodium [Moles/volume] in Serum or Plasma 140 mmol/L 136-145 [facility] Urea nitrogen [Mass/volume] in Serum or Plasma 19 mg/dL 8-23 [facility] Anion gap 3 in Serum or Plasma 12 mmol/L 8-15 [facility] Osmolality of Serum or Plasma by calculation 299 mosm/kg 275-300 [facility] Creatinine/Urea nitrogen [Mass Ratio] in Serum or Plasma 18 [facility] Calcium [Mass/volume] in Serum or Plasma 7.8 mg/dL 8.8-10.2 L [facility] Glomerular filtration rate/1.73 sq M pre dicted among non-blacks [Volume Rate/Area] in Serum or Plasma by Creatinine-based formula (MDRD) 53 mL/min/1.73m2 >60 L [facility] Glomerular filtration rate/1.73 sq M pre dicted among blacks [Volume Rate/Area] in Serum or Plasma by Creatinine-based formula (MDRD) 61 mL/min/1.73m2 >60 [facility] ID Date Data Source [id number] 07/14/2020 07:04:[address] [facility] Name Value Range Interpretation Code Description Data Rosemary rce(s) Supporting Document(s) Magnesium [Mass/volume] in Serum or Plasma 1.6 mg/dL 1.6-2.4 [facility] ID Date Data Source [id number] 07/14/2020 07:04:24 AM [facility] Value Range Interpretation Code Description Data Rosemary rce(s) Supporting Document(s) Phosphate [Mass/volume] in Serum or Plasma 3.2 mg/dL 2.5-4.5 [facility] ID Date Data Source [id number] 07/14/2020 06:37:52 AM [facility] Value Range Interpretation Code Description Data Rosemary rce(s) Supporting Document(s) Calcium.ionized [Moles/volume] in Arterial blood 1.05 mmol/L 1.13-1.3 2 [facility] ID Date Data Source [id number] 07/14/2020 02:24:20 AM [facility] Value Range Interpretation Code Description Data Rosemary rce(s) Supporting Document(s) Glucose [Mass/volume] in Capillary blood by Glucometer 170 mg/dL 70- 140 H [facility] ID Date Data Source [id number] 07/14/2020 03:05:17 AM [facility] Value Range Interpretation Code Description Data Rosemary rce(s) Supporting Document(s) Leukocytes [#/volume] in Blood by Automated count 10.4 10*3/uL 4-10 H [facility] Erythrocytes [#/volume] in Blood by Automated count 2.15 10*6/uL 4.1- 5.3 [facility] Hemoglobin [Mass/volume] in Blood 6.5 g/dL 11.5-15.5 [facility] Hematocrit [Volume Fraction] of Blood by Automated count 19.2 % 3 6-45 [facility] Called to and read back by MIGUEL [id number] ICU 07/14/20 0200 3630 Erythrocyte mean corpuscular volume [Entitic volume] by Auto mated count 89.5 fL 80-96 [facility] Erythrocyte mean corpuscular hemoglobin [Entitic mass] by Automated count 30.4 pg 27-33 [facility] Erythrocyte mean corpuscular hemoglobin concentration [Mass/volume] by Automated count 33.9 g/dL 32.0-36.0 [facility] Erythrocyte distribution width [Ratio] by Automated count 15.4 % 11.5-14.5 [facility] Platelets [#/volume] in Blood by Automated count 68 10*3/uL 150-400 [facility] Confirmed ID Date Data Source [id number] 07/14/2020 02:42:[address] [facility] Name Value Range Interpretation Code Description Data Rosemary rce(s) Supporting Document(s) ABO and Rh group [Type] in Blood [facility] Blood bank comment [facility] ID Date Data Source [id number] 07/14/2020 12:49:[address] [facility] Name Value Range Interpretation Code Description Data Rosemary rce(s) Supporting Document(s) Leukocytes [#/volume] in Blood by Automated count 12.3 10*3/uL 4-10 H [facility] Erythrocytes [#/volume] in Blood by Automated count 2.28 10*6/uL 4.1- 5.3 [facility] Hemoglobin [Mass/volume] in Blood 6.8 g/dL 11.5-15.5 [facility] Hematocrit [Volume Fraction] of Blood by Automated count 20.3 % 3 6-45 [facility] [place] ENA [id number] ICU 07/14/20 0049 3630 Erythrocyte mean corpuscular volume [Entitic volume] by Auto mated count 89.0 fL 80-96 [facility] Erythrocyte mean corpuscular hemoglobin [Entitic mass] by Automated count 29.8 pg 27-33 [facility] Erythrocyte mean corpuscular hemoglobin concentration [Mass/volume] by Automated count 33.6 g/dL 32.0-36.0 [facility] Erythrocyte distribution width [Ratio] by Automated count 15.3 % 11.5-14.5 H [facility] Platelets [#/volume] in Blood by Automated count 131 10*3/uL 150-400 L [facility] Differential cell count method - Blood [facility] Neutrophils/100 leukocytes in Blood by Automated count 79 % [facility] Lymphocytes/100 leukocytes in Blood by Automated count 10 % [facility] Monocytes/100 leukocytes in Blood by Automated count 8 % [facility] Eosinophils/100 leukocytes in Blood by Automated count 2 % [facility] Basophils/100 leukocytes in Blood by Automated count 1 % [facility] Neutrophils [#/volume] in Blood by Automated count 9.78 10*3/uL 1.8-7 .0 H [facility] Lymphocytes [#/volume] in Blood by Automated count 1.25 10*3/uL 1.2-4 .0 [facility] Monocytes [#/volume] in Blood by Automated count 0.99 10*3/uL 0-0.8 H [facility] Eosinophils [#/volume] in Blood by Automated count 0.22 10*3/uL 0-0.5 [facility] Basophils [#/volume] in Blood by Automated count 0.07 10*3/uL 0-0.2 [facility] Nucleated erythrocytes/100 leukocytes [Ratio] in Blood by Automated count 0 /100{WBCs} 0-0 [facility] ID Date Data Source [id number] 07/13/2020 10:37:16 PM EDT [facility] Name Value Range Interpretation Code Description Data Rosemary rce(s) Supporting Document(s) Glucose [Mass/volume] in Capillary blood by Glucometer 152 mg/dL 70- 140 H [facility] ID Date Data Source [id number] 07/13/2020 09:12:06 PM EDT [facility] XR ABDOMEN AP ABD SUPINE ONLY [id number] RESULTInterpreted by:Krishna Thomas MDPROCEDURE INFORMATION: Exam: XR Abdomen Exam date and time: 07/13/2020 8:36 PM Age: 70 years old Clinical indication: Hematemesis; Illness, unspecified; Abdominal pain; Additional info: Luq pain post egd TECHNIQUE: Imaging protocol: XR of the abdomen. Views: Frontal supine view of the abdomen. 1 View. COMPARISON: CT Private^ABDOMEN ROUTINE (Adult) 07/12/2020 2:16 PM FINDINGS: Pleural space: The left lateral costophrenic angle is not visualized. The right lateral costophrenic angle is sharp. Gastrointestinal tract: No over distention of bowel loops is seen. There is gaseous filling of multiple loops of large and small bowel. Bones/joints: The spine, sacroiliac joints, and hip joints are normal. IMPRESSION: No acute abnormality. THIS DOCUMENT HAS BEEN ELECTRONICALLY SIGNED BY KRISHNA THOMAS MDThis document has been electronically signed by Krishna Thomas MD on 07/13/2020 9:12 PM Name Value Range Interpretation Code Description Data Rosemary rce(s) Supporting Document(s) ID Date Data Source [id number] 07/13/2020 06:16:[address] [facility] Name Value Range Interpretation Code Description Data Rosemary rce(s) Supporting Document(s) Glucose [Mass/volume] in Capillary blood by Glucometer 160 mg/dL 70- 140 H [facility] ID Date Data Source [id number] 07/14/2020 06:59:[address] [facility] Name Value Range Interpretation Code Description Data Rosemary rce(s) Supporting Document(s) Glucose [Mass/volume] in Capillary blood by Glucometer 154 mg/dL 70- 140 H [facility] ID Date Data Source [id number] 07/13/2020 04:25:[address] [facility] Name Value Range Interpretation Code Description Data Rosemary rce(s) Supporting Document(s) History and Physical [facility] DMQMBf4fQgUAMyKa82/EOIceMIWgs4UbDNjoUWe6RSkhTMPjG1HsQFW7jM1qQWR2YQrMJzDmXlNwCiLq [facility] [file] 9kRSOLEp5+MWtksJYctRnmCNTMNwJ6WYLnGLwyPKQLYk7I ID Date Data Source [id number] 07/13/2020 03:56:50 PM EDT [facility] Name Value Range Interpretation Code Description Data Rosemary rce(s) Supporting Document(s) Consultation [facility] LZXRFh0hXaYQJlYj47/IJPojFRMkh3VhOHosHKz2MNhxWRPcC1NcBPH4tR0vZVW8RHpVHqGoCzYdJyFt lbm [file] 5J6MHiO/jK//Ordoñez/wufi8uO486HgY92teCkFCpftpOY [file] AgICAgICAgICAgICAgICAgICAgICAgICAgICAgICAgICAgICAgICAgICAgICAgICAgICAgICAgICAgIC AgICAgICAgICAgICAgICAgICAgICAgICAgICAgICAgICAgICANCiAgICAgICAgICAgICAgICAgICAgIC AgICAgICAgICAgICAgICAgICAgICAgICAgICAgICAg ICAgICAgICAgICAgICAgICAgICAgICAgICAgICAgICAgICAgICAgICAgICAgICANCiAgICAgICAgICAg ICAgICAgICAgICAgICAgICAgICAgICAgICAgICAgICAgICAgICAgICAgICAgICAgICAgICAgICAgICAg ICAgICAgICAgICAgICAgICAgICAgICAgICAgICANCi AgICAgICAgICAgICAgICAgICAgICAgICAgICAgICAgICAgICAgICAgICAgICAgICAgICAgICAgICAgIC AgICAgICAgICAgICAgICAgICAgICAgICAgICAgICAgICAgICAgICANCiAgICAgICAgICAgICAgICAgIC AgICAgICAgICAgICAgICAgICAgICAgICAgICAgICAg ICAgICAgICAgICAgICAgICAgICAgICAgICAgICAgICAgICAgICAgICAgICAgICAgICANCiAgICAgICAg ICAgICAgICAgICAgICAgICAgICAgICAgICAgICAgICAgICAgICAgICAgICAgICAgICAgICAgICAgICAg ICAgICAgICAgICAgICAgICAgICAgICAgICAgICAgIC ANCiAgICAgICAgICAgICAgICAgICAgICAgICAgICAgICAgICAgICAgICAgICAgICAgICAgICAgICAgIC AgICAgICAgICAgICAgICAgICAgICAgICAgICAgICAgICAgICAgICAgICANCiAgICAgICAgICAgICAgIC AgICAgICAgICAgICAgICAgICAgICAgICAgICAgICAg ICAgICAgICAgICAgICAgICAgICAgICAgICAgICAgICAgICAgICAgICAgICAgICAgICAgICANCiAgICAg ICAgICAgICAgICAgICAgICAgICAgICAgICAgICAgICAgICAgICAgICAgICAgICAgICAgICAgICAgICAg ICAgICAgICAgICAgICAgICAgICAgICAgICAgICAgIC AgICANCiAgICAgICAgICAgICAgICAgICAgICAgICAgICAgICAgICAgICAgICAgICAgICAgICAgICAgIC AgICAgICAgICAgICAgICAgICAgICAgICAgICAgICAgICAgICAgICAgICAgICANCjw/iIQkR1hwwLOuym I7V4vyJp7DSo5IQX1tq9EcZWTkZPlldfMxLqwEOfJc POAlSbvEOzw1FJguMF5CcYClB1AnA7IzYZctQB4QBJMtRSTriLSjDSNyKUOaXjX4GPRuGLosUA6RmJYy UQovHDGxAPUjMvVrRJZdGINkLHScPOVvCQNSQGVgFWPyUwDdCPJmJZVpKA0JSBFhZ247dsPmCy1UAj2O CgOcGY6edo2ZEhGeGNDfIfkNYsc7DCjoNW7RgEAxhL MrUeSaFLJDUtFaW0rnm3MaZuBfGPLPEIpdCG8Xh4EcfRPvADw+It6ZLK9ts0PvCEirBhTiYF6kpq2YOR uUGvRaZ1XktVlyVMNfvbW5wXXjUSH9LVoyfTdbHMTmBF41alNwfiQvQGRTZTL7JRXrTdLnUcVrOWRgJb blHRYQOYsFTqRoY6Vsw1HnAlH2TABdIaKhPEgaNZPs JjD0VN68eJsqRS4GUBAsKVNsBS73EGBiQFHiJw3KDu0VNcNnHB3xfq9KZiHoFTMcXzoFLrt6DBeaFZ8F oIAtA9BflMXbg7iCAuGfS3VFVNXxNLLnKz7IMRUfIsSlQDNuJLsoES8zLYKkXXEGpDfosiS6NE0SNQ9a beHaPW9TCmRbNw1oCa5BUvQdV2UxX0NmNPQnNGUDWH zhTN4JOXblXR3uKO8Oc2CBaQFhnC4zxg6KEOPbVXCkBfibyg4MKokqZ4R9oSxoANOxScMmCKTVTUvlYG 5KNXIeJGF0WALhAUTdHPBRUdRqT69bAB8LQ1Lge76rEwD5YXCnUoRqWZuyND19uYrzinEuxCMbdCmpXQ 0NCj4+DQplbmRvYmoNCnhyZWYNCjAgMzUNCjAwMDAw OQHhDMWjPaE4XgDaHk1RXRXiLWEbOLSaBhRdHTVvHBHzOQhfCJMcBVD4TuMiBQYdNZZjZN3OIcPoSCKm JxKfYXlePQBcWBJrud8FFLZfTMWbLAX8DrNqUDZfINCsSDfvNGDdIYBtZZE8LLDdJKAiLC5SOhOwOBTh HIXcNvFiKFWrHQAfcv8GZNJpMYNkEyfbWpEjUVAwCZ ImHEbnLTHqDYA8ADM0AGTaLPOgMD1QHoNyUCLvEFKzIuPdRKDlKDTpxj5PIKWuOEVrPEY0UiOwDEOhKC RmIJpgRMXsQCLmHzX3SURwQHIeSF0QTgCfZXSyHOI5VmCnXGEbWQFmoc4VLRRmLSEjGlF0KIMlXRYtRM VmZTcwLPQeTGU6Wnl0YQZpZMJbMA7WDbCmFDCmUOlc RHpzCQAuMTTuxu6FTCHhKWRyTSQbYWCuNXFgCXZvPKepOQTkCLV5DeE8NNUmEGXpBG6EKrJfSQZbEUq2 ZcUhGKPwDRYvza4VAOIiDCRlLJC6COQsRBDbXPKuCHjsCOFdPBBqYzW2PNMoMGIdZJ0HRhNeEJZrRaF1 BBGuWRYbVCNkkh8EDOXwFFDuXXj5JROpRKSbWLDhEP qaFVMbIGYhCnx2LKIbLRYsLE4UFuGnXHRfPbP9POhlRWAuVGUrcp8YESZiMSUoRvvbLuOxZVGvGASxUW liDEAvFUSwWXB2CBYmZPIdCH9HYnHxRHKrSqVhBPSnHAVxCKNjwe5MHERrVPFuPUNbMUZoQLNqRTVnTS zaQDVbDLJ6WWGaAECfZHBaXU7CRnPbGHDlFwR3OOGr DLChCBOucy1TFBPmPIVvVECeLPYmJAZiKSZvIEfhCMItEVT9DIe5COGoSJEzDN0CEaJgMYUuQyG9XkRn ADGuSOJmaa9EXLVjWRTbJhvuLIGqNNPlSNHwXFm4giWhtBXxFFa5FC6NS1UrgsXdFhATCv9Ir700ZTB6 VUPwWz8PB7zrKn3bTDMyLYHPIi6YXRg7RQliGkM8SP S6OPDbYBCoUvS6N6U9XFA8GfEaBsfcHCC+RBkgWFIwAlObQXKwOEAoDhNgHLXsSmQ5HoegSES1KOQeKB 0xPFOPOv6+GEhpsYUnmBfjZXEFBmL7RIB8HVnsCUWEWj8O ID Date Data Source [id number] 07/13/2020 01:07:51 PM EDT [facility] US PELVIS COMPLETE [id number] RESULTInte rpreted by:JATIN DanielsROCDANTEURE INFORMATION: Exam: US Nonobstetric Pelvis; Complete Exam date and time: 07/13/2020 12:33 PM Age: 70 years old Clinical indication: Hematemesis; Illness, unspecified; Screening exam; ? Ovarian torsion; Additional info: Rule out ovarin artery supply impairment TECHNIQUE: Imaging protocol: Transabdominal pelvic nonobstetric ultrasound. Complete exam. Real time ultrasound with image documentation. COMPARISON: CT Private^ABDOMEN ROUTINE (Adult) 07/12/2020 2:16 PM FINDINGS: Uterus/cervix: The uterus measures 4.5 x 1.9 x 2.7 cm. No demonstrated lesion. The endometrium measures 3.5 mm in thickness. Right adnexa: The right ovary was not visualized. Left adnexa: The left ovary was not visualized. Intraperitoneal space: Free fluid is again present in the pelvis. IMPRESSION: Free fluid in the pelvis, as on CT of 1 day prior. Ovaries not visualized. Consider transvaginal imaging. THIS DOCUMENT HAS BEEN ELECTRONICALLY SIGNED BY ISABELA VELAZQUEZ MDThis document has been electronically signed by Isabela Velazquez MD on 07/13/2020 1:07 PM Name Value Range Interpretation Code Description Data Rosemary rce(s) Supporting Document(s) ID Date Data Source [id number] 07/13/2020 01:05:36 PM EDT [facility] US DOPPLER ABDOMEN PELVIS ORGANS LIMITED [id number] RESULTInterpreted by:JATIN DanielsROCEDURE INFORMATION: Exam: US Duplex Artery or Vein of the Abdominal and/or Reproductive Organs, Limited Mesenteric Exam date and time: 07/13/2020 12:33 PM Age: 70 years old Clinical indication: Hematemesis; Illness, unspecified; Screening exam; Sma; Additional info: Rule out thrombosis TECHNIQUE: Imaging protocol: Real-time duplex ultrasound scan of the arterial or venous flow of the abdomen and/or reproductive organs, with color Doppler flow and spectral waveform analysis with image documentation. Exam focused on the region of clinical interest. Duplex images were received to evaluate vascular conditions. COMPARISON: No relevant prior studies available. FINDINGS: Aorta: The abdominal aorta is largely obscured by bowel gas. It is patent as seen, and was not measured. Pancreas: The superior mesenteric artery is obscured by bowel gas. 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 Suggest alternate imaging, such as CT angiogram or MR angiogram. THIS DOCUMENT HAS BEEN ELECTRONICALLY SIGNED BY ISABELA VELAZQUEZ MDThis document has been electronically signed by Isabela Velazquez MD on 07/13/2020 1:05 PM Name Value Range Interpretation Code Description Data Rosemary rce(s) Supporting Document(s) ID Date Data Source [id number] 07/13/2020 12:41:50 PM EDT [facility] Name Value Range Interpretation Code Description Data Rosemary rce(s) Supporting Document(s) Glucose [Mass/volume] in Capillary blood by Glucometer 201 mg/dL 70- 140 H [facility] ID Date Data Source [id number] 07/13/2020 10:15:36 AM EDT [facility] Name Value Range Interpretation Code Description Data Rosemary rce(s) Supporting Document(s) ED Provider Note [facility] PWRPEx3gUyZAFvTz64/ROUzySEBal2BkRUanIYd2GFtoMSBvS2ZhIQC2qA9qDBT8WFwEKgMfUjSyNhXv [facility] [file] jpUFZGYUanRD0RME1bpxH3JB2XmXYtESZoXXMvgBHbYZt2H41xoTNrBEeyGR0CLWU+Eleanor+Hm4RCNNaZK UjHLDpUlLdEJJROgPdG9OnC7OXv2LwZ0HmUJ09xOwpkiAyOBxtSO7DLQ3rAQWqIPQXYB4ZdZNwoO6rgk S4MFXaENVVUoPkF09pqFItVVNyQLYoYMOjYp1QYGQk W9QekfVhhDxuipCoACVdNPFLNR3LACcvkeQgfEJucRquRD58rHnuPP8TSw8UQvUbQR8szp8WlVOpTe5P BYS3Wv1AAREoGAQcBJJcLLN1ZDZpHpMwFBrsPLJaVGMlMRG4GINgIFCuUR3OEoFfHZNrQnUnCbqeMXZy ARAcjr4XYPNcIIC2NGuoHSMsKQYzKRRpNSwcJIVfAT HbBLV6DPQcZJJjSI8PRsHdEJSwWLC6BzVmYFTvNRIeai3IUECvBWKpOyJaOSGvKMBwDAUrHXlvCXGnPX R4TBAsRYRiUUOkDG9XXkVkROOwMCK2VuQcLEIfFLPzby7TCQXcTGUsDRY8KnHlQCHjKMSoWUspKDVoQF Z5Msz2PIMcMXBrLM7ZLyXuYRQjVPI5GxNjWEXyQUNn ok7LBUVeSCYmWeyvCPGgEEOkMHApHYyzMBQaAOK5SEW8SVWyDEKdPL0UNyZkOQVgQDlrLLToAKFoXLUd hh8IRLHdSPTlNHA3KWMoAAMxTYUfXSlnGAEyQDQtQcL6WSMmFTZgYB2ULrNuYJZnXcF4EakvTMCpUVCh oa3HCZCeJDLyTkf4NXSuAYZeUSNxCIesKFQrAHM8Py I0PXTfBSGhLQ8KPoEvYXPeKpF2OYJmRVLwKQWvbi5CSBVpZEBoTHk4ErApQAPtGTLuZOnqZKCdLCUuSE k6XYBoNBClJK1OIbZnQYAsYkFaPchrSZMuPYCvcc0UDKLgIEJjZMPsMmVwJHIkDKUoUXehDIQiJHSgFW L1TRQaJLYyIL7PDsHaBJEfKxCyIlljAWPhSRJjeq8G LEFjPFAzSyR8HDNsUMDcFKPdGTyqHLCfSYRsRmC7SWDcZKKfYB5WWjWtKPWbOqX2UylwPXGyHGGwiq9U DZZuGYYuUucdQOSbYIBhJKCcDSuoYXHmQXW9JKG6XDDkGEIfCY9ZLyKzOJHeKiNeRLSdATCgTSVxfw1N QCWkRBY9TOk3PdNdRBSqRUEdVXauYZYlAFLgVHP0EY BaVYDnFE7WOeAqKUJcPqT7LRqjSOPvRTHujd9WECPhOIQ0IEhoHVCgLLMeYOBvFMjyDKDiPNPwLxq7DJ RsEZVtRO6YGtBxECIbJdQ4LmgfGWYvMIUfga1MTXQnIJT6QaA1APQaLOSfIGMkHEkvZBDqAELeVZm9PG JtHULkTG1PAjGuZMDeNgH0WuOzTWTrNLBqfw8SAMRw SCW6OUT7EXLaUDAjHYAxTDdsJXIvPEQ0GmN6DOIjSNEcTG5ZGvToAYFwOzBgPUPaHJIbOHTnkj7ROIGl UTO5OPI1ZTHxMYNlPMYqLDj4kvQzqTDnNDg6FX2TR0PuueHeERHDQg6Oc623AXK1WUGjVt7KZ8vaFj4x WEEmJFWTAw3XLFe9WyG1I9PfY2H0S0P4TLgwPQRoPP ZiNDlmZWZiNjgyZmM+NIyvHAusW4Z8PUB8Ztf3OEInCVW1KdO7GAXbFzO7AEKmSp9sLNVCLw2+DQpzdG TjoBzpRWCCVnC3SDR8OBroBRUARr4L ID Date Data Source [id number] 07/13/2020 08:12:28 AM EDT [facility] Name Value Range Interpretation Code Description Data Rosemary rce(s) Supporting Document(s) Glucose [Mass/volume] in Capillary blood by Glucometer 185 mg/dL 70- 140 H [facility] ID Date Data Source [id number] 07/16/2020 10:21:00 AM EDT [facility] Surgical Pathology ReportName: RONDA CUBAMRN: [id number] Number: [id number] Date: 07/13/2020 00:00Received Date: 07/14/2020 08:47Physician(s): JIGNESH TORREZ MD MANOCHA, DIVEY,MDCopy To:CRISTHIAN PAGE MDLAMICHHANE, JIVAN, MDSpecimen(s) ReceivedA: Gastric noduleClinical HistoryHematemesis. DiagnosisSTOMACH, BIOPSY: POLYPOID FRAGMENTS OF GASTRIC MUCOSA WITH NO SIGNIFICANTPATHOLOGIC CHANGES. Electronically Signed By Felisha Casey MD, Attending Pathologist 110:21:21Processed at [facility] Pathology Laboratory at [facility], [address] [place] [address]. [facility], [address] [place] [address]. Unless 'gross-only' is specified, the final diagnosis is based elvira microscopic examination of compliance representative dealer sections of tissue.Gross DescriptionThe specimen is received in formalin labeled with the patient's name"Ronda Turcott" and "gastric nodules". It consists of two soft del cid tissuefragments measuring less than 0.1 to 0.3 cm in greatest dimension. Note:smallest fragments may not survive processing. Totally submitted in onecassette. CTC/pmwThis report may include one or more immunohistochemical stain results thatuse analyte specific reagents. All positive and negative controls havebeen reviewed by the attending pathologist and are satisfactory. The testswere developed and their performance characteristics determined by [facility] Pathology department. They have not been cleared or approved by the USFood and Drug Administration. The FDA has determined that such clearanceor approval is not necessary. Name Value Range Interpretation Code Description Data Rosemary rce(s) Supporting Document(s) ID Date Data Source [id number] 07/12/2020 09:37:[address] [facility] Name Value Range Interpretation Code Description Data Rosemary rce(s) Supporting Document(s) Glucose [Mass/volume] in Capillary blood by Glucometer 150 mg/dL 70- 140 H [facility] ID Date Data Source [id number] 07/12/2020 07:16:[address] [facility] Name Value Range Interpretation Code Description Data Rosemary rce(s) Supporting Document(s) Leukocytes [#/volume] in Blood by Automated count 6.5 10*3/uL 4-10 [facility] Erythrocytes [#/volume] in Blood by Automated count 2.73 10*6/uL 4.1- 5.3 [facility] Hemoglobin [Mass/volume] in Blood 8.2 g/dL 11.5-15.5 [facility] Hematocrit [Volume Fraction] of Blood by Automated count 24.5 % 3 6-45 L [facility] Erythrocyte mean corpuscular volume [Entitic volume] by Auto mated count 89.6 fL 80-96 [facility] Erythrocyte mean corpuscular hemoglobin [Entitic mass] by Automated count 30.2 pg 27-33 [facility] Erythrocyte mean corpuscular hemoglobin concentration [Mass/volume] by Automated count 33.7 g/dL 32.0-36.0 [facility] E[facility]th[facility] distribution width [Ratio] by Automated count 15.7 % 11.5-14.5 [facility] Platelets [#/volume] in Blood by Automated count 113 10*3/uL 150-400 [facility] Differential cell count method - Blood [facility] Neutrophils/100 leukocytes in Blood by Automated count 68 % [facility] Lymphocytes/100 leukocytes in Blood by Automated count 18 % [facility] Monocytes/100 leukocytes in Blood by Automated count 9 % [facility] Eosinophils/100 leukocytes in Blood by Automated count 2 % [facility] Basophils/100 leukocytes in Blood by Automated count 3 % [facility] Neutrophils [#/volume] in Blood by Automated count 4.39 10*3/uL 1.8-7 .0 [facility] Lymphocytes [#/volume] in Blood by Automated count 1.17 10*3/uL 1.2-4 .0 L [facility] Monocytes [#/volume] in Blood by Automated count 0.57 10*3/uL 0-0.8 [facility] Eosinophils [#/volume] in Blood by Automated count 0.14 10*3/uL 0-0.5 [facility] Basophils [#/volume] in Blood by Automated count 0.19 10*3/uL 0-0.2 [facility] Nucleated erythrocytes/100 leukocytes [Ratio] in Blood by Automated count 0 /100{WBCs} 0-0 [facility] ID Date Data Source [id number] 07/12/2020 04:32:24 PM EDT [facility] Name Value Range Interpretation Code Description Data Rosemary rce(s) Supporting Document(s) Glucose [Mass/volume] in Capillary blood by Glucometer 181 mg/dL 70- 140 H [facility] ID Date Data Source [id number] 07/12/2020 03:57:06 PM EDT [facility] CT ABDOMEN PELVIS WITH CONTRAST [id number] [id number] RESULT - FINALInterpreted by:Abhi Bhandari BeginsSigned on TueJul 12, 2020 3:56 PM by Keerthi Bhandari discussed with Dr. Turner at 07/12/2020 3:55 PM EDT.THIS DOCUMENT HAS BEEN ELECTRONICALLY SIGNED BY MIGUEL Moe EndsPROCEDURE INFORMATION: Exam: CT Abdomen And Pelvis With Contrast Exam date and time: 07/12/2020 2:09 PM Age: 70 years old Clinical indication: Vomiting/hematemesis. Evaluate structural abnormalities that might contribute to hematemesis. TECHNIQUE: Imaging protocol: Computed tomography of the abdomen and pelvis with contrast. Radiation optimization: All CT scans at this facility use at least one of these dose optimization techniques: automated exposure control; mA and/or kV adjustment per patient size (includes targeted exams where dose is matched to clinical indication); or iterative reconstruction. Contrast material: OMNI 300; Contrast volume: 100 ml; Contrast route: INTRAVENOUS (IV); COMPARISON: No relevant prior studies available. FINDINGS: Pleural spaces: Small right and trace left pleural effusions. There is mild scarring and/or atelectasis at the lung bases. No pericardial effusion. No hiatal hernia. Liver: The liver is enlarged measuring 17.2 cm. There is cirrhotic hepatic morphology. Gallbladder and bile ducts: The gallbladder is not identified. Pancreas: The pancreas is unremarkable. Spleen: The spleen is enlarged measuring 15 cm. A hypodense lesion in the spleen measures 1.7 cm. This may represent a hemangioma. Adrenal glands: The adrenal glands are unremarkable. Kidneys and ureters: Subcentimeter renal hypodensities are too small to accurately characterize and require no follow-up. No hydronephrosis. Stomach and bowel: The stomach and small bowel are unremarkable. There is thickening of the wall of the ascending and transverse colon which could reflect mesenteric congestion related to cirrhosis. A mild colitis is a consideration. Correlate clinically. Occasional colonic diverticula without evidence of acute diverticulitis. Appendix: The appendix is unremarkable. Intraperitoneal space: No free intraperitoneal air is seen. There is mild ascites. Vasculature: Gastroesophageal varices are noted. No abdominal aortic aneurysm. 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 The mid and distal ovarian veins appear thrombosed bilaterally (series 6, image 50). The right ovary appears asymmetrically enlarged when compared to the left. Lymph nodes: A periportal lymph node measures 1.2 x 1.8 cm. An aortocaval lymph node measures 1.1 x 1.9 cm. Urinary bladder: The bladder is largely decompressed. Reproductive: See "Vasculature" finding. Bones/joints: No acute fracture is identified. There are degenerative changes in the lumbar spine with mild to moderate central spinal canal narrowing at several levels. Consider MRI if clinically warranted. Soft tissues: Small fat containing supraumbilical hernia. IMPRESSION: 1. Hepatosplenomegaly with hepatic cirrhosis, periportal/retroperitoneal lymphadenopathy, mild ascites and gastroesophageal varices. 2. There is thickening of the wall of the ascending and transverse colon which could reflect mesenteric congestion related to cirrhosis. A mild colitis is a consideration. Correlate clinically. 3. The mid and distal ovarian veins appear thrombosed bilaterally. The right ovary appears asymmetrically enlarged when compared to the left. Recommend pelvic ultrasound to further assess. 4. 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 5. There are degenerative changes in the lumbar spine with mild to moderate central spinal canal narrowing at several levels. Consider MRI if clinically warranted. 6. Small right and trace left pleural effusions. 7. Occasional colonic diverticula without evidence of acute diverticulitis. THIS DOCUMENT HAS BEEN ELECTRONICALLY SIGNED BY MIGUEL GREEN MDThis document has been electronically signed by Miguel Green MD on 07/12/2020 3:47 PM Name Value Range Interpretation Code Description Data Rosemary rce(s) Supporting Document(s) ID Date Data Source [id number] 07/12/2020 12:11:51 PM EDT [facility] Name Value Range Interpretation Code Description Data Rosemary rce(s) Supporting Document(s) Glucose [Mass/volume] in Capillary blood by Glucometer 196 mg/dL 70- 140 H [facility] ID Date Data Source [id number] 07/12/2020 09:27:46 AM T [facility] Name Value Range Interpretation Code Description Data Rosemary rce(s) Supporting Document(s) Consultation [facility] [id number]YfZ4PhLRJ1pF8cBZH5YIdTHtXzDrSeBiRz [facility] [file] [employer] model [employer]/gntMLFHBnLmnsJqB+rBHNv7TH0BEnZeQ/WPQ+l [file] [id number]= ID Date Data Source [id number] 07/12/2020 09:06:43 AM EDT [facility] Name Value Range Interpretation Code Description Data Rosemary e(s) Supporting Document(s) Bicarbonate [Moles/volume] in Serum 24 mmol/L 22-29 [facility] Chloride [Moles/volume] in Serum or Plasma 104 mmol/L 98-107 [facility] Creatinine [Mass/volume] in Serum or Plasma 1.07 mg/dL 0.50-0.90 H [facility] Glucose [Mass/volume] in Serum or Plasma 236 mg/dL 70-140 H [facility] Potassium [Moles/volume] in Serum or Plasma 4.2 mmol/L 3.4-5.1 [facility] Sodium [Moles/volume] in Serum or Plasma 138 mmol/L 136-145 [facility] Urea nitrogen [Mass/volume] in Serum or Plasma 15 mg/dL 8-23 [facility] Anion gap 3 in Serum or Plasma 10 mmol/L 8-15 [facility] Osmolality of Serum or Plasma by calculation 294 mosm/kg 275-300 [facility] Creatinine/Urea nitrogen [Mass Ratio] in Serum or Plasma 14 [facility] Calcium [Mass/volume] in Serum or Plasma 8.3 mg/dL 8.8-10.2 L [facility] Glomerular filtration rate/1.73 sq M pre dicted among non-blacks [Volume Rate/Area] in Serum or Plasma by Creatinine-based formula (MDRD) 51 mL/min/1.73m2 >60 L [facility] Glomerular filtration rate/1.73 sq M pre dicted among blacks [Volume Rate/Area] in Serum or Plasma by Creatinine-based formula (MDRD) 59 mL/min/1.73m2 >60 L [facility] ID Date Data Source [id number] 07/12/2020 02:47:[address] [facility] Name Value Range Interpretation Code Description Data Rosemary rce(s) Supporting Document(s) Arxdk-3-Uaqrczhwlvr [Mass/volume] in Serum or Plasma 1 ng/mL <9 [facility] ID Date Data Source [id number] 07/15/2020 04:07:29 PM [facility] Value Range Interpretation Code Description Data Rosemary rce(s) Supporting Document(s) Helicobacter pylori IgM Ab [Presence] in Serum 0.0-8.9 [facility] (NOTE) Neg ative <9.0 Equivocal 9.0 - 11.0 Positive >11.0This test was developed and its performance characteristicsdetermined by [employer]. It has not been cleared or approvedby the Food and Drug Administration.Performed At: [facility] [address] [id number] Calderon MD Ph:[id number] ID Date Data Source [id number] 07/12/2020 08:02:47 AM [facility] Value Range Interpretation Code Description Data Rosemary rce(s) Supporting Document(s) Glucose [Mass/volume] in Capillary blood by Glucometer 164 mg/dL 70- 140 H [facility] ID Date Data Source [id number] 07/12/2020 10:01:05 AM [facility] Value Range Interpretation Code Description Data Rosemary rce(s) Supporting Document(s) Leukocytes [#/volume] in Blood by Automated count 4.3 10*3/uL 4-10 [facility] Erythrocytes [#/volume] in Blood by Automated count 2.70 10*6/uL 4.1- 5.3 L [facility] Hemoglobin [Mass/volume] in Blood 8.2 g/dL 11.5-15.5 [facility] Hematocrit [Volume Fraction] of Blood by Automated count 24.2 % 3 6-45 L [facility] Erythrocyte mean corpuscular volume [Entitic volume] by Auto mated count 89.7 fL 80-96 [facility] Erythrocyte mean corpuscular hemoglobin [Entitic mass] by Automated count 30.2 pg 27-33 [facility] Erythrocyte mean corpuscular hemoglobin concentration [Mass/volume] by Automated count 33.7 g/dL 32.0-36.0 [facility] E[facility]th[facility] distribution width [Ratio] by Automated count 15.5 % 11.5-14.5 [facility] Platelets [#/volume] in Blood by Automated count 92 10*3/uL 150-400 L [facility] Differential cell count method - Blood [facility] Neutrophils/100 leukocytes in Blood by Automated count 63 % [facility] Lymphocytes/100 leukocytes in Blood by Automated count 22 % [facility] Monocytes/100 leukocytes in Blood by Automated count 11 % [facility] Eosinophils/100 leukocytes in Blood by Automated count 3 % [facility] Basophils/100 leukocytes in Blood by Automated count 1 % [facility] Neutrophils [#/volume] in Blood by Automated count 2.71 10*3/uL 1.8-7 .0 [facility] Lymphocytes [#/volume] in Blood by Automated count 0.96 10*3/uL 1.2-4 .0 L [facility] Monocytes [#/volume] in Blood by Automated count 0.47 10*3/uL 0-0.8 [facility] Eosinophils [#/volume] in Blood by Automated count 0.12 10*3/uL 0-0.5 [facility] Basophils [#/volume] in Blood by Automated count 0.04 10*3/uL 0-0.2 [facility] Nucleated erythrocytes/100 leukocytes [Ratio] in Blood by Automated count 0 /100{WBCs} 0-0 [facility] ID Date Data Source [id number] [facility] Interpretation Code Description Data Rosemary rce(s) Supporting Document(s) Glucose [Mass/volume] in Capillary blood by Glucometer 187 mg/dL 70- 140 H [facility] ID Date Data Source [id number] 07/12/2020 08:38:16 AM EDT [facility] Name Value Range Interpretation Code Description Data Rosemary rce(s) Supporting Document(s) Folate [Mass/volume] in Serum or Plasma 8.35 ng/mL >4.77 [facility] ID Date Data Source [id number] 07/12/2020 12:50:32 AM EDT [facility] Name Value Range Interpretation Code Description Data Rosemary rce(s) Supporting Document(s) Leukocytes [#/volume] in Blood by Automated count 6.0 10*3/uL 4-10 [facility] Erythrocytes [#/volume] in Blood by Automated count 2.71 10*6/uL 4.1- 5.3 L [facility] Hemoglobin [Mass/volume] in Blood 8.2 g/dL 11.5-15.5 L [facility] Hematocrit [Volume Fraction] of Blood by Automated count 24.0 % 3 6-45 L [facility] Erythrocyte mean corpuscular volume [Entitic volume] by Auto mated count 88.4 fL 80-96 [facility] Erythrocyte mean corpuscular hemoglobin [Entitic mass] by Automated count 30.4 pg 27-33 [facility] Erythrocyte mean corpuscular hemoglobin concentration [Mass/volume] by Automated count 34.3 g/dL 32.0-36.0 [facility] Erythrocyte distribution width [Ratio] by Automated count 15.6 % 11.5-14.5 [facility] Platelets [#/volume] in Blood by Automated count 114 10*3/uL 150-400 L [facility] Differential cell count method - Blood [facility] Neutrophils/100 leukocytes in Blood by Automated count 66 % [facility] Lymphocytes/100 leukocytes in Blood by Automated count 19 % [facility] Monocytes/100 leukocytes in Blood by Automated count 10 % [facility] Eosinophils/100 leukocytes in Blood by Automated count 4 % [facility] Basophils/100 leukocytes in Blood by Automated count 1 % [facility] Neutrophils [#/volume] in Blood by Automated count 4.00 10*3/uL 1.8-7 .0 [facility] Lymphocytes [#/volume] in Blood by Automated count 1.10 10*3/uL 1.2-4 .0 L [facility] Monocytes [#/volume] in Blood by Automated count 0.61 10*3/uL 0-0.8 [facility] Eosinophils [#/volume] in Blood by Automated count 0.21 10*3/uL 0-0.5 [facility] Basophils [#/volume] in Blood by Automated count 0.06 10*3/uL 0-0.2 [facility] Nucleated erythrocytes/100 leukocytes [Ratio] in Blood by Automated count 0 /100{WBCs} 0-0 [facility] ID Date Data Source [id number] 07/15/2020 11:07:[address] [facility] Name Value Range Interpretation Code Description Data Rosemary rce(s) Supporting Document(s) Helicobacter pylori IgG Ab [Units/volume] in Serum by Immunoassay 0.24 Index Value 0.00-0.79 [facility] (NOTE) Negati ve <0.80 Equivocal 0.80 - 0.89 Positive > 0.89Performed At: RN [facility] [address] [id number] Calderon MD Ph:[id number] ID Date Data Source [id number] 07/12/2020 12:28:44 AM [facility] Value Range Interpretation Code Description Data Rosemary rce(s) Supporting Document(s) Glucose [Mass/volume] in Capillary blood by Glucometer 169 mg/dL 70- 140 H [facility] ID Date Data Source [id number] 07/11/2020 07:52:20 PM [facility] Value Range Interpretation Code Description Data Rosemary rce(s) Supporting Document(s) Glucose [Mass/volume] in Capillary blood by Glucometer 190 mg/dL 70- 140 [facility] ID Date Data Source [id number] 07/11/2020 06:52:40 PM [facility] Value Range Interpretation Code Description Data Rosemary rce(s) Supporting Document(s) Leukocytes [#/volume] in Blood by Automated count 6.6 10*3/uL 4-10 [facility] Erythrocytes [#/volume] in Blood by Automated count 2.93 10*6/uL 4.1- 5.3 L [facility] Hemoglobin [Mass/volume] in Blood 8.9 g/dL 11.5-15.5 L [facility] Hematocrit [Volume Fraction] of Blood by Automated count 26.8 % 3 6-45 L [facility] Erythrocyte mean corpuscular volume [Entitic volume] by Auto mated count 91.2 fL 80-96 [facility] Erythrocyte mean corpuscular hemoglobin [Entitic mass] by Automated count 30.3 pg 27-33 [facility] Erythrocyte mean corpuscular hemoglobin concentration [Mass/volume] by Automated count 33.2 g/dL 32.0-36.0 [facility] Erythrocyte distribution width [Ratio] by Automated count 15.8 % 11.5-14.5 H [facility] Platelets [#/volume] in Blood by Automated count 112 10*3/uL 150-400 L [facility] Differential cell count method - Blood [facility] Neutrophils/100 leukocytes in Blood by Automated count 74 % [facility] Lymphocytes/100 leukocytes in Blood by Automated count 15 % [facility] Monocytes/100 leukocytes in Blood by Automated count 7 % [facility] Eosinophils/100 leukocytes in Blood by Automated count 3 % [facility] Basophils/100 leukocytes in Blood by Automated count 1 % [facility] Neutrophils [#/volume] in Blood by Automated count 4.83 10*3/uL 1.8-7 .0 [facility] Lymphocytes [#/volume] in Blood by Automated count 1.00 10*3/uL 1.2-4 .0 L [facility] Monocytes [#/volume] in Blood by Automated count 0.46 10*3/uL 0-0.8 [facility] Eosinophils [#/volume] in Blood by Automated count 0.20 10*3/uL 0-0.5 [facility] Basophils [#/volume] in Blood by Automated count 0.07 10*3/uL 0-0.2 [facility] Nucleated erythrocytes/100 leukocytes [Ratio] in Blood by Automated count 0 /100{WBCs} 0-0 [facility] ID Date Data Source [id number] 07/11/2020 06:57:[address] [facility] Name Value Range Interpretation Code Description Data Rosemary rce(s) Supporting Document(s) Prothrombin time (PT) 17.6 s 12.5-14.9 H [facility] INR in Platelet poor plasma by Coagulation assay 1.42 [facility] Routine intensity oral anticoagulation I NR is typically 2.0-3.0. Target INR must be clinically individualized. ID Date Data Source [id number] 07/11/2020 04:46:40 PM [facility] Value Range Interpretation Code Description Data Rosemary rce(s) Supporting Document(s) History and Physical [facility] PIRJCe2sVfEOOgQn38/IRCfwGICoc2YcWDeiLCy2MHpnLXRiW1DuQSJ4gN7fPVX4JEzRAuSnYmJnJbU3 lbm [file] [id number] ID Date Data Source [id number] 07/11/2020 03:53:[address] [facility] Name Value Range Interpretation Code Description Data Rosemary rce(s) Supporting Document(s) Glucose [Mass/volume] in Capillary blood by Glucometer 136 mg/dL 70- 140 [facility] ID Date Data Source [id number] 07/11/2020 03:05:[address] [facility] Name Value Range Interpretation Code Description Data Rosemary rce(s) Supporting Document(s) Hepatitis C virus Ab [Presence] in Serum or Plasma by Immuno assay Non Reactive [facility] No serological evidence of active infect ion. If recent exposure is suspected, test for HCV RNA. ID Date Data Source [id number] 07/11/2020 12:22:[address] [facility] Name Value Range Interpretation Code Description Data Rosemary rce(s) Supporting Document(s) Leukocytes [#/volume] in Blood by Automated count 5.1 10*3/uL 4-10 [facility] Erythrocytes [#/volume] in Blood by Automated count 2.80 10*6/uL 4.1- 5.3 L [facility] Hemoglobin [Mass/volume] in Blood 8.6 g/dL 11.5-15.5 [facility] Hematocrit [Volume Fraction] of Blood by Automated count 25.1 % 3 6-45 L [facility] Erythrocyte mean corpuscular volume [Entitic volume] by Auto mated count 89.6 fL 80-96 [facility] Erythrocyte mean corpuscular hemoglobin [Entitic mass] by Automated count 30.6 pg 27-33 [facility] Erythrocyte mean corpuscular hemoglobin concentration [Mass/volume] by Automated count 34.2 g/dL 32.0-36.0 [facility] Erythrocyte distribution width [Ratio] by Automated count 15.7 % 11.5-14.5 H [facility] Platelets [#/volume] in Blood by Automated count 102 10*3/uL 150-400 L [facility] Differential cell count method - Blood [facility] Neutrophils/100 leukocytes in Blood by Automated count 72 % [facility] Lymphocytes/100 leukocytes in Blood by Automated count 17 % [facility] Monocytes/100 leukocytes in Blood by Automated count 8 % [facility] Eosinophils/100 leukocytes in Blood by Automated count 2 % [facility] Basophils/100 leukocytes in Blood by Automated count 1 % [facility] Neutrophils [#/volume] in Blood by Automated count 3.60 10*3/uL 1.8-7 .0 [facility] Lymphocytes [#/volume] in Blood by Automated count 0.88 10*3/uL 1.2-4 .0 L [facility] Monocytes [#/volume] in Blood by Automated count 0.43 10*3/uL 0-0.8 [facility] Eosinophils [#/volume] in Blood by Automated count 0.11 10*3/uL 0-0.5 [facility] Basophils [#/volume] in Blood by Automated count 0.07 10*3/uL 0-0.2 [facility] Nucleated erythrocytes/100 leukocytes [Ratio] in Blood by Automated count 0 /100{WBCs} 0-0 [facility] ID Date Data Source [id number] 07/11/2020 12:12:15 PM EDT [facility] Name Value Range Interpretation Code Description Data Rosemary rce(s) Supporting Document(s) Glucose [Mass/volume] in Capillary blood by Glucometer 158 mg/dL 70- 140 H [facility] ID Date Data Source [id number] 07/11/2020 10:43:[address] [facility] Name Value Range Interpretation Code Description Data Rosemary rce(s) Supporting Document(s) Progress Note [facility] CPFBNp1zBaFMCcMy56/YXLsnZNPwa2OdBSciHWf7AZquCTXbD0KkHMW3mS7dRXG6ASxYZpNjBzBhQnJ1 [facility] [file] [id number] ID Date Data Source [id number] 07/11/2020 07:45:03 AM EDT [facility] Name Value Range Interpretation Code Description Data Rosemary rce(s) Supporting Document(s) Progress Note [facility] UOXGBp1gRgXNDaVv37/FHZfcMFPmk0AxZWynLBo0DKtiAKPtY3DmSRF4lP9wCGI9NUmFWmWeAdWhHwX5 lbm [file] ICAgICAgICAgICAgICAgICAgICAgICAgICAgICAgICAgICAgICAgICAgICAgICAgICAgICAgICAgICAg ICAgICAgICAgICAgICAgICANCiAgICAgICAgICAgIC AgICAgICAgICAgICAgICAgICAgICAgICAgICAgICAgICAgICAgICAgICAgICAgICAgICAgICAgICAgIC AgICAgICAgICAgICAgICAgICAgICAgICAgICANCiAgICAgICAgICAgICAgICAgICAgICAgICAgICAgIC AgICAgICAgICAgICAgICAgICAgICAgICAgICAgICAg ICAgICAgICAgICAgICAgICAgICAgICAgICAgICAgICAgICAgICANCiAgICAgICAgICAgICAgICAgICAg ICAgICAgICAgICAgICAgICAgICAgICAgICAgICAgICAgICAgICAgICAgICAgICAgICAgICAgICAgICAg ICAgICAgICAgICAgICAgICAgICANCiAgICAgICAgIC AgICAgICAgICAgICAgICAgICAgICAgICAgICAgICAgICAgICAgICAgICAgICAgICAgICAgICAgICAgIC AgICAgICAgICAgICAgICAgICAgICAgICAgICAgICANCiAgICAgICAgICAgICAgICAgICAgICAgICAgIC AgICAgICAgICAgICAgICAgICAgICAgICAgICAgICAg ICAgICAgICAgICAgICAgICAgICAgICAgICAgICAgICAgICAgICAgICANCiAgICAgICAgICAgICAgICAg ICAgICAgICAgICAgICAgICAgICAgICAgICAgICAgICAgICAgICAgICAgICAgICAgICAgICAgICAgICAg ICAgICAgICAgICAgICAgICAgICAgICANCiAgICAgIC AgICAgICAgICAgICAgICAgICAgICAgICAgICAgICAgICAgICAgICAgICAgICAgICAgICAgICAgICAgIC AgICAgICAgICAgICAgICAgICAgICAgICAgICAgICAgICANCiAgICAgICAgICAgICAgICAgICAgICAgIC AgICAgICAgICAgICAgICAgICAgICAgICAgICAgICAg ICAgICAgICAgICAgICAgICAgICAgICAgICAgICAgICAgICAgICAgICAgICANCiAgICAgICAgICAgICAg ICAgICAgICAgICAgICAgICAgICAgICAgICAgICAgICAgICAgICAgICAgICAgICAgICAgICAgICAgICAg ICAgICAgICAgICAgICAgICAgICAgICAgICANCjw/eH KgM3tshBPnejS5L2agWs5SRj8JIE4xk1UrQGCoEZibgkSpYhvOMaXqHODpTsfATle8BAvgZB5NeSUiJ7 XsX2HdWOycQY1XFGGgPLRpaBRkVJDdXBNiLeN0YTOdIJqhDS5AbPOlHIuiLBGwSHGxFZ4TOKUsL483uc CiSL0UCk4BSgMdWY9gtm4WUSWpHGPeKrlAXna0UUls QR9PpDWaiBBaZDRoWAKCXhLwB8ezk5WeGLQnGLDLLKbfGA6Tp5KwpXIxHAh+Ut5KFP2xn6YtWNlnZUVi CE5qcg5TRYiVViNeF9NhjJzyQCMak4vhQPAeEE1qfNAyQBG2LMPgv0qfIKFmDHQJWEoeszwaEo4tWEVb Yl8iAR7wDJSiWVM6DxA2IXJUTA0GZXGmVJKhkZBoRN FjAGORDR7UBPnfVZV5IXJvhiNvzWUePWfqUN4TVAXpebUpMLJiAQQIGNp+Yo5CTD7om7FqXYdhWuIeQE 6omq0HEYgJFiAhU0X1vQDyU7M0WUqiGa8RQUNtYCGwIHBeGVELWJdpWA7TZC2qngJ8EN7GqGBgHFXyBB KxbZKsEBc9P71nsNFkLMjwOY0ABTA+Eleanor+Rg0JYUHq RFYwSVQnLxLoJUDATdRfP5RlY9DVg1LhS0VgKT81jQchooAuNYlnMX8AJI7rVWHmRCMBIC1LoCSgaH6u jlBqBLGtNMETTkCdR63xnOXeRQRcSNPtYGMjPm3GOIEcC6WuqqQpqXcvvdPeCRGjCJOQXX3FTMfrqyXo lABbtPqbYG42eAwdIQ9PYe5OBrJlJI6lqt8QyEVmZs 1OWZMnUd7UAXGvGEGeZVIxRIL4MIGdHgWbYQuaSTXpDOLxPXY4RVPxYLNqKF1IWkOqQCKmKZO4IdJtXB XsLLYscy6OWULpZKLpCtN6ENLdRTHtGVQvKVqcXFRxBQBqYRN6FQAeCUNaCH0HXoJbSXTcDZS4SoKaOU KjPHXznf4AXPQiVKZwCPmoIYGqVXQdVZBmTIukQEKv JKMiJakcQLJzBTZlYM9VQyHoFSNgJIO5VfpeNCSiOMWzxa3KQSHmCPUfCeG0ALOuPHWwACRvVNogHLAp NNR4PZL8TFCqFRYfQS3RChCoEAXnEZSjBTitKDFjVFPqzw3JEVJcJXDqTPRcKyFbLVMoAELgUFkgLEPs VJY9IQPtCUQzVCRiYL2ADkCaSLIqLYLpPZpyIDPiPN Stmq5CFUKfYHQfUzCiINToNHOpERTiXWrhJLGjZIT7XYA5LTKmXJGkFS6KJvZiELbxWUBMVqi1IUcgI9 l3JDSlBw9KW6Xrm9OmORNmJGOJJCseUH0doiSvNQBsKm1SI1iPAvcxGpQiBHxeGqf3IDs1WbN3YGArEZ A4YXh4BSO2ECM6PC4mOMKsAQN6IMQgUdXpCXx8IBS4 WWO6BQQsMBAdSIx3POqmEmAiDF8GBu6TKvF9SWZ6uLOjYs1PUryvOx9CTEIJV3OVOt== ID Date Data Source [id number] 07/11/2020 07:47:17 AM EDT [facility] Name Value Range Interpretation Code Description Data Rosemary rce(s) Supporting Document(s) Glucose [Mass/volume] in Capillary blood by Glucometer 185 mg/dL 70- 140 H [facility] ID Date Data Source [id number] 07/11/2020 07:13:19 AM EDT [facility] Name Value Range Interpretation Code Description Data Rosemary rce(s) Supporting Document(s) History and Physical [facility] HCDOLg1lJhZGWoTv60/PDUkkERDxt6PeDVlsSGs0CWjaSTWdJ9LaGPX0eM1eCLD9VZaILdBbJjBfFaZ3 lbm [file] AgICAgICAgICAgICAgICAgICAgICAgICAgICAgICAgICAgICAgICAgICAgICAgICAgICAgICAgICAgIC HlHGGcTRKtIU5QSXEaRNEoNVGkITTkQKEkZTBjKJKj ICAgICAgICAgICAgICAgICAgICAgICAgICAgICAgICAgICAgICAgICAgICAgICAgICAgICAgICAgICAg VECvRMKaRSKcSPNlBDLkJFXbYT0QBNLdYKDmUGJwFKYeKBDaWHPqYFGsYBWbMKJqIMDtWCDxZZRhCHJp ICAgICAgICAgICAgICAgICAgICAgICAgICAgICAgIC MgSGVpFAKlXVSlOGUsLLNyLGJnUZHoCDMxORTzPW4IBIQaFIVkPMPyTCJmEBMrMYZqOKAqWZErFUSeBN AgICAgICAgICAgICAgICAgICAgICAgICAgICAgICAgICAgICAgICAgICAgICAgICAgICAgICAgICAgIC CoRJZpCRApOCTgQD9HNBCjUAJqTPUoCNHqIDEbSGKp ICAgICAgICAgICAgICAgICAgICAgICAgICAgICAgICAgICAgICAgICAgICAgICAgICAgICAgICAgICAg AOTwAQGrSTXiZFToRPYaUEUbBSGeSZ1VAKJxBDIdWZGcOCQkCFGcKDXuXTBpKMLjATZkUANjQUFeVKHt ICAgICAgICAgICAgICAgICAgICAgICAgICAgICAgIC EpRAOfKTSpDLYjICJuFMChNDKeFBDeEYRvJGCwXTXxJE9ABUDsFTErWARqEUDnVRQiPEMtGKSoNIAhHT AgICAgICAgICAgICAgICAgICAgICAgICAgICAgICAgICAgICAgICAgICAgICAgICAgICAgICAgICAgIC XfNQBgEFKcWBUgJFPdOZ0ZWTGtUIGtHECdQABjGNNr ICAgICAgICAgICAgICAgICAgICAgICAgICAgICAgICAgICAgICAgICAgICAgICAgICAgICAgICAgICAg VTGcRQSiPEIlHRIuIOKtPSDoAHXuWTTcUF6HEXHqNVFpCMRgGEGsGONeVPRqNUFpSVSzXQGwZKVbOZXr ICAgICAgICAgICAgICAgICAgICAgICAgICAgICAgIC GrMWEtWSTzPRQwMQCvGFLxWTEpAECtGUMvNDNjFXLhDKBaES8VFCJyRZRkPKAxLNSrJKEaZBDoOGOkYJ AgICAgICAgICAgICAgICAgICAgICAgICAgICAgICAgICAgICAgICAgICAgICAgICAgICAgICAgICAgIC LsGTXfIPJcXIUmRBFiUREdCB4QVE04gXWlg0H0ZTNh WE2qvrs/Vy0DWDrnvuKqtENqQQ4QCeYwCL5bil2WQoJiUG5big4CPVxNKtKqF7Q7rOCcSCBnTJYUFnWe J31yLKhaUl26TBdiEZUxXcOsGTv3Iv1XRqRxH2elWKQvDlW9CUFfQhS4BMYkQrG2XLIuNfTkNCBlZEDy TOLqTTWPOQI9FHMpLnHrNKvnDW6Tw7DjgVK5PDw+Pg 1KHC5ik0SqFIddLrUhLO8flc2ENTkXPeCuB5IvdxB0PJTfNJMjHm9CVAQbKTYxdEYqMtUkSLVJScLvG8 GulB44ABSMLm7+FUqgwuOwSxtOSlPvZJBjh4XeQCg1WA2RZJKoFOi8eCFiJVUEZPO6IQ5tRTVvKMBysa edFDLiWipfUBRiWQPdMa1oYK8aIKWlIEO8AzL7ROND EV1FADUrYXJrmKSuUXTxMORNVG4FBPniTEW5NTNrzsDuoBDpKQzdUJ5WMNIhdsCvLqRxLOGJONx+Pg0K BJ1jg3AyWBtpVIVoFO1yzz7VORqCRjCcN8C3vLDyP9H1VXlqCp8EAACpIOJlJhQvTYJUAWmbQX0HUN3i vpF2OZ3MzAAuZPGkGMVmaRKxPVu1Y31hmHUtZYtqSY 0KICA+Eleanor+Ou4VXNVxEJQdIXZxMyRoPTXKPgKiR6OnG1BZp1CjE8AeQD90oEriywPoLHkwSO8IUW0wRN XpVZZMQX4RqUFshP0hazPxZfKaSIFBAwGmR78hmUTkVWVtQKGeQFWtNx8DORSbF9ZryyJwoYzlkhNhKV MbPHKXQH3REXffghBfnPCqlSepGY94xGcgVC8ZHd4C EdAxRL9hmr3JuKFmKj4KNCOtYC9HPZAvCIMlYERtUSZ5BNFmKmRwJQokEUKwKDIvJHL8ZSPwEUSnJL7Z NjXiLWBiRcCwCKtoFEUoSGWrcv1YAFMfQWKeEOz9OWKhGYJhEAGaZXukGFClPMLlMOD8PHOzGVIxOO4X QuJlHQNvPLQxIQIzVHGmPDTyaq4XADDgYYYgZIOtRG JdNGPqHIOlVAbtAQJtSHA2AHD4QRLkAHXjGJ4UWeVmHOFcPIH7NZBjCIMqUPPwzw0YYGJlHUEnKNN9WM YmVRKdDIQpOHyiJLOwJLX3TwI6XTIiLXLjLT2HLxGwRMWkNSI4SMomFHQqBCWsjj5GUHYvLFJzXqY3SI PlHOFuPFXvLEajGFBtDDI3PBh5QHViDSNcYF1EYaZn QPBeACUyXQByKHLaUMSxgo6BAQRkWJQdCoHrMHHoEIBzLCKqZLmqMEFsBQS4QxPdFPQuHWVaQZ5UZzRj GVHqPDv2BZMtMHHeWSVyat7TYSOtIAVxLKp7DBEqHHGtWRVjACjuEZBlEJT1TCnsVDNlCJKmUS1HQnSa JEUgUaNkUxWmAQBuEXMoqj8VHXAwPXIfCWHdLpDsKU YoRLCyPTgzDQVuHRQfZLLnZAXpTMTdDK5JPlQfCXDtXqL6XYVpRPYiSRNhlq3KCPUqOZEfMnCaCgZpDK TlPTSyLJrlMCUtYSJlXzTzHADmBIWlCC0XLrAfXCJwHeF1AzWgMXVvRTIaqx5ZBNIjHJYySfmyXlThKT GaBOCiCTdyRTSmFUAgOgKhXTXuVJDdDW1SFyMkGOTp ArK9HQhjBXXbHQRerx0DQEWrKXRnEOOaAvEuPCNzDKFwUZyiBSUhZQB0KPS8KSStSXAyNL7FJmYzVTAa PpZ4QJZdEVMtOXOiqb9UCXHjRTUxFAm4EbUaHUNvGHUaKSjaQWCuSBI6KUS2OWGhSAHgJU6YQwFeCHxa GVGBBdt0LQwgG4t7OYZrEJ1DF4Khs3OiOsImPCHUFO bhWV7wvaPlHXScMv3VD8vDCnq0UrPaYoYnU6P4KrL8VcphVhLqGcVhXZVvAkN4NZUnYU4eNSl0HLKgGD KoLYslWhV2MINtLBEeIeU9PMZuWIm0VJAjQeUjDE0UZv1WNnK7IYK2xOPqXl3NNwTsYcfQGjMuWQ5OGZ o= ID Date Data Source [id number] 07/11/2020 04:44:00 AM EDT [facility] XR CHEST FRONTAL ONLY [id number] RESULTI nterpreted by:Opal Corona, MDPROCEDURE INFORMATION: Exam: XR Chest Exam date and time: 07/11/2020 4:15 AM Age: 70 years old Clinical indication: Cough; Additional info: Hematemesis TECHNIQUE: Imaging protocol: XR of the chest Views: 1 view. COMPARISON: No relevant prior studies available. FINDINGS: Lungs: Patchy right basilar opacities are suspicious for pneumonia. Pleural spaces: Unremarkable. No pleural effusion. No pneumothorax. Heart/Mediastinum: Unremarkable. No cardiomegaly. Bones/joints: No acute osseous abnormality. IMPRESSION: Patchy right basilar opacities, suspicious for pneumonia. THIS DOCUMENT HAS BEEN ELECTRONICALLY SIGNED BY OPAL CORONA MDThis document has been electronically signed by Opal Corona MD on 07/11/2020 4:43 AM Name Value Range Interpretation Code Description Data Rosemary rce(s) Supporting Document(s) ID Date Data Source [id number] 07/11/2020 03:59:00 AM EDT [facility] Name Value Range Interpretation Code Description Data Rosemary rce(s) Supporting Document(s) SARS-CoV-2 RNA 2019 nCoV Real-Time RT-PCR: NOT DETECTED [facility] This lab was ordered by [facility] and reported by [facility]. ID Date Data Source [id number] 07/11/2020 05:53:56 AM EDT [facility] Service Cmnt XXX-Imp : NoneRespiratory P CR Panel : PCR ResultsMicroorganism XXX Cult : See Labs Tab for 2019 nCoV RT-PCR resultsHAdV DNA QI NICK+non-probe : Not DetectedHCoV [id number] Nph QI NICK+non-probe : Not DetectedHCoV [id number] Nph QI NICK+non-probe : Not LlkrdtyqJNvFKB26 RNA Nph QI NICK+non-probe : Not InrdymciITdTMT95 RNA Upper resp QI NICK+probe : Not DetectedhMPV RNA Nph QINAA+non-probe : Not DetectedRV+EV RNA Nph QI NICK+non-probe : Not DetectedFLUAV RNA Nph QI NICK+ non-probe : Not DetectedFLUBV RNA Nph QI NICK+non-probe : Not DetectedHPIV1 RNA NphQINAA+non-probe : Not DetectedHPIV2 RNA Nph QINAA+non-probe : Not DetectedHPVI3 RNA Nph NICK+non-probe : Not DetectedHPIV4 RNA Nph Q NICK+non-probe : Not DetectedRSV RNA Nph Q NICK+non-probe : Not DetectedB pert.PT PrmtNph Q NICK+non-probe : Not DetectedC pneum DNA Nph Q NICK+non-probe : Not DetectedM pneum DNA Nph Q NICK+non-probe : Not DetectedB [id number] DNA Nph NICK+non-probe : Not Detected Name Value Range Interpretation Code Description Data Rosemary rce(s) Supporting Document(s) ID Date Data Source [id number] 07/11/2020 05:53:06 AM EDT [facility] Name Value Range Interpretation Code Description Data Rosemary rce(s) Supporting Document(s) Specimen source [Identifier] of Unspecified specimen [facility] SARS-CoV-2 RNA 2019 nCoV Real-Time RT-PCR: NOT DETECTED [facility] Assay Performed [facility] Patients first test for [facility] 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 [facility] Patient has symptoms related to [facility] When did you start to experience these symptoms [Date and time] [Phen X] [facility] Patient was hospitalized because of this condition [facility] patient was admitted to ICU for [facility] Patient resides in a congregate care setting [facility] status [facility] ID Date Data Source [id number] 07/11/2020 04:18:27 AM EDT [facility] Name Value Range Interpretation Code Description Data Rosemary rce(s) Supporting Document(s) Leukocytes [#/volume] in Blood by Automated count 5.5 10*3/uL 4-10 [facility] Erythrocytes [#/volume] in Blood by Automated count 3.04 10*6/uL 4.1- 5.3 L [facility] Hemoglobin [Mass/volume] in Blood 9.2 g/dL 11.5-15.5 L [facility] Hematocrit [Volume Fraction] of Blood by Automated count 27.2 % 3 6-45 L [facility] Erythrocyte mean corpuscular volume [Entitic volume] by Auto mated count 89.7 fL 80-96 [facility] Erythrocyte mean corpuscular hemoglobin [Entitic mass] by Automated count 30.3 pg 27-33 [facility] Erythrocyte mean corpuscular hemoglobin concentration [Mass/volume] by Automated count 33.8 g/dL 32.0-[facility].0 [facility] E[facility]throcyte distribution width [Ratio] by Automated count 15.6 % 11.5-14.5 H [facility] Platelets [#/volume] in Blood by Automated count 91 10*3/uL 150-400 L [facility] Differential cell count method - Blood [facility] Neutrophils/100 leukocytes in Blood by Automated count 79 % [facility] Lymphocytes/100 leukocytes in Blood by Automated count 13 % [facility] Monocytes/100 leukocytes in Blood by Automated count 6 % [facility] Eosinophils/100 leukocytes in Blood by Automated count 1 % [facility] Basophils/100 leukocytes in Blood by Automated count 1 % [facility] Neutrophils [#/volume] in Blood by Automated count 4.41 10*3/uL 1.8-7 .0 [facility] Lymphocytes [#/volume] in Blood by Automated count 0.70 10*3/uL 1.2-4 .0 L [facility] Monocytes [#/volume] in Blood by Automated count 0.34 10*3/uL 0-0.8 [facility] Eosinophils [#/volume] in Blood by Automated count 0.06 10*3/uL 0-0.5 [facility] Basophils [#/volume] in Blood by Automated count 0.04 10*3/uL 0-0.2 [facility] Nucleated erythrocytes/100 leukocytes [Ratio] in Blood by Automated count 0 /100{WBCs} 0-0 [facility] ID Date Data Source [id number] 07/11/2020 04:27:46 AM [facility] Value Range Interpretation Code Description Data Rosemary rce(s) Supporting Document(s) Prothrombin time (PT) 17.4 s 12.5-14.9 H [facility] INR in Platelet poor plasma by Coagulation assay 1.40 [facility] Routine intensity oral anticoagulation I NR is typically 2.0-3.0. Target INR must be clinically individualized. ID Date Data Source [id number] 07/11/2020 04:44:46 AM [facility] Value Range Interpretation Code Description Data Rosemary rce(s) Supporting Document(s) Lipase [Enzymatic activity/volume] in Serum or Plasma 33 U/L 13-6 0 [facility] ID Date Data Source [id number] 07/11/2020 04:44:46 AM [facility] Value Range Interpretation Code Description Data Rosemary rce(s) Supporting Document(s) Troponin T.cardiac [Mass/volume] in Serum or Plasma <0.01 [facility] ID Date Data Source [id number] 07/11/2020 04:44:46 AM EDT [facility] Name Value Range Interpretation Code Description Data Rosemary rce(s) Supporting Document(s) Albumin [Mass/volume] in Serum or Plasma by Bromocresol green (BCG) dye binding method 3.5 g/dL 3.5-5.2 [facility] Bilirubin.total [Mass/volume] in Serum or Plasma 0.6 mg/dL <1.2 [facility] Calcium [Mass/volume] in Serum or Plasma 8.4 mg/dL 8.8-10.2 L [facility] Chloride [Moles/volume] in Serum or Plasma 106 mmol/L 98-107 [facility] Creatinine [Mass/volume] in Serum or Plasma 1.20 mg/dL 0.50-0.90 H [facility] Glucose [Mass/volume] in Serum or Plasma 207 mg/dL 70-140 H [facility] Alkaline phosphatase [Enzymatic activity/volume] in Serum or Plasma 84 U/L 35-104 [facility] Potassium [Moles/volume] in Serum or Plasma 4.9 mmol/L 3.4-5.1 [facility] Protein [Mass/volume] in Serum or Plasma 6.5 g/dL 6.4-8.3 [facility] Sodium [Moles/volume] in Serum or Plasma 139 mmol/L 136-145 [facility] Aspartate aminotransferase [Enzymatic activity/volume] in Serum or Plasma 19 U/L <32 [facility] Urea nitrogen [Mass/volume] in Serum or Plasma 18 mg/dL 8-23 [facility] Osmolality of Serum or Plasma by calculation 296 mosm/kg 275-300 [facility] Creatinine/Urea nitrogen [Mass Ratio] in Serum or Plasma 15 [facility] Bicarbonate [Moles/volume] in Serum 21 mmol/L 22-29 L [facility] Alanine aminotransferase [Enzymatic activity/volume] in Seru m or Plasma 11 U/L <33 [facility] Anion gap 3 in Serum or Plasma 12 mmol/L 8-15 [facility] Glomerular filtration rate/1.73 sq M pre dicted among non-blacks [Volume Rate/Area] in Serum or Plasma by Creatinine-based formula (MDRD) 44 mL/min/1.73m2 >60 L [facility] Glomerular filtration rate/1.73 sq M pre dicted among blacks [Volume Rate/Area] in Serum or Plasma by Creatinine-based formula (MDRD) 51 mL/min/1.73m2 >60 L [facility] ID Date Data Source [id number] 07/16/2020 10:13:57 AM EDT [facility] Name Value Range Interpretation Code Description Data Rosemary rce(s) Supporting Document(s) ABO and Rh group [Type] in Blood [facility] Blood group antibody screen [Presence] in Serum or Plasma [facility] Performed at [facility], Rafael Lilly , [place], [id number] Type Confirmed Blood bank comment [facility] ID Date Data Source [id number] 07/11/2020 07:23:58 AM EDT [facility] Name Value Range Interpretation Code Description Data Rosemary rce(s) Supporting Document(s) Hemoglobin A1c/Hemoglobin.total in Blood by HPLC 6.3 % 4.0-6.0 H [facility] Glucose mean value [Mass/volume] in Blood Estimated fr om glycated hemoglobin 134 mg/dL <126 H [facility] ID Date Data Source [id number] 07/10/2020 11:10:00 PM EDT [facility] Name Value Range Interpretation Code Description Data Rosemary rce(s) Supporting Document(s) SARS coronavirus 2 RNA [Presence] in Res piratory specimen by NICK with probe detection NEGATIVE [facility] This lab was ordered by [facility] a nd reported by [facility]. ID Date Data Source [id number] 01/31/2020 08:09:49 AM EDT eCW1 ([facility]) Name Value Range Interpretation Code Description Data Rosemary rce(s) Supporting Document(s) Microalbumin/Creatinine [Ratio] in Urine 16.5 HÉCTOR/CREAT RATIO eCW1 ([facility]) Microalbumin/Creatinine [Mass Ratio] in Urine 131.0 CREATININE, URINE eCW1 ([facility]) Albumin/Creatinine [Mass Ratio] in Urine 21.7 MALB URINE SIEMENS eCW1 ([facility]) Procedure Social History Code Duration Value Status Description Data Source(s ) Smoking 01/01/2021 12:00:00 AM EDT Patient has never smoked co mpleted Patient has never smoked [facility] ([facility]) Smoking 11/10/2020 12:00:00 AM EDT Never Smoker completed Never S moker eCW1 ([facility]) Smoking 11/10/2020 12:00:00 AM EDT Never Smoker completed Never S moker eCW1 ([facility]) Smoking 11/04/2020 12:00:00 AM EDT Never Smoker completed Never S moker eCW1 ([facility]) Smoking 11/04/2020 12:00:00 AM EDT Never Smoker completed Never S moker eCW1 ([facility]) Smoking 11/04/2020 12:00:00 AM EDT Never Smoker completed Never S moker eCW1 ([facility]) Smoking 07/28/2020 12:00:00 AM EDT Never Smoker completed Never S moker eCW1 ([facility]) Smoking 07/28/2020 12:00:00 AM EDT Never Smoker completed Never S moker eCW1 ([facility]) Smoking 07/28/2020 12:00:00 AM EDT Never Smoker completed Never S moker eCW1 ([facility]) Smoking 07/28/2020 12:00:00 AM EDT Never Smoker completed Never S moker eCW1 ([facility]) Smoking 07/28/2020 12:00:00 AM EDT Never Smoker completed Never S moker eCW1 ([facility]) Smoking 07/28/2020 12:00:00 AM EDT Never Smoker completed Never S moker eCW1 ([facility]) Smoking 07/23/2020 12:00:00 AM EDT Never Smoker completed Never S moker eCW1 ([facility]) Alcohol intake 07/11/2020 12:00:00 AM EDT Ex-drinker (finding) comp leted Ex- drinker (finding) [facility] Tobacco use and exposure 07/11/2020 12:00:00 AM EDT Never used co mpleted Never used [facility] Smoking 07/11/2020 12:00:00 AM EDT Never smoker completed Never s [facility] Smoking 04/29/2020 12:00:00 AM EST Never Smoker completed Never S moker eCW1 ([facility]) Smoking 04/29/2020 12:00:00 AM EST Never Smoker completed Never S moker eCW1 ([facility]) Smoking 04/29/2020 12:00:00 AM EST Never Smoker completed Never S moker eCW1 ([facility]) Smoking 02/26/2020 12:00:00 AM EST Never Smoker completed Never S moker eCW1 ([facility]) Smoking 02/26/2020 12:00:00 AM EST Never Smoker completed Never S moker eCW1 ([facility]) Smoking 02/26/2020 12:00:00 AM EST Never Smoker completed Never S moker eCW1 ([facility]) Smoking 02/26/2020 12:00:00 AM EST Never Smoker completed Never S moker eCW1 ([facility]) Smoking 01/29/2020 12:00:00 AM EDT Never Smoker completed Never S moker eCW1 ([facility]) Smoking 01/29/2020 12:00:00 AM EDT Never Smoker completed Never S moker eCW1 ([facility]) Vital Signs ID Date Data Source [id number] Name Value Range Interpretation Code Description Data Source(s) Systolic blood pressure 162 mm[Hg] 162 mm[Hg] [facility] TRADING ANALYST Recheck: 150/84 Diastolic blood pressure 80 mm[Hg] 80 mm[Hg] [facility] ([facility]) TRADING ANALYST Recheck: 150/84 Heart rate 92 /min 92 /min [facility] ([facility]) Oxygen saturation in Arterial blood by Pulse oximetry 99 % 99 % [facility] ([facility]) Body height 64 [in_i] 64 [in_i] JEFF ([facility]) 5'4" [place] body weight 120 [lb_av] 120 [lb_av] MED[facility] T ([facility]) Systolic blood pressure 122 mm[Hg] 122 mm[Hg] M ADDISON ([facility]) Diastolic blood pressure 64 mm[Hg] 64 mm[Hg] JEFF ([facility]) Body height 64 [in_i] 64 [in_i] [facility] ([facility]) 5'4" Body weight 170.00 [lb_av] 170.00 [lb_av] MEDEN T ([facility]) Body mass index (BMI) [Ratio] 29.2 kg/m2 29.2 k g/m2 [facility] ([facility]) [place] body weight 120 [lb_av] 120 [lb_av] MED[facility] T ([facility]) Body weight 77.112 kg 77.112 kg [facility] ([facility]) Body surface area Derived from formula 1.83 m2 1.83 m2 [facility] ([facility]) Body weight 166 [lb_av] 166 [lb_av] eCW1 ([facility]) Body height [in_i] eCW1 ([facility]) Body temperature 97.1 [degF] 97.1 [degF] eCW1 ( [facility]) Body mass index (BMI) [Ratio] 28.94 kg/m2 28.94 kg/m2 eCW1 ([facility]) Heart rate 75 /min 75 /min eCW1 ([facility], 1928[facility]1983) Respiratory rate 18 /min 18 /min eCW1 ([facility]) Systolic blood pressure 144 mm[Hg] 144 mm[Hg] e CW1 ([facility]) Diastolic blood pressure 76 mm[Hg] 76 mm[Hg] eCW1 ([facility]) Body weight 166 [lb_av] 166 [lb_av] eCW1 ([facility]) Body height [in_i] eCW1 ([facility]) Body mass index (BMI) [Ratio] 28.94 kg/m2 28.94 kg/m2 eCW1 ([facility]) Heart rate 69 /min 69 /min eCW1 ([facility], 1928–1983) Respiratory rate 18 /min 18 /min eCW1 ([facility]) Body temperature 98.9 [degF] 98.9 [degF] eCW1 ( [facility]) Systolic blood pressure 136 mm[Hg] 136 mm[Hg] e CW1 ([facility]) Diastolic blood pressure 67 mm[Hg] 67 mm[Hg] eCW1 ([facility]) Body weight 79.834 kg 79.834 [facility]) Body mass index (BMI) [Ratio] 29.3 kg/m2 29.3 k g/m2 [facility] ([facility]) Body height 65 [in_i] 65 [in_i] [facility] ([facility]) 5'5" Body weight 176.00 [lb_av] 176.00 [lb_av] MED[facility] T ([facility]) Body mass index (BMI) [Ratio] 29.3 kg/m2 29.3 k g/m2 [facility] ([facility]) [place] body weight 125 [lb_av] 125 [lb_av] MED[facility] T ([facility]) Body weight 79.834 kg 79.834 [facility] ([facility] Body surface area Derived from formula 1.87 m2 1.87 m2 [facility] ([facility]) Body height 65 [in_i] 65 [in_i] [facility] ([facility]) 5'5" Body weight 176.00 [lb_av] 176.00 [lb_av] MEDEN T ([facility]) [place] body weight 125 [lb_av] 125 [lb_av] [facility] T ([facility]) Body surface area Derived from formula 1.87 m2 1.87 m2 [facility] ([facility]) Body weight 169 [lb_av] 169 [lb_av] eCW1 ([facility]) Body height [in_i] eCW1 ([facility]) Body mass index (BMI) [Ratio] 29.46 kg/m2 29.46 kg/m2 W1 ([facility]) Heart rate 76 /min 76 /min eCW1 ([facility], 1928–[facility]) Respiratory rate 18 /min 18 /min eCW1 ([facility]) Body temperature 97.9 [degF] 97.9 [degF] eCW1 ( [facility]) Systolic blood pressure 122 mm[Hg] 122 mm[Hg] e CW1 ([facility]) Diastolic blood pressure 68 mm[Hg] 68 mm[Hg] eCW1 ([facility]) Body weight 170 [lb_av] 170 [lb_av] eCW1 ([facility]) Body height [in_i] eCW1 ([facility]) Body mass index (BMI) [Ratio] 29.64 kg/m2 29.64 kg/m2 eCW1 ([facility]) Heart rate 87 /min 87 /min eCW1 ([facility], [facility]) Respiratory rate 18 /min 18 /min eCW1 ([facility]) Body temperature 97.4 [degF] 97.4 [degF] eCW1 ( [facility]) Systolic blood pressure 130 mm[Hg] 130 mm[Hg] e CW1 ([facility]) Diastolic blood pressure mm[Hg] eCW1 ([facility]) Body weight [lb_av] eCW1 ([facility]) Body height [in_i] eCW1 ([facility]) Body mass index (BMI) [Ratio] 29.29 kg/m2 29.29 kg/m2 eCW1 ([facility]) Heart rate 80 /min 80 /min eCW1 ([facility], [facility]) Respiratory rate 18 /min 18 /min eCW1 ([facility]) Body temperature 98.7 [degF] 98.7 [degF] eCW1 ( [facility]) Systolic blood pressure 132 mm[Hg] 132 mm[Hg] e CW1 ([facility]) Diastolic blood pressure 76 mm[Hg] 76 mm[Hg] eCW1 ([facility]) Respiratory rate 18 /min 18 /min eCW1 ([facility]) Body weight 171 [lb_av] 171 [lb_av] eCW1 ([facility]) Body height [in_i] eCW1 ([facility]) Body mass index (BMI) [Ratio] 29.81 kg/m2 29.81 kg/m2 eCW1 ([facility]) Heart rate 72 /min 72 /min eCW1 ([facility], [facility]) Body temperature 98.3 [degF] 98.3 [degF] eCW1 ( [facility]) Systolic blood pressure 110 mm[Hg] 110 mm[Hg] e CW1 ([facility]) Diastolic blood pressure 65 mm[Hg] 65 mm[Hg] eCW1 ([facility]) Body weight [lb_av] eCW1 ([facility]) Body height [in_i] eCW1 ([facility]) Body mass index (BMI) [Ratio] 30.16 kg/m2 30.16 kg/m2 eCW1 ([facility]) Heart rate 79 /min 79 /min eCW1 ([facility], [facility]) Respiratory rate 18 /min 18 /min eCW1 ([facility]) Body temperature 98.7 [degF] 98.7 [degF] eCW1 ( [facility]) Systolic blood pressure 138 mm[Hg] 138 mm[Hg] e CW1 ([facility]) Diastolic blood pressure 79 mm[Hg] 79 mm[Hg] eCW1 ([facility]) Body mass index (BMI) [Ratio] 29.3 kg/m2 29.3 k g/m2 [facility] ([facility], ) Body weight 176.00 [lb_av] 176.00 [lb_av] MEDEN T ([facility], ) Body weight 79.834 kg 79.834 kg [facility] ([facility], ) [place] body weight 125 [lb_av] 125 [lb_av] MEDEN T ([facility], ) Oxygen saturation in Arterial blood by Pulse oximetry 96 % 96 % [facility], ) Room Air Body height 65 [in_i] 65 [in_i] [facility], ) 5'5" Body surface area Derived from formula 1.87 m2 1.87 m2 [facility] ([facility]) Systolic blood pressure 118 mm[Hg] 118 mm[Hg] [facility] Diastolic blood pressure 80 mm[Hg] 80 mm[Hg] [facility] ([facility]) Heart rate 80 /min 80 /min [facility] ([facility]) Oxygen saturation in Arterial blood by Pulse oximetry 96 % 96 % [facility] ([facility]) Room Air Body height 65 [in_i] 65 [in_i] [facility] ([facility]) 5'5" Body weight 176.00 [lb_av] 176.00 [lb_av] [facility] Body mass index (BMI) [Ratio] 29.3 kg/m2 29.3 k g/m2 [facility] ([facility]) [place] body weight 125 [lb_av] 125 [lb_av] [facility] Body weight 79.834 kg 79.834 kg [facility] ([facility]) Body surface area Derived from formula 1.87 m2 1.87 m2 [facility] ([facility]) ID Date Data Source [id number] 07/22/2020 10:16:51 AM EDT [facility] Name Value Range Interpretation Code Description Data Source(s) WEIGHT RECORDED 175.49 lb 175.49 lb [facility] WEIGHT RECORDED 176.15 lb 176.15 lb [facility] Body height Measured 64 in 64 in [facility] WEIGHT RECORDED 179.1 lb 179.1 lb [facility] WEIGHT RECORDED 173 lb 173 lb [facility] Body height Measured 64 in 64 in [facility] TRANSFER FROM [facility] Patient Treatment Plan of Care Planned Activity Planned Date Details Description Data Source (s) Glucometer 07/29/2020 12:00:00 AM EDT e CW1 ([facility]) Glucometer 07/29/2020 12:00:00 AM EDT e CW1 ([facility]) Glucometer 07/29/2020 12:00:00 AM EDT e CW1 ([facility]) Glucometer 07/29/2020 12:00:00 AM EDT e CW1 ([facility]) Glucometer 07/29/2020 12:00:00 AM EDT e CW1 ([facility]) Glucometer 07/29/2020 12:00:00 AM EDT e CW1 ([facility]) Nadolol 40 MG Oral Tablet 07/17/2020 12:00:00 AM [facility] Nadolol 20 MG Oral Tablet 07/17/2020 12:00:00 AM [facility] pantoprazole 40 MG Delayed Release Oral Tablet 07/16/2020 12:00:00 AM [facility] cefpodoxime 200 MG Oral Tablet 07/16/2020 12:00:00 AM [facility] Lactulose 83.3 MG/ML Oral Solution 07/16/2020 12:00:00 AM [facility] Glucagon 1 MG Injection 07/13/2020 06:16:54 PM [facility] dextrose 50 % IV solution 25 mL 07/12/2020 12:28:39 PM [facility] Glucose 0.417 MG/MG Oral Gel 07/12/2020 12:28:39 PM [facility] Blood Glucose Test - 07/08/2020 12:00:00 AM EDT eCW1 ([facility]) Hydrochlorothiazide 25 MG Oral Tablet 06/30/2020 12:00:00 AM [facility] pantoprazole 40 MG Delayed Release Oral Tablet 06/26/2020 12:00:00 AM [facility] carvedilol 25 MG Oral Tablet 06/26/2020 12:00:00 AM [facility] Losartan Potassium 100 MG Oral Tablet 06/24/2020 12:00:00 AM [facility] Metformin hydrochloride 500 MG Oral Tablet 06/19/2020 12:00:00 AM [facility] Spironolactone 25 MG Oral Tablet 05/07/2020 12:00:00 AM [facility] Carbamazepine 200 MG Oral Tablet 05/06/2020 12:00:00 AM [facility] benzonatate 100 MG Oral Capsule [Saranya Field] 01/29/2020 12: 00:00 AM EDT eCW1 ([facility]) benzonatate 100 MG Oral Capsule [Carylsalon Emir] 01/29/2020 12: 00:00 AM EDT eCW1 ([facility]) Folic Acid 1 MG Oral Tablet 12/26/2019 12:00:00 AM [facility] Fluoxetine 20 MG Oral Capsule 12/26/2019 12:00:00 AM [facility]
[2021-02-07] MEDS ORDERED: LACTULOSE 20 GM/30 ML SYRUP UD PO ONE (15:05)
--- OUTSIDE RECORDS SUMMARY | 2021-02-07 15:20 | CCD ---
Author Author [facility] Organization [facility] Address Unknown Phone Unavailable Care Team Providers Care Steel Sampler Name Role Phone Wooten, P Ramses Unavailable [...] Unavailable Abriss, Kvng Boyle MD Unavailable Unavailable Abrshria, Kvng Boyle MD Unavailable Unavailable Abrshira, Kvng [...] MD Unavailable Unavailable DouglasMode MD Unavailable Unavailable Duoglas, Mode Tamayo MD Unavailable Unavailable Douglas, Mode [...] is protected by Article 27-F of the [facility] Public Health law. If you continue you may have access to information: Regarding HIV / AIDS; Provided by facilities licensed or operated by the [facility] Office of Mental Health; or Provided by the [facility] Office for People With Developmental Disabilities. If such information is present, then the following [facility] mandated warning applies: This information has been [...] law may result in a fine or retirement sentence or both. A general authorization for the release of medical or other information is NOT sufficient authorization for further disc losure. Family History Family Member Name Family Member Gender Family Member Status Date o f Status Description Data Source(s) Unknown Unknown Problem MEDENT ([facility]) Unknown Male Problem MEDENT ([facility]) Unknown Female Problem MEDENT ([facility]) Unknown Unknown Problem [facility] ([facility] Encounters Encounter Providers Location Date Indications Data Source(s ) Outpatient Attender: Satya HurtadoAttender: SATYA MERRITT 05/27/2021 12:00:00 AM [facility] Outpatient Attender: PAYTON Silver/Stefanie/Damaso narvaez/Maria D 11/26/2020 08:30:00 AM EDT MEDENT ([facility]) [place] [address] [address] 11/26/2020 12:00:00 AM EDT eCW1 ([facility]) [place] [address] [address] 11/10/2020 12:00:00 AM EDT eCW1 ([facility]) [place] [address] [address] 11/07/2020 12:00:00 AM EDT eCW1 ([facility]) [place] [address] [address] 11/04/2020 12:00:00 AM EDT eCW1 ([facility]) [place] [address] [address] 11/04/2020 12:00:00 AM EDT eCW1 ([facility]) [place] [address] [address] 11/03/2020 12:00:00 AM EDT eCW1 ([facility]) [place] [address] [address] 10/29/2020 12:00:00 AM EDT eCW1 ([facility]) [place] [address] [address] 09/30/2020 12:00:00 AM EDT eCW1 ([facility]) [place] [address] [address] 09/23/2020 12:00:00 AM EDT eCW1 ([facility]) Outpatient Attender: [place] Silver/Stefanie/Thomas/Re indl 08/07/2020 10:15:00 AM EDT MEDENT ([facility]) [place] [address] [address] 07/29/2020 12:00:00 AM EDT eCW1 ([facility]) [place] [address] [address] 07/28/2020 12:00:00 AM EDT eCW1 ([facility] [place] [address] [address] 07/23/2020 12:00:00 AM EDT eCW1 ([facility]) Inpatient Attender: JIGNESH Fredide er: Anupa Faustino MDAttender: SUSHANT MULLEN MDAttender: TANIA DENG MDAttender: CRISTHIAN HADZIPASIC MDAttender: Ramses SepulvedaaraAdmitter: CRISTHIAN HADZIPASIC MDReferrer: CRISTHIAN HADZIPASIC MDConsultant: Anupa Faustino MDConsultant: PATRICIA KATHERYN [id number] 07/11/2020 12:00:00 AM EDT - 07/16/2020 06:25:00 PM EDT Hematemesis [facility] Hematemesis Patient discharged. [place] [address] [address] 07/04/2020 12:00:00 AM EST eCW1 ([facility]) [place] [address] [address] 07/03/2020 12:00:00 AM EST eCW1 ([facility]) [place] [address] [address] 04/29/2020 12:00:00 AM EST eCW1 ([facility]) [place] [address] [address] 04/09/2020 12:00:00 AM EST eCW1 ([facility]) [place] [address] [address] 04/03/2020 12:00:00 AM EST eCW1 ([facility]) [place] [address] [address] 03/24/2020 12:00:00 AM EST eCW1 ([facility]) [place] [address] [address] 02/26/2020 12:00:00 AM EST eCW1 ([facility]) [place] [address] [address] 02/18/2020 12:00:00 AM EDT eCW1 ([facility]) Outpatient Attender: Vanessa MERA [email or web address] 12:00:00 AM EDT - 02/15/2020 02:27:44 PM EDT [facility] Out[place] [address] [address] 01/29/2020 12:00:00 AM EDT eCW1 ([facility]) Outpatient Attender: Roni Silver/Princess/Nicole velasco 01/03/2020 01:00:00 PM EDT MEDDON ([facility] ) Immunizations Vaccine Date Status Description Data Source(s) influenza, recombinant, quadrIvalent,injectable, prese rvative free 01/29/2020 04:52:00 PM EDT completed eCW1 ([facility]) influenza, recombinant, quadrIvalent,injectable, prese rvative free 01/29/2020 04:52:00 PM EDT completed eCW1 ([facility]) influenza, recombinant, quadrIvalent,injectable, prese rvative free 01/29/2020 04:52:00 PM EDT completed eCW1 ([facility]) influenza, recombinant, quadrIvalent,injectable, prese rvative free 01/29/2020 04:52:00 PM EDT completed eCW1 ([facility]) influenza, recombinant, quadrIvalent,injectable, prese rvative free 01/29/2020 04:52:00 PM EDT completed eCW1 ([facility]) influenza, recombinant, quadrIvalent,injectable, prese rvative free 01/29/2020 04:52:00 PM EDT completed eCW1 ([facility]) influenza, recombinant, quadrIvalent,injectable, prese rvative free 01/29/2020 04:52:00 PM EDT completed eCW1 ([facility]) influenza, recombinant, quadrIvalent,injectable, prese rvative free 01/29/2020 04:52:00 PM EDT completed eCW1 ([facility]) influenza, recombinant, quadrIvalent,injectable, prese rvative free 01/29/2020 04:52:00 PM EDT completed eCW1 ([facility]) influenza, recombinant, quadrIvalent,injectable, prese rvative free 01/29/2020 04:52:00 PM EDT completed eCW1 ([facility]) influenza, recombinant, quadrIvalent,injectable, prese rvative free 01/29/2020 04:52:00 PM EDT completed eCW1 ([facility]) influenza, recombinant, quadrIvalent,injectable, prese rvative free 01/29/2020 04:52:00 PM EDT completed eCW1 ([facility]) influenza, recombinant, quadrIvalent,injectable, prese rvative free 01/29/2020 04:52:00 PM EDT completed eCW1 ([facility]) influenza, recombinant, quadrIvalent,injectable, prese rvative free 01/29/2020 04:52:00 PM EDT completed eCW1 ([facility]) influenza, recombinant, quadrIvalent,injectable, prese rvative free 01/29/2020 04:52:00 PM EDT completed eCW1 ([facility]) influenza, recombinant, quadrIvalent,injectable, prese rvative free 01/29/2020 04:52:00 PM EDT completed eCW1 ([facility]) influenza, recombinant, quadrIvalent,injectable, prese rvative free 01/29/2020 04:52:00 PM EDT completed eCW1 ([facility]) influenza, recombinant, quadrIvalent,injectable, prese rvative free 01/29/2020 04:52:00 PM EDT completed eCW1 ([facility]) influenza, recombinant, quadrIvalent,injectable, prese rvative free 01/29/2020 04:52:00 PM EDT completed eCW1 ([facility]) influenza, recombinant, quadrIvalent,injectable, prese rvative free 01/29/2020 04:52:00 PM EDT completed eCW1 ([facility]) influenza, recombinant, quadrIvalent,injectable, prese rvative free 01/29/2020 04:52:00 PM EDT completed eCW1 ([facility]) pneumococcal polysaccharide PPV23 01/29/2020 04:51:00 PM EDT comple bola eCW1 ([facility]) pneumococcal polysaccharide PPV23 01/29/2020 04:51:00 PM EDT comple bola eCW1 ([facility]) pneumococcal polysaccharide PPV23 01/29/2020 04:51:00 PM EDT comple bola eCW1 ([facility]) pneumococcal polysaccharide PPV23 01/29/2020 04:51:00 PM EDT comple bola eCW1 ([facility]) pneumococcal polysaccharide PPV23 01/29/2020 04:51:00 PM EDT comple bola eCW1 ([facility]) pneumococcal polysaccharide PPV23 01/29/2020 04:51:00 PM EDT comple bola eCW1 ([facility]) pneumococcal polysaccharide PPV23 01/29/2020 04:51:00 PM EDT comple bloa eCW1 ([facility]) pneumococcal polysaccharide PPV23 01/29/2020 04:51:00 PM EDT comple bola eCW1 ([facility]) pneumococcal polysaccharide PPV23 01/29/2020 04:51:00 PM EDT comple bola eCW1 ([facility]) pneumococcal polysaccharide PPV23 01/29/2020 04:51:00 PM EDT comple bola eCW1 ([facility]) pneumococcal polysaccharide PPV23 01/29/2020 04:51:00 PM EDT comple bola eCW1 ([facility]) pneumococcal polysaccharide PPV23 01/29/2020 04:51:00 PM EDT comple bola eCW1 ([facility]) pneumococcal polysaccharide PPV23 01/29/2020 04:51:00 PM EDT comple bola eCW1 ([facility]) pneumococcal polysaccharide PPV23 01/29/2020 04:51:00 PM EDT comple bola eCW1 ([facility]) pneumococcal polysaccharide PPV23 01/29/2020 04:51:00 PM EDT comple bola eCW1 ([facility]) pneumococcal polysaccharide PPV23 01/29/2020 04:51:00 PM EDT comple bola eCW1 ([facility]) pneumococcal polysaccharide PPV23 01/29/2020 04:51:00 PM EDT comple bola eCW1 ([facility]) pneumococcal polysaccharide PPV23 01/29/2020 04:51:00 PM EDT comple bola eCW1 ([facility]) pneumococcal polysaccharide PPV23 01/29/2020 04:51:00 PM EDT comple bola eCW1 ([facility]) pneumococcal polysaccharide PPV23 01/29/2020 04:51:00 PM EDT comple bola eCW1 ([facility]) pneumococcal polysaccharide PPV23 01/29/2020 04:51:00 PM EDT comple bola eCW1 ([facility]) Medications Medication Brand Name Start Date Product [...] MOUTH THREE TIMES A DAY SOLD: 01/05/2021 [facility] 20 mg 09/23/2020 12:00:00 AM EDT [...] 07/29/2020 12:00:00 AM EDT active Glucometer eCW1 ([facility]) Glucometer UNK 07/29/2020 12:00:00 AM EDT active Glucometer eCW1 ([facility]) Glucometer UNK 07/29/2020 12:00:00 AM EDT active Glucometer eCW1 ([facility]) Glucometer UNK 07/29/2020 12:00:00 AM EDT active Glucometer eCW1 ([facility]) Glucometer UNK 07/29/2020 12:00:00 AM EDT active Glucometer eCW1 ([facility]) Glucometer UNK 07/29/2020 12:00:00 AM EDT active Glucometer eCW1 ([facility]) Glucometer UNK 07/29/2020 12:00:00 AM EDT active Glucometer eCW1 ([facility]) Glucometer UNK 07/29/2020 12:00:00 AM EDT active Glucometer eCW1 ([facility]) Glucometer UNK 07/29/2020 12:00:00 AM EDT active Glucometer eCW1 ([facility]) Glucometer UNK 07/29/2020 12:00:00 AM EDT active Glucometer eCW1 ([facility]) Glucometer UNK 07/29/2020 12:00:00 AM EDT active Glucometer eCW1 ([facility]) 10 gram/15 mL 07/17/2020 12:00:00 AM EDT [...] ctive Take 1 tablet by mouth daily [facility] Nadolol 20 MG Oral Tablet Nadolol 20 MG Oral Tablet (C ORGARD) Nadolol 20 MG Oral Tablet (CORGARD) 07/17/2020 12:00:00 AM EDT 20 mg Oral a borted Take 1 tablet by mouth daily [facility] 20 mg 07/17/2020 12:00:00 AM EDT tablet [...] 30 doses
Do not crush or chew
[facility] Medication administered onsite Nadolol 20 MG Oral Tablet nadolol (CORGARD) tablet 20 mg nadolol (CORGARD) tablet 20 mg 07/16/2020 04:30:00 PM EDT 20 mg Oral activ e 20 mg, Oral, Once, Tue07/16/20 at 1630, For 1 dose [facility] Medication administered onsite pantoprazole 40 MG Delayed Release Oral Tablet pantoprazole (PROTONIX) EC tablet 40 mg pantoprazole (PROTONIX) EC tablet 40 mg 07/16/2020 09:00:00 AM E DT 40 mg Oral aborted 40 mg, Ora l, Daily Standard, First dose on Tue07/16/20 at 0900, For 30 days
Do not crush or chew
[facility] Medication administered onsite potassium chloride (K-DUR) dissolvable tablet 20 mEq 19866-4 99-01 07/16/2020 08:00:00 AM EDT 20 meq Oral completed 20 mEq, Oral, Every 4 hours, First dose on Tue07/16/20 at 0800, For 2 doses
Do not crush or chew
[facility] Medication administered onsite pantoprazole 40 MG Delayed Release Oral Tablet Pantoprazole Sodium 40 MG Oral Tablet Delayed Release (PROTONIX) Pantoprazole Sodium 40 MG Oral Tablet De layed Release (PROTONIX) 07/16/2020 12:00:00 AM EDT 40 mg Oral active Take 1 tablet by mouth Two Times Daily [facility] cefpodoxime 200 MG Oral Tablet Cefpodoxime Proxetil 20 0 MG Oral Tablet (VANTIN) Cefpodoxime Proxetil 200 MG Oral Tablet (VANTIN) 07/16/2020 12:00:00 AM EDT 200 mg Oral active Take 1 tablet by mouth T wo Times Daily for 2 days [facility] Lactulose 83.3 MG/ML Oral Solution Lactulose 10 GM Ora l Packet (CEPHULAC) Lactulose 10 GM Oral Packet (CEPHULAC) 07/16/2020 12:00:00 AM EDT 10 g Oral active Take 1 packet by mouth Three times daily [facility] insulin lispro (HUMALOG) injection LOW D OSE CLEAR LIQUID INSULIN patients 1-8 Units 26060-371-38 07/15/2020 08:00:00 AM EDT U Subcutaneous active 1-8 Units, Subcutaneous, Three Times Daily-With Meals, First dose on Tue07/15/20 at 0800, For 30 days
Nursing MUST open the 'SQ Insulin Dosing Charts' Sidebar Report, or, the Patient Summary or Summary Report within the ED.
[facility] Medication administered onsite 50 ML Magnesium Sulfate 40 MG/ML Injecti on magnesium sulfate infusion 2 g/50 mL (premix) magnesium sulfate infusion 2 g/50 mL (premix) 07/15/19 09:15:00 AM EDT 2 g Intravenous completed 2 g, Intravenous, Administer over 60 Minutes, Once, Tue07/14/20 at 0915, For 1 dose [facility] Medication administered onsite calcium gluconate 2 g in sodium chloride 0.9 % 50 mL IVPB 07/14/2020 09:00:00 AM EDT 2 g Intravenous completed 2 g, Intravenous, Administer over 60 Minutes, Once, Tue07/14/20 at 0900, For 1 dose
Dosed in mg of calcium gluconate. 1 g calcium gluconate = 93 mg elemental calcium = 4.65 mEq elemental calcium.
[facility] Medication administered onsite Nadolol 20 MG Oral Tablet nadolol (CORGARD) tablet 20 mg nadolol (CORGARD) tablet 20 mg 07/14/2020 09:00:00 AM EDT 20 mg Oral abort ed 20 mg, Oral, Daily Standard, First dose on Tue07/14/20 at 0900, For 30 days [facility] Medication administered onsite Acetaminophen 10 MG/ML Injectable Soluti on acetaminophen (OFIRMEV) infusion 1,000 mg acetaminophen (OFIRMEV) infusion 1,000 mg 07/13/2020 07:00:00 PM EDT 1000 mg Intravenous completed 1,000 mg , Intravenous, Once, Tue07/13/20 at 1900, For 1 dose
Maximum daily dose of acetaminophen is 3,000 mg from all sources in 24 hours.
[facility] Medication administered onsite insulin lispro (HUMALOG) injection LOW DOSE NPO INSULI N patients 1-5 Units [id number] 07/13/2020 06:30:00 PM EDT U Subcutaneous aborted 1-5 Units, Subcutaneous, Every 4 hours, First dose on 07/13/20 at 1830, For 30 days
Nursing MUST open the 'SQ Insulin Dosing Charts' Sidebar Report, or, the Patient Summary or Summary Report within the ED.
[facility] Medication administered onsite Glucagon 1 MG Injection glucagon (human recombinant) ( GLUCAGEN) injection 1 mg glucagon (human recombinant) (GLUCAGEN) injection 1 mg 07/13/2020 06:16:54 PM EDT 1 mg Intramuscular active 1 mg, Intramuscular, PRN, for glucose <55 without IV access, Starting 07/13/20 at 1816, For 30 days [facility] Medication administered onsite pantoprazole (PROTONIX) 0.4 mg/mL in sodium chloride 0.9 % 2 50 mL infusion 07/13/2020 06:00:00 PM EDT 8 mg/h Intravenous aborted 8 mg/hr (20 mL/hr), Intravenous, at 20 mL/hr, Continuous, Starting 07/13/20 at 1800, For 30 days
Indication: Active GI bleed [facility] Medication administered onsite ondansetron (ZOFRAN) injection 4 mg [id number] 07/13/2020 04:51:3 2 PM EDT 4 mg Intravenous completed 4 mg, In travenous, Once PRN, Nausea, Vomiting, Starting 07/13/20 at 1651, For 1 dose, Recovery [facility] Medication administered onsite 2 ML Metoclopramide 5 MG/ML Prefilled Sy ringe metoclopramide (REGLAN) injection 10 mg metoclopramide (REGLAN) injection 10 mg 07/13/2020 11:43:31 AM E DT 10 mg Intravenous active 10 mg, I ntravenous, Every 6 hours PRN, Nausea, Starting 07/13/20 at 1143, For 30 days [facility] Medication administered onsite Acetaminophen 10 MG/ML Injectable Soluti on acetaminophen (OFIRMEV) infusion 1,000 mg acetaminophen (OFIRMEV) infusion 1,000 mg 07/13/2020 11:30:00 AM EDT 1000 mg Intravenous completed 1,000 mg , Intravenous, Once, 07/13/20 at 1130, For 1 dose
Maximum daily dose of acetaminophen is 3,000 mg from all sources in 24 hours.
[facility] Medication administered onsite octreotide (SANDOSTATIN) 5 mcg/mL in sodium chloride 0.9 % 2 50 mL infusion 07/12/2020 05:00:00 PM EDT 50 ug/h Intravenous aborted 50 mcg/hr (10 mL/hr), Intravenous, at 10 mL/hr, Continuous, Starting 07/12/20 at 1700, For 30 days [facility] Medication administered onsite Lactulose 83.3 MG/ML Oral Solution lactulose (CEPHULAC ) packet 10 g lactulose (CEPHULAC) packet 10 g 07/12/2020 05:00:00 PM EDT 10 g Oral active 10 g, Oral, Three Times Daily Standard, First dose on 07/12/20 at 1700, For 30 days
Dissolve in 4 oz water
[facility] Medication administered onsite 1 ML Octreotide 0.05 MG/ML Prefilled Syr girish octreotide (SANDOSTATIN) injection 50 mcg octreotide (SANDOSTATIN) injection 50 mcg 07/12/2020 05:00:00 PM EDT 50 ug Intravenous completed 50 mcg, Intravenous, Once, 07/12/20 at 1700, For 1 dose [facility] Medication administered onsite iohexol (OMNIPAQUE) 300 MG/ML contrast injection 100 mL [id number] 07/12/2020 02:00:00 PM EDT 100 mL Given by IV completed 100 mL, Given by IV, 1 TIME IMAGING, 07/12/20 at 1400, For 1 dose [facility] Medication administered onsite insulin lispro (HumaLOG) injection LOW DOSE EATING INS ULIN patients 1-8 Units [id number] 07/12/2020 01:00:00 PM EDT U Subcutaneous aborted 1-8 Units, Subcutaneous, Three Times Daily-With Meals, First dose on 07/12/20 at 1300, For 30 days
Nursing MUST open the 'SQ Insulin Dosing Charts' Sidebar Report, or, the Patient Summary or Summary Report within the ED.
[facility] Medication administered onsite Glucose 0.417 MG/MG Oral Gel glucose (GLUTOSE) 40 % or al gel 15 g glucose (GLUTOSE) 40 % oral gel 15 g 07/12/2020 12:28:39 PM EDT 15 g Oral active 15 g, Oral, PRN, Low blood s ugar, for gluose 55-69 mg/dl and able to take PO, Starting 07/12/20 at 1228, For 30 days [facility] Medication administered onsite dextrose 50 % IV solution 25 mL [id number] 07/12/2020 12:28:39 PM E DT 25 mL Intravenous active 25 mL, Intrav enous, PRN, Other, blood glucose <55, Starting 07/12/20 at 1228, For 30 days
Not for midline administration.
[facility] Medication administered onsite Propranolol Hydrochloride 10 MG Oral Tablet propranolo l (INDERAL) tablet 10 mg propranolol (INDERAL) tablet 10 mg 07/12/2020 09:00:00 AM EDT 10 mg Oral aborted 10 mg, Oral, 2 Times Daily, First dose on 07/12/20 at 0900, For 30 days
Check vital signs before administering
[facility] Medication administered onsite multivitamin tablet 1 tablet [id number] 07/12/2020 09:00:00 AM EDT 1 {tbl} Oral active 1 tablet, Oral , Daily Standard, First dose on 07/12/20 at 0900, For 30 days [facility] Medication administered onsite pantoprazole 4 MG/ML Injectable Solution pantoprazole (PROTONIX) injection 40 mg pantoprazole (PROTONIX) injection 40 mg 07/11/2020 09:00:00 PM EDT 40 mg Intravenous aborted 40 mg, Intrav enous, Every 12 hours Standard (2 times per day), First dose on Tue07/11/20 at 2100, For 30 days
Dilute with 10 mL of 0.9% NaCl.Give IVP over 2 minutes. Flush before and after.
[facility] Medication administered onsite Lactulose 83.3 MG/ML Oral Solution lactulose (CEPHULAC ) packet 10 g lactulose (CEPHULAC) packet 10 g 07/11/2020 07:00:00 PM EDT 10 g Oral completed 10 g, Oral, Once, Tue07/11/20 at 1900, For 1 dose
Dissolve in 4 oz water
[facility] Medication administered onsite sodium chloride 0.9 % infusion [id number] 07/11/2020 11:01:04 AM EDT completed Starting 06/23 at 1101, For 1 dose
Amelia Yusuf: antoniat override
[facility] Medication administered onsite Carbamazepine 200 MG Oral Tablet carBAMazepine (TEGRET OL) tablet 200 mg carBAMazepine (TEGRETOL) tablet 200 mg 07/11/2020 09:00:00 AM EDT 2 00 mg Oral active 200 mg, Oral, T hree Times Daily Standard, First dose on Tue07/11/20 at 0900, For 30 days [facility] Medication administered onsite Acetaminophen 325 MG Oral [...] mg from all sources in 24 hours.
[facility] Medication administered onsite Calcium Chloride 0.0014 MEQ/ML / Potassi um Chloride 0.004 MEQ/ML / Sodium Chloride 0.103 MEQ/ML / Sodium Lactate 0.028 MEQ/ML Injectable Solution lactated ringers infusion lactated ringers infusion 07/11/2020 07:15:00 AM EDT 100 mL/h Intravenous completed at 100 m L/hr, Intravenous, Continuous, Starting Tue07/11/20 at 0715, For 24 hours [facility] Medication administered onsite Ceftriaxone 1000 MG Injection cefTRIAXone (ROCEPHIN) I VPB (premix) 1 g cefTRIAXone (ROCEPHIN) IVPB (premix) 1 g 07/11/2020 07:15:00 AM EDT 1 g Intravenous active 1 g, Intraven ous, at 100 mL/hr, Every 24 hours, First dose on Tue07/11/20 at 0715, For 7 days
Discouraged Uses: Empiric treatment of post-surgical meningitis (ceftazidime preferred)
[facility] Medication administered onsite insulin lispro (HUMALOG) injection LOW DOSE NPO INSULI N patients 1-5 Units [id number] 07/11/2020 06:45:00 AM EDT U Subcutaneous aborted 1-5 Units, Subcutaneous, Every 4 hours, First dose on Tue07/11/20 at 0645, For 30 days
Nursing MUST open the 'SQ Insulin Dosing Charts' Sidebar Report, or, the Patient Summary or Summary Report within the ED.
[facility] Medication administered onsite lactated ringers bolus 1,000 mL [id number] 07/11/2020 05:15:00 AM EDT 1000 mL Intravenous completed 1,000 mL , Intravenous, Once, Tue07/11/20 at 0515, For 1 dose [facility] Medication administered onsite octreotide (SANDOSTATIN) 5 mcg/mL in sodium chloride 0.9 % 2 50 mL infusion 07/11/2020 04:00:00 AM EDT 50 ug/h Intravenous aborted 50 mcg/hr (10 mL/hr), Intravenous, at 10 mL/hr, Continuous, Starting Tue07/11/20 at 0400, For 30 days [facility] Medication administered onsite pantoprazole (PROTONIX) 0.4 mg/mL in sodium chloride 0.9 % 2 50 mL infusion 07/11/2020 03:45:00 AM EDT 8 mg/h Intravenous aborted 8 mg/hr (20 mL/hr), Intravenous, at 20 mL/hr, Continuous, Starting Tue07/11/20 at 0345, For 30 days
Indication: Other (please write indication in comments) [facility] Medication administered onsite Blood Glucose Test - Blood Glucose Test - 07/08/2020 12:00:00 AM EDT active Blood Glucose Test - eCW1 (Formerly [facility], [facility]) Blood Glucose Test - Blood Glucose Test - 07/08/2020 12:00:00 AM EDT active Blood Glucose Test - eCW1 (Formerly [facility], [facility]) Blood Glucose Test - Blood Glucose Test - 07/08/2020 12:00:00 AM EDT active Blood Glucose Test - eCW1 (Formerly [facility], [facility]) BLOOD SUGAR DIAGNOSTIC 07/08/2020 12:00:00 AM EDT strip 100 USE DIRECTED TWO TIMES A DAY USE DIRECTED TWO TIMES A DAY SOLD: 12/25/[facility] Blood Glucose Test - Blood Glucose Test - 07/08/2020 12:00:00 AM EDT active Blood Glucose Test - eCW1 (Formerly [facility], [facility]) BLOOD SUGAR DIAGNOSTIC 07/08/2020 12:00:00 AM EDT strip 100 USE DIRECTED TWO TIMES A DAY USE DIRECTED TWO TIMES A DAY SOLD: 07/10/[facility] Blood Glucose Test - Blood Glucose Test - 07/08/2020 12:00:00 AM EDT active Blood Glucose Test - eCW1 (Formerly [facility], [facility]) Blood Glucose Test - Blood Glucose Test - 07/08/2020 12:00:00 AM EDT active Blood Glucose Test - eCW1 ([facility]ly [facility], [facility]) Blood Glucose Test - Blood Glucose Test - 07/08/2020 12:00:00 AM EDT active Blood Glucose Test - eCW1 (Formerly [facility], [facility]) Blood Glucose Test - Blood Glucose Test - 07/08/2020 12:00:00 AM EDT active Blood Glucose Test - eCW1 ([facility]ly [facility], [facility]) Blood Glucose Test - Blood Glucose Test - 07/08/2020 12:00:00 AM EDT active Blood Glucose Test - eCW1 ([facility]ly [facility], [facility]) Blood Glucose Test - Blood Glucose Test - 07/08/2020 12:00:00 AM EDT active Blood Glucose Test - eCW1 ([facility]ly [facility], [facility]) Blood Glucose Test - Blood Glucose Test - 07/08/2020 12:00:00 AM EDT active Blood Glucose Test - eCW1 ([facility]ly [facility], [facility]) Blood Glucose Test - Blood Glucose Test - 07/08/2020 12:00:00 AM EDT active Blood Glucose Test - eCW1 ([facility]ly [facility], [facility]) Blood Glucose Test - Blood Glucose Test - 07/08/2020 12:00:00 AM EDT active Blood Glucose Test - eCW1 ([facility]ly [facility]) Hydrochlorothiazide 25 MG Oral Tablet hy droCHLOROthiazide 25 MG Oral Tablet (HYDRODIURIL) hydroCHLOROthiazide 25 MG Oral Tablet (HYDRODIURIL) 12:00:00 AM EST 25 mg Oral active Take 25 mg by mouth daily [facility] pantoprazole 40 MG Delayed Release Oral Tablet Pantoprazole Sodium 40 MG Oral Tablet Delayed Release (PROTONIX) Pantoprazole Sodium 40 MG Oral Tablet De layed Release (PROTONIX) 06/26/2020 12:00:00 AM EST 40 mg Oral aborted Take 40 mg by mouth Two Times Daily [facility] carvedilol 25 MG Oral Tablet Carvedilol 25 MG Oral Tab let (COREG) Carvedilol 25 MG Oral Tablet (COREG) 06/26/2020 12:00:00 AM EST aborted TAKE ONE TABLET BY MOUTH TWICE A DAY WITH FOOD [facility] Losartan Potassium 100 MG Oral Tablet Lo sartan Potassium 100 MG Oral Tablet (COZAAR) Losartan Potassium 100 MG Oral Tablet (COZAAR) 12:00:00 AM EST active TAKE ONE HALF TAB LET BY MOUTH TWICE A DAY [facility] Metformin hydrochloride 500 MG Oral Tabl et metFORMIN HCl 500 MG Oral Tablet (GLUCOPHAGE) metFORMIN HCl 500 MG Oral Tablet (GLUCOPHAGE) 06/19/19 12:00:00 AM EST 500 mg Oral active Take 500 mg by mo uth Two Times Daily [facility] 25 mg 05/07/2020 12:00:00 AM EST tablet 90 TAKE ONE TABLET BY MOUTH EVERY DAY TAKE ONE TABLET BY MOUTH EVERY DAY SOLD: 05/14/[facility] 25 mg 05/07/2020 12:00:00 AM EST tablet 90 TAKE ONE TABLET BY MOUTH EVERY DAY TAKE ONE TABLET BY MOUTH EVERY DAY SOLD: 09/02/2020 [facility] Spironolactone 25 MG Oral Tablet Spironolactone 25 MG Oral Tablet (ALDACTONE) Spironolactone 25 MG Oral Tablet (ALDACTONE) 05/07/2020 12:00:00 AM EST 25 mg Oral active Take 25 mg by mouth daily [facility] 200 mg 05/06/2020 12:00:00 AM EST tablet 90 TAKE ONE TABLET BY MOUTH THREE TIMES A DAY TAKE ONE TABLET BY MOUTH THREE TIMES A DAY SOLD: 07/28/2020 [facility] 200 mg 05/06/2020 12:00:00 AM EST [...] 200 mg by mouth Three times daily [facility] 33 gauge 04/10/2020 12:00:00 AM EST misc [...] ded} active Tessalon Perles 100 MG eCW1 ([facility]) benzonatate 100 MG Oral Capsule [Tessalon Perles] Constance santos Perles 100 MG Tessalon Perles 100 MG 01/29/2020 12:00:00 AM EDT 1.0 {capsule_as_nee ded} active Tessalon Perles 100 MG eCW1 ([facility]) benzonatate 100 MG Oral Capsule [Tessalon Perles] Constance santos Perles 100 MG Tessalon Perles 100 MG 01/29/2020 12:00:00 AM EDT 1.0 {capsule_as_nee ded} active Tessalon Perles 100 MG eCW1 ([facility]) benzonatate 100 MG Oral Capsule [Tessalon Perles] Constance santos Perles 100 MG Tessalon Perles 100 MG 01/29/2020 12:00:00 AM EDT 1.0 {capsule_as_nee ded} active Tessalon Perles 100 MG eCW1 ([facility]) benzonatate 100 MG Oral Capsule [Tessalon Perles] Constance santos Perles 100 MG Tessalon Perles 100 MG 01/29/2020 12:00:00 AM EDT 1.0 {capsule_as_nee ded} active Tessalon Perles 100 MG eCW1 ([facility]) benzonatate 100 MG Oral Capsule [Tessalon Perles] Constance santos Perles 100 MG Tessalon Perles 100 MG 01/29/2020 12:00:00 AM EDT 1.0 {capsule_as_nee ded} active Tessalon Perles 100 MG eCW1 ([facility]) benzonatate 100 MG Oral Capsule BENZONATATE 01/29/2020 [...] ded} active Tessalon Perles 100 MG eCW1 ([facility]) benzonatate 100 MG Oral Capsule [Tessalon Perles] Constance santos Perles 100 MG Tessalon Perles 100 MG 01/29/2020 12:00:00 AM EDT 1.0 {capsule_as_nee ded} active Tessalon Perles 100 MG eCW1 ([facility]) benzonatate 100 MG Oral Capsule [Tessalon Perles] Constance santos Perles 100 MG Tessalon Perles 100 MG 01/29/2020 12:00:00 AM EDT 1.0 {capsule_as_nee ded} active Tessalon Perles 100 MG eCW1 ([facility]) 200 mg 01/18/2020 12:00:00 AM EDT tablet [...] Take 20 mg by mouth every morning [facility] Folic Acid 1 MG Oral Tablet Folic Acid 1 MG Oral Table t (FOLVITE) Folic Acid 1 MG Oral Tablet (FOLVITE) 12/26/2019 12:00:00 AM EDT active TAKE ONE TABLET BY MOUTH EVERY DAY AFTER A MEAL [facility] MULTIVITAMIN 09/21/2019 12:00:00 AM EDT tablet 30 [...] type / Coverage type Policy ID Covered constitution party ID Covered constitution party's relationship to minaya Policy Minaya Plan Information [facility] I [id number] Self [id number] MEDICAID M [id number] Self [id number] MEDICARE [id number] Kelle [id number] MEDICARE [id number] M [place] Primary [id number] Self [id number] [place] Primary [id number] Self [id number] [place] Primary [id number] Self [id number] MEDICARE A [id number] Self [id number] [place] Primary [id number] Self [facility] MEDICARE DIVISION [id number] S [id number] [facility] [id number] S [id number] Medicaid [place] Medigap Part B [id number] Self [id number] [place] [id number] Self [id number] [place] [id number] [place] [id number] Self [id number] [place] Primary [id number] Self [id number] [place] Primary [id number] Self [id number] [place] Primary [id number] Self [id number] [place] Primary [id number] Self [id number] MEDICAID [id number] SP [id number] MEDICAID [id number] S [id number] MEDICAID [id number] Kelle [id number] ANS-Medicare Part B [id number] ANSI-Medicaid [id number] ANSI-Medicaid [id number] Medicaid [facility] Part B [id number] Self [id number] Medicare Natl Gov't Servi Medicare Primary [id number] Self [id number] ANS-Medicare Part B [id number] ANSI-Medicaid [id number] ANSI-Medicaid [id number] MEDICAID [id number] S [id number] [facility] MEDICARE DIVISION [id number] S [id number] MEDICARE - [place] [id number] S [id number] ANSI-Medicaid [id number] ANSI-Medicare Part B [id number] ANSI-Medicaid [id number] ANSI-Medicaid [id number] ANSI-Medicaid [id number] ANSI-Medicare Part B [id number] ANSI-Medicaid [id number] ANSI-Medicare Part B [id number] ANSI-Medicaid [id number] ANSI-Medicare Part B [id number] ANSI-Medicaid [id number] ANSI-Medicaid [id number] ANSI-Medicaid [id number] ANSI-Medicare Part B [id number] ANSI-Medicaid [id number] Medicaid [facility] Part B [id number] Self [id number] Medicare Natl Gov't Servi Medicare Primary [id number] Self [id number] Medicaid [facility] Part B [id number] Self [id number] Medicare [facility] Gov't Servi Medicare Primary [id number] Self [id number] MEDICARE [id number] SP [id number] M MEDICAID [id number] SP [id number] MEDICARE [id number] SP [id number] M MEDICARE C [id number] S [id number] [place] B [id number] Self Medicare [facility] Medicare Primary [id number] Self [facility] S [id number] S [id number] [employer] COMMUNITY PLAN MCDO [id number] SP [id number] MEDICAID GME W [id number] S [id number] PCP [facility] COMMUNITY PL O [id number] S [id number] MEDICAID W [id number] S [id number] [employer] COMMUNITY PLAN MCDO [id number] SP [id number] UNAVAILABLE UNAVAILA BLE [id number] [facility] MEDICAID [id number] SP [id number] UNAVAILABLE UNAVAILA BLE MEDICARE [id number] SP [id number] EMED[place] [id number] SP [id number] MEDICARE [id number] SP [id number] SELF PAY ONLY [id number] SP [id number] MEDICARE C [id number] S [id number] MEDICAID M [id number] S [id number] MEDICAID [id number] SP [id number] [facility] PART B C [id number] S [id number] [facility]-Medicaid [id number] [facility]-Medicaid [id number] [facility]-Medicare Part B [id number] ANSI-Medicaid [id number] ANSI-Medicaid [id number] ANSI-Medicare Part B [id number] ANSI-Medicaid [id number] ANSI-Medicare Part B [id number] ANSI-Medicaid [id number] ANSI-Medicaid [id number] ANSI-Medicaid [id number] ANSI-Medicare Part B [id number] Medicaid [place] Part [place] [id number] Self [id number] Problems, Conditions, and Diagnoses Code Display Name Description Problem Type Effective Dates Data Source(s) K92.0 Hematemesis Hematemesis Diagnosis 07/11/2020 06:26:48 AM EDT [facility] K70.30 Alcoholic cirrhosis of liver without asc ites Alcoholic cirrhosis of liver without ascites Diagnosis 07/11/2020 05:18:02 AM EDT [facility] E11.9 Type 2 diabetes mellitus without complic ations Type 2 diabetes mellitus without complications Diagnosis 07/11/2020 03:07:00 AM EDT [facility] I10 Essential (primary) hypertension Essential (primary) h ypertension Diagnosis 07/11/2020 03:07:00 AM [facility] Z20.822 Contact with and (suspected) exposure to covid-19 Contact with and (suspected) exposure to covid-19 Diagnosis 07/11/2020 03:07:00 AM [facility] N17.9 Acute kidney failure, unspecified Acute kidney f ailure, unspecified Diagnosis 07/11/2020 03:07:00 AM [facility] I85.10 Secondary esophageal varices without ble eding Secondary esophageal varices without bleeding Diagnosis 07/11/2020 03:07:00 AM [facility] R69 Illness, unspecified Illness, unspecified Diagnosis 07/11/2020 03:07:00 AM [facility] variceal bleed, hematemesis variceal bleed, hematemesi s Diagnosis 07/11/2020 03:07:00 AM [facility] E78.2 Mixed hyperlipidemia Mixed hyperlipidemia Diagnosis 02/15/2020 01:08:37 PM EDT [facility] I48.91 Unspecified atrial fibrillation Unspecified atri al fibrillation Diagnosis 02/15/2020 01:08:37 PM EDT [facility] R26.2 [id number] Impaired ambulation Problem 11/04/2020 12:00 :[address] [facility] ([facility]) K70.30 [id number] Alcoholic cirrhosis of liver without asci caryl Problem 07/23/2020 12:00:00 AM EDT eCW1 ([facility]) D61.818 [id number] Pancytopenia Problem 02/26/2020 12:00:00 AM EST eCW1 ([facility]) J44.9 [id number] Chronic obstructive pulmonary di sease, unspecified COPD type Problem 01/29/2020 12:00:00 AM EDT eCW1 ([facility] Surgeries/Procedures Procedure Description Date Indications Data Source(s) OFFICE OUTPATIENT VISIT 25 MINUTES 11/26/2020 12:00:00 AM EDT [facility] ([facility], ) OFFICE OUTPATIENT VISIT 15 MINUTES 08/07/2020 12:00:00 AM EDT [facility] ([facility], ) POCT GLUCOSE, DOCKED <td>POCT GLUCOSE, DOCKED</td ><td>Routine</td><td>07/16/2020 4:44 PM EDT</td><td></td><td> </td> 07/16/2020 04:44:00 PM [facility] BLOOD COUNT COMPLETE AUTO&AUTO DIFRNTL WBC COUNT <td>C BC AND DIFFERENTIAL</td><td>Routine</td><td>07/16/2020 4:26 PM EDT</td><td></td><td> </td> 07/16/2020 04:26:00 PM [facility] TRANSFUSE RBC (ONCE) <td>TRANSFUSE RBC (ONCE)</td ><td>STAT</td><td>07/16/2020 2:13 PM EDT</td><td></td><td></td> 07/16/2020 02:13:25 PM [facility] POCT GLUCOSE, DOCKED <td>POCT GLUCOSE, DOCKED</td ><td>Routine</td><td>07/16/2020 7:48 AM EDT</td><td></td><td> </td> 07/16/2020 07:48:00 AM [facility] BLOOD TYPING ABO <td>TYPE AND SCREEN</td><td> Routine</td><td>07/16/2020 6:52 AM EDT</td><td></td><td></td> 07/16/2020 06:52:00 AM EDT [facility] BLOOD COUNT COMPLETE AUTO&AUTO DIFRNTL WBC COUNT <td>C BC AND DIFFERENTIAL</td><td>Timed</td><td>07/16/2020 4:45 AM EDT</td><td></td><td> </td> 07/16/2020 04:45:00 AM [facility] AMMONIA <td>AMMONIA LEVEL</td><td>Ro utine</td><td>07/16/2020 4:45 AM EDT</td><td></td><td> </td> 07/16/2020 04:45:00 AM [facility] COMPREHENSIVE METABOLIC PANEL <td>COMPREHENSIVE METABO LIC PANEL</td><td>Routine</td><td>07/16/2020 4:45 AM EDT</td><td></td><td> </td> 07/16/2020 04:45:00 AM [facility] BLOOD COUNT COMPLETE AUTO&AUTO DIFRNTL WBC COUNT <td>C BC AND DIFFERENTIAL</td><td>Timed</td><td>07/16/2020 12:00 AM EDT</td><td></td><td> </td> 07/16/2020 12:00:00 AM [facility] GLUCOSE QUANTITATIVE BLOOD XCPT REAGENT STRIP <td>POCT GLUCOSE, DOCKED</td><td>Routine</td><td>07/15/2020 9:14 PM EDT</td><td></td><td> </td> 07/15/2020 09:14:00 PM [facility] BLOOD COUNT COMPLETE AUTO&AUTO DIFRNTL WBC COUNT <td>C BC AND DIFFERENTIAL</td><td>Timed</td><td>07/15/2020 6:41 PM EDT</td><td></td><td> </td> 07/15/2020 06:41:00 PM [facility] GLUCOSE QUANTITATIVE BLOOD XCPT REAGENT STRIP <td>POCT GLUCOSE, DOCKED</td><td>Routine</td><td>07/15/2020 4:56 PM EDT</td><td></td><td> </td> 07/15/2020 04:56:00 PM [facility] BLOOD COUNT COMPLETE AUTOMATED <td>CBC</td><td>STAT</t d><td>07/15/2020 1:46 PM EDT</td><td></td><td> </td> 07/15/2020 01:46:00 PM [facility] BLOOD COUNT COMPLETE AUTO&AUTO DIFRNTL WBC COUNT <td>C BC AND DIFFERENTIAL</td><td>Timed</td><td>07/15/2020 12:27 PM EDT</td><td></td><td> </td> 07/15/2020 12:27:00 PM [facility] GLUCOSE QUANTITATIVE BLOOD XCPT REAGENT STRIP <td>POCT GLUCOSE, DOCKED</td><td>Routine</td><td>07/15/2020 12:26 PM EDT</td><td></td><td> </td> 07/15/2020 12:26:00 PM [facility] GLUCOSE QUANTITATIVE BLOOD XCPT REAGENT STRIP <td>POCT GLUCOSE, DOCKED</td><td>Routine</td><td>07/15/2020 7:49 AM EDT</td><td></td><td> </td> 07/15/2020 07:49:00 AM [facility] BLOOD COUNT COMPLETE AUTO&AUTO DIFRNTL WBC COUNT <td>C BC AND DIFFERENTIAL</td><td>Timed</td><td>07/15/2020 5:53 AM EDT</td><td></td><td> </td> 07/15/2020 05:53:00 AM [facility] AMMONIA <td>AMMONIA LEVEL</td><td>Ro utine</td><td>07/15/2020 5:53 AM EDT</td><td></td><td> </td> 07/15/2020 05:53:00 AM [facility] BASIC METABOLIC PANEL CALCIUM TOTAL <td>BASIC METABOLI C PANEL</td><td>Routine</td><td>07/15/2020 5:53 AM EDT</td><td></td><td> </td> 07/15/2020 05:53:00 AM [facility] BLOOD COUNT COMPLETE AUTO&AUTO DIFRNTL WBC COUNT <td>C BC AND DIFFERENTIAL</td><td>Timed</td><td>07/14/2020 11:51 PM EDT</td><td></td><td> </td> 07/14/2020 11:51:00 PM [facility] GLUCOSE QUANTITATIVE BLOOD XCPT REAGENT STRIP <td>POCT GLUCOSE, DOCKED</td><td>Routine</td><td>07/14/2020 10:09 PM EDT</td><td></td><td> </td> 07/14/2020 10:09:00 PM [facility] GLUCOSE QUANTITATIVE BLOOD XCPT REAGENT STRIP <td>POCT GLUCOSE, DOCKED</td><td>Routine</td><td>07/14/2020 8:25 PM EDT</td><td></td><td> </td> 07/14/2020 08:25:00 PM [facility] BLOOD COUNT COMPLETE AUTO&AUTO DIFRNTL WBC COUNT <td>C BC AND DIFFERENTIAL</td><td>Timed</td><td>07/14/2020 5:45 PM EDT</td><td></td><td> </td> 07/14/2020 05:45:00 PM [facility] GLUCOSE QUANTITATIVE BLOOD XCPT REAGENT STRIP <td>POCT GLUCOSE, DOCKED</td><td>Routine</td><td>07/14/2020 3:49 PM EDT</td><td></td><td> </td> 07/14/2020 03:49:00 PM [facility] BLOOD COUNT COMPLETE AUTO&AUTO DIFRNTL WBC COUNT <td>C BC AND DIFFERENTIAL</td><td>Timed</td><td>07/14/2020 12:01 PM EDT</td><td></td><td> </td> 07/14/2020 12:01:00 PM [facility] GLUCOSE QUANTITATIVE BLOOD XCPT REAGENT STRIP <td>POCT GLUCOSE, DOCKED</td><td>Routine</td><td>07/14/2020 11:58 AM EDT</td><td></td><td> </td> 07/14/2020 11:58:00 AM [facility] GLUCOSE QUANTITATIVE BLOOD XCPT REAGENT STRIP <td>POCT GLUCOSE, DOCKED</td><td>Routine</td><td>07/14/2020 8:05 AM EDT</td><td></td><td> </td> 07/14/2020 08:05:00 AM [facility] GLUCOSE QUANTITATIVE BLOOD XCPT REAGENT STRIP <td>POCT GLUCOSE, DOCKED</td><td>Routine</td><td>07/14/2020 6:16 AM EDT</td><td></td><td> </td> 07/14/2020 06:16:00 AM [facility] PROTHROMBIN TIME <td>PROTIME INR</td><td>Rout ine</td><td>07/14/2020 6:12 AM EDT</td><td></td><td> </td> 07/14/2020 06:12:00 AM [facility] BLOOD COUNT COMPLETE AUTO&AUTO DIFRNTL WBC COUNT <td>C BC AND DIFFERENTIAL</td><td>Timed</td><td>07/14/2020 6:12 AM EDT</td><td></td><td> </td> 07/14/2020 06:12:00 AM [facility] PHOSPHORUS INORGANIC <td>PHOSPHORUS LEVEL</td><td >Routine</td><td>07/14/2020 6:12 AM EDT</td><td></td><td> </td> 07/14/2020 06:12:00 AM [facility] MAGNESIUM <td>MAGNESIUM LEVEL</td><td> Routine</td><td>07/14/2020 6:12 AM EDT</td><td></td><td> </td> 07/14/2020 06:12:00 AM [facility] CALCIUM IONIZED <td>CALCIUM, IONIZED</td><td >Routine</td><td>07/14/2020 6:12 AM EDT</td><td></td><td> </td> 07/14/2020 06:12:00 AM [facility] BASIC METABOLIC PANEL CALCIUM TOTAL <td>BASIC METABOLI C PANEL</td><td>Routine</td><td>07/14/2020 6:12 AM EDT</td><td></td><td> </td> 07/14/2020 06:12:00 AM [facility] TRANSFUSE RBC (ONCE) <td>TRANSFUSE RBC (ONCE)</td ><td>STAT</td><td>07/14/2020 5:48 AM EDT</td><td></td><td></td> 07/14/2020 05:48:43 AM [facility] GLUCOSE QUANTITATIVE BLOOD XCPT REAGENT STRIP <td>POCT GLUCOSE, DOCKED</td><td>Routine</td><td>07/14/2020 2:23 AM EDT</td><td></td><td> </td> 07/14/2020 02:23:00 AM [facility] CONFIRMATORY TYPE <td>CONFIRMATORY TYPE</td><t d>Routine</td><td>07/14/2020 1:23 AM EDT</td><td></td><td> </td> 07/14/2020 01:23:00 AM [facility] BLOOD COUNT COMPLETE AUTOMATED <td>CBC</td><td>STAT</t d><td>07/14/2020 1:23 AM EDT</td><td></td><td> </td> 07/14/2020 01:23:00 AM [facility] BLOOD COUNT COMPLETE AUTO&AUTO DIFRNTL WBC COUNT <td>C BC AND DIFFERENTIAL</td><td>Timed</td><td>07/14/2020 12:25 AM EDT</td><td></td><td> </td> 07/14/2020 12:25:00 AM [facility] GLUCOSE QUANTITATIVE BLOOD XCPT REAGENT STRIP <td>POCT GLUCOSE, DOCKED</td><td>Routine</td><td>07/13/2020 10:35 PM EDT</td><td></td><td> </td> 07/13/2020 10:35:00 PM [facility] XR ABDOMEN AP ABD SUPINE ONLY [id number] <td>XR ABDOMEN AP ABD SUPINE ONLY [id number]</td><td>STAT</td><td>07/13/2020 9:01 PM EDT</td><td></td><td> </td> 07/13/2020 09:01:23 PM [facility] GLUCOSE QUANTITATIVE BLOOD XCPT REAGENT STRIP <td>POCT GLUCOSE, DOCKED</td><td>Routine</td><td>07/13/2020 6:14 PM EDT</td><td></td><td> </td> 07/13/2020 06:14:00 PM [facility] GLUCOSE QUANTITATIVE BLOOD XCPT REAGENT STRIP <td>POCT GLUCOSE, DOCKED</td><td>Routine</td><td>07/13/2020 5:14 PM EDT</td><td></td><td> </td> 07/13/2020 05:14:00 PM [facility] UPPER GI ENDOSCOPY; DX, W/WO SPECIMEN COLLECTION, BRUS MARILU/WASHING (SEP PROC) <td>UPPER GI ENDOSCOPY; DX, W/WO SPECIMEN COLLECTION, BRUSHING/WASHING (SEP PROC)</td><td></td><td>07/13/2020 4:30 PM EDT</td><td> hematemesis</td><td></td> 07/13/2020 04:30:00 PM EDT - 07/13/2020 05:02:00 PM [facility] DUP-SCAN ARTL CHENG ABDL/PEL/SCROT&/RPR ORGN LMTD <td>US DOPPLER ABDOMEN PELVIS ORGANS LIMITED [id number]</td><td>Routine</td><td>07/13/2020 12:47 PM EDT</td><td></td><td> </td> 07/13/2020 12:47:50 PM EDT [facility] US PELVIC NONOBSTETRIC REAL-TIME IMAGE COMPLETE <td>US PELVIS COMPLETE [id number]</td><td>Routine</td><td>07/13/2020 12:47 PM EDT</td><td> Diagnosis unknown</td><td> </td> 07/13/2020 12:47:39 PM EDT Diagnosis unknown [facility] Diagnosis unknown GLUCOSE QUANTITATIVE BLOOD XCPT REAGENT STRIP <td>POCT GLUCOSE, DOCKED</td><td>Routine</td><td>07/13/2020 12:16 PM EDT</td><td></td><td> </td> 07/13/2020 12:16:00 PM [facility] GLUCOSE QUANTITATIVE BLOOD XCPT REAGENT STRIP <td>POCT GLUCOSE, DOCKED</td><td>Routine</td><td>07/13/2020 7:52 AM EDT</td><td></td><td> </td> 07/13/2020 07:52:00 AM [facility] LEVEL I SURG PATHOLOGY GROSS EXAMINATION ONLY <td>SURG ICAL PATHOLOGY EXAM ([facility] ONLY)</td><td>Routine</td><td>07/13/2020 12:00 AM EDT</td><td></td><td> </td> 07/13/2020 12:00:00 AM [facility] UPPER GI ENDOSCOPY <td>UPPER GI ENDOSCOPY</td>< td></td><td>07/13/2020 12:00 AM EDT</td><td></td><td></td> 07/13/2020 12:00:00 AM EDT [facility] GLUCOSE QUANTITATIVE BLOOD XCPT REAGENT STRIP <td>POCT GLUCOSE, DOCKED</td><td>Routine</td><td>07/12/2020 9:30 PM EDT</td><td></td><td> </td> 07/12/2020 09:30:00 PM [facility] BLOOD COUNT COMPLETE AUTO&AUTO DIFRNTL WBC COUNT <td>C BC AND DIFFERENTIAL</td><td>Timed</td><td>07/12/2020 6:51 PM EDT</td><td></td><td> </td> 07/12/2020 06:51:00 PM [facility] GLUCOSE QUANTITATIVE BLOOD XCPT REAGENT STRIP <td>POCT GLUCOSE, DOCKED</td><td>Routine</td><td>07/12/2020 4:31 PM EDT</td><td></td><td> </td> 07/12/2020 04:31:[address] [facility] [address] ABDOEN & PELVIS W/CONTRAST MATERIAL <td>CT ABDOMEN PELVIS WITH CONTRAST [id number]</td><td>Routine</td><td>07/12/2020 2:43 PM EDT</td><td></td><td> </td> 07/12/2020 02:43:28 PM [facility] GLUCOSE QUANTITATIVE BLOOD XCPT REAGENT STRIP <td>POCT GLUCOSE, DOCKED</td><td>Routine</td><td>07/12/2020 12:09 PM EDT</td><td></td><td> </td> 07/12/2020 12:09:00 PM [facility] ALPHA-FETOPROTEIN SERUM <td>AFP TUMOR MARKER</td><td >Routine</td><td>07/12/2020 8:44 AM EDT</td><td></td><td> </td> 07/12/2020 08:44:00 AM [facility] ANTIBODY HELICOBACTER PYLORI <td>H. PYLORI IGM AB</td><td>Routine</td><td>07/12/2020 8:44 AM EDT</td><td></td><td> </td> 07/12/2020 08:44:00 AM [facility] BASIC METABOLIC PANEL CALCIUM TOTAL <td>BASIC METABOLI C PANEL</td><td>Routine</td><td>07/12/2020 8:44 AM EDT</td><td></td><td> </td> 07/12/2020 08:44:00 AM [facility] GLUCOSE QUANTITATIVE BLOOD XCPT REAGENT STRIP <td>POCT GLUCOSE, DOCKED</td><td>Routine</td><td>07/12/2020 8:00 AM EDT</td><td></td><td> </td> 07/12/2020 08:00:00 AM [facility] BLOOD COUNT COMPLETE AUTO&AUTO DIFRNTL WBC COUNT <td>C BC AND DIFFERENTIAL</td><td>Timed</td><td>07/12/2020 6:48 AM EDT</td><td></td><td> </td> 07/12/2020 06:48:00 AM [facility] GLUCOSE QUANTITATIVE BLOOD XCPT REAGENT STRIP <td>POCT GLUCOSE, DOCKED</td><td>Routine</td><td>07/12/2020 4:34 AM EDT</td><td></td><td> </td> 07/12/2020 04:34:00 AM [facility] ANTIBODY HELICOBACTER PYLORI <td>HELICOBACT PYLORI AB IGG</td><td>Routine</td><td>07/12/2020 12:39 AM EDT</td><td></td><td> </td> 07/12/2020 12:39:00 AM [facility] BLOOD COUNT COMPLETE AUTO&AUTO DIFRNTL WBC COUNT <td>C BC AND DIFFERENTIAL</td><td>Timed</td><td>07/12/2020 12:39 AM EDT</td><td></td><td> </td> 07/12/2020 12:39:00 AM [facility] FOLIC ACID SERUM <td>FOLATE</td><td>Routine</ td><td>07/12/2020 12:39 AM EDT</td><td></td><td> </td> 07/12/2020 12:39:00 AM [facility] GLUCOSE QUANTITATIVE BLOOD XCPT REAGENT STRIP <td>POCT GLUCOSE, DOCKED</td><td>Routine</td><td>07/11/2020 11:33 PM EDT</td><td></td><td> </td> 07/11/2020 11:33:00 PM [facility] GLUCOSE QUANTITATIVE BLOOD XCPT REAGENT STRIP <td>POCT GLUCOSE, DOCKED</td><td>Routine</td><td>07/11/2020 7:50 PM EDT</td><td></td><td> </td> 07/11/2020 07:50:00 PM [facility] PROTHROMBIN TIME <td>PROTIME INR</td><td>Rout ine</td><td>07/11/2020 6:15 PM EDT</td><td></td><td> </td> 07/11/2020 06:15:00 PM [facility] BLOOD COUNT COMPLETE AUTO&AUTO DIFRNTL WBC COUNT <td>C BC AND DIFFERENTIAL</td><td>Timed</td><td>07/11/2020 6:15 PM EDT</td><td></td><td> </td> 07/11/2020 06:15:00 PM [facility] UPPER GI ENDOSCOPY; DX, W/WO SPECIMEN COLLECTION, BRUS MARILU/WASHING (SEP PROC) <td>UPPER GI ENDOSCOPY; DX, W/WO SPECIMEN COLLECTION, BRUSHING/WASHING (SEP PROC)</td><td></td><td>07/11/2020 4:45 PM EDT</td><td> concern for hematemesis</td><td></td> 07/11/2020 04:45:00 PM EDT - 07/11/2020 05:08:00 PM [facility] GLUCOSE QUANTITATIVE BLOOD XCPT REAGENT STRIP <td>POCT GLUCOSE, DOCKED</td><td>Routine</td><td>07/11/2020 3:46 PM EDT</td><td></td><td> </td> 07/11/2020 03:46:00 PM [facility] HEPATITIS C ANTIBODY <td>HEPATITIS C ANTIBODY</td ><td>Routine</td><td>07/11/2020 12:09 PM EDT</td><td></td><td> </td> 07/11/2020 12:09:00 PM [facility] BLOOD COUNT COMPLETE AUTO&AUTO DIFRNTL WBC COUNT <td>C BC AND DIFFERENTIAL</td><td>Timed</td><td>07/11/2020 12:09 PM EDT</td><td></td><td> </td> 07/11/2020 12:09:00 PM [facility] GLUCOSE QUANTITATIVE BLOOD XCPT REAGENT STRIP <td>POCT GLUCOSE, DOCKED</td><td>Routine</td><td>07/11/2020 11:59 AM EDT</td><td></td><td> </td> 07/11/2020 11:59:00 AM [facility] GLUCOSE QUANTITATIVE BLOOD XCPT REAGENT STRIP <td>POCT GLUCOSE, DOCKED</td><td>Routine</td><td>07/11/2020 7:40 AM EDT</td><td></td><td> </td> 07/11/2020 07:40:00 AM [facility] XR CHEST FRONTAL ONLY [id number] <td>XR CHEST FRONTAL ONLY [id number]</td><td>STAT</td><td>07/11/2020 4:39 AM EDT</td><td></td><td> </td> 07/11/2020 04:39:09 AM [facility] RESPIRATORY PATHOGEN PANEL <td>RESPIRATORY PATHOGEN PANEL</td><td>Routine</td><td>07/11/2020 3:59 AM EDT</td><td></td><td> </td> 07/11/2020 03:59:00 AM [facility] COVID-19 PCR <td>COVID-19 PCR</td><td>Rou nieves</td><td>07/11/2020 3:59 AM EDT</td><td></td><td> </td> 07/11/2020 03:59:00 AM [facility] PROTHROMBIN TIME <td>PROTIME INR</td><td>STAT </td><td>07/11/2020 3:22 AM EDT</td><td></td><td> </td> 07/11/2020 03:22:00 AM [facility] BLOOD COUNT COMPLETE AUTO&AUTO DIFRNTL WBC COUNT <td>C BC AND DIFFERENTIAL</td><td>Routine</td><td>07/11/2020 3:22 AM EDT</td><td></td><td> </td> 07/11/2020 03:22:00 AM [facility] BLOOD TYPING ABO <td>TYPE AND SCREEN</td><td> STAT</td><td>07/11/2020 3:22 AM EDT</td><td></td><td> </td> 07/11/2020 03:22:00 AM [facility] TROPONIN QUANTITATIVE <td>TROPONIN T</td><td>STAT< /td><td>07/11/2020 3:22 AM EDT</td><td></td><td> </td> 07/11/2020 03:22:00 AM [facility] LIPASE <td>LIPASE LEVEL</td><td>STA T</td><td>07/11/2020 3:22 AM EDT</td><td></td><td> </td> 07/11/2020 03:22:00 AM [facility] HEMOGLOBIN GLYCOSYLATED A1C <td>HEMOGLOBIN A1C</td><td>Routine</td><td>07/11/2020 3:22 AM EDT</td><td></td><td> </td> 07/11/2020 03:22:00 AM [facility] COMPREHENSIVE METABOLIC PANEL <td>COMPREHENSIVE METABO LIC PANEL</td><td>STAT</td><td>07/11/2020 3:22 AM EDT</td><td></td><td> </td> 07/11/2020 03:22:00 AM [facility] UPPER GI ENDOSCOPY <td>UPPER GI ENDOSCOPY</td>< td></td><td>07/11/2020 12:00 AM EDT</td><td></td><td></td> 07/11/2020 12:00:00 AM EDT [facility] RADEX FOOT COMPLETE MINIMUM 3 VIEWS 12/18/2019 12:00:0 0 AM EDT [facility] ([facility] ) Results ID Date Data Source [id number] 01/01/2021 12:41:00 PM EDT [facility] Name Value Range Interpretation Code Description Data Rosemary rce(s) Supporting Document(s) SARS-CoV-2 (COVID 19) NEGATIVE - SARS-CoV-2 (COVID19) [facility] This lab was ordered by [facility] a nd reported by [facility]. ID Date Data Source [id number] 11/26/2020 10:02:00 AM EDT [facility] ([facility], ) Name Value Range Interpretation Code Description Data Rosemayr rce(s) Supporting Document(s) Vitamin B12 Level 378 pg/mL Normal (applies to non-numeri c results) [facility] ([facility], ) VITAMIN B12 NORMAL RANGE NORMAL 247 - 911 PG/ML INDETERMINATE 211 - 246 PG/ML DEFICIENT LESS THAN 211 PG/ML Folate 7.9 ng/mL Normal (applies to non-numeric resul ts) [facility] ([facility]) FOLATE NORMAL RANGE NORMAL GREATER THAN 5.4 NG/ML INDETERMINATE 3.4-5.4 NG/ML DEFICIENT LESS THAN 3.4 NG/ML ID Date Data Source [id number] 11/26/2020 10:02:00 AM EDT [facility] ([facility], ) Name Value Range Interpretation Code Description Data Rosemary rce(s) Supporting Document(s) Total Iron Binding Capacity 387 ug/dL 250-450 Norm al (applies to non-numeric results) [facility] ([facility], ) Iron (Fe) 36 ug/dL 50-170 Below low normal [facility] ( [facility], ) Percent Saturation 9.3 % 13.2-45.0 Below low normal [facility] ([facility]) ID Date Data Source [id number] 11/26/2020 10:02:00 AM EDT [facility] ([facility]) Name Value Range Interpretation Code Description Data Rosemary rce(s) Supporting Document(s) Red Blood Count 3.20 10 4.00-5.40 Below low normal [facility] ([facility]) White Blood Count 3.9 10 4.0-10.0 Below low normal [facility] ([facility]) Hemoglobin 8.5 g/dL 12.0-15.5 Below low normal [facility] ( [facility]) Hematocrit 28.1 % 36.0-47.0 Below low normal [facility]) Mean Corpuscular Volume 87.8 fl 80.0-96.0 Normal ( applies to non-numeric results) [facility] ([facility]) Mean Corpuscular Hemoglobin 26.6 pg 27.0-33.0 Below low normal [facility]) Red Cell Distribution Width 15.9 % 11.5-14.5 Above high normal [facility]) Mean Corpuscular HGB Conc 30.2 g/dL 32.0-36.5 Below low normal [facility]) Platelet Count, Automated Laboratory test result 150-450 Normal (applies to non- numeric results) [facility] ([facility]) Platelet count invalid due to platelet c lumping. Suggest ordering platelet blue test to confirm clumping is not due to EDTA. Neutrophils % 70.0 % 36.0-66.0 Above high normal [facility] ([facility]) Whitley % 9.5 % 2.0-8.0 Above high normal [facility] ([facility]) Lymph % 16.7 % 24.0-44.0 Below low normal [facility] ( [facility]) Eos % 2.3 % 0.0-3.0 Normal (applies to non-numeric resul ts) [facility] ([facility]) Baso % 1.0 % 0.0-1.0 Normal (applies to non-numeric resul ts) [facility]) Immature Granulocyte % 0.5 % 0-3.0 Normal (applies to non-n umeric results) [facility] ([facility]) Nucleated Red Blood Cell % 0.0 % 0-0 Normal (applies to n on-numeric results) [facility] ([facility]) Neutrophils # 2.7 10 1.5-8.5 Normal (applies to non-numeric re sults) [facility] ([facility]) Lymph # 0.7 10 1.5-5.0 Below low normal [facility] ( [facility]) Eos # 0.1 10 0.0-0.5 Normal (applies to non-numeric resul ts) [facility]) Whitley # 0.4 10 0.0-0.8 Normal (applies to non-numeric resul ts) [facility] ([facility]) Baso # 0.0 10 0.0-0.2 Normal (applies to non-numeric resul ts) [facility]) ID Date Data Source [id number] [facility]2020 [facility] Name Value Range Interpretation Code Description Data Rosemary rce(s) Supporting Document(s) Iyehh-5-Dfhygtojupx [Mass/volume] in Serum or Plasma Laboratory test result Normal (applies to non-numeric results) [facility]) THE AFP ASSAY IS PERFORMED ON THE [employer] BY CHEMILUMINESCENCE AND SHOULD NOT BE COMPARED INTERCHANGEABLY WITH OTHER METHODS. IT SHOULD NOT BE USED ALONE A SCREENING TEST OR DIAGNOSIS FOR THE PRESENCE OR ABSENCE OF MALIGNANT DISEASE. THESE RESULTS ARE NOT INTERPRETABLE IN FEMALES. PREDICTIONS OF DISEASE RECURRENCE SHOULD NOT BE BASED SOLELY ON VALUES OBTAINED FROM SERIAL PATIENT SERUM VALUES. ID Date Data Source [id number] 11/26/2020 10:02:00 AM EDT [facility] ([facility]) Name Value Range Interpretation Code Description Data Rosemary rce(s) Supporting Document(s) Ast/Sgot 21 U/L 7-37 Normal (applies to non-numeric resul ts) [facility]) Alt/SGPT 22 U/L 12-78 Normal (applies to non-numeric resul ts) [facility]) Alkaline Phosphatase 115 U/L 45-117 Normal (applies to non-num guillermo results) [facility]) Bilirubin,Total 0.4 mg/dL 0.2-1.0 Normal (applies to non-numeric results) [facility] ([facility], ) Bilirubin,Direct 0.2 mg/dL 0.0-0.2 Normal (applies to non-numeric results) [facility] ([facility]) Total Protein 7.4 GM/DL 6.4-8.2 Normal (applies to non-numeric re sults) [facility] ([facility]) Albumin 3.4 GM/DL 3.2-5.2 Normal (applies to non-numeric resul ts) [facility] ([facility]) Albumin/Globulin Ratio 0.9 1.2-2.2 Below low normal [facility] ([facility]) ID Date Data Source Basic Metabolic Profile (BMP) 11/04/2020 12:00:00 AM EDT eCW 1 ([facility]) Name Value Range Interpretation Code Description Data Rosemary rce(s) Supporting Document(s) 194 70-100 GLUCOSE, FASTING eCW1 ([facility]) 1.11 0.55-1.30 CREATININE FOR GFR eCW1 ([facility]) 17 7-18 BLOOD UREA NITROGEN eCW1 ([facility]) 51.4 >39 GLOMERULAR FILTRATION RATE eCW 1 ([facility]) 138 136-145 SODIUM LEVEL eCW1 ([facility]) 108 98-107 CHLORIDE LEVEL eCW1 ([facility]) 4.3 3.5-5.1 POTASSIUM SERUM eCW1 ([facility]) 23 21-32 CARBON DIOXIDE LEVEL eCW1 ([facility]) 8.6 8.8-10.2 CALCIUM LEVEL eCW1 ([facility]) ID Date Data Source [id number] 11/04/2020 12:00:00 AM EDT eCW1 ([facility]) Name Value Range Interpretation Code Description Data Rosemary rce(s) Supporting Document(s) Hemoglobin A1c/Hemoglobin.total in Blood 7.9 HEMOGLOBIN A1c eCW1 ([facility]) ID Date Data Source CBC - Complete Blood Count 11/04/2020 12:00:00 AM EDT eCW1 ( [facility]) Name Value Range Interpretation Code Description Data Rosemary rce(s) Supporting Document(s) 3.38 4.00-5.40 RED BLOOD COUNT eCW1 ([facility]) 4.0 4.0-10.0 WHITE BLOOD COUNT eCW1 ([facility]) 8.7 12.0-15.5 HEMOGLOBIN eCW1 ([facility]) 86.1 80.0-96.0 MEAN CORPUSCULAR VOLUME e CW1 ([facility]) 29.1 36.0-47.0 HEMATOCRIT eCW1 ([facility]) 16.0 11.5-14.5 RED CELL DISTRIBUTION WID TH eCW1 ([facility]) 25.7 27.0-33.0 MEAN CORPUSCULAR HEMOGLOB IN eCW1 ([facility]) 29.9 32.0-36.5 MEAN CORPUSCULAR HGB CONC eCW1 ([facility]) TNP 150-450 PLATELET COUNT, AUTOMATED eCW1 ([facility]) ID Date Data Source [id number] 07/16/2020 05:22:25 PM EDT [facility] Name Value Range Interpretation Code Description Data Rosemary rce(s) Supporting Document(s) Discharge Summary [facility] WFQVBr0jOdYAKzGw51/TJFtdTOChm4FnQZouQVh8WAtgDIYoH1VbGTH2yZ8lZFP6HLaBEqGtQzEpMhJ0 lbm [file] supervisor public message service+GDAlnTZpWRRdObzNqhPn1iM1niHJibT94EQ9yA6AqnJKL1+wR3nb3VzAY+79ly2g7rNwX1oGDRiG [file] AgICAgICAgICAgICAgICAgICAgICAgICAgICAgICAg ICAgICAgICAgICAgICAgICAgICAgICAgICAgICAgICANCiAgICAgICAgICAgICAgICAgICAgICAgICAg ICAgICAgICAgICAgICAgICAgICAgICAgICAgICAgICAgICAgICAgICAgICAgICAgICAgICAgICAgICAg ICAgICAgICAgICAgICANCiAgICAgICAgICAgICAgIC AgICAgICAgICAgICAgICAgICAgICAgICAgICAgICAgICAgICAgICAgICAgICAgICAgICAgICAgICAgIC AgICAgICAgICAgICAgICAgICAgICAgICANCiAgICAgICAgICAgICAgICAgICAgICAgICAgICAgICAgIC AgICAgICAgICAgICAgICAgICAgICAgICAgICAgICAg ICAgICAgICAgICAgICAgICAgICAgICAgICAgICAgICAgICANCiAgICAgICAgICAgICAgICAgICAgICAg ICAgICAgICAgICAgICAgICAgICAgICAgICAgICAgICAgICAgICAgICAgICAgICAgICAgICAgICAgICAg ICAgICAgICAgICAgICAgICANCiAgICAgICAgICAgIC AgICAgICAgICAgICAgICAgICAgICAgICAgICAgICAgICAgICAgICAgICAgICAgICAgICAgICAgICAgIC AgICAgICAgICAgICAgICAgICAgICAgICAgICANCiAgICAgICAgICAgICAgICAgICAgICAgICAgICAgIC AgICAgICAgICAgICAgICAgICAgICAgICAgICAgICAg ICAgICAgICAgICAgICAgICAgICAgICAgICAgICAgICAgICAgICANCiAgICAgICAgICAgICAgICAgICAg ICAgICAgICAgICAgICAgICAgICAgICAgICAgICAgICAgICAgICAgICAgICAgICAgICAgICAgICAgICAg ICAgICAgICAgICAgICAgICAgICANCiAgICAgICAgIC AgICAgICAgICAgICAgICAgICAgICAgICAgICAgICAgICAgICAgICAgICAgICAgICAgICAgICAgICAgIC AgICAgICAgICAgICAgICAgICAgICAgICAgICAgICANCiAgICAgICAgICAgICAgICAgICAgICAgICAgIC AgICAgICAgICAgICAgICAgICAgICAgICAgICAgICAg ICAgICAgICAgICAgICAgICAgICAgICAgICAgICAgICAgICAgICAgICANCjw/aKAmS8wydAZnkkI1Q8ry Fz6VOm3VWN5ff1ElNNWaASyeopFoTvmIVzQzWHBnRrpBCez3CHcpWJ5QoZOaO8BxE6EgVNdmKJ4XSDMn JYIfuBDrHWWeZYHjXjF9PVXhSLnaDH6BdCUrASkkNH HqXROcCyAyKCRwXQHcZDPuNJKmZRDNYAEsBVMfTsYkHQryXE7Jd2BypMR2QNz+Tq0CLZ4cg3NpUBpfBU OsXB9qvv3VPOdWDoFxW2KlnoQ3OBL0JTXsXz2ZBZRqZLFgtYFuDQAfSKYBFoWyV9AzrB67DOWQFy0+DQ xqgwOlMorKZxO1VNBfk1HxBEo0GD6IODMvCIv4oWJi HGegE9tefghmCQJ6wD5otsmrStwdIEZ9nJdwdxQLMUv1gL7xouuwMWJwHAEtVn2eTU5gWSCoEJBkTtU2 ITLVIP2YKBQoZVYtpXRrZFDfWGTCKL8RLJzcRRE7DDDinhPayYFaSOwsDB5KQNKnuwYtOnymABTKJJj+ Pd3MRR8pp2UgMRo8LYWbJI1swe6HQFjYHgZuW0P7iC MkM7T0CNbiWm4FIIWqSRPjZmFwBJJABCyoWA1ZEM8dydO1BS8NfXCgIRSzYSDwdGStLHd8K88glXJvCG qxOM6TOGK+Eleanor+Ph9OMOLtOVXzBGNnNdSuBRZZFgThA6BsZ0NZh9ThV6KePX95gJyuerOqDIdqOC8JCE 7yAFLuBGOODD2EqIUtoD0axmFsVYSqYEBPEkOvK56k xNUyNUUqWUS5TMNoNh8FNAJoP9HoebLqyFpkibLtEYTqTUGNPF1KVWhpcqTtmRMvmFfsKC43lZvuMZ5I Mg4DOdHmNG1zgq0YlIOeSj1FSKR0JS6PDKJtMSMfJPNxYGM6LEVyRyDaICyjERJtUMWvFFF8SANsPIVh DC0OVyGgEWOjGqwxILSoTOOkEQCavh2SRAFlSTQbPW u6FVGvWJZaQPSrOLraVEXsLAUsVOR9JJYeVQFeDA0EIdJlVQJaBMFfLSLwOECeMGAwbw0ZUYHnMOLrZf CdTZTlFDUfOQFyQXafDITaGHN2COKjCCCvLKTaYV7RDkCsYPJrZAzwFjBqBNYxBCTnrb2BJEGkFGSxOC d4PRGlFHUaUSWcITsmKVAaHEGhEpDaWCOqUZKiVI6W OsLwMWVyOQW5FfFfOHByJNGrzj1JZCHcEFGiVtB2NXCmDFOyRTKaBLlxAIAvGINjWZO9LLCkJBBmQA6M EwSxWRQxFZV2PtDyPXOdHMLqsk2MSCWcGAUfMHBlZdWpDVIrGNUyZIsgMKTfLKI9YKL1ISMzIKJdFN1Z AaYxPOJpUBJkHWTpDFVqIOUpso3MMJUbMKYpXMs7XF VyYXRiSKCeTXhgUVSyMCK3KKnxNWEaCQWcUP7XPiEzLYCoHOJwNwBmPFQmGXYclv5GOHTfOAYcZnYpKT WsWNSnAVDjSSpqWQJiGGO6LWV8WODzHRUrMQ7RAzNaNUWnRKj6IMGeWPNgAFVznp7WYTLmOVZrKUD4La WkSFJfTFVcANwbMYNrTUY1AWW7EGOgZWIcDZ5CKpOw GRYjNly0INMdDDMjGVWrfh1BLDKiONAmRLk6GyLrVFQeWJBwIJldFRXmBBR6VAp3ZZSfMEIyKM4RVyZp VMIfLqO2WODpAPPhMEPaev4UEDHjUGOtHZKcZSGbQZWhZQHoUJsrSUQfPIAdXuK8QQIaBWVjUG7XHvEn DUHsCrDkRlXgUZAtWZVhzt1LLIZlORZqKuS1XGJsRM QtVWRtRNmkEFDuBRF0OjiwXULwIPUjKQ4KOsOxSIHuTxK6RgQjUBVeWDWflk7NUJEgFOMgCiB3PLYpUM VrQJCzPRahPNTpFQC9DAK7ZONyAAKcMX0HSjMlENIyGdk5QCQiQKGuJYCqzg1FZULzSRGmUCC6TMBfKI ScDSAlUCvgCPFfMWD2ZnX3TWJrEAEbHX7IAxRnPJvv BLHNQka4LUirZ1j3LUU9LP8QF3Cnk3TvOGTjIXFBCXwdFE9jwcZeTCCxKl9YP2rMJlmbVGZ9JQQ0CTPv L3PaTPE8TJNmDsvfMResWIeqCxb0QH7oQDF5GzmiWPVqUAF9IyD8XjpfCCD8ZEIqNXU8EFNsUIJ8QwGj IZ9SOg9JNyB8MPS1pOYsCw6NZwf6HtTHKgIvLP8FNZh= ID Date Data Source [id number] [facility]2020 [facility]49[facility] Interpretation Code Description Data Rosemary rce(s) Supporting Document(s) Glucose [Mass/volume] in Capillary blood by Glucometer 179 mg/dL 70- 140 H [facility] ID Date Data Source [id number] 07/16/2020 04:41:33 PM [facility] Name Value Range Interpretation Code Description Data Rosemary rce(s) Supporting Document(s) Leukocytes [#/volume] in Blood by Automated count 8.1 10*3/uL 4-10 [facility] Erythrocytes [#/volume] in Blood by Automated count 3.01 10*6/uL 4.1- 5.3 L [facility] Hemoglobin [Mass/volume] in Blood 9.1 g/dL 11.5-15.5 L [facility] Hematocrit [Volume Fraction] of Blood by Automated count 27.0 % 3 6-45 L [facility] Erythrocyte mean corpuscular volume [Entitic volume] by Auto mated count 89.5 fL 80-96 [facility] Erythrocyte mean corpuscular hemoglobin [Entitic mass] by Automated count 30.1 pg 27-33 [facility] Erythrocyte mean corpuscular hemoglobin concentration [Mass/volume] by [facility] 33.7 g/[facility] width [Ratio] by Automated count 14.9 % 11.5-14.5 H [facility] Platelets [#/volume] in Blood by Automated count 121 10*3/uL 150-400 L [facility] Differential cell count method - Blood [facility] Neutrophils/100 leukocytes in Blood by Automated count 70 % [facility] Lymphocytes/100 leukocytes in Blood by Automated count 15 % [facility] Monocytes/100 leukocytes in Blood by Automated count 12 % [facility] Eosinophils/100 leukocytes in Blood by Automated count 2 % [facility] Basophils/100 leukocytes in Blood by Automated count 1 % [facility] Neutrophils [#/volume] in Blood by Automated count 5.72 10*3/uL 1.8-7 .0 [facility] Lymphocytes [#/volume] in Blood by Automated count 1.20 10*3/uL 1.2-4 .0 [facility] Monocytes [#/volume] in Blood by Automated count 0.99 10*3/uL 0-0.8 H [facility] Eosinophils [#/volume] in Blood by Automated count 0.17 10*3/uL 0-0.5 [facility] Basophils [#/volume] in Blood by Automated count 0.06 10*3/uL 0-0.2 [facility] Nucleated erythrocytes/100 leukocytes [Ratio] in Blood by Automated count 0 /100{WBCs} 0-0 [facility] ID Date Data Source [id number] 07/16/2020 07:58:35 AM EDT [facility] Name Value Range Interpretation Code Description Data Rosemary rce(s) Supporting Document(s) Glucose [Mass/volume] in Capillary blood by Glucometer 175 mg/dL 70- 140 H [facility] ID Date Data Source [id number] 07/18/2020 07:41:30 AM EDT [facility] Name Value Range Interpretation Code Description Data Rosemary rce(s) Supporting Document(s) ABO and Rh group [Type] in Blood [facility] Blood group antibody screen [Presence] in Serum or Plasma [facility] Performed at [facility], [place] Lilly , [place], [id number] ID Date Data Source [id number] 07/16/2020 05:55:53 AM [facility] Name Value Range Interpretation Code Description Data Rosemary rce(s) Supporting Document(s) Leukocytes [#/volume] in Blood by Automated count 5.2 10*3/uL 4-10 [facility] Erythrocytes [#/volume] in Blood by Automated count 2.20 10*6/uL 4.1- 5.3 L [facility] [facility] Hemoglobin [Mass/volume] in Blood 6.9 g/dL 11.5-15.5 L [facility] Hematocrit [Volume Fraction] of Blood by Automated count 20.0 % 3 6-45 Health system [place] [id number] at [id number] Erythrocyte mean corpuscular volume [Entitic volume] by Auto mated count 90.6 fL 80-96 [facility] Erythrocyte mean corpuscular hemoglobin [Entitic mass] by Automated count 31.3 pg 27-33 [facility] Erythrocyte mean corpuscular hemoglobin concentration [Mass/volume] by Automated count 34.5 g/dL 32.0-36.0 [facility] distribution width [Ratio] by Automated count 15.2 % 11.5-14.5 H [facility] Platelets [#/volume] in Blood by Automated count 89 10*3/uL 150-400 L [facility] Differential cell count method - Blood [facility] Neutrophils/100 leukocytes in Blood by Automated count 62 % [facility] Lymphocytes/100 leukocytes in Blood by Automated count 23 % [facility] Monocytes/100 leukocytes in Blood by Automated count 11 % [facility] Eosinophils/100 leukocytes in Blood by Automated count 3 % [facility] Basophils/100 leukocytes in Blood by Automated count 1 % [facility] Neutrophils [#/volume] in Blood by Automated count 3.27 10*3/uL 1.8-7 .0 [facility] Lymphocytes [#/volume] in Blood by Automated count 1.18 10*3/uL 1.2-4 .0 L [facility] Monocytes [#/volume] in Blood by Automated count 0.56 10*3/uL 0-0.8 [facility] Eosinophils [#/volume] in Blood by Automated count 0.13 10*3/uL 0-0.5 [facility] Basophils [#/volume] in Blood by Automated count 0.04 10*3/uL 0-0.2 [facility] Nucleated erythrocytes/100 leukocytes [Ratio] in Blood by Automated count 0 /100{WBCs} 0-0 [facility] ID Date Data Source [id number] 07/16/2020 06:05:05 AM EDT [facility] Name Value Range Interpretation Code Description Data Rosemary rce(s) Supporting Document(s) Albumin [Mass/volume] in Serum or Plasma by Bromocresol green (BCG) dye binding method 3.3 g/dL 3.5-5.2 L [facility] Bilirubin.total [Mass/volume] in Serum or Plasma 0.4 mg/dL <1.2 [facility] Calcium [Mass/volume] in Serum or Plasma 7.3 mg/dL 8.8-10.2 L [facility] Chloride [Moles/volume] in Serum or Plasma 108 mmol/L 98-107 H [facility] Creatinine [Mass/volume] in Serum or Plasma 0.95 mg/dL 0.50-0.90 H [facility] Glucose [Mass/volume] in Serum or Plasma 164 mg/dL 70-140 H [facility] Alkaline phosphatase [Enzymatic activity/volume] in Serum or Plasma 71 U/L 35-104 [facility] Potassium [Moles/volume] in Serum or Plasma 3.3 mmol/L 3.4-5.1 L [facility] Protein [Mass/volume] in Serum or Plasma 5.4 g/dL 6.4-8.3 L [facility] Sodium [Moles/volume] in Serum or Plasma 138 mmol/L 136-145 [facility] Aspartate aminotransferase [Enzymatic activity/volume] in Serum or Plasma 18 U/L <32 [facility] Urea nitrogen [Mass/volume] in Serum or Plasma 12 mg/dL 8-23 [facility] Osmolality of Serum or Plasma by calculation 289 mosm/kg 275-300 [facility] Creatinine/Urea nitrogen [Mass Ratio] in Serum or Plasma 13 [facility] Bicarbonate [Moles/volume] in Serum 22 mmol/L 22-29 [facility] Alanine aminotransferase [Enzymatic activity/volume] in Seru m or Plasma 9 U/L <33 [facility] Anion gap 3 in Serum or Plasma 9 mmol/L 8-15 [facility] Glomerular filtration rate/1.73 sq M pre dicted among non-blacks [Volume Rate/Area] in Serum or Plasma by Creatinine-based formula (MDRD) 59 mL/min/1.73m2 >60 L [facility] Glomerular filtration rate/1.73 sq M pre dicted among blacks [Volume Rate/Area] in Serum or Plasma by Creatinine-based formula (MDRD) 68 mL/min/1.73m2 >60 [facility] ID Date Data Source [id number] 07/16/2020 05:36:32 AM [facility] Name Value Range Interpretation Code Description Data Rosemary rce(s) Supporting Document(s) Ammonia [Moles/volume] in Plasma 38 umol/L 11-51 [facility] ID Date Data Source [id number] 07/16/2020 12:21:45 AM [facility] Name Value Range Interpretation Code Description Data Rosemary rce(s) Supporting Document(s) Leukocytes [#/volume] in Blood by Automated count 6.8 10*3/uL 4-10 [facility] Erythrocytes [#/volume] in Blood by Automated count 2.32 10*6/uL 4.1- 5.3 L [facility] Hemoglobin [Mass/volume] in Blood 7.1 g/dL 11.5-15.5 [facility] Hematocrit [Volume Fraction] of Blood by Automated count 20.9 % 3 6-45 Health system Called to and read back by [id number] at [id number] Erythrocyte mean corpuscular volume [Entitic volume] by Auto mated count 90.2 fL 80-96 [facility] Erythrocyte mean corpuscular hemoglobin [Entitic mass] by Automated count 30.4 pg 27-33 [facility] Erythrocyte mean corpuscular hemoglobin concentration [Mass/volume] by Automated count 33.7 g/dL 32.0-36.0 [facility] Erythrocyte distribution width [Ratio] by Automated count 15.2 % 11.5-14.5 H [facility] Platelets [#/volume] in Blood by Automated count 111 10*3/uL 150-400 L [facility] Differential cell count method - Blood [facility] Neutrophils/100 leukocytes in Blood by Automated count 64 % [facility] Lymphocytes/100 leukocytes in Blood by Automated count 19 % [facility] Monocytes/100 leukocytes in Blood by Automated count 13 % [facility] Eosinophils/100 leukocytes in Blood by Automated count 3 % [facility] Basophils/100 leukocytes in Blood by Automated count 1 % [facility] Neutrophils [#/volume] in Blood by Automated count 4.40 10*3/uL 1.8-7 .0 [facility] Lymphocytes [#/volume] in Blood by Automated count 1.29 10*3/uL 1.2-4 .0 [facility] Monocytes [#/volume] in Blood by Automated count 0.91 10*3/uL 0-0.8 H [facility] Eosinophils [#/volume] in Blood by Automated count 0.17 10*3/uL 0-0.5 [facility] Basophils [#/volume] in Blood by Automated count 0.08 10*3/uL 0-0.2 [facility] Nucleated erythrocytes/100 leukocytes [Ratio] in Blood by Automated count 0 /100{WBCs} 0-0 [facility] ID Date Data Source [id number] 07/15/2020 09:16:38 PM [facility] Name Value Range Interpretation Code Description Data Rosemary rce(s) Supporting Document(s) Glucose [Mass/volume] in Capillary blood by Glucometer 139 mg/dL 70- 140 [facility] ID Date Data Source [id number] 07/15/2020 07:00:10 PM [facility] Value Range Interpretation Code Description Data Rosemary rce(s) Supporting Document(s) Leukocytes [#/volume] in Blood by Automated count 8.5 10*3/uL 4-10 [facility] Erythrocytes [#/volume] in Blood by Automated count 2.33 10*6/uL 4.1- 5.3 L [facility] Hemoglobin [Mass/volume] in Blood 7.2 g/dL 11.5-15.5 L [facility] Hematocrit [Volume Fraction] of Blood by Automated count 21.3 % 3 6-45 L [facility] Erythrocyte mean corpuscular volume [Entitic volume] by Auto mated count 91.2 fL 80-96 [facility] Erythrocyte mean corpuscular hemoglobin [Entitic mass] by Automated count 30.7 pg 27-33 [facility] Erythrocyte mean corpuscular hemoglobin concentration [Mass/volume] by Automated count 33.7 g/dL 32.0-36.0 [facility] Erythrocyte distribution width [Ratio] by Automated count 15.4 % 11.5-14.5 H [facility] Platelets [#/volume] in Blood by Automated count 127 10*3/uL 150-400 L [facility] Differential cell count method - Blood [facility] Neutrophils/100 leukocytes in Blood by Automated count 71 % [facility] Lymphocytes/100 leukocytes in Blood by Automated count 14 % [facility] Monocytes/100 leukocytes in Blood by Automated count 12 % [facility] Eosinophils/100 leukocytes in Blood by Automated count 2 % [facility] Basophils/100 leukocytes in Blood by Automated count 1 % [facility] Neutrophils [#/volume] in Blood by Automated count 6.11 10*3/uL 1.8-7 .0 [facility] Lymphocytes [#/volume] in Blood by Automated count 1.18 10*3/uL 1.2-4 .0 [facility] Monocytes [#/volume] in Blood by Automated count 0.99 10*3/uL 0-0.8 H [facility] Eosinophils [#/volume] in Blood by Automated count 0.20 10*3/uL 0-0.5 [facility] Basophils [#/volume] in Blood by Automated count 0.06 10*3/uL 0-0.2 [facility] Nucleated erythrocytes/100 leukocytes [Ratio] in Blood by Automated count 0 /100{WBCs} 0-0 [facility] ID Date Data Source [id number] 07/15/2020 04:58:47 PM [facility] Name Value Range Interpretation Code Description Data Rosemary rce(s) Supporting Document(s) Glucose [Mass/volume] in Capillary blood by Glucometer 219 mg/dL 70- 140 H [facility] ID Date Data Source [id number] 07/15/2020 01:52:04 PM [facility] Name Value Range Interpretation Code Description Data Rosemary rce(s) Supporting Document(s) Leukocytes [#/volume] in Blood by Automated count 9.3 10*3/uL 4-10 [facility] Erythrocytes [#/volume] in Blood by Automated count 2.69 10*6/uL 4.1- 5.3 L [facility] Hemoglobin [Mass/volume] in Blood 8.1 g/dL 11.5-15.5 L [facility] Hematocrit [Volume Fraction] of Blood by Automated count 24.7 % 3 6-45 L [facility] Erythrocyte mean corpuscular volume [Entitic volume] by Auto mated count 91.6 fL 80-96 [facility] Erythrocyte mean corpuscular hemoglobin [Entitic mass] by Automated count 30.0 pg -33 [facility] Erythrocyte mean corpuscular hemoglobin concentration [Mass/volume] by Automated count 32.8 g/dL 32.0-36.0 [facility] Erythrocyte distribution width [Ratio] by Automated count 15.6 % 11.5-14.5 H [facility] Platelets [#/volume] in Blood by Automated count 139 10*3/uL 150-400 L [facility] ID Date Data Source [id number] 07/15/2020 01:33:06 PM EDT [facility] Name Value Range Interpretation Code Description Data Rosemary rce(s) Supporting Document(s) Leukocytes [#/volume] in Blood by Automated count 4-10 [facility] RAMU/72913/4W ON [id number] AT 1332 BY 6511 Erythrocytes [#/volume] in Blood by Automated count 4.1-5. 3 [facility] RAMU/56827/4W ON [id number] AT 1332 BY 6511 Hemoglobin [Mass/volume] in Blood 11.5-15.5 [facility] RAMU/25618/4W ON [id number] AT 1332 BY 6511 Hematocrit [Volume Fraction] of Blood by Automated count 3 6-45 [facility] RAMU/64490/4W ON [id number] AT 1332 BY 6511 Erythrocyte mean corpuscular volume [Entitic volume] by Automate d count 80-96 [facility] RAMU/31408/4W ON [id number] AT 1332 BY 6511 Erythrocyte mean corpuscular hemoglobin [Entitic mass] by Au tomated count 27-33 [facility] RAMU/24413/4W ON [id number] AT 1332 BY 6511 Erythrocyte mean corpuscular hemoglobin concentration [Mass/volume] by Automated count 32.0-36.0 [facility] al RAMU/32782/4W ON [id number] AT 1332 BY 6511 Erythrocyte distribution width [Ratio] by Automated count 11.5-14.5 [facility]/82826/4W ON 094121 AT 1332 BY 6511 Platelets [#/volume] in Blood by Automated count 150-400 [facility] RAMU/54215/4W ON 174624 AT 1332 BY 6511 Sample quality of Dried blood spot [facility]/72471/4W ON 188287 AT 1332 BY 6511 Differential cell count method - Blood [facility]//4W ON 322205 AT 1332 BY 6511 ID Date Data Source [id number] 07/15/2020 12:32:18 PM [facility] Value Range Interpretation Code Description Data Rosemary rce(s) Supporting Document(s) Glucose [Mass/volume] in Capillary blood by Glucometer 223 mg/dL 70- 140 H [facility] ID Date Data Source [id number] 07/15/2020 07:55:45 AM [facility] Value Range Interpretation Code Description Data Rosemary rce(s) Supporting Document(s) Glucose [Mass/volume] in Capillary blood by Glucometer 161 mg/dL 70- 140 H [facility] ID Date Data Source [id number] 07/15/2020 06:54:58 AM [facility] Value Range Interpretation Code Description Data Rosemary rce(s) Supporting Document(s) Leukocytes [#/volume] in Blood by Automated count 6.4 10*3/uL 4-10 [facility] Erythrocytes [#/volume] in Blood by Automated count 2.35 10*6/uL 4.1- 5.3 L [facility] Hemoglobin [Mass/volume] in Blood 7.2 g/dL 11.5-15.5 L [facility] Hematocrit [Volume Fraction] of Blood by Automated count 21.5 % 3 6-45 L [facility] Erythrocyte mean corpuscular volume [Entitic volume] by Auto mated count 91.4 fL 80-96 [facility] Erythrocyte mean corpuscular hemoglobin [Entitic mass] by Automated count 30.6 pg 27-33 [facility] Erythrocyte mean corpuscular hemoglobin concentration [Mass/volume] by Automated count 33.4 g/dL 32.0-36.0 [facility] Erythrocyte distribution width [Ratio] by Automated count 15.1 % 11.5-14.5 H [facility] Platelets [#/volume] in Blood by Automated count 101 10*3/uL 150-400 L [facility] Differential cell count method - Blood [facility] Neutrophils/100 leukocytes in Blood by Automated count 67 % [facility] Lymphocytes/100 leukocytes in Blood by Automated count 18 % [facility] Monocytes/100 leukocytes in Blood by Automated count 11 % [facility] Eosinophils/100 leukocytes in Blood by Automated count 3 % [facility] Basophils/100 leukocytes in Blood by Automated count 1 % [facility] Neutrophils [#/volume] in Blood by Automated count 4.27 10*3/uL 1.8-7 .0 [facility] Lymphocytes [#/volume] in Blood by Automated count 1.17 10*3/uL 1.2-4 .0 L [facility] Monocytes [#/volume] in Blood by Automated count 0.71 10*3/uL 0-0.8 [facility] Eosinophils [#/volume] in Blood by Automated count 0.22 10*3/uL 0-0.5 [facility] Basophils [#/volume] in Blood by Automated count 0.05 10*3/uL 0-0.2 [facility] Nucleated erythrocytes/100 leukocytes [Ratio] in Blood by Automated count 0 /100{WBCs} 0-0 [facility] ID Date Data Source [id number] 07/15/2020 07:14:09 AM [facility] Name Value Range Interpretation Code Description Data Rosemary rce(s) Supporting Document(s) Bicarbonate [Moles/volume] in Serum 23 mmol/L 22-29 [facility] Chloride [Moles/volume] in Serum or Plasma 107 mmol/L 98-107 [facility] Creatinine [Mass/volume] in Serum or Plasma 1.10 mg/dL 0.50-0.90 H [facility] Glucose [Mass/volume] in Serum or Plasma 180 mg/dL 70-140 H [facility] Potassium [Moles/volume] in Serum or Plasma 3.6 mmol/L 3.4-5.1 [facility] Sodium [Moles/volume] in Serum or Plasma 139 mmol/L 136-145 [facility] Urea nitrogen [Mass/volume] in Serum or Plasma 16 mg/dL 12-15 [facility] Anion gap 3 in Serum or Plasma 10 mmol/L 8- [facility] Osmolality of Serum or Plasma by calculation 294 mosm/kg 275-300 [facility] Creatinine/Urea nitrogen [Mass Ratio] in Serum or Plasma 15 [facility] Calcium [Mass/volume] in Serum or Plasma 8.3 mg/dL 8.8-10.2 L [facility] Glomerular filtration rate/1.73 sq M pre dicted among non-blacks [Volume Rate/Area] in Serum or Plasma by Creatinine-based formula (MDRD) 49 mL/min/1.73m2 >60 L [facility] Glomerular filtration rate/1.73 sq M pre dicted among blacks [Volume Rate/Area] in Serum or Plasma by Creatinine-based formula (MDRD) 57 mL/min/1.73m2 >60 L [facility] ID Date Data Source [id number] 07/15/2020 08:47:53 AM [facility] Name Value Range Interpretation Code Description Data Rosemary rce(s) Supporting Document(s) Ammonia [Moles/volume] in Plasma 11 [facility] NOTIFIED [id number] ON 4W AT 0843 ID Date Data Source [id number] 07/15/2020 01:12:16 AM [facility] Name Value Range Interpretation Code Description Data Rosemary rce(s) Supporting Document(s) Leukocytes [#/volume] in Blood by Automated count 9.3 10*3/uL 4-10 [facility] Erythrocytes [#/volume] in Blood by Automated count 2.59 10*6/uL 4.1- 5.3 L [facility] Hemoglobin [Mass/volume] in Blood 7.9 g/dL 11.5-15.5 [facility] Hematocrit [Volume Fraction] of Blood by Automated count 23.3 % 3 6-45 L [facility] Erythrocyte mean corpuscular volume [Entitic volume] by Auto mated count 89.9 fL 80-96 [facility] Erythrocyte mean corpuscular hemoglobin [Entitic mass] by Automated count 30.5 pg 27-33 [facility] Erythrocyte mean corpuscular hemoglobin concentration [Mass/volume] by Automated count 33.9 g/dL 32.0-36.0 [facility] Erythrocyte distribution width [Ratio] by Automated count 14.8 % 11.5-14.5 H [facility] Platelets [#/volume] in Blood by Automated count 139 10*3/uL 150-400 L [facility] Differential cell count method - Blood [facility] Neutrophils/100 leukocytes in Blood by Automated count 67 % [facility] Lymphocytes/100 leukocytes in Blood by Automated count 18 % [facility] Monocytes/100 leukocytes in Blood by Automated count 11 % [facility] Eosinophils/100 leukocytes in Blood by Automated count 3 % [facility] Basophils/100 leukocytes in Blood by Automated count 1 % [facility] Neutrophils [#/volume] in Blood by Automated count 6.26 10*3/uL 1.8-7 .0 [facility] Lymphocytes [#/volume] in Blood by Automated count 1.65 10*3/uL 1.2-4 .0 [facility] Monocytes [#/volume] in Blood by Automated count 0.97 10*3/uL 0-0.8 H [facility] Eosinophils [#/volume] in Blood by Automated count 0.31 10*3/uL 0-0.5 [facility] Basophils [#/volume] in Blood by Automated count 0.07 10*3/uL 0-0.2 [facility] Nucleated erythrocytes/100 leukocytes [Ratio] in Blood by Automated count 0 /100{WBCs} 0-0 [facility] ID Date Data Source [id number] 07/14/2020 10:12:06 PM [facility] Name Value Range Interpretation Code Description Data Rosemary rce(s) Supporting Document(s) Glucose [Mass/volume] in Capillary blood by Glucometer 174 mg/dL 70- 140 H [facility] ID Date Data Source [id number] 07/14/2020 08:27:08 PM [facility] Value Range Interpretation Code Description Data Rosemary rce(s) Supporting Document(s) Glucose [Mass/volume] in Capillary blood by Glucometer 191 mg/dL 70- 140 H [facility] ID Date Data Source [id number] 07/14/2020 05:56:27 PM [facility] Value Range Interpretation Code Description Data Rosemary rce(s) Supporting Document(s) Leukocytes [#/volume] in Blood by Automated count 8.8 10*3/uL 4-10 [facility] Erythrocytes [#/volume] in Blood by Automated count 2.65 10*6/uL 4.1- 5.3 L [facility] Hemoglobin [Mass/volume] in Blood 7.9 g/dL 11.5-15.5 L [facility] Hematocrit [Volume Fraction] of Blood by Automated count 23.9 % 3 6-45 L [facility] Erythrocyte mean corpuscular volume [Entitic volume] by Auto mated count 90.4 fL 80-96 [facility] Erythrocyte mean corpuscular hemoglobin [Entitic mass] by Automated count 29.8 pg 27-33 [facility] Erythrocyte mean corpuscular hemoglobin concentration [Mass/volume] by Automated count 32.9 g/dL 32.0-36.0 [facility] E[facility]th[facility] distribution width [Ratio] by Automated count 15.0 % 11.5-14.5 H [facility] Platelets [#/volume] in Blood by Automated count 126 10*3/uL 150-400 L [facility] Differential cell count method - Blood [facility] Neutrophils/100 leukocytes in Blood by Automated count 69 % [facility] Lymphocytes/100 leukocytes in Blood by Automated count 17 % [facility] Monocytes/100 leukocytes in Blood by Automated count 10 % [facility] Eosinophils/100 leukocytes in Blood by Automated count 3 % [facility] Basophils/100 leukocytes in Blood by Automated count 1 % [facility] Neutrophils [#/volume] in Blood by Automated count 6.09 10*3/uL 1.8-7 .0 [facility] Lymphocytes [#/volume] in Blood by Automated count 1.47 10*3/uL 1.2-4 .0 [facility] Monocytes [#/volume] in Blood by Automated count 0.90 10*3/uL 0-0.8 H [facility] Eosinophils [#/volume] in Blood by Automated count 0.24 10*3/uL 0-0.5 [facility] Basophils [#/volume] in Blood by Automated count 0.09 10*3/uL 0-0.2 [facility] Nucleated erythrocytes/100 leukocytes [Ratio] in Blood by Automated count 0 /100{WBCs} 0-0 [facility] ID Date Data Source [id number] 07/14/2020 03:59:16 PM EDT [facility] Name Value Range Interpretation Code Description Data Rosemary rce(s) Supporting Document(s) Glucose [Mass/volume] in Capillary blood by Glucometer 156 mg/dL 70- 140 H [facility] ID Date Data Source [id number] 07/14/2020 02:08:56 PM EDT [facility] Name Value Range Interpretation Code Description Data Rosemary rce(s) Supporting Document(s) History and Physical [facility] SSQDRa2mKuPXJjZk19/BRQiyJWNkk3OrHJbiADf0RRfaVHZlR2JlUQM1uA5zARU9RBnMQbDqWtIhClHx lbm [file] [id number] ID Date Data Source [id number] 07/14/2020 12:14:05 PM T [facility] Name Value Range Interpretation Code Description Data Rosemary rce(s) Supporting Document(s) Leukocytes [#/volume] in Blood by Automated count 8.8 10*3/uL 4-10 [facility] Erythrocytes [#/volume] in Blood by Automated count 2.51 10*6/uL 4.1- 5.3 L [facility] Hemoglobin [Mass/volume] in Blood 7.6 g/dL 11.5-15.5 L [facility] Hematocrit [Volume Fraction] of Blood by Automated count 22.9 % 3 6-45 L [facility] Erythrocyte mean corpuscular volume [Entitic volume] by Auto mated count 91.1 fL 80-96 [facility] Erythrocyte mean corpuscular hemoglobin [Entitic mass] by Automated count 30.3 pg 27-33 [facility] Erythrocyte mean corpuscular hemoglobin concentration [Mass/volume] by Automated count 33.3 g/dL [facility].0-[facility].0 [facility] width [Ratio] by Automated count 15.0 % 11.5-14.5 H [facility] Platelets [#/volume] in Blood by Automated count 115 10*3/uL 150-400 L [facility] Differential cell count method - Blood [facility] Neutrophils/100 leukocytes in Blood by Automated count 73 % [facility] Lymphocytes/100 leukocytes in Blood by Automated count 15 % [facility] Monocytes/100 leukocytes in Blood by Automated count 8 % [facility] Eosinophils/100 leukocytes in Blood by Automated count 3 % [facility] Basophils/100 leukocytes in Blood by Automated count 1 % [facility] Neutrophils [#/volume] in Blood by Automated count 6.40 10*3/uL 1.8-7 .0 [facility] Lymphocytes [#/volume] in Blood by Automated count 1.35 10*3/uL 1.2-4 .0 [facility] Monocytes [#/volume] in Blood by Automated count 0.74 10*3/uL 0-0.8 [facility] Eosinophils [#/volume] in Blood by Automated count 0.23 10*3/uL 0-0.5 [facility] Basophils [#/volume] in Blood by Automated count 0.06 10*3/uL 0-0.2 [facility] Nucleated erythrocytes/100 leukocytes [Ratio] in Blood by Automated count 0 /100{WBCs} 0-0 [facility] ID Date Data Source [id number] 07/14/2020 12:00:20 PM EDT [facility] Name Value Range Interpretation Code Description Data Rosemary rce(s) Supporting Document(s) Glucose [Mass/volume] in Capillary blood by Glucometer 156 mg/dL 70- 140 H [facility] ID Date Data Source [id number] 07/14/2020 08:07:05 AM [facility] Name Value Range Interpretation Code Description Data Rosemary rce(s) Supporting Document(s) Glucose [Mass/volume] in Capillary blood by Glucometer 182 mg/dL 70- 140 H [facility] ID Date Data Source [id number] 07/14/2020 06:23:15 AM [facility] Value Range Interpretation Code Description Data Rosemary rce(s) Supporting Document(s) Glucose [Mass/volume] in Capillary blood by Glucometer 201 mg/dL 70- 140 [facility] ID Date Data Source [id number] 07/14/2020 06:39:51 AM [facility] Value Range Interpretation Code Description Data Rosemary rce(s) Supporting Document(s) Leukocytes [#/volume] in Blood by Automated count 10.3 10*3/uL 4-10 H [facility] Erythrocytes [#/volume] in Blood by Automated count 2.61 10*6/uL 4.1- 5.3 [facility] Hemoglobin [Mass/volume] in Blood 7.9 g/dL 11.5-15.5 [facility] Hematocrit [Volume Fraction] of Blood by Automated count 23.4 % 3 6-45 [facility] Erythrocyte mean corpuscular volume [Entitic volume] by Auto mated count 89.7 fL 80-96 [facility] Erythrocyte mean corpuscular hemoglobin [Entitic mass] by Automated count 30.4 pg 27-33 [facility] Erythrocyte mean corpuscular hemoglobin concentration [Mass/volume] by Automated count 33.9 g/dL 32.0-36.0 [facility] E[facility]throcyte distribution width [Ratio] by Automated count 15.0 % 11.5-14.5 [facility] Platelets [#/volume] in Blood by Automated count 107 10*3/uL 150-400 L [facility] Differential cell count method - Blood [facility] Neutrophils/100 leukocytes in Blood by Automated count 83 % [facility] Lymphocytes/100 leukocytes in Blood by Automated count 10 % [facility] Monocytes/100 leukocytes in Blood by Automated count 6 % [facility] Eosinophils/100 leukocytes in Blood by Automated count 1 % [facility] Basophils/100 leukocytes in Blood by Automated count 0 % [facility] Neutrophils [#/volume] in Blood by Automated count 8.44 10*3/uL 1.8-7 .0 H [facility] Lymphocytes [#/volume] in Blood by Automated count 1.06 10*3/uL 1.2-4 .0 L [facility] Monocytes [#/volume] in Blood by Automated count 0.64 10*3/uL 0-0.8 [facility] Eosinophils [#/volume] in Blood by Automated count 0.15 10*3/uL 0-0.5 [facility] Basophils [#/volume] in Blood by Automated count 0.04 10*3/uL 0-0.2 [facility] Nucleated erythrocytes/100 leukocytes [Ratio] in Blood by Automated count 0 /100{WBCs} 0-0 [facility] ID Date Data Source [id number] 07/14/2020 06:52:01 AM [facility] Name Value Range Interpretation Code Description Data Rosemary rce(s) Supporting Document(s) Prothrombin time (PT) 17.7 s 12.5-14.9 H [facility] INR in Platelet poor plasma by Coagulation assay 1.43 [facility] Routine intensity oral anticoagulation I NR is typically 2.0-3.0. Target INR must be clinically individualized. ID Date Data Source [id number] 07/14/2020 07:04:24 AM [facility] Value Range Interpretation Code Description Data Rosemary rce(s) Supporting Document(s) Bicarbonate [Moles/volume] in Serum 22 mmol/L 22-29 [facility] Chloride [Moles/volume] in Serum or Plasma 106 mmol/L 98-107 [facility] Creatinine [Mass/volume] in Serum or Plasma 1.04 mg/dL 0.50-0.90 H [facility] Glucose [Mass/volume] in Serum or Plasma 216 mg/dL 70-140 H [facility] Potassium [Moles/volume] in Serum or Plasma 4.4 mmol/L 3.4-5.1 [facility] Sodium [Moles/volume] in Serum or Plasma 140 mmol/L 136-145 [facility] Urea nitrogen [Mass/volume] in Serum or Plasma 19 mg/dL 8-23 [facility] Anion gap 3 in Serum or Plasma 12 mmol/L 8-15 [facility] Osmolality of Serum or Plasma by calculation 299 mosm/kg 275-300 [facility] Creatinine/Urea nitrogen [Mass Ratio] in Serum or Plasma 18 [facility] Calcium [Mass/volume] in Serum or Plasma 7.8 mg/dL 8.8-10.2 L [facility] Glomerular filtration rate/1.73 sq M pre dicted among non-blacks [Volume Rate/Area] in Serum or Plasma by Creatinine-based formula (MDRD) 53 mL/min/1.73m2 >60 L [facility] Glomerular filtration rate/1.73 sq M pre dicted among blacks [Volume Rate/Area] in Serum or Plasma by Creatinine-based formula (MDRD) 61 mL/min/1.73m2 >60 [facility] ID Date Data Source [id number] 07/14/2020 07:04:24 AM [facility] Name Value Range Interpretation Code Description Data Rosemary rce(s) Supporting Document(s) Magnesium [Mass/volume] in Serum or Plasma 1.6 mg/dL 1.6-2.4 [facility] ID Date Data Source [id number] 07/14/2020 07:04:24 AM [facility] Value Range Interpretation Code Description Data Rosemary rce(s) Supporting Document(s) Phosphate [Mass/volume] in Serum or Plasma 3.2 mg/dL 2.5-4.5 [facility] ID Date Data Source [id number] 07/14/2020 06:37:52 AM [facility] Value Range Interpretation Code Description Data Rosemary rce(s) Supporting Document(s) Calcium.ionized [Moles/volume] in Arterial blood 1.05 mmol/L 1.13-1.3 2 [facility] ID Date Data Source [id number] 07/14/2020 02:24:20 AM [facility] Value Range Interpretation Code Description Data Rosemary rce(s) Supporting Document(s) Glucose [Mass/volume] in Capillary blood by Glucometer 170 mg/dL 70- 140 H [facility] ID Date Data Source [id number] 07/14/2020 03:05:17 AM [facility] Value Range Interpretation Code Description Data Rosemary rce(s) Supporting Document(s) Leukocytes [#/volume] in Blood by Automated count 10.4 10*3/uL 4-10 H [facility] Erythrocytes [#/volume] in Blood by Automated count 2.15 10*6/uL 4.1- 5.3 [facility] Hemoglobin [Mass/volume] in Blood 6.5 g/dL 11.5-15.5 [facility] Hematocrit [Volume Fraction] of Blood by Automated count 19.2 % 3 6-45 Health system Called to and read back by MIGUEL [id number] ICU 07/14/20 0200 3630 Erythrocyte mean corpuscular volume [Entitic volume] by Auto mated count 89.5 fL 80-96 [facility] Erythrocyte mean corpuscular hemoglobin [Entitic mass] by Automated count 30.4 pg 27-33 [facility] Erythrocyte mean corpuscular hemoglobin concentration [Mass/volume] by Automated count 33.9 g/dL 32.0-36.0 [facility] Erythrocyte distribution width [Ratio] by Automated count 15.4 % 11.5-14.5 [facility] Platelets [#/volume] in Blood by Automated count 68 10*3/uL 150-400 [facility] Confirmed ID Date Data Source [id number] 07/14/2020 02:42:41 AM [facility] Name Value Range Interpretation Code Description Data Rosemary rce(s) Supporting Document(s) ABO and Rh group [Type] in Blood [facility] Blood bank comment [facility] ID Date Data Source [id number] 07/14/2020 12:49:35 AM [facility] Name Value Range Interpretation Code Description Data Rosemary rce(s) Supporting Document(s) Leukocytes [#/volume] in Blood by Automated count 12.3 10*3/uL 4-10 H [facility] Erythrocytes [#/volume] in Blood by Automated count 2.28 10*6/uL 4.1- 5.3 [facility] Hemoglobin [Mass/volume] in Blood 6.8 g/dL 11.5-15.5 [facility] Hematocrit [Volume Fraction] of Blood by Automated count 20.3 % 3 6-45 Health system Called to and read back by ENA [id number] ICU 07/14/20 0049 3630 Erythrocyte mean corpuscular volume [Entitic volume] by Auto mated count 89.0 fL 80-96 [facility] Erythrocyte mean corpuscular hemoglobin [Entitic mass] by Automated count 29.8 pg 27-33 [facility] Erythrocyte mean corpuscular hemoglobin concentration [Mass/volume] by Automated count 33.6 g/dL 32.0-36.0 [facility] Erythrocyte distribution width [Ratio] by Automated count 15.3 % 11.5-14.5 H [facility] Platelets [#/volume] in Blood by Automated count 131 10*3/uL 150-400 L [facility] Differential cell count method - Blood [facility] Neutrophils/100 leukocytes in Blood by Automated count 79 % [facility] Lymphocytes/100 leukocytes in Blood by Automated count 10 % [facility] Monocytes/100 leukocytes in Blood by Automated count 8 % [facility] Eosinophils/100 leukocytes in Blood by Automated count 2 % [facility] Basophils/100 leukocytes in Blood by Automated count 1 % [facility] Neutrophils [#/volume] in Blood by Automated count 9.78 10*3/uL 1.8-7 .0 H [facility] Lymphocytes [#/volume] in Blood by Automated count 1.25 10*3/uL 1.2-4 .0 [facility] Monocytes [#/volume] in Blood by Automated count 0.99 10*3/uL 0-0.8 H [facility] Eosinophils [#/volume] in Blood by Automated count 0.22 10*3/uL 0-0.5 [facility] Basophils [#/volume] in Blood by Automated count 0.07 10*3/uL 0-0.2 [facility] Nucleated erythrocytes/100 leukocytes [Ratio] in Blood by Automated count 0 /100{WBCs} 0-0 [facility] ID Date Data Source [id number] 07/13/2020 10:37:16 PM EDT [facility] Name Value Range Interpretation Code Description Data Rosemary rce(s) Supporting Document(s) Glucose [Mass/volume] in Capillary blood by Glucometer 152 mg/dL 70- 140 H [facility] ID Date Data Source [id number] 07/13/2020 09:12:06 PM EDT [facility] XR ABDOMEN AP ABD SUPINE ONLY [id number] RESULTInterpreted by:Krishna Thomas MDPROCEDURE INFORMATION: Exam: XR [...] rce(s) Supporting Document(s) ID Date Data Source [id number] 07/13/2020 06:16:43 PM [facility] Name Value Range Interpretation Code Description Data Rosemary rce(s) Supporting Document(s) Glucose [Mass/volume] in Capillary blood by Glucometer 160 mg/dL 70- 140 H [facility] ID Date Data Source [id number] 07/14/2020 06:59:51 AM [facility] Name Value Range Interpretation Code Description Data Rosemary rce(s) Supporting Document(s) Glucose [Mass/volume] in Capillary blood by Glucometer 154 mg/dL 70- 140 H [facility] ID Date Data Source [id number] 07/13/2020 04:25:35 PM [facility] Name Value Range Interpretation Code Description Data Rosemary rce(s) Supporting Document(s) History and Physical [facility] SVGHNi0fKrSAMdGn10/YOQbcMUFrt2VmEJktYOo6FFaaVMPcO7JsZDU4pO8qRFH8SPhTPpGiSwIqAhKy [facility] [file] 3tSMYGBm3+YWsfaLZzbPxnZACLCsL1GCMpQDnrRCIYVs5B ID Date Data Source [id number] 07/13/2020 03:56:50 PM EDT [facility] Name Value Range Interpretation Code Description Data Rosemary rce(s) Supporting Document(s) Consultation [facility] QABROp7yWbHXScOz42/WWCehAGDdu5RrVZkkAIi2JZgpZTYbU2DxYRP5yR1jISP8ZOrGZkJdAsDjFeYf lbm [file] 7U2FElN/jK//Ordoñez/gdvr0qK320QaQ19fyLwYUehxaJU [file] AgICAgICAgICAgICAgICAgICAgICAgICAgICAgICAgICAgICAgICAgICAgICAgICAgICAgICAgICAgIC AgICAgICAgICAgICAgICAgICAgICAgICAgICAgICAgICAgICANCiAgICAgICAgICAgICAgICAgICAgIC AgICAgICAgICAgICAgICAgICAgICAgICAgICAgICAg ICAgICAgICAgICAgICAgICAgICAgICAgICAgICAgICAgICAgICAgICAgICAgICANCiAgICAgICAgICAg ICAgICAgICAgICAgICAgICAgICAgICAgICAgICAgICAgICAgICAgICAgICAgICAgICAgICAgICAgICAg ICAgICAgICAgICAgICAgICAgICAgICAgICAgICANCi AgICAgICAgICAgICAgICAgICAgICAgICAgICAgICAgICAgICAgICAgICAgICAgICAgICAgICAgICAgIC AgICAgICAgICAgICAgICAgICAgICAgICAgICAgICAgICAgICAgICANCiAgICAgICAgICAgICAgICAgIC AgICAgICAgICAgICAgICAgICAgICAgICAgICAgICAg ICAgICAgICAgICAgICAgICAgICAgICAgICAgICAgICAgICAgICAgICAgICAgICAgICANCiAgICAgICAg ICAgICAgICAgICAgICAgICAgICAgICAgICAgICAgICAgICAgICAgICAgICAgICAgICAgICAgICAgICAg ICAgICAgICAgICAgICAgICAgICAgICAgICAgICAgIC ANCiAgICAgICAgICAgICAgICAgICAgICAgICAgICAgICAgICAgICAgICAgICAgICAgICAgICAgICAgIC AgICAgICAgICAgICAgICAgICAgICAgICAgICAgICAgICAgICAgICAgICANCiAgICAgICAgICAgICAgIC AgICAgICAgICAgICAgICAgICAgICAgICAgICAgICAg ICAgICAgICAgICAgICAgICAgICAgICAgICAgICAgICAgICAgICAgICAgICAgICAgICAgICANCiAgICAg ICAgICAgICAgICAgICAgICAgICAgICAgICAgICAgICAgICAgICAgICAgICAgICAgICAgICAgICAgICAg ICAgICAgICAgICAgICAgICAgICAgICAgICAgICAgIC AgICANCiAgICAgICAgICAgICAgICAgICAgICAgICAgICAgICAgICAgICAgICAgICAgICAgICAgICAgIC AgICAgICAgICAgICAgICAgICAgICAgICAgICAgICAgICAgICAgICAgICAgICANCjw/jCCgO6gzaXXctj Q4D8cbLr1IPc9SIC4ew2NqWDIlLDpuvoImFvqRJfAe ZWUkPrePWpw7ZTnvMC6ZrRZyL5AzV7ScQEhfLJ7LZDMvMCWwnFFjDFSgKVSmLeU0ZIVpVIkmUR2DiVDo OIsmONVsHJMxNlVlBVRhRXDoWDAkPZPwYLLNMUGcDTBnFoNiTCNwXMLhIK4VVPQxQ048yiGrKg5YUw9T BwHkAM3pyb2TNgJgCZDeXirYJdz4IHirZO3MwMStsY KzLaQtJIOULsFeB0pge8NkMoNuSFKZVRqoLO1Qb9ZbpDKwAUo+Td3AMI2ut5LxYCgmAgJcVK5rbl6RME nDGyTfT3BzdQfbPJUemtQ7nBQhXDR4SGcukNcyYBJfLK97wjQtglUwGVMIVOT5LRQlCeHcWoSsBRVpSt taWMDALHaQRkKmO2Dto0CcZbJ3JUZbUgEdROgwPRAs WjE5AC68mHozWS0EEBIbKUXaAP04MWIwPJZxDr8KUh5ELqIdLD8pfd4XWtMqJVJpFwaSHvf2EXhiDD0A sZUpR8YbpFCle6cYFlPhT7SLYIEjYRUvJe8NSZNgBcLgVYWeZXdlMM4hGUHnHZGQbNumghX9DW5ZSP3d eoIqRX9NFoIaHv2dXx4JGdZoU4EtK9AfDCCuXCQXUH ywSV7OEJbgOL5dOI3Yt6ICsSDjaC6odj9ZLXDiJULeQcucsn4OYbdvS5U8xOgiIGEzBgEhRWXYJDpfCR 0NMTMrDWX7XPTiLGFlKHUVTnQpJ59oFQ4BR3Fpj24aFxG8IMEjUvQsAQtoLN94xHycnuXdhCStvZcnOJ 0NCj4+DQplbmRvYmoNCnhyZWYNCjAgMzUNCjAwMDAw EDPeBCExUeF8SaOzRj1ZJVLqICJoMAGfGqHfIPAnIKKgNNeiGAMaMWY0BnDoIHJsXMEqIZ7PIzPmKGGq NoWwWXeqMYLoBPNlnb0ERSZkBZJyCKJ2NmHoEXZgEBXjBAwkMDPlCRYdJJO4XRRsLFAjLZ5VOyWvNQKw FPFuUrUyIMFwFWFmem0NFJPmMTIpVwehNjYfBREeQN SyHIydOJUuBWO7KED9CKZbPVIxQL6TQfKxKGDqEWVeJyPzVMRhAQXjvq5GODKgFAPsGTB1JhJlCEXnJR HwCSieVEOqFJTrXzL6OBQzVTYwKI8ZOhBmRYEzNAD1IrHvEGSmCUBmwu7MQOQoGIRmWaA4ASCrGMHsXL JrVWcwPUTpTUC7Yge5YGJrPJBeRN1UQxFzGAMkGPfy KOiqNYLeFIDhys0OBRWrHTYnKQUgPITjUWNhTUQaYZoeOKAxDBH5BbA7KTBbVPBvHA8KVnZnLBGtFDk9 NwYaDVPsRBHgln0FYHBuXXUcGJG0QXNfGOQeNCPnGVwiTKKvKUEyFpZ2HJOfXQRtSO7JAaVzLSTzSiH0 CAEzPAEuIOFcvp8QETSwUYOaYHj0OVYsLNVgCTCsND bkUTDePINmSij6AHDzCFZqOB1DNqIxCJLyGaL6RUlfVAEhVRHhae0SRVBhAPBbWpxlOkSqXTWxPEMbSB ldFWYcHDLeMSV0WTCfKELpMB9GJtUxJNUdPhHrWCFaMNLiXYZgxf3MCUSaRKMsEETtKAJuZJYeUZJhPQ wwWFLfHDS3SRQkHCNwIXPqLH0AQeSaJWJiHqO3IQIa FPTbJQRovv2OEOAsHVFiTFJfCNYzPDInJXXaCUyyLHNnQVC5WXn4YQZbPEDcIZ6PLyOwTKIeUzI0TtXl UERlSOCqew5LVJRcYYBdFhqsLODgWFOtTIOxTBd5hrEgsGHkRHv9QK7NB8YujhLzHtQQDf1In037ACM1 VXOeAo9EZ2aeGz2sEGKxFTGYPv8KFQl9URhkIrZ9IK L1EGDuMIQyYrV9C6N0EFI9ZyCuLcpmFPQ+ZAwaKBSvCcTpHNTqTBQuDpZpZCMnZiO2OdgmDRN8FIPbHA 6nBMSJZz8+SJyzaUUlxVfnKMGMPkC4AIF4EImsLDLBKl3P ID Date Data Source [id number] 07/13/2020 01:07:51 PM EDT [facility] US PELVIS COMPLETE [id number] RESULTInte rpreted by:JATIN DanielsROCDANTEURE INFORMATION: Exam: US [...] rce(s) Supporting Document(s) ID Date Data Source [id number] 07/13/2020 01:05:36 PM EDT [facility] US DOPPLER ABDOMEN PELVIS ORGANS LIMITED [id number] RESULTInterpreted by:JATIN DanielsROCEDURE INFORMATION: Exam: US Duplex [...] rce(s) Supporting Document(s) ID Date Data Source [id number] 07/13/2020 12:41:50 PM EDT [facility] Name Value Range Interpretation Code Description Data Rosemary rce(s) Supporting Document(s) Glucose [Mass/volume] in Capillary blood by Glucometer 201 mg/dL 70- 140 H [facility] ID Date Data Source [id number] 07/13/2020 10:15:36 AM EDT [facility] Name Value Range Interpretation Code Description Data Rosemary rce(s) Supporting Document(s) ED Provider Note [facility] LAQQWb2sLmOCJvFj79/HNNoyEDGim5RxMZurXUc4WCqnLBBgN9ZdAJK1wA4tERS5WIdIOrXsJoBdIzFp [facility] [file] gnCKJWKUyuBZ8SPN7cldC7BK6KzJFxVEBpTOMcqGDiMAj8C45rsWUgOJsjMY6KBCZ+Eleanor+Lc0HZHLyZY LpSQEeKdVsAIOVZbQxU5IfR4KDd9BpV2XgOI28xLcfdxQnIEasMQ2HZB1gAUXvRBSUIY0UcKJazU5ykg Z3WETzVWMMYgHkK66myFKyMHRnCBRvSZKnZe0LNLSe J2EulgMqjLctkkXjZMGtBKEBNX7XGXmamfMgxKZlxAgpRV33tXpxEU2RAf9KAsNuIC7chq9EiJAlCl4X PEW3Ye0DLPLzTQQdMJVeVOG5MMTaYkEdBFtvIAYkFVWwZCX9CTUwXNLdSF0URmTzCVQvFrLxIatdRAXk FXUubl3MAOSaVCS3HSgoGJUcGGQwPOPeQFpaWMOcSU PwZXE5NGQlHGJlVR0GXlIaOKKdXZQ4JgEkAJYwOYDbck6UUOZuLKItEzGoJYLoPAVzGRMwPVmiEYKqTT W8MCHwTUOsFYAkED8KXoPrUBPtXWM6ElBxFCMoBVUbcg5DBNXkGRRoWZL5ClThIUNfQGUwUSwcHLEkCY L3Bxh4ZXHnWCCuJO7LAtLtTOQsYIV4BiQkGPAlYXUu tk9ZIAZwPKOuGfaqMXYvROEfFKCtZHybYVJiENV1QEB8HNKnUYIjMX2DGuEtBKPyMSuuAJRuURRwYZFa hb0SFSEwVKHnTIS0FSWaUIWkOKVeHGhpJCMiHBFoYuR1PBIvQLRkAL2SQsKbTIXfOaV7JnlsABGbWORm sa2JLJCiLLOcZhs4YYAcFSJoGVEvKJpsTGTeBXX2Xl N2HFZmIBUeYZ3BKiPgZAHjNcT6ZOBmLCAlUEFqyk1COZIeWNNkOKu7RnGnMSVlWOPnCIsyVGQoOHMpHY z9MVSbKGFoKS5PHqZrQZJbWxFeIrrzBAQdOWIchs1MAABwPDHrLOHqZfSeFNTsIGXbIUirDKYhMGVjNG Z5YSYyWKIhTZ6WRsKsXMDmQtYpEapfQAPbCUFewl7I YJRsRZDeWeS3ILAkVWFuFVGmAWllPQSvZSJgHmC6VXLlTURaYH0JVrKpJGIbZyJ1ApjnBCOwNMKsjt3R VOCzMFSgVzotCYNdILUtCDZiJYvkZDXyVQX2SOJ4SURmYFPwCL4SUfZmZLMzCaSiGZCbHQYsUQJeuv7D JOQtCHL4BRb2JsXjFIHiSTCkUThxTDUuCHJpKOS3SJ XhGTNxWL9WHrEzEAWkMuF3FMqnKUNpEEXdlk8QVZYbUDM3BUkgWXKwTHMgAFPuFLmdMTBzSCIfRjf3UA ErITNaPD4PXtUdVOKtVtK7JshhSZDiNYDedk2TZVVaYGY1HqW1BSAaVAZcCPAkHAjoFZQiLWFmHMh7NN ZlYDEdFJ8TLiRiDDOtLtG8LlRtYMCzQMRdeo8RPTQh VIE0PAJ7BZOeDOLwQBFoYQliJHJiSQK6JkW3QGSxTTRxQE4WYoTcOCMnBkNyRGDyXAVxZSHoxy1ATDDi ZUZ4YZX1KGZnJDSkIGQtSGc0nsRjoGAaSEz6CS4DT1IfpoSyPEKDJk3Su866HBX3AZUqXv9HF8caEf0e MCPpEFBWPe4YGRl2WzL4I5HpM9Y9N5P0QGsbUCHlLW ZiNDlmZWZiNjgyZmM+XOiiEHptV1W8VFQ4Cdp0DXYlBGN3QqK9IDVwEdV9RNMqSj0zUKRHNe6+DQpzdG ModStsLZXEScQ6ZMP2GBcfHCYDIt8X ID Date Data Source [id number] 07/13/2020 08:12:28 AM EDT [facility] Name Value Range Interpretation Code Description Data Rosemary rce(s) Supporting Document(s) Glucose [Mass/volume] in Capillary blood by Glucometer 185 mg/dL 70- 140 H [facility] ID Date Data Source [id number] 07/16/2020 10:21:00 AM EDT [facility] Surgical Pathology ReportName: RONDA CUBAMRN: [id number] Number: [id number] Date: 07/13/2020 00:00Received Date: 07/14/2020 08:47Physician(s): JIGNESH TORREZ MD MANOCHA, DIVEY,MDCopy To:CRISTHIAN PAGE MDLAMICHHANE, JIVAN, MDSpecimen(s) ReceivedA: Gastric noduleClinical HistoryHematemesis. DiagnosisSTOMACH, BIOPSY: POLYPOID FRAGMENTS OF GASTRIC MUCOSA WITH NO SIGNIFICANTPATHOLOGIC CHANGES. Electronically Signed By Felisha Casey MD, Attending Pathologist 110:21:21Processed at [facility] Pathology Laboratory at [facility], [address] [place] [address]. [facility], [address] [place] [address]. Unless 'gross-only' is specified, the final diagnosis is based elvira microscopic examination of medical collections representative sections of tissue.Gross DescriptionThe specimen is received [...] developed and their performance characteristics determined by [facility] Pathology department. They have not been cleared or approved by the USFood and Drug Administration. The FDA has determined that such clearanceor approval is not necessary. Name Value Range Interpretation Code Description Data Rosemary rce(s) Supporting Document(s) ID Date Data Source [id number] 07/12/2020 09:37:22 PM [facility] Name Value Range Interpretation Code Description Data Rosemary rce(s) Supporting Document(s) Glucose [Mass/volume] in Capillary blood by Glucometer 150 mg/dL 70- 140 H [facility] ID Date Data Source [id number] 07/12/2020 07:16:48 PM [facility] Name Value Range Interpretation Code Description Data Rosemary rce(s) Supporting Document(s) Leukocytes [#/volume] in Blood by Automated count 6.5 10*3/uL 4-10 [facility] Erythrocytes [#/volume] in Blood by Automated count 2.73 10*6/uL 4.1- 5.3 [facility] Hemoglobin [Mass/volume] in Blood 8.2 g/dL 11.5-15.5 [facility] Hematocrit [Volume Fraction] of Blood by Automated count 24.5 % 3 6-45 L [facility] Erythrocyte mean corpuscular volume [Entitic volume] by Auto mated count 89.6 fL 80-96 [facility] Erythrocyte mean corpuscular hemoglobin [Entitic mass] by Automated count 30.2 pg 27-33 [facility] Erythrocyte mean corpuscular hemoglobin concentration [Mass/volume] by Automated count 33.7 g/dL 32.0-36.0 [facility] distribution width [Ratio] by Automated count 15.7 % 11.5-14.5 [facility] Platelets [#/volume] in Blood by Automated count 113 10*3/uL 150-400 [facility] Differential cell count method - Blood [facility] Neutrophils/100 leukocytes in Blood by Automated count 68 % [facility] Lymphocytes/100 leukocytes in Blood by Automated count 18 % [facility] Monocytes/100 leukocytes in Blood by Automated count 9 % [facility] Eosinophils/100 leukocytes in Blood by Automated count 2 % [facility] Basophils/100 leukocytes in Blood by Automated count 3 % [facility] Neutrophils [#/volume] in Blood by Automated count 4.39 10*3/uL 1.8-7 .0 [facility] Lymphocytes [#/volume] in Blood by Automated count 1.17 10*3/uL 1.2-4 .0 L [facility] Monocytes [#/volume] in Blood by Automated count 0.57 10*3/uL 0-0.8 [facility] Eosinophils [#/volume] in Blood by Automated count 0.14 10*3/uL 0-0.5 [facility] Basophils [#/volume] in Blood by Automated count 0.19 10*3/uL 0-0.2 [facility] Nucleated erythrocytes/100 leukocytes [Ratio] in Blood by Automated count 0 /100{WBCs} 0-0 [facility] ID Date Data Source [id number] 07/12/2020 04:32:24 PM EDT [facility] Name Value Range Interpretation Code Description Data Rosemary rce(s) Supporting Document(s) Glucose [Mass/volume] in Capillary blood by Glucometer 181 mg/dL 70- 140 H [facility] ID Date Data Source [id number] 07/12/2020 03:57:06 PM EDT [facility] CT ABDOMEN PELVIS WITH CONTRAST [id number] BOLA RESULT - FINALInterpreted by:Abhi Bhandari BeginsSigned [...] rce(s) Supporting Document(s) ID Date Data Source [id number] 07/12/2020 12:11:51 PM EDT [facility] Name Value Range Interpretation Code Description Data Rosemary rce(s) Supporting Document(s) Glucose [Mass/volume] in Capillary blood by Glucometer 196 mg/dL 70- 140 H [facility] ID Date Data Source [id number] 07/12/2020 09:27:46 AM T [facility] Name Value Range Interpretation Code Description Data Rosemary rce(s) Supporting Document(s) Consultation [facility] [id number]/SNQkwSLCzr9CpMHeiXOz4TItpRBJpN6UuQNL3mE4uBVL9YInTSaCpMsDcWvBa [facility] [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] 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/gntMLFHBnLmnsJqB+wLMGu0PG4VQoAaX/WPQ+l [file] [id number]= ID Date Data Source [id number] 07/12/2020 09:06:43 AM EDT [facility] Name Value Range Interpretation Code Description Data Rosemary e(s) Supporting Document(s) Bicarbonate [Moles/volume] in Serum 24 mmol/L 22-29 [facility] Chloride [Moles/volume] in Serum or Plasma 104 mmol/L 98-107 [facility] Creatinine [Mass/volume] in Serum or Plasma 1.07 mg/dL 0.50-0.90 H [facility] Glucose [Mass/volume] in Serum or Plasma 236 mg/dL 70-140 H [facility] Potassium [Moles/volume] in Serum or Plasma 4.2 mmol/L 3.4-5.1 [facility] Sodium [Moles/volume] in Serum or Plasma 138 mmol/L 136-145 [facility] Urea nitrogen [Mass/volume] in Serum or Plasma 15 mg/dL 8-23 [facility] Anion gap 3 in Serum or Plasma 10 mmol/L 8-15 [facility] Osmolality of Serum or Plasma by calculation 294 mosm/kg 275-300 [facility] Creatinine/Urea nitrogen [Mass Ratio] in Serum or Plasma 14 [facility] Calcium [Mass/volume] in Serum or Plasma 8.3 mg/dL 8.8-10.2 L [facility] Glomerular filtration rate/1.73 sq M pre dicted among non-blacks [Volume Rate/Area] in Serum or Plasma by Creatinine-based formula (MDRD) 51 mL/min/1.73m2 >60 L [facility] Glomerular filtration rate/1.73 sq M pre dicted among blacks [Volume Rate/Area] in Serum or Plasma by Creatinine-based formula (MDRD) 59 mL/min/1.73m2 >60 L [facility] ID Date Data Source [id number] 07/12/2020 02:47:53 PM [facility] Name Value Range Interpretation Code Description Data Rosemary rce(s) Supporting Document(s) Ovsrs-5-Jckxyboqbrh [Mass/volume] in Serum or Plasma 1 ng/mL <9 [facility] ID Date Data Source [id number] 07/15/2020 04:07:29 PM [facility] Value Range Interpretation Code Description Data Rosemary rce(s) Supporting Document(s) Helicobacter pylori IgM Ab [Presence] in Serum 0.0-8.9 [facility] (NOTE) Neg ative <9.0 Equivocal 9.0 - 11.0 Positive >11.0This test was developed and its performance characteristicsdetermined by [facility]. It has not been cleared or approvedby the Food and Drug Administration.Performed At: [facility] [address] [id number] Calderon MD Ph:[id number] ID Date Data Source [id number] 07/12/2020 08:02:47 AM [facility] Value Range Interpretation Code Description Data Rosemary rce(s) Supporting Document(s) Glucose [Mass/volume] in Capillary blood by Glucometer 164 mg/dL 70- 140 H [facility] ID Date Data Source [id number] 07/12/2020 10:01:05 AM [facility] Value Range Interpretation Code Description Data Rosemary rce(s) Supporting Document(s) Leukocytes [#/volume] in Blood by Automated count 4.3 10*3/uL 4-10 [facility] Erythrocytes [#/volume] in Blood by Automated count 2.70 10*6/uL 4.1- 5.3 L [facility] Hemoglobin [Mass/volume] in Blood 8.2 g/dL 11.5-15.5 [facility] Hematocrit [Volume Fraction] of Blood by Automated count 24.2 % 3 6-45 L [facility] Erythrocyte mean corpuscular volume [Entitic volume] by Auto mated count 89.7 fL 80-96 [facility] Erythrocyte mean corpuscular hemoglobin [Entitic mass] by Automated count 30.2 pg 27-33 [facility] Erythrocyte mean corpuscular hemoglobin concentration [Mass/volume] by Automated count 33.7 g/dL 32.0-36.0 [facility]th[facility] distribution width [Ratio] by Automated count 15.5 % 11.5-14.5 H [facility] Platelets [#/volume] in Blood by Automated count 92 10*3/uL 150-400 L [facility] Differential cell count method - Blood [facility] Neutrophils/100 leukocytes in Blood by Automated count 63 % [facility] Lymphocytes/100 leukocytes in Blood by Automated count 22 % [facility] Monocytes/100 leukocytes in Blood by Automated count 11 % [facility] Eosinophils/100 leukocytes in Blood by Automated count 3 % [facility] Basophils/100 leukocytes in Blood by Automated count 1 % [facility] Neutrophils [#/volume] in Blood by Automated count 2.71 10*3/uL 1.8-7 .0 [facility] Lymphocytes [#/volume] in Blood by Automated count 0.96 10*3/uL 1.2-4 .0 L [facility] Monocytes [#/volume] in Blood by Automated count 0.47 10*3/uL 0-0.8 [facility] Eosinophils [#/volume] in Blood by Automated count 0.12 10*3/uL 0-0.5 [facility] Basophils [#/volume] in Blood by Automated count 0.04 10*3/uL 0-0.2 [facility] Nucleated erythrocytes/100 leukocytes [Ratio] in Blood by Automated count 0 /100{WBCs} 0-0 [facility] ID Date Data Source [id number] [facility] Value [facility] Interpretation Code Description Data Rosemary rce(s) Supporting Document(s) Glucose [Mass/volume] in Capillary blood by Glucometer 187 mg/dL 70- 140 H [facility] ID Date Data Source [id number] 07/12/2020 08:38:16 AM EDT [facility] Name Value Range Interpretation Code Description Data Rosemary rce(s) Supporting Document(s) Folate [Mass/volume] in Serum or Plasma 8.35 ng/mL >4.77 [facility] ID Date Data Source [id number] 07/12/2020 12:50:32 AM EDT [facility] Name Value Range Interpretation Code Description Data Rosemary rce(s) Supporting Document(s) Leukocytes [#/volume] in Blood by Automated count 6.0 10*3/uL 4-10 [facility] Erythrocytes [#/volume] in Blood by Automated count 2.71 10*6/uL 4.1- 5.3 L [facility] Hemoglobin [Mass/volume] in Blood 8.2 g/dL 11.5-15.5 L [facility] Hematocrit [Volume Fraction] of Blood by Automated count 24.0 % 3 6-45 L [facility] Erythrocyte mean corpuscular volume [Entitic volume] by Auto mated count 88.4 fL 80-96 [facility] Erythrocyte mean corpuscular hemoglobin [Entitic mass] by Automated count 30.4 pg 27-33 [facility] Erythrocyte mean corpuscular hemoglobin concentration [Mass/volume] by Automated count 34.3 g/dL 32.0-36.0 [facility] Erythrocyte distribution width [Ratio] by Automated count 15.6 % 11.5-14.5 H [facility] Platelets [#/volume] in Blood by Automated count 114 10*3/uL 150-400 L [facility] Differential cell count method - Blood [facility] Neutrophils/100 leukocytes in Blood by Automated count 66 % [facility] Lymphocytes/100 leukocytes in Blood by Automated count 19 % [facility] Monocytes/100 leukocytes in Blood by Automated count 10 % [facility] Eosinophils/100 leukocytes in Blood by Automated count 4 % [facility] Basophils/100 leukocytes in Blood by Automated count 1 % [facility] Neutrophils [#/volume] in Blood by Automated count 4.00 10*3/uL 1.8-7 .0 [facility] Lymphocytes [#/volume] in Blood by Automated count 1.10 10*3/uL 1.2-4 .0 L [facility] Monocytes [#/volume] in Blood by Automated count 0.61 10*3/uL 0-0.8 [facility] Eosinophils [#/volume] in Blood by Automated count 0.21 10*3/uL 0-0.5 [facility] Basophils [#/volume] in Blood by Automated count 0.06 10*3/uL 0-0.2 [facility] Nucleated erythrocytes/100 leukocytes [Ratio] in Blood by Automated count 0 /100{WBCs} 0-0 [facility] ID Date Data Source [id number] 07/15/2020 11:07:25 AM [facility] Name Value Range Interpretation Code Description Data Rosemary rce(s) Supporting Document(s) Helicobacter pylori IgG Ab [Units/volume] in Serum by Immunoassay 0.24 Index Value 0.00-0.79 [facility] (NOTE) Negati ve <0.80 Equivocal 0.80 - 0.89 Positive > 0.89Performed At: RN [facility] [address] [id number] Calderon MD Ph:[id number] ID Date Data Source [id number] 07/12/2020 12:28:44 AM [facility] Value Range Interpretation Code Description Data Rosemary rce(s) Supporting Document(s) Glucose [Mass/volume] in Capillary blood by Glucometer 169 mg/dL 70- 140 H [facility] ID Date Data Source [id number] 07/11/2020 07:52:20 PM [facility] Value Range Interpretation Code Description Data Rosemary rce(s) Supporting Document(s) Glucose [Mass/volume] in Capillary blood by Glucometer 190 mg/dL 70- 140 [facility] ID Date Data Source [id number] 07/11/2020 06:52:40 PM [facility] Value Range Interpretation Code Description Data Rosemary rce(s) Supporting Document(s) Leukocytes [#/volume] in Blood by Automated count 6.6 10*3/uL 4-10 [facility] Erythrocytes [#/volume] in Blood by Automated count 2.93 10*6/uL 4.1- 5.3 L [facility] Hemoglobin [Mass/volume] in Blood 8.9 g/dL 11.5-15.5 L [facility] Hematocrit [Volume Fraction] of Blood by Automated count 26.8 % 3 6-45 L [facility] Erythrocyte mean corpuscular volume [Entitic volume] by Auto mated count 91.2 fL 80-96 [facility] Erythrocyte mean corpuscular hemoglobin [Entitic mass] by Automated count 30.3 pg 27-33 [facility] Erythrocyte mean corpuscular hemoglobin concentration [Mass/volume] by Automated count 33.2 g/dL 32.0-36.0 [facility] Erythrocyte distribution width [Ratio] by Automated count 15.8 % 11.5-14.5 H [facility] Platelets [#/volume] in Blood by Automated count 112 10*3/uL 150-400 L [facility] Differential cell count method - Blood [facility] Neutrophils/100 leukocytes in Blood by Automated count 74 % [facility] Lymphocytes/100 leukocytes in Blood by Automated count 15 % [facility] Monocytes/100 leukocytes in Blood by Automated count 7 % [facility] Eosinophils/100 leukocytes in Blood by Automated count 3 % [facility] Basophils/100 leukocytes in Blood by Automated count 1 % [facility] Neutrophils [#/volume] in Blood by Automated count 4.83 10*3/uL 1.8-7 .0 [facility] Lymphocytes [#/volume] in Blood by Automated count 1.00 10*3/uL 1.2-4 .0 L [facility] Monocytes [#/volume] in Blood by Automated count 0.46 10*3/uL 0-0.8 [facility] Eosinophils [#/volume] in Blood by Automated count 0.20 10*3/uL 0-0.5 [facility] Basophils [#/volume] in Blood by Automated count 0.07 10*3/uL 0-0.2 [facility] Nucleated erythrocytes/100 leukocytes [Ratio] in Blood by Automated count 0 /100{WBCs} 0-0 [facility] ID Date Data Source [id number] 07/11/2020 06:57:59 PM [facility] Name Value Range Interpretation Code Description Data Rosemary rce(s) Supporting Document(s) Prothrombin time (PT) 17.6 s 12.5-14.9 H [facility] INR in Platelet poor plasma by Coagulation assay 1.42 [facility] Routine intensity oral anticoagulation I NR is typically 2.0-3.0. Target INR must be clinically individualized. ID Date Data Source [id number] 07/11/2020 04:46:40 PM [facility] Value Range Interpretation Code Description Data Rosemary rce(s) Supporting Document(s) History and Physical [facility] PGEQUt3yQgWERxBr43/HRDzvGNLdw7PmUJjrXLp1VUwoBBEqN7GoIKQ4oO8zEWU2CDvZPsXtPgCvVbI9 lbm [file] [id number] ID Date Data Source [id number] 07/11/2020 03:53:03 PM [facility] Name Value Range Interpretation Code Description Data Rosemary rce(s) Supporting Document(s) Glucose [Mass/volume] in Capillary blood by Glucometer 136 mg/dL 70- 140 [facility] ID Date Data Source [id number] 07/11/2020 03:05:09 PM [facility] Name Value Range Interpretation Code Description Data Rosemary rce(s) Supporting Document(s) Hepatitis C virus Ab [Presence] in Serum or Plasma by Immuno assay Non Reactive [facility] No serological evidence of active infect ion. If recent exposure is suspected, test for HCV RNA. ID Date Data Source [id number] 07/11/2020 12:22:51 PM [facility] Name Value Range Interpretation Code Description Data Rosemary rce(s) Supporting Document(s) Leukocytes [#/volume] in Blood by Automated count 5.1 10*3/uL 4-10 [facility] Erythrocytes [#/volume] in Blood by Automated count 2.80 10*6/uL 4.1- 5.3 L [facility] Hemoglobin [Mass/volume] in Blood 8.6 g/dL 11.5-15.5 [facility] Hematocrit [Volume Fraction] of Blood by Automated count 25.1 % 3 6-45 L [facility] Erythrocyte mean corpuscular volume [Entitic volume] by Auto mated count 89.6 fL 80-96 [facility] Erythrocyte mean corpuscular hemoglobin [Entitic mass] by Automated count 30.6 pg 27-33 [facility] Erythrocyte mean corpuscular hemoglobin concentration [Mass/volume] by Automated count 34.2 g/dL 32.0-36.0 [facility] E[facility]th[facility] distribution width [Ratio] by Automated count 15.7 % 11.5-14.5 H [facility] Platelets [#/volume] in Blood by Automated count 102 10*3/uL 150-400 L [facility] Differential cell count method - Blood [facility] Neutrophils/100 leukocytes in Blood by Automated count 72 % [facility] Lymphocytes/100 leukocytes in Blood by Automated count 17 % [facility] Monocytes/100 leukocytes in Blood by Automated count 8 % [facility] Eosinophils/100 leukocytes in Blood by Automated count 2 % [facility] Basophils/100 leukocytes in Blood by Automated count 1 % [facility] Neutrophils [#/volume] in Blood by Automated count 3.60 10*3/uL 1.8-7 .0 [facility] Lymphocytes [#/volume] in Blood by Automated count 0.88 10*3/uL 1.2-4 .0 L [facility] Monocytes [#/volume] in Blood by Automated count 0.43 10*3/uL 0-0.8 [facility] Eosinophils [#/volume] in Blood by Automated count 0.11 10*3/uL 0-0.5 [facility] Basophils [#/volume] in Blood by Automated count 0.07 10*3/uL 0-0.2 [facility] Nucleated erythrocytes/100 leukocytes [Ratio] in Blood by Automated count 0 /100{WBCs} 0-0 [facility] ID Date Data Source [id number] 07/11/2020 12:12:15 PM EDT [facility] Name Value Range Interpretation Code Description Data Rosemary rce(s) Supporting Document(s) Glucose [Mass/volume] in Capillary blood by Glucometer 158 mg/dL 70- 140 H [facility] ID Date Data Source [id number] 07/11/2020 10:43:22 AM [facility] Name Value Range Interpretation Code Description Data Rosemary rce(s) Supporting Document(s) Progress Note [facility] FZIICc2kWyVSCjJz66/MVSpkJBZvc3CcPUxcIQx1VAmyYUDfL2VpTSI9jS2uVSM9XMlBOrUiZhTwKyL7 [facility] [file] [id number] ID Date Data Source [id number] 07/11/2020 07:45:03 AM EDT [facility] Name Value Range Interpretation Code Description Data Rosemary rce(s) Supporting Document(s) Progress Note [facility] XPWKBr0cGtYMTqWn60/YCSowGHMev5IrIJaaFTs1FMeuYFXsI1ZzTKN1wS3iLDC0GEyEGhXaPyJiYvV4 lbm [file] ICAgICAgICAgICAgICAgICAgICAgICAgICAgICAgICAgICAgICAgICAgICAgICAgICAgICAgICAgICAg ICAgICAgICAgICAgICAgICANCiAgICAgICAgICAgIC AgICAgICAgICAgICAgICAgICAgICAgICAgICAgICAgICAgICAgICAgICAgICAgICAgICAgICAgICAgIC AgICAgICAgICAgICAgICAgICAgICAgICAgICANCiAgICAgICAgICAgICAgICAgICAgICAgICAgICAgIC AgICAgICAgICAgICAgICAgICAgICAgICAgICAgICAg ICAgICAgICAgICAgICAgICAgICAgICAgICAgICAgICAgICAgICANCiAgICAgICAgICAgICAgICAgICAg ICAgICAgICAgICAgICAgICAgICAgICAgICAgICAgICAgICAgICAgICAgICAgICAgICAgICAgICAgICAg ICAgICAgICAgICAgICAgICAgICANCiAgICAgICAgIC AgICAgICAgICAgICAgICAgICAgICAgICAgICAgICAgICAgICAgICAgICAgICAgICAgICAgICAgICAgIC AgICAgICAgICAgICAgICAgICAgICAgICAgICAgICANCiAgICAgICAgICAgICAgICAgICAgICAgICAgIC AgICAgICAgICAgICAgICAgICAgICAgICAgICAgICAg ICAgICAgICAgICAgICAgICAgICAgICAgICAgICAgICAgICAgICAgICANCiAgICAgICAgICAgICAgICAg ICAgICAgICAgICAgICAgICAgICAgICAgICAgICAgICAgICAgICAgICAgICAgICAgICAgICAgICAgICAg ICAgICAgICAgICAgICAgICAgICAgICANCiAgICAgIC AgICAgICAgICAgICAgICAgICAgICAgICAgICAgICAgICAgICAgICAgICAgICAgICAgICAgICAgICAgIC AgICAgICAgICAgICAgICAgICAgICAgICAgICAgICAgICANCiAgICAgICAgICAgICAgICAgICAgICAgIC AgICAgICAgICAgICAgICAgICAgICAgICAgICAgICAg ICAgICAgICAgICAgICAgICAgICAgICAgICAgICAgICAgICAgICAgICAgICANCiAgICAgICAgICAgICAg ICAgICAgICAgICAgICAgICAgICAgICAgICAgICAgICAgICAgICAgICAgICAgICAgICAgICAgICAgICAg ICAgICAgICAgICAgICAgICAgICAgICAgICANCjw/eH SfI8vjrPAdcmK3T2fcYz9RJs2OEK8ya3WoCOObHUtnszKdQjlKRaVuSRMfOycMIpi8MKzzLB8MjKVtY0 RsY9YsKXjdUM2UTBLiFPOvdPIjOXXcKPPhUhA1WHIcPQjiXH3GyYSlYOxeINOdGILaXN5CDNHnG485so PfTO9GFe9QIoMnZS8boq5ZUPWdVLLgRjbJElc9QBtx NN6DsHPpwTPtLCErACEKSgWiK3fcc8UeKAXuWTJEAIkuLE3Gc1HeqQWzYOa+Wn4GDQ7sy1NrBXdfWZYw FC6dcc4BMKaFFxBmE3QrqHfqCWTom4vnVKVjID0ixASgNKY1RIPyl6xvYLSiYURFGQmfbkvfTa7rGUQx Rj5xYJ2aRPCjLKS8HaL3TDIJGK1CSUErAADuhGUoEZ PpEEZSDT1SFReeZXE4XBUiqaVheWLsBPmzCR6YQEWggxKvNUUwXUQDOUh+Ts6AOC4ok5UeBLyoHjKgCC 0zzw9IRFiOKkAuW3D3rRQlO3J2WYhmHx5JSIAcBYPvGJZbWXSHUHvqWH5HHW7mdvA2YS2XgJScFAFwOG CkpHWfLUx3X96stLIkQGjpMC3KRAP+Eleanor+Wd5ILFPx FHFgQRNcTiPlMVARNhTaZ1QlV6VJf8GmN4MsIO46oTpsguUpJMoiZD6UQM1lITLuCWWIAA7ZbRNklC8f vdVvSQXqSMDXHwClC13zrHEtFASsGMOmWEXrMn2RMRIdH4XpqdOmkXaijyMgXGMiSVOAHB0KZFyppiIw zZMowKvcMA75yXolGL7NNx4WLiQaCD8glv1VaUFwZf 4LUZHwWr3FBIBbNHMyWOJrOSO9DDTdSuZjORuyJNPrZOFjJCN7DESdPZRbQM9ZImSmFICdMGH1QvTmFN ZtCSKaro7JMRDpVJXhWsO9UUCgDZLzBQVkBJcjLBWrHMZoHFK7ZELkAJRoAT5KEzQqDORfUYP1HdXnGI QpIPUlee0OYDQiZMSnWDnwSOZbPJZkLPAcOOlbYJQv MFAzFnsrKAJxCQAsGX5TPwUpZMKzMMR9EwbzJLMoBIUjrq7PEOTcAYQuVyX5CGKnTNUpAXTwUHfsKARs GCN5GKQ8JIKlDTIoHG0VRaReCFPbGKRuHOpeKVFiJEHhwk5TROEjANOkGIYcAsRkZYFrAUNlQXgxDZMw BCA0GAJzGINyQEXoVB1YBsHuNDHbZCQaUTkfXBExMN Pxqw2LIUDcDIZuOuLuZYRjMKPbQISiFPloQZVjBIO4KWZ3FGBaIEDkLD9JUhCuWZucXIXZUmf8PXnpI8 j5XZEwGi7UR5Qof6VaUQCjMTGSVSeoUW6tkgGoAVBfXs7WY9zIImezAeQgLIrrVns2ZPn5XuV9FECiSP W5GWj8FCU3ULE3UM9wUXCxGXR4UTQhJuKeRDy5KIF0 YAV7OOAuSCExFMd5SUlrRcDrSY4RBi5QVtN9AVF9yUDzTr0EVgxcIr1OYRGCP6ECAg== ID Date Data Source [id number] 07/11/2020 07:47:17 AM EDT [facility] Name Value Range Interpretation Code Description Data Rosemary rce(s) Supporting Document(s) Glucose [Mass/volume] in Capillary blood by Glucometer 185 mg/dL 70- 140 H [facility] ID Date Data Source [id number] 07/11/2020 07:13:19 AM EDT [facility] Name Value Range Interpretation Code Description Data Rosemary rce(s) Supporting Document(s) History and Physical [facility] HVZVQf1lGiFXVbCe46/EOBwzOYVyl6MeKOodEAo2XNwvHGKmP3WzICN4fY2qDLB8URcKJoJqFpNqIsX5 lbm [file] AgICAgICAgICAgICAgICAgICAgICAgICAgICAgICAgICAgICAgICAgICAgICAgICAgICAgICAgICAgIC EjYJHdFZSgIC9UDWQmHHPgAXZzAPWhFUWfSSFnMOTx ICAgICAgICAgICAgICAgICAgICAgICAgICAgICAgICAgICAgICAgICAgICAgICAgICAgICAgICAgICAg SAZaVSNdPKKbTMBlIEIvSQNcUO9ZYNVuXYPzWCOxVEVnXVOqKHCtGLFgXMBaIYQsFMRaPOBdTFDiIFZc ICAgICAgICAgICAgICAgICAgICAgICAgICAgICAgIC KyDZFpFIBxVSVzVGPxWDElKIAqOPCkCZYpPCKbNU4CWFWbGFAnUVAnUQXcTCFtGHHsJFTsBDBcEXKyWG AgICAgICAgICAgICAgICAgICAgICAgICAgICAgICAgICAgICAgICAgICAgICAgICAgICAgICAgICAgIC HnZKXsSEAuTKWsYU7RFMDmMSDjZGMhNMGoXUXzVUDu ICAgICAgICAgICAgICAgICAgICAgICAgICAgICAgICAgICAgICAgICAgICAgICAgICAgICAgICAgICAg PQGoYFMiELBtVXIjKOMnWOMvCUAiBV4ZWJWtQCXlIFPcWWAsVTEdIDJvKRTiKSJbKLWcQLFvQRUmQZQm ICAgICAgICAgICAgICAgICAgICAgICAgICAgICAgIC HoBCVkLWBiGKFlZWJrURPhZSElYOLmOLDgQDXkPLWcXW3GNOFhOEXfNXLyVVMeCNNiDCWpNYYtMVAcMW AgICAgICAgICAgICAgICAgICAgICAgICAgICAgICAgICAgICAgICAgICAgICAgICAgICAgICAgICAgIC YwKPQzSUMjHZEaBZFwNZ2SSYXdPRNwFDObOKLjAJHe ICAgICAgICAgICAgICAgICAgICAgICAgICAgICAgICAgICAgICAgICAgICAgICAgICAgICAgICAgICAg XIHsTXGgCIZlNRIuTABbFJAnCKJnQYOkTP2MJUVhBSKlADNcRSJxZWRkYTAfBYDoSGUbPUXsKCVpBXRj ICAgICAgICAgICAgICAgICAgICAgICAgICAgICAgIC CpRMAqIYImGRFoQQNyBIGdZHQaRTTeOGLnDFHfSLOmMZZbFL7TTPEzKJIoXAObSCQjJGTtQQPaUNLvNV AgICAgICAgICAgICAgICAgICAgICAgICAgICAgICAgICAgICAgICAgICAgICAgICAgICAgICAgICAgIC KqRPLxWXWtZGTwTLMtKEEmVR3OKD30jJVkb6M7BNKa IC2imcx/Ku4BMZmhcwXidOYcUA4YQbDzEL1wpk4YZfUyOS7oql3RUOfHNtDkX3H8pVVcIKJvVMXSDgMk O67hHRltUy33IKncCSVtWbSbNKx9Pl1CMnYfD6dfWKVdSwN5VBTlXjM9SMWlLlQ0NVDlKkIsIIHjIEOa IPPyKSMWCOM0KHSfWeNiRXfpOG3Su5PyyMK0QHu+Pg 8ZLN3oa5FqSRqfLuZjHI5tdb3BZHcYUwCwL4YtlqG5ZNMyWSFbMz4LIFSnFOIuaVCkLeJvBPWKBlFuT4 AbfX95ZMNWXo2+CXfoeyTlTexPWjGcJSNbo9KqAXh7CU2HVTZzPNm3rWPqRPWHKTN0JQ6cREQlAXSndv cfFYJbVfakUNMuLYTkGb3zZT4iVQBfRDK2OoH9LIYA NE8WGYTqIHVclTTzXXVfRPIIYK9QOVhiJZG2JIWeppExpBTaIIosIM2IFEJwprGiUlXmXINZURz+Pg0K QZ9lg9WeZRxuUMYyKW2okj6NPMwZAwTxG9X2wESiC4O1ODmsOo1ZHYQrEFPoZyAtWIGJMMbeCF3RZV7x mjX8FS9TpSMfAPAgXPBnwMVyLSs3V92pkZQuLAaeYK 0KICA+Eleanor+Bs3NUXEbVNGkYDJeJiAcEWKGVeMxC0NmD2MMm3KaB8QkCS40xUjkcyRhQRugOH6RYX3kOV KeNJHBIM8NyDOcuQ0nklTtWlBiTUTDReSzP00pkCBhKUIwGJAyDMTbXz6KTBJxD6PylrTayMnengKyAR QwUPXFCQ9RCKusqxHwhGDxeSumIR17lVjrSF0YJn8V JuHzDF0xiz5YcOSySd2UJUBxIX7RXDPeOQLcGVDaOTT3XPYgXqWaRXcuAISzMPXaGEM6NSPxXYNzRR6M FgPbYACiLcSmWRnpWSCmZATkje0CLQBdLWKgQHa2UDPmGGHhPIZmIDcpTJRtYQRvXIE3CAZkUTGpXI9E HyVrFGQdQBCnCQTgXBGiQNBzqi6BQPYvVURiJIKnCN BeEZUeIENuQAcgWXCfYEJ4WXE6TJBjEWQdFU6ILuGvKXWcFYQ5MANqDYCxNLSlel0XYXUsDDOoEIH6YY WbSUZhWJUtXSkwVBUfIGM8UaU2TKPySUFiWA2YIlIoSQStCZK5AZquFALdUDEmbq8ACMMeSLGqIwY9DZ OwSNBiTZBxPDypRIYuEFC8ZBo6SXCnDMUoYB1PMuDc NUVyAQVpYXRiUGZxRUXtiw1MLMNgEHUeSiZpZSXvMUBeLTVuWWwcYPSzRTE3UxYwQWXoPJKcBS2VLjUq CBPrYRc5EJRvCQKbPTBvyr0DWTQuIUPdLEn6SUXbBUWlPZCkRCsyQYTrSXG0LQpcHCWhDPMeNJ3TOkHt SLUaWwPzRhBdBDTqRFTkix9ULXDgQOTvFGPrBcNlLG XyWNFpKFgpJWLyRZJyNQKvRIApRDWfNW1TCvTbNYMkDjE7RQAtLUKwGPXhat3GXILlWVAlLqKlEkExHR DwHTVeHIrbCTMsINKiMiGpPKLnTHCxVY5NUfFbSIRrHuV1HyHrJKEtKNTaiy0LTNCrCWHaPzbpHwIoPI AaGPSnXJcjDGWbAYZhMhItVAEjOVAmNQ8ANsNpNKMp CwT6DLihSEEpUUOgdb8OKXRaWETmRJEjHqMpYNWcUTNuQQiwTGCpOIF2ZGK0YODoULClNV5IHkHdNGQl VyQ4MPVcRIYpVHBmbb4EIKLpCIGhAZj9UuPqJEKlIUFhXIbdJEMhTPU7GWC9VCDePEUcZY8XYwCeFXal NYPNJex5YSqnX3x9OGDlHG8SN2Iwj6PjCoYmLMPNTC auJM4mtuCyCSPpKe6CB6hBUez2SwNnRdWhW6P7NyK1RqffKrNgYzXhKNEzIhA4TRSgLX4lTMe2HSYoXE FxTIkgGzF3ZSJdGXQjTxO5NCBnGLw6VTCpXbKaVE4FVt3PLqP1JPK2fTWsUt8NCkYcCedEIkXlOV8MAI o= ID Date Data Source [id number] 07/11/2020 04:44:00 AM EDT [facility] XR CHEST FRONTAL ONLY [id number] RESULTI nterpreted by:Opal Corona, MDPROCEDURE INFORMATION: Exam: [...] rce(s) Supporting Document(s) ID Date Data Source [id number] 07/11/2020 03:59:00 AM EDT [facility] Name Value Range Interpretation Code Description Data Rosemary rce(s) Supporting Document(s) SARS-CoV-2 RNA 2019 nCoV Real-Time RT-PCR: NOT DETECTED [facility] This lab was ordered by [facility] and reported by [facility]. ID Date Data Source [id number] 07/11/2020 05:53:56 AM EDT [facility] Service Cmnt XXX-Imp : NoneRespiratory P CR Panel : PCR ResultsMicroorganism XXX Cult : See Labs Tab for 2019 nCoV RT-PCR resultsHAdV DNA QI NICK+non-probe : Not DetectedHCoV [id number] Nph QI NICK+non-probe : Not DetectedHCoV [id number] Nph QI NCIK+non-probe : Not [id number] RNA Nph QI NICK+non-probe : Not [id number] RNA Upper resp QI NICK+probe : Not [...] DNA Nph Q NICK+non-probe : Not DetectedB [id number] DNA Nph NICK+non-probe : Not Detected Name Value Range Interpretation Code Description Data Rosemary rce(s) Supporting Document(s) ID Date Data Source [id number] 07/11/2020 05:53:06 AM EDT [facility] Name Value Range Interpretation Code Description Data Rosemary rce(s) Supporting Document(s) Specimen source [Identifier] of Unspecified specimen [facility] SARS-CoV-2 RNA 2019 nCoV Real-Time RT-PCR: NOT DETECTED [facility] Assay Performed [facility] Patients first test for [facility] 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 [facility] Patient has symptoms related to [facility] When did you start to experience these symptoms [Date and time] [Phen X] [facility] Patient was hospitalized because of this condition [facility] patient was admitted to ICU for [facility] Patient resides in a congregate care setting [facility] status [facility] ID Date Data Source [id number] 07/11/2020 04:18:27 AM EDT [facility] Name Value Range Interpretation Code Description Data Rosemary rce(s) Supporting Document(s) Leukocytes [#/volume] in Blood by Automated count 5.5 10*3/uL 4-10 [facility] Erythrocytes [#/volume] in Blood by Automated count 3.04 10*6/uL 4.1- 5.3 L [facility] Hemoglobin [Mass/volume] in Blood 9.2 g/dL 11.5-15.5 L [facility] Hematocrit [Volume Fraction] of Blood by Automated count 27.2 % 3 6-45 L [facility] Erythrocyte mean corpuscular volume [Entitic volume] by Auto mated count 89.7 fL 80-96 [facility] Erythrocyte mean corpuscular hemoglobin [Entitic mass] by Automated count 30.3 pg 27-33 [facility] Erythrocyte mean corpuscular hemoglobin concentration [Mass/volume] by Automated count 33.8 g/dL [facility].0-[facility].0 [facility] distribution width [Ratio] by Automated count 15.6 % 11.5-14.5 H [facility] Platelets [#/volume] in Blood by Automated count 91 10*3/uL 150-400 L [facility] Differential cell count method - Blood [facility] Neutrophils/100 leukocytes in Blood by Automated count 79 % [facility] Lymphocytes/100 leukocytes in Blood by Automated count 13 % [facility] Monocytes/100 leukocytes in Blood by Automated count 6 % [facility] Eosinophils/100 leukocytes in Blood by Automated count 1 % [facility] Basophils/100 leukocytes in Blood by Automated count 1 % [facility] Neutrophils [#/volume] in Blood by Automated count 4.41 10*3/uL 1.8-7 .0 [facility] Lymphocytes [#/volume] in Blood by Automated count 0.70 10*3/uL 1.2-4 .0 L [facility] Monocytes [#/volume] in Blood by Automated count 0.34 10*3/uL 0-0.8 [facility] Eosinophils [#/volume] in Blood by Automated count 0.06 10*3/uL 0-0.5 [facility] Basophils [#/volume] in Blood by Automated count 0.04 10*3/uL 0-0.2 [facility] Nucleated erythrocytes/100 leukocytes [Ratio] in Blood by Automated count 0 /100{WBCs} 0-0 [facility] ID Date Data Source [id number] 07/11/2020 04:27:46 AM [facility] Value Range Interpretation Code Description Data Rosemary rce(s) Supporting Document(s) Prothrombin time (PT) 17.4 s 12.5-14.9 H [facility] INR in Platelet poor plasma by Coagulation assay 1.40 [facility] Routine intensity oral anticoagulation I NR is typically 2.0-3.0. Target INR must be clinically individualized. ID Date Data Source [id number] 07/11/2020 04:44:46 AM [facility] Value Range Interpretation Code Description Data Rosemary rce(s) Supporting Document(s) Lipase [Enzymatic activity/volume] in Serum or Plasma 33 U/L 13-6 0 [facility] ID Date Data Source [id number] 07/11/2020 04:44:46 AM [facility] Value Range Interpretation Code Description Data Rosemary rce(s) Supporting Document(s) Troponin T.cardiac [Mass/volume] in Serum or Plasma <0.01 [facility] ID Date Data Source [id number] 07/11/2020 04:44:46 AM EDT [facility] Name Value Range Interpretation Code Description Data Rosemary rce(s) Supporting Document(s) Albumin [Mass/volume] in Serum or Plasma by Bromocresol green (BCG) dye binding method 3.5 g/dL 3.5-5.2 [facility] Bilirubin.total [Mass/volume] in Serum or Plasma 0.6 mg/dL <1.2 [facility] Calcium [Mass/volume] in Serum or Plasma 8.4 mg/dL 8.8-10.2 L [facility] Chloride [Moles/volume] in Serum or Plasma 106 mmol/L 98-107 [facility] Creatinine [Mass/volume] in Serum or Plasma 1.20 mg/dL 0.50-0.90 H [facility] Glucose [Mass/volume] in Serum or Plasma 207 mg/dL 70-140 H [facility] Alkaline phosphatase [Enzymatic activity/volume] in Serum or Plasma 84 U/L 35-104 [facility] Potassium [Moles/volume] in Serum or Plasma 4.9 mmol/L 3.4-5.1 [facility] Protein [Mass/volume] in Serum or Plasma 6.5 g/dL 6.4-8.3 [facility] Sodium [Moles/volume] in Serum or Plasma 139 mmol/L 136-145 [facility] Aspartate aminotransferase [Enzymatic activity/volume] in Serum or Plasma 19 U/L <32 [facility] Urea nitrogen [Mass/volume] in Serum or Plasma 18 mg/dL 8-23 [facility] Osmolality of Serum or Plasma by calculation 296 mosm/kg 275-300 [facility] Creatinine/Urea nitrogen [Mass Ratio] in Serum or Plasma 15 [facility] Bicarbonate [Moles/volume] in Serum 21 mmol/L 22-29 L [facility] Alanine aminotransferase [Enzymatic activity/volume] in Seru m or Plasma 11 U/L <33 [facility] Anion gap 3 in Serum or Plasma 12 mmol/L 8-15 [facility] Glomerular filtration rate/1.73 sq M pre dicted among non-blacks [Volume Rate/Area] in Serum or Plasma by Creatinine-based formula (MDRD) 44 mL/min/1.73m2 >60 L [facility] Glomerular filtration rate/1.73 sq M pre dicted among blacks [Volume Rate/Area] in Serum or Plasma by Creatinine-based formula (MDRD) 51 mL/min/1.73m2 >60 L [facility] ID Date Data Source [id number] 07/16/2020 10:13:57 AM EDT [facility] Name Value Range Interpretation Code Description Data Rosemary rce(s) Supporting Document(s) ABO and Rh group [Type] in Blood [facility] Blood group antibody screen [Presence] in Serum or Plasma [facility] Performed at [facility], Rafael Lilly , [place], [id number] Type Confirmed Blood bank comment [facility] ID Date Data Source [id number] 07/11/2020 07:23:58 AM EDT [facility] Name Value Range Interpretation Code Description Data Rosemary rce(s) Supporting Document(s) Hemoglobin A1c/Hemoglobin.total in Blood by HPLC 6.3 % 4.0-6.0 H [facility] Glucose mean value [Mass/volume] in Blood Estimated fr om glycated hemoglobin 134 mg/dL <126 H [facility] ID Date Data Source [id number] 07/10/2020 11:10:00 PM EDT [facility] Name Value Range Interpretation Code Description Data Rosemary rce(s) Supporting Document(s) SARS coronavirus 2 RNA [Presence] in Res piratory specimen by NICK with probe detection NEGATIVE [facility] This lab was ordered by [facility] a nd reported by [facility]. ID Date Data Source [id number] 01/31/2020 08:09:49 AM EDT eCW1 ([facility]) Name Value Range Interpretation Code Description Data Rosemary rce(s) Supporting Document(s) Microalbumin/Creatinine [Ratio] in Urine 16.5 HÉCTOR/CREAT RATIO eCW1 ([facility]) Microalbumin/Creatinine [Mass Ratio] in Urine 131.0 CREATININE, URINE eCW1 ([facility]) Albumin/Creatinine [Mass Ratio] in Urine 21.7 MALB URINE SIEMENS eCW1 ([facility]) Procedure Social History Code Duration Value Status Description Data Source(s ) Smoking 01/01/2021 12:00:00 AM EDT Patient has never smoked co mpleted Patient has never smoked MEDENT ([facility]) Smoking 11/10/2020 12:00:00 AM EDT Never Smoker completed Never S moker eCW1 ([facility]) Smoking 11/10/2020 12:00:00 AM EDT Never Smoker completed Never S moker eCW1 ([facility]) Smoking 11/04/2020 12:00:00 AM EDT Never Smoker completed Never S moker eCW1 ([facility]) Smoking 11/04/2020 12:00:00 AM EDT Never Smoker completed Never S moker eCW1 ([facility]) Smoking 11/04/2020 12:00:00 AM EDT Never Smoker completed Never S moker eCW1 ([facility]) Smoking 07/28/2020 12:00:00 AM EDT Never Smoker completed Never S moker eCW1 ([facility]) Smoking 07/28/2020 12:00:00 AM EDT Never Smoker completed Never S moker eCW1 ([facility]) Smoking 07/28/2020 12:00:00 AM EDT Never Smoker completed Never S moker eCW1 ([facility]) Smoking 07/28/2020 12:00:00 AM EDT Never Smoker completed Never S moker eCW1 ([facility]) Smoking 07/28/2020 12:00:00 AM EDT Never Smoker completed Never S moker eCW1 ([facility]) Smoking 07/28/2020 12:00:00 AM EDT Never Smoker completed Never S moker eCW1 ([facility]) Smoking 07/23/2020 12:00:00 AM EDT Never Smoker completed Never S moker eCW1 ([facility]) Alcohol intake 07/11/2020 12:00:00 AM EDT Ex-drinker (finding) comp leted Ex- drinker (finding) [facility] Tobacco use and exposure 07/11/2020 12:00:00 AM EDT Never used co mpleted Never used [facility] Smoking 07/11/2020 12:00:00 AM EDT Never smoker completed Never s [facility] Smoking 04/29/2020 12:00:00 AM EST Never Smoker completed Never S moker eCW1 ([facility]) Smoking 04/29/2020 12:00:00 AM EST Never Smoker completed Never S moker eCW1 ([facility]) Smoking 04/29/2020 12:00:00 AM EST Never Smoker completed Never S moker eCW1 ([facility]) Smoking 02/26/2020 12:00:00 AM EST Never Smoker completed Never S moker eCW1 ([facility]) Smoking 02/26/2020 12:00:00 AM EST Never Smoker completed Never S moker eCW1 ([facility]) Smoking 02/26/2020 12:00:00 AM EST Never Smoker completed Never S moker eCW1 ([facility]) Smoking 02/26/2020 12:00:00 AM EST Never Smoker completed Never S moker eCW1 ([facility]) Smoking 01/29/2020 12:00:00 AM EDT Never Smoker completed Never S moker eCW1 ([facility]) Smoking 01/29/2020 12:00:00 AM EDT Never Smoker completed Never S moker eCW1 ([facility]) Vital Signs ID Date Data Source UNK Name Value Range Interpretation Code Description Data Source(s) Systolic blood pressure 162 mm[Hg] 162 mm[Hg] [facility] ([facility]) RESOURCE CONSERVATIONIST Recheck: 150/84 Diastolic blood pressure 80 mm[Hg] 80 mm[Hg] [facility] ([facility]) RESOURCE CONSERVATIONIST Recheck: 150/84 Heart rate 92 /min 92 /min [facility] ([facility]) Oxygen saturation in Arterial blood by Pulse oximetry 99 % 99 % [facility] ([facility]) Body height 64 [in_i] 64 [in_i] JEFF ([facility]) 5'4" [place] body weight 120 [lb_av] 120 [lb_av] MEDEN T ([facility]) Systolic blood pressure 122 mm[Hg] 122 mm[Hg] M [facility] ([facility]) Diastolic blood pressure 64 mm[Hg] 64 mm[Hg] [facility] ([facility]) Body height 64 [in_i] 64 [in_i] [facility] ([facility]) 5'4" Body weight 170.00 [lb_av] 170.00 [lb_av] MEDEN T ([facility]) Body mass index (BMI) [Ratio] 29.2 kg/m2 29.2 k g/m2 [facility] ([facility]) [place] body weight 120 [lb_av] 120 [lb_av] MEDEN T ([facility]) Body weight 77.112 kg 77.112 kg [facility] ([facility]) Body surface area Derived from formula 1.83 m2 1.83 m2 [facility] ([facility]) Body height [in_i] eCW1 ([facility]) Body weight 166 [lb_av] 166 [lb_av] eCW1 ([facility]) Body temperature 97.1 [degF] 97.1 [degF] eCW1 ( [facility]) Body mass index (BMI) [Ratio] 28.94 kg/m2 28.94 kg/m2 eCW1 ([facility]) Heart rate 75 /min 75 /min eCW1 ([facility]) Respiratory rate 18 /min 18 /min eCW1 ([facility]) Systolic blood pressure 144 mm[Hg] 144 mm[Hg] e CW1 ([facility]) Diastolic blood pressure 76 mm[Hg] 76 mm[Hg] eCW1 ([facility]) Body weight 166 [lb_av] 166 [lb_av] eCW1 ([facility]) Body height [in_i] eCW1 ([facility]) Body mass index (BMI) [Ratio] 28.94 kg/m2 28.94 kg/m2 eCW1 ([facility]) Heart rate 69 /min 69 /min eCW1 ([facility]) Respiratory rate 18 /min 18 /min eCW1 ([facility]) Body temperature 98.9 [degF] 98.9 [degF] eCW1 ( [facility]) Systolic blood pressure 136 mm[Hg] 136 mm[Hg] e CW1 ([facility]) Diastolic blood pressure 67 mm[Hg] 67 mm[Hg] eCW1 ([facility]) Body mass index (BMI) [Ratio] 29.3 kg/m2 29.3 k g/m2 MEDENT ([facility]) Body weight 79.834 kg 79.834 kg [facility] ([facility]) Body height 65 [in_i] 65 [in_i] [facility] 5'5" Body weight 176.00 [lb_av] 176.00 [lb_av] MEDEN T ([facility]) Body mass index (BMI) [Ratio] 29.3 kg/m2 29.3 k g/m2 [facility] ([facility]) [place] body weight 125 [lb_av] 125 [lb_av] MEDEN T ([facility]) Body weight 79.834 kg 79.834 kg [facility] ([facility]) Body surface area Derived from formula 1.87 m2 1.87 m2 [facility] ([facility]) Body height 65 [in_i] 65 [in_i] MEDENT ([facility]) 5'5" Body weight 176.00 [lb_av] 176.00 [lb_av] MEDEN T ([facility]) [place] body weight 125 [lb_av] 125 [lb_av] MEDEN T ([facility]) Body surface area Derived from formula 1.87 m2 1.87 m2 [facility] ([facility]) Body weight 169 [lb_av] 169 [lb_av] eCW1 ([facility]) Body height [in_i] eCW1 ([facility]) Body mass index (BMI) [Ratio] 29.46 kg/m2 29.46 kg/m2 W1 ([facility]) Heart rate 76 /min 76 /min eCW1 ([facility]) Respiratory rate 18 /min 18 /min eCW1 ([facility]) Body temperature 97.9 [degF] 97.9 [degF] eCW1 ( [facility]) Systolic blood pressure 122 mm[Hg] 122 mm[Hg] e CW1 ([facility]) Diastolic blood pressure 68 mm[Hg] 68 mm[Hg] eCW1 ([facility]) Body weight 170 [lb_av] 170 [lb_av] eCW1 ([facility]) Body height [in_i] eCW1 ([facility]) Body mass index (BMI) [Ratio] 29.64 kg/m2 29.64 kg/m2 eCW1 ([facility]) Heart rate 87 /min 87 /min eCW1 ([facility]) Respiratory rate 18 /min 18 /min eCW1 ([facility]) Body temperature 97.4 [degF] 97.4 [degF] eCW1 ( [facility]) Systolic blood pressure 130 mm[Hg] 130 mm[Hg] e CW1 ([facility]) Diastolic blood pressure mm[Hg] eCW1 ([facility]) Body weight [lb_av] eCW1 ([facility]) Body height [in_i] eCW1 ([facility]) Body mass index (BMI) [Ratio] 29.29 kg/m2 29.29 kg/m2 eCW1 ([facility]) Heart rate 80 /min 80 /min eCW1 ([facility]) Respiratory rate 18 /min 18 /min eCW1 ([facility]) Body temperature 98.7 [degF] 98.7 [degF] eCW1 ( [facility]) Systolic blood pressure 132 mm[Hg] 132 mm[Hg] e CW1 ([facility]) Diastolic blood pressure 76 mm[Hg] 76 mm[Hg] eCW1 ([facility]) Body weight 171 [lb_av] 171 [lb_av] eCW1 ([facility]) Body height [in_i] eCW1 ([facility]) Body mass index (BMI) [Ratio] 29.81 kg/m2 29.81 kg/m2 eCW1 ([facility]) Heart rate 72 /min 72 /min eCW1 ([facility]) Respiratory rate 18 /min 18 /min eCW1 ([facility]) Body temperature 98.3 [degF] 98.3 [degF] eCW1 ( [facility]) Systolic blood pressure 110 mm[Hg] 110 mm[Hg] e CW1 ([facility]) Diastolic blood pressure 65 mm[Hg] 65 mm[Hg] eCW1 ([facility]) Body weight [lb_av] eCW1 ([facility]) Body height [in_i] eCW1 ([facility]) Body mass index (BMI) [Ratio] 30.16 kg/m2 30.16 kg/m2 eCW1 ([facility]) Heart rate 79 /min 79 /min eCW1 ([facility]) Respiratory rate 18 /min 18 /min eCW1 ([facility]) Body temperature 98.7 [degF] 98.7 [degF] eCW1 ( [facility]) Systolic blood pressure 138 mm[Hg] 138 mm[Hg] e CW1 ([facility]) Diastolic blood pressure 79 mm[Hg] 79 mm[Hg] eCW1 ([facility]) Oxygen saturation in Arterial blood by Pulse oximetry 96 % 96 % JEFF ([facility], ) Room Air Body weight 176.00 [lb_av] 176.00 [lb_av] MEDEN T ([facility], ) Body mass index (BMI) [Ratio] 29.3 kg/m2 29.3 k g/m2 JEFF ([facility], ) Body height 65 [in_i] 65 [in_i] JEFF ([facility], ) 5'5" Body weight 79.834 kg 79.834 kg JEFF ([facility], ) Body surface area Derived from formula 1.87 m2 1.87 m2 JEFF ([facility], ) [place] body weight 125 [lb_av] 125 [lb_av] [facility] Systolic blood pressure 118 mm[Hg] 118 mm[Hg] M [facility] ([facility]) Diastolic blood pressure 80 mm[Hg] 80 mm[Hg] [facility] ([facility]) Heart rate 80 /min 80 /min [facility] ([facility]) Oxygen saturation in Arterial blood by Pulse oximetry 96 % 96 % [facility] ([facility]) Room Air Body height 65 [in_i] 65 [in_i] [facility] ([facility]) 5'5" Body weight 176.00 [lb_av] 176.00 [lb_av] [facility] Body mass index (BMI) [Ratio] 29.3 kg/m2 29.3 k g/m2 [facility] ([facility]) [place] body weight 125 [lb_av] 125 [lb_av] [facility] Body weight 79.834 kg 79.834 kg [facility] ([facility]) Body surface area Derived from formula 1.87 m2 1.87 m2 [facility] ([facility]) ID Date Data Source [id number] 07/22/2020 10:16:51 AM EDT [facility] Name Value Range Interpretation Code Description Data Source(s) WEIGHT RECORDED 175.49 lb 175.49 lb [facility] WEIGHT RECORDED 176.15 lb 176.15 lb [facility] Body height Measured 64 in 64 in [facility] WEIGHT RECORDED 179.1 lb 179.1 lb [facility] WEIGHT RECORDED 173 lb 173 lb [facility] Body height Measured 64 in 64 in [facility] TRANSFER FROM [facility] Patient Treatment Plan of Care Planned Activity Planned Date Details Description Data Source (s) Glucometer 07/29/2020 12:00:00 AM EDT e CW1 ([facility]) Glucometer 07/29/2020 12:00:00 AM EDT e CW1 ([facility]) Glucometer 07/29/2020 12:00:00 AM EDT e CW1 ([facility]) Glucometer 07/29/2020 12:00:00 AM EDT e CW1 ([facility]) Glucometer 07/29/2020 12:00:00 AM EDT e CW1 ([facility]) Glucometer 07/29/2020 12:00:00 AM EDT e CW1 ([facility]) Nadolol 40 MG Oral Tablet 07/17/2020 12:00:00 AM [facility] Nadolol 20 MG Oral Tablet 07/17/2020 12:00:00 AM [facility] pantoprazole 40 MG Delayed Release Oral Tablet 07/16/2020 12:00:00 AM [facility] cefpodoxime 200 MG Oral Tablet 07/16/2020 12:00:00 AM [facility] Lactulose 83.3 MG/ML Oral Solution 07/16/2020 12:00:00 AM [facility] Glucagon 1 MG Injection 07/13/2020 06:16:54 PM [facility] dextrose 50 % IV solution 25 mL 07/12/2020 12:28:39 PM [facility] Glucose 0.417 MG/MG Oral Gel 07/12/2020 12:28:39 PM [facility] Blood Glucose Test - 07/08/2020 12:00:00 AM EDT eCW1 ([facility]) Hydrochlorothiazide 25 MG Oral Tablet 06/30/2020 12:00:00 AM [facility] pantoprazole 40 MG Delayed Release Oral Tablet 06/26/2020 12:00:00 AM [facility] carvedilol 25 MG Oral Tablet 06/26/2020 12:00:00 AM [facility] Losartan Potassium 100 MG Oral Tablet 06/24/2020 12:00:00 AM [facility] Metformin hydrochloride 500 MG Oral Tablet 06/19/2020 12:00:00 AM [facility] Spironolactone 25 MG Oral Tablet 05/07/2020 12:00:00 AM [facility] Carbamazepine 200 MG Oral Tablet 05/06/2020 12:00:00 AM [facility] benzonatate 100 MG Oral Capsule [Saranya Field] 01/29/2020 12: 00:00 AM EDT eCW1 ([facility]) benzonatate 100 MG Oral Capsule [Carylsalon Emir] 01/29/2020 12: 00:00 AM EDT eCW1 ([facility]) Folic Acid 1 MG Oral Tablet 12/26/2019 12:00:00 AM [facility] Fluoxetine 20 MG Oral Capsule 12/26/2019 12:00:00 AM [facility]
[2021-02-07 15:41] LABS: BASO % 0.9 % (0.0-1.0); EOS # 0.1 10^3/uL (0.0-0.5); EOS % 2.1 % (0.0-3.0); HEMATOCRIT 27.8 % (36.0-47.0); HEMOGLOBIN 8.9 g/dl (12.0-15.5); LYMPH # 0.7 10^3/uL (1.5-5.0); LYMPH % 20.5 % (24.0-44.0); MEAN CORPUSCULAR HEMOGLOBIN 26.8 pg (27.0-33.0); MEAN CORPUSCULAR VOLUME 83.7 fl (80.0-96.0); MONO # 0.4 10^3/uL (0.0-0.8); MONO % 12.4 % (2.0-8.0); NEUTROPHILS # 2.1 10^3/uL (1.5-8.5); NEUTROPHILS % 63.8 % (36.0-66.0); RED BLOOD COUNT 3.32 10^6/uL (4.00-5.40); WHITE BLOOD COUNT 3.3 10^3/uL (4.0-10.0)
[2021-02-07 15:49] LABS: INR 1.15; PROTHROMBIN TIME 15.1 SECONDS (12.7-14.5)
[2021-02-07 15:50] LABS: PARTIAL THROMBOPLASTIN TIME 28.9 SECONDS (25.9-37.0)
--- NOTE | 2021-02-07 15:53 | REP ---
INDICATION: assess for ascites; upper abdominal discomfort COMPARISON: 01/01/2021 TECHNIQUE: Real time montemayor scale ultrasound examination using curved array transducer. FINDINGS: Ultrasound examination through the 4 quadrants of the abdomen and pelvis without evidence for ascites. IMPRESSION: No evidence for ascites. <Electronically signed by Jerome Person > 02/07/21 [id number]
[2021-02-07 16:10] LABS: ALBUMIN 3.3 GM/DL (3.2-5.2); ALT/SGPT 26 U/L (12-78); BILIRUBIN,DIRECT 0.1 MG/DL (0.0-0.2); BILIRUBIN,TOTAL 0.4 MG/DL (0.2-1.0); BLOOD UREA NITROGEN 42 MG/DL (7-18); CALCIUM LEVEL 8.8 MG/DL (8.8-10.2); CARBON DIOXIDE LEVEL 26 MEQ/L (21-32); CHLORIDE LEVEL 102 MEQ/L (98-107); CK-MB VALUE MASS < 1.0 NG/ML (<3.6); CPK CREATINE PHOSPHOKINASE 47 U/L (26-192); CREATININE FOR GFR 1.88 MG/DL (0.55-1.30); GLUCOSE, FASTING 142 MG/DL (70-100); LIPASE 241 U/L (73-393); MAGNESIUM LEVEL 1.7 MG/DL (1.8-2.4); MB/CK RELATIVE INDEX 2.13 (< OR =4); POTASSIUM SERUM 3.7 MEQ/L (3.5-5.1); SODIUM LEVEL 139 MEQ/L (136-145); TOTAL PROTEIN 7.6 GM/DL (6.4-8.2); TROPONIN I < 0.02 NG/ML (< 0.10)
[2021-02-07] MEDS ORDERED: NS 2,200 ML in IV 1 EA IV ONE (16:10)
[2021-02-07] MEDS ORDERED: cefTRIAXone SOD 2 GM in D5W MINI-BAG PLUS 50 ML IV ONE (17:10)
[2021-02-07 17:36] LABS: RSV AMPLIFICATION NEGATIVE (NEGATIVE)
--- NOTE | 2021-02-07 17:53 | IPNPDOC ---
Subjective Date Seen The patient was seen on 02/07/21. VS, I&O, 24H, [facility] Vital Signs/I&O Vital Signs Date Time Temp Pulse Resp B/P (MAP) Pulse Ox O2 Delivery O2 Flow Rate FiO2 02/07/21 17:30 165/71 (102) 02/07/21 17:28 99 18 100 Room Air 02/07/21 14:14 98.3 Laboratory Data 24H LABS Laboratory Tests 2 02/07/21 15:24: Immature Granulocyte % (Auto) 0.3, Neutrophils (%) (Auto) 63.8, Lymphocytes (%) (Auto) 20.5L, Monocytes (%) (Auto) 12.4H, Eosinophils (%) (Auto) 2.1, Basophils (%) (Auto) 0.9, Neutrophils # (Auto) 2.1, Lymphocytes # (Auto) 0.7L, Monocytes # (Auto) 0.4, Eosinophils # (Auto) 0.1, Basophils # (Auto) 0.0, Nucleated Red Blood Cells % (auto) 0.0, Prothrombin Time 15.1H, Prothromb Time International Ratio 1.15, Activated Partial Thromboplast Time 28.9, Anion Gap 11, Glomerular Filtration Rate 28.0L, Lactic Acid Level 5.2*H, Calcium Level 8.8, Magnesium Level 1.7L, Total Bilirubin 0.4, Direct Bilirubin 0.1, Aspartate Amino Transf (AST/SGOT) 23, Alanine Aminotransferase (ALT/SGPT) 26, Alkaline Phosphatase 83, Ammonia 65H, Total Creatine Kinase 47, Creatine Kinase MB < 1.0, Creatine Kinase MB Relative Index 2.13, Troponin I < 0.02, Total Protein 7.6, Albumin 3.3, Albumin/Globulin Ratio 0.8L, Lipase 241 02/07/21 16:19: Urine Color YELLOW, Urine Appearance HAZY, Urine pH 6.0, Urine Specific [place] 1.015, Urine Protein NEGATIVE, Urine Glucose (UA) NEGATIVE, Urine Ketones NE GATIVE, Urine Blood NEGATIVE, Urine Nitrite NEGATIVE, Urine Bilirubin NEGATIVE, Urine Urobilinogen 0.2, Urine Leukocyte Esterase 3+H, Urine WBC (Auto) 27H, Urine RBC (Auto) 1, Urine Hyaline Casts (Auto) 0, Urine Bacteria (Auto) 1+H, Urine Squamous Epithelial Cells 9, Urine Sperm (Auto) 02/07/21 16:53: Coronavirus (COVID-19)(PCR) NEGATIVE, Influenza Type A (RT-PCR) NEGATIVE, Influenza Type B (RT-PCR) NEGATIVE, Respiratory Syncytial Virus (PCR) NEGATIVE CBC/BMP Laboratory Tests 02/07/21 15:24 Microbiology Microbiology 02/07/21 Blood Culture, Received Pending 02/07/21 Urine Culture, Received Pending 02/07/21 Blood Culture, Received Pending ELEAZAR NEWTON M.D. Feb 07, 2021 17:52
[2021-02-07] MEDS ORDERED: FURO20TA2 PO (18:11)
[2021-02-07] MEDS ORDERED: PANT-23 PO (18:11)
--- NOTE | 2021-02-07 18:21 | HPEPDOC ---
[facility] Medical History & Physical Date of Admission Feb 07, 2021 Date of Service: Feb 07, 2021 History and Physical CHIEF COMPLAINT: " Sent by family doctor" HISTORY OF PRESENT ILLNESS: 70-year-old female with a past medical history of hypertension, hyperlipidemia, type 2 diabetes mellitus, atrial fibrillation, COPD, liver cirrhosis with varices was sent to the emergency room department by the primary care physician due to abnormal labs and concern for a worsening mental status. Patient is awake, alert, oriented x3 but is moderately confused and a poor historian. , Cricket, was at bedside who provided majority of course of events that took place recently. He reports patient had been nauseated and vomiting for approximately a week and seen by her primary care physician on 02/05 who recommended blood work to be done on 02/06. Today, they were contacted because she had elevated ammonia levels thought to be contributing to her symptoms. Of note, according to the patient has had complications with her varices requiring banding once here at [facility] and another time at [facility]. She also has a a liver nodule that is being monitored and a repeat MRI is scheduled for 02/13. CODE STATUS was discussed with the patient at length. She reported she would like to be full code and in the event she cannot make medical decisions her , Cricket should be contacted. PAST MEDICAL HISTORY: As above PAST SURGICAL HISTORY: Back surgery, cardiac catheterization, cholecystectomy SOCIAL HISTORY: Lives with her . Denies smoking, drink, use of recreational drugs. FAMILY HISTORY: Father and mother are . His mother of unspecified heart problems. ALLERGIES: Please see below. REVIEW OF SYSTEMS: 10 point review of system was negative except for what is noted in the HPI HOME MEDICATIONS: Please see below. PHYSICAL EXAMINATION: VITAL SIGNS: Please see below General: Lying in bed, no acute distress Head/Neck/Throat: Trachea midline, mucous membranes moist Eyes: Sclera anicteric, PERRLA Thorax: Normal respiratory effort on room air, lungs clear to auscultation bilat erally, no wheezes/rales/rhonchi Cardiovascular: Normal rate, regular rhythm, normal S1, S2; no S3, S4, rubs/gallops/murmurs Abdomen: Bowel sounds present, soft/nontender/nondistended Genitourinary: No CVA tenderness, no Thao in place Musculoskeletal: Moving all extremities, no edema Skin: Warm, dry Neurologic: AAOx3, however confused at times, speech fluent and goal-directed, no focal deficits, grossly intact LABORATORY DATA: See below. IMAGING: Ultrasound done to assess for ascites which was negative. MICROBIOLOGY: Please see below. ASSESSMENT/PLAN: 70-year-old female sent to the emergency room department by her primary care physician due to abnormal labs. She was noted to have elevated ammonia level as well as lactic acidosis. #Hepatic encephalopathy -Her mental status is beginning to improve. Patient as well as her were explained that this may be a recurrent event with her end-stage liver disease. Continue with lactulose with titration for 3 bowel movements per day. #Cirrhosis -Hold furosemide due to her renal function. Start low-sodium diet. #Lactic acidosis -Low suspicion for infectious etiology. This is likely due to her liver disease; she also was on Metformin and had acute kidney injury which can lead to doses. Follow off antibiotics and trend. #Electrolyte abnormality -Replete magnesium #Pancytopenia -In the setting of end-stage liver disease. Continue to monitor. #Acute on chronic kidney disease -Likely due to poor p.o. intake. Continue with maintenance fluids. Repeat creatinine. Avoid nephrotoxic medications. #Coronary artery disease -Continue with carvedilol #COPD -Patient's reports she has COPD, but patient denied it. She is not on any inhalers at home. She is not in acute exacerbation. #Hypertension -Hold losartan in the setting of acute renal failure. Start amlodipine 5 mg daily #Seizures -Continue with carbamazepine #Diabetes mellitus -Hold Metformin during hospitalization. Insulin sliding scale, hypoglycemic protocol, Accu-Cheks #Atrial fibrillation -Due to variceal bleeds in the past and her systemic anticoagulation was discontinued and rate is controlled with carvedilol. #DVT prophylaxis Heparin subcu Vital Signs Vital Signs Date Time Temp Pulse Resp B/P (MAP) Pulse Ox O2 Delivery O2 Flow Rate FiO2 02/07/21 17:30 165/71 (102) 02/07/21 17:28 99 18 100 Room Air 02/07/21 14:14 98.3 Laboratory Data Labs 24H Laboratory Tests 2 02/07/21 15:24: Immature Granulocyte % (Auto) 0.3, Neutrophils (%) (Auto) 63.8, Lymphocytes (%) (Auto) 20.5L, Monocytes (%) (Auto) 12.4H, Eosinophils (%) (Auto) 2.1, Basophils (%) (Auto) 0.9, Neutrophils # (Auto) 2.1, Lymphocytes # (Auto) 0.7L, Monocytes # (Auto) 0.4, Eosinophils # (Auto) 0.1, Basophils # (Auto) 0.0, Nucleated Red Bl ood Cells % (auto) 0.0, Prothrombin Time 15.1H, Prothromb Time International Ratio 1.15, Activated Partial Thromboplast Time 28.9, Anion Gap 11, Glomerular Filtration Rate 28.0L, Lactic Acid Level 5.2*H, Calcium Level 8.8, Magnesium Level 1.7L, Total Bilirubin 0.4, Direct Bilirubin 0.1, Aspartate Amino Transf (AST/SGOT) 23, Alanine Aminotransferase (ALT/SGPT) 26, Alkaline Phosphatase 83, Ammonia 65H, Total Creatine Kinase 47, Creatine Kinase MB < 1.0, Creatine Kinase MB Relative Index 2.13, Troponin I < 0.02, Total Protein 7.6, Albumin 3.3, Albumin/Globulin Ratio 0.8L, Lipase 241 02/07/21 16:19: Urine Color YELLOW, Urine Appearance HAZY, Urine pH 6.0, Urine Specific [place] 1.015, Urine Protein NEGATIVE, Urine Glucose (UA) NEGATIVE, Urine Ketones NEGATIVE, Urine Blood NEGATIVE, Urine Nitrite NEGATIVE, Urine Bilirubin NEGATIVE, Urine Urobilinogen 0.2, Urine Leukocyte Esterase 3+H, Urine WBC (Auto) 27H, Urine RBC (Auto) 1, Urine Hyaline Casts (Auto) 0, Urine Bacteria (Auto) 1+H, Urine Squamous Epithelial Cells 9, Urine Sperm (Auto) 02/07/21 16:53: Coronavirus (COVID-19)(PCR) NEGATIVE, Influenza Type A (RT-PCR) NEGATIVE, Influenza Type B (RT-PCR) NEGATIVE, Respiratory Syncytial Virus (PCR) NEGATIVE CBC/BMP Laboratory Tests 02/07/21 15:24 Microbiology Microbiology 02/07/21 Blood Culture, Received Pending 02/07/21 Urine Culture, Received Pending 02/07/21 Blood Culture, Received Pending Home Medications Scheduled Carbamazepine (Carbamazepine) 200 Mg Tab, 200 MG PO TID Carvedilol (Carvedilol) 25 Mg Tab, 25 MG PO BID Fluoxetine Hcl (Fluoxetine HCl) 20 Mg Cap, 20 MG PO DAILY Furosemide (Furosemide) 20 Mg Tablet, 20 MG PO BID Hydrochlorothiazide (Hydrochlorothiazide) 25 Mg Tablet, 25 MG PO DAILY Losartan Potassium (Losartan Potassium) 100 Mg Tablet, 50 MG PO BID Metformin HCl (Metformin HCl) 500 Mg Tab, 500 MG PO BID Pantoprazole Sodium (Pantoprazole Sodium) 40 Mg Tablet.dr, 40 MG PO BID Propranolol HCl (Propranolol HCl) 20 Mg Tablet, 20 MG PO BID Allergies Coded Allergies: cyclobenzaprine (Verified Adverse Reaction, Intermediate, confusion, 07/29/18) propoxyphene (Verified Adverse Reaction, Intermediate, CONFUSION, 07/29/18) A-FIB/CHADSVASC A-FIB History Current/History of A-Fib/PAF?: No ELEAZAR NEWTON M.D. Feb 07, 2021 18:02
[2021-02-07] MEDS ORDERED: PROP20TA72 PO (18:24)
[2021-02-07] MEDS ORDERED: HOME MED LIST COMPLETE! XX SCH (18:25)
[2021-02-07] MEDS ORDERED: MAGNESIUM OXIDE 400MG TAB (MAG-OX) PO ONE (20:00)
[2021-02-07] MEDS: LACTULOSE 20 GM/30 ML SYRUP UD PO SCH (20:00)
[2021-02-07] MEDS ORDERED: PROMETHAZINE INJ 25 MG/ML VIAL (J2550) IV PRN (22:40)
[2021-02-07 23:32] VITALS: BP 160/83
[2021-02-07] MEDS: NS 1,000 ML IV SCH (23:46)
[2021-02-07] MEDS: CARVedilol 12.5 MG TAB PO SCH (23:47)
[2021-02-07] MEDS: carBAMazepine 200MG TABLET PO SCH (23:48)
[2021-02-07] MEDS: PANTOPRAZOLE 40MG TAB (PROTONIX) PO SCH (23:48)
[2021-02-08] MEDS: LACTULOSE 20 GM/30 ML SYRUP UD PO SCH ×6 (00:32→21:00)
[2021-02-08] MEDS: THIAMINE INJection 500 MG in NS 100 ML IV SCH ×4 (00:59→23:49)
[2021-02-08 05:42] LABS: HEMOGLOBIN 7.5 g/dl (12.0-15.5); MEAN CORPUSCULAR HEMOGLOBIN 26.8 pg (27.0-33.0); MEAN CORPUSCULAR HGB CONC 31.3 g/dl (32.0-36.5); MEAN CORPUSCULAR VOLUME 85.7 fl (80.0-96.0); WHITE BLOOD COUNT 2.9 10^3/uL (4.0-10.0)
[2021-02-08 06:00] VITALS: BP 106/54
[2021-02-08] MEDS ORDERED: HEPARIN SOD (PORCINE) 5000UNITS/ML 1ML VIAL/SYRINGE SQ SCH (06:00)
[2021-02-08 06:04] LABS: ALBUMIN 2.8 GM/DL (3.2-5.2); BILIRUBIN,TOTAL 0.4 MG/DL (0.2-1.0); CALCIUM LEVEL 8.3 MG/DL (8.8-10.2); CREATININE FOR GFR 1.55 MG/DL (0.55-1.30); MAGNESIUM LEVEL 1.7 MG/DL (1.8-2.4); POTASSIUM SERUM 3.7 MEQ/L (3.5-5.1); TOTAL PROTEIN 6.4 GM/DL (6.4-8.2)
[2021-02-08] MEDS ORDERED: MAGNESIUM OXIDE 400MG TAB (MAG-OX) PO ONE (06:45)
[2021-02-08] MEDS: PANTOPRAZOLE 40MG TAB (PROTONIX) PO SCH ×2 (09:07→20:57)
[2021-02-08] MEDS: carBAMazepine 200MG TABLET PO SCH ×3 (09:07→20:57)
[2021-02-08] MEDS: amLODIPine 5 MG TAB PO SCH (09:08)
[2021-02-08] MEDS: CARVedilol 12.5 MG TAB PO SCH ×2 (09:08→20:58)
[2021-02-08] MEDS: FLUoxetine 20 MG CAP PO SCH (09:10)
[2021-02-08 09:22] LABS: HEMATOCRIT 24.8 % (36.0-47.0); MEAN CORPUSCULAR HEMOGLOBIN 27.7 pg (27.0-33.0); MEAN CORPUSCULAR HGB CONC 32.3 g/dl (32.0-36.5); MEAN CORPUSCULAR VOLUME 85.8 fl (80.0-96.0); RED BLOOD COUNT 2.89 10^6/uL (4.00-5.40); WHITE BLOOD COUNT 2.4 10^3/uL (4.0-10.0)
[2021-02-08 09:22] LABS: PLTBLUE- EDTA FREE MACHINE 74 10^3/uL (172-450)
[2021-02-08 09:51] LABS: PLTBLUE- EDTA FREE CALC 81 K/mm3 (172-450)
[2021-02-08] MEDS: NS 1,000 ML IV SCH ×2 (10:51→17:18)
[2021-02-08 14:00] VITALS: BP 115/56
[2021-02-08] MEDS: ACETAMINOPHEN TAB 650MG DOSE (2X325MG) PO PRN ×2 (16:14→22:28)
--- NOTE | 2021-02-08 19:30 | ECGEPIP ---
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
[2021-02-08 20:06] LABS: HEMOGLOBIN A1c 7.2 %
[2021-02-08 22:00] VITALS: BP 111/56
[2021-02-09] MEDS: NS 1,000 ML IV SCH ×3 (01:24→18:05)
[2021-02-09 06:00] VITALS: BP 123/70
[2021-02-09 06:22] LABS: BASO % 0.7 % (0.0-1.0); EOS # 0.1 10^3/uL (0.0-0.5); EOS % 2.1 % (0.0-3.0); HEMATOCRIT 26.2 % (36.0-47.0); HEMOGLOBIN 8.2 g/dl (12.0-15.5); LYMPH # 0.7 10^3/uL (1.5-5.0); LYMPH % 22.8 % (24.0-44.0); MEAN CORPUSCULAR HEMOGLOBIN 26.9 pg (27.0-33.0); MEAN CORPUSCULAR HGB CONC 31.3 g/dl (32.0-36.5); MEAN CORPUSCULAR VOLUME 85.9 fl (80.0-96.0); MONO # 0.3 10^3/uL (0.0-0.8); MONO % 9.8 % (2.0-8.0); NEUTROPHILS # 1.8 10^3/uL (1.5-8.5); NEUTROPHILS % 64.2 % (36.0-66.0); RED BLOOD COUNT 3.05 10^6/uL (4.00-5.40); WHITE BLOOD COUNT 2.9 10^3/uL (4.0-10.0)
[2021-02-09 06:23] LABS: PLTBLUE- EDTA FREE CALC 86 K/mm3 (172-450); PLTBLUE- EDTA FREE MACHINE 78 10^3/uL (172-450)
[2021-02-09 06:26] LABS: PLATELET COUNT, AUTOMATED 94 10^3/uL (150-450)
[2021-02-09 06:46] LABS: ALBUMIN 2.9 GM/DL (3.2-5.2); BILIRUBIN,TOTAL 0.3 MG/DL (0.2-1.0); CALCIUM LEVEL 8.5 MG/DL (8.8-10.2); CREATININE FOR GFR 1.47 MG/DL (0.55-1.30); GLOMERULAR FILTRATION RATE 37.2 (>39); PHOSPHORUS LEVEL 3.1 MG/DL (2.5-4.9); POTASSIUM SERUM 3.8 MEQ/L (3.5-5.1); TOTAL PROTEIN 6.6 GM/DL (6.4-8.2)
--- NOTE | 2021-02-09 07:12 | REPVR ---
PROCEDURE INFORMATION: Exam: US Abdomen, Limited; Right Upper Quadrant Exam date and time: 02/09/2021 6:41 AM Age: 70 years old Clinical indication: Abnormal findings; Abnormal radiologic finding of the abdomen; Radiologic exam and body structure: Prior ultrasounds; Prior surgery; Surgery date: 6+ months; Surgery type: Cholecystectomy; Additional info: F/u liver mass TECHNIQUE: Imaging protocol: US abdomen. Real time ultrasound with image documentation. Limited exam focused on the right upper quadrant. COMPARISON: Abdomen, limited US 02/07/2021 3:25 PM FINDINGS: Liver: The liver is echogenic and nodular in contour. There is a questionable peripheral subcapsular nodule in the right hepatic lobe measuring 1.1 x 1.0 x 0.9 centimetres. Gallbladder: The patient is status post cholecystectomy. Common bile duct: The CBD is normal in size measuring 6 mm. Pancreas: The pancreatic head is grossly unremarkable. The body and the tail of the pancreas are obscured by bowel gas. Right kidney: The right kidney measures 10.0 x 4.9 x 5.1 centimetres. There is no right renal mass, stone, cyst or hydronephrosis. IMPRESSION: 1. Cirrhotic liver with a questionable right hepatic lobe subcapsular nodule measuring 1.1 x 1.0 x 0.9 cm. This could be related to the nodular hepatic contour of cirrhosis however focal true nodule cannot be excluded. No lesion was seen on CT scan of February 15, 2020. This nodular appearance is grossly unchanged since the prior ultrasound of January 01, 2021. Correlation with alpha-fetoprotein level is needed. Further characterization with MRI with contrast may be indicated. 2. Status post cholecystectomy with no biliary ductal dilatation. Electronically signed by: Daniel Julian On 02/09/2021 07:11:53 AM
[2021-02-09] MEDS: THIAMINE INJection 500 MG in NS 100 ML IV SCH (09:02)
[2021-02-09] MEDS: amLODIPine 5 MG TAB PO SCH (09:02)
[2021-02-09] MEDS: PANTOPRAZOLE 40MG TAB (PROTONIX) PO SCH ×2 (09:02→20:44)
[2021-02-09] MEDS: CARVedilol 12.5 MG TAB PO SCH ×2 (09:02→20:44)
[2021-02-09] MEDS: LACTULOSE 20 GM/30 ML SYRUP UD PO SCH ×4 (09:02→20:45)
[2021-02-09] MEDS: FLUoxetine 20 MG CAP PO SCH (09:02)
[2021-02-09] MEDS: carBAMazepine 200MG TABLET PO SCH ×3 (09:02→20:44)
[2021-02-09] MEDS ORDERED: EXCEDRIN MIGRAINE TABLET PO ONE (13:00)
[2021-02-09 14:00] VITALS: BP 115/65
--- NOTE | 2021-02-09 16:52 | IPNPDOC ---
Subjective Date Seen The patient was seen on 02/08/21. Subjective Chief Complaint/HPI Patient was seen and examined at bedside this morning. She is alert, awake and oriented x 3. She was asking when she would be able to go home, and was explained when her lactic acid resolved, and u/s of the liver which was recommended by gi. Objective Physical Examination Other physical findings VITAL SIGNS: Please see below General: Lying in bed, no acute distress Head/Neck/Throat: Trachea midline, mucous membranes moist Eyes: Sclera anicteric, PERRLA Thorax: Normal respiratory effort on room air, lungs clear to auscultation bilaterally, no wheezes/rales/rhonchi Cardiovascular: Normal rate, regular rhythm, normal S1, S2; no S3, S4, rubs/gallops/murmurs Abdomen: Bowel sounds present, soft/nontender/nondistended Genitourinary: No CVA tenderness, no Thao in place Musculoskeletal: Moving all extremities, no edema Skin: Warm, dry Neurologic: AAOx3. Assessment /Plan Assessment #Hepatic encephalopathy -Improving. Continue w/ lactulose, titrate to 3 bm. #Cirrhosis -Hold furosemide due to her renal function. Start low-sodium diet. #Lactic acidosis -Low suspicion for infectious etiology. This is likely due to her liver disease; she also was on Metformin and had acute kidney injury which can lead to doses. Follow off antibiotics and trend. #Electrolyte abnormality -Replete magnesium #Pancytopenia -In the setting of end-stage liver disease. Continue to monitor. #Acute on chronic kidney disease -Improving cr. This was likely due to poor p.o. intake. Continue with maintenance fluids. Repeat creatinine. Avoid nephrotoxic medications. #Coronary artery disease -Continue with carvedilol #COPD -Patient's reports she has COPD, but patient denied it. She is not on any inhalers at home. She is not in acute exacerbation. #Hypertension -Hold losartan in the setting of acute renal failure. Start amlodipine 5 mg daily #Seizures -Continue with carbamazepine #Diabetes mellitus -Hold Metformin during hospitalization. Insulin sliding scale, hypoglycemic protocol, Accu-Cheks #Atrial fibrillation -Due to variceal bleeds in the past and her systemic anticoagulation was discontinued and rate is controlled with carvedilol. #DVT prophylaxis Heparin subcu Plan/VTE VTE Prophylaxis Ordered?: Yes VS, I&O, 24H, Fishbone Vital Signs/I&O Vital Signs Date Time Temp Pulse Resp B/P (MAP) Pulse Ox O2 Delivery O2 Flow Rate FiO2 02/08/21 09:08 73 122/65 02/08/21 06:00 97.4 16 98 Room Air I&O- Last 24 Hours up to 6 AM 02/08/21 06:00 Intake Total 2960 ml Output Total 0 ml Balance 2960 ml Laboratory Data 24H LABS Laboratory Tests 2 02/07/21 19:57: Lactic Acid Followup at 4 Hours 4.6*H 02/08/21 00:19: Lactic Acid Level 3.7*H 02/08/21 05:22: Lactic Acid Followup at 4 Hours 2.7*H, Nucleated Red Blood Cells % (auto) 0.0, Anion Gap 8, Glomerular Filtration Rate 35.0L, Calcium Level 8.3L, Phosphorus Level 3.0, Magnesium Level 1.7L, Total Bilirubin 0.4, Aspartate Amino Transf (AST/SGOT) 24, Alanine Aminotransferase (ALT/SGPT) 23, Alkaline Phosphatase 75, Ammonia 58H, Total Protein 6.4, Albumin 2.8L, Albumin/Globulin Ratio 0.8L 02/08/21 08:47: Platelet Count, EDTA Free 81L 02/08/21 08:52: Nucleated Red Blood Cells % (auto) 0.0 02/08/21 16:29: CBC/BMP Laboratory Tests 02/08/21 05:22 02/08/21 08:52 Microbiology Microbiology 02/07/21 Blood Culture - Preliminary, Resulted No growth after 24 hours . All specim... 02/07/21 Urine Culture - Final, Complete 02/07/21 Blood Culture, Received Pending ELEAZAR NEWTON M.D. Feb 08, 2021 16:56
--- NOTE | 2021-02-09 17:09 | IPNPDOC ---
Subjective Date Seen The patient was seen on 02/09/21. Subjective Chief Complaint/HPI Patient was seen and examined at bedside this morning. She is awake, alert, oriented x3. She reported mild headache, denied blurry vision, nausea, vomiting, focal deficits. She denies chest pain, shortness of breath, abdominal pain, nausea, vomiting, problems with urination and bowel movements. Objective Physical Examination Other physical findings VITAL SIGNS: Please see below General: Lying in bed, no acute distress Head/Neck/Throat: Trachea midline, mucous membranes moist Eyes: Sclera anicteric, PERRLA Thorax: Normal respiratory effort on room air, lungs clear to auscultation bilaterally, no wheezes/rales/rhonchi Cardiovascular: Normal rate, regular rhythm, normal S1, S2; no S3, S4, rubs/gallops/murmurs Abdomen: Bowel sounds present, soft/nontender/nondistended Genitourinary: No CVA tenderness, no Thao in place Musculoskeletal: Moving all extremities, no edema Skin: Warm, dry Neurologic: AAOx3. Assessment /Plan Assessment #Hepatic encephalopathy -Improved. Ammonia is downtrending. Continue w/ lactulose, titrate to 3 bm. #Cirrhosis -Hold furosemide due to her renal function. Start low-sodium diet. #Lactic acidosis -Low suspicion for infectious etiology. This is likely due to her liver disease; she also was on Metformin and had acute kidney injury which can lead to doses. Follow off antibiotics and trend. #Electrolyte abnormality -Resolved #Pancytopenia -In the setting of end-stage liver disease. Continue to monitor. #Acute on chronic kidney disease -Secondary to poor p.o. intake prior to admission. Buttoning continues to downtrend, she would benefit from an additional day of IV fluids. Continue with maintenance fluids. Repeat creatinine. Avoid nephrotoxic medications. #Coronary artery disease -Continue with carvedilol #COPD -Patient's reports she has COPD, but patient denied it. She is not on any inhalers at home. She is not in acute exacerbation. #Hypertension -Hold losartan in the setting of acute renal failure. Start amlodipine 5 mg daily #Seizures -Continue with carbamazepine #Diabetes mellitus -Hold Metformin during hospitalization. Insulin sliding scale, hypoglycemic protocol, Accu-Cheks -Considering she had lactic acidosis also in the setting of cirrhosis, she should be switched to another diabetic agent upon discharge #Atrial fibrillation -Due to variceal bleeds in the past and her systemic anticoagulation was discontinued and rate is controlled with carvedilol. #DVT prophylaxis Heparin subcu Plan/VTE VTE Prophylaxis Ordered?: Yes VS, I&O, 24H, Fishbone Vital Signs/I&O Vital Signs Date Time Temp Pulse Resp B/P (MAP) Pulse Ox O2 Delivery O2 Flow Rate FiO2 02/09/21 14:00 97.7 66 18 115/65 (82) 98 Room Air I&O- Last 24 Hours up to 6 AM 02/09/21 06:00 Intake Total 2825 ml Output Total 420 ml Balance 2405 ml Laboratory Data 24H LABS Laboratory Tests 2 02/09/21 06:07: Immature Granulocyte % (Auto) 0.4, Neutrophils (%) (Auto) 64.2, Lymphocytes (%) (Auto) 22.8L, Monocytes (%) (Auto) 9.8H, Eosinophils (%) (Auto) 2.1, Basophils (%) (Auto) 0.7, Neutrophils # (Auto) 1.8, Lymphocytes # (Auto) 0.7L, Monocytes # (Auto) 0.3, Eosinophils # (Auto) 0.1, Basophils # (Auto) 0.0, Nucleated Red Blood Cells % (auto) 0.0, Platelet Count, EDTA Free 86L, Immature Platelet Fraction 5.5, Anion Gap 6L, Glomerular Filtration Rate 37.2L, Calcium Level 8.5L, Phosphorus Level 3.1, Magnesium Level 2.0, Total Bilirubin 0.3, Aspartate Amino Transf (AST/SGOT) 23, Alanine Aminotransferase (ALT/SGPT) 25, Alkaline Phosphatase 77, Ammonia 35H, Total Protein 6.6, Albumin 2.9L, Albumin/Globulin Ratio 0.8L CBC/BMP Laboratory Tests 02/09/21 06:07 Microbiology Microbiology 02/07/21 Blood Culture - Preliminary, Resulted No Growth after 48 hours. All Specime... 02/07/21 Urine Culture - Final, Complete 02/07/21 Blood Culture - Preliminary, Resulted No Growth after 48 hours. All Specime... ELEAZAR NEWTON M.D. Feb 09, 2021 17:09
[2021-02-09] MEDS ORDERED: DEXTROSE 50% 50 ML SYRINGE IV PRN (17:15)
[2021-02-09] MEDS ORDERED: GLUCAGON INJ 1MG VIAL SC PRN (17:15)
[2021-02-09] MEDS ORDERED: GLUCOSE 4GM CHEW TABLET PO PRN (17:15)
[2021-02-09] MEDS: HumaLOG INSULIN (NovoLOG) PER UNIT SC SCH (18:05)
[2021-02-09] MEDS: ACETAMINOPHEN TAB 650MG DOSE (2X325MG) PO PRN (20:45)
[2021-02-09 21:00] VITALS: BP 125/73
[2021-02-09] MEDS ORDERED: HumaLOG INSULIN (NovoLOG) PER UNIT SC SCH (21:00)
[2021-02-10] MEDS: NS 1,000 ML IV SCH (01:26)
[2021-02-10 05:53] LABS: HEMATOCRIT 24.2 % (36.0-47.0); HEMOGLOBIN 7.7 g/dl (12.0-15.5); MEAN CORPUSCULAR HEMOGLOBIN 27.4 pg (27.0-33.0); MEAN CORPUSCULAR HGB CONC 31.8 g/dl (32.0-36.5); MEAN CORPUSCULAR VOLUME 86.1 fl (80.0-96.0); RED BLOOD COUNT 2.81 10^6/uL (4.00-5.40); WHITE BLOOD COUNT 5.4 10^3/uL (4.0-10.0)
[2021-02-10 05:55] LABS: PLATELET COUNT, AUTOMATED 89 10^3/uL (150-450)
[2021-02-10 06:00] VITALS: BP 127/75
[2021-02-10 06:19] LABS: CREATININE FOR GFR 1.39 MG/DL (0.55-1.30); GLOMERULAR FILTRATION RATE 39.6 (>39); MAGNESIUM LEVEL 1.8 MG/DL (1.8-2.4); PHOSPHORUS LEVEL 1.7 MG/DL (2.5-4.9); POTASSIUM SERUM 3.9 MEQ/L (3.5-5.1)
[2021-02-10] MEDS: carBAMazepine 200MG TABLET PO SCH (08:22)
[2021-02-10] MEDS: HumaLOG INSULIN (NovoLOG) PER UNIT SC SCH ×2 (08:22→13:17)
[2021-02-10] MEDS: FLUoxetine 20 MG CAP PO SCH (08:22)
[2021-02-10] MEDS: LACTULOSE 20 GM/30 ML SYRUP UD PO SCH (08:22)
[2021-02-10 08:24] VITALS: BP 127/65
[2021-02-10] MEDS: amLODIPine 5 MG TAB PO SCH (08:24)
[2021-02-10] MEDS: CARVedilol 12.5 MG TAB PO SCH (08:24)
[2021-02-10] MEDS: PANTOPRAZOLE 40MG TAB (PROTONIX) PO SCH (08:24)
[2021-02-10] MEDS ORDERED: SODIUM PHOSPHATE INJ 30 MMOL in D5W 500 ML IV ONE (10:00)
[2021-02-10] MEDS ORDERED: AMLO1TAB24 PO (13:47)
[2021-02-10] MEDS ORDERED: LACT10SO3 PO (13:47)
[2021-02-10] MEDS ORDERED: GLIM2TAB4 PO (13:47)
[2021-02-10] MEDS ORDERED: FURO20TA2 PO (13:47)
[2021-02-10] MEDS ORDERED: PROP20TA72 PO (13:50)
[2021-02-10] MEDS ORDERED: LACTULOSE 20 GM/30 ML SYRUP UD PO SCH (21:00)
== END 2021-02-10 15:15 | disposition home or self-care (01) | DRG 442 ==
LOC: M ED 14:13 → M ED INP 14:14 → M MSPAV 23:31 → OBSVTOIN 02-10 10:55
PROVIDERS: ADMIT Internal Medicine; ATTEND Internal Medicine Nephrology
DX: K72.90 Hepatic failure, unspecified without coma (principal); D61.818 Other pancytopenia; E87.2 Acidosis; N17.9 Acute kidney failure, unspecified; K74.60 Unspecified cirrhosis of liver; I10 Essential (primary) hypertension; E78.5 Hyperlipidemia, unspecified; E11.9 Type 2 diabetes mellitus without complications; I48.91 Unspecified atrial fibrillation; J44.9 Chronic obstructive pulmonary disease, unspecified; R56.9 Unspecified convulsions; Z79.899 Other long term (current) drug therapy; Z88.8 Allergy status to other drugs, medicaments and biological substances

== ENCOUNTER → 2021-02-12 | Outpatient (REF) | payer MEDICARE, MEDICAID ==
[~2021-02-12] MED LIST changes: +AMLO1TAB24 PO; +FURO20TA2 PO; +GLIM2TAB4 PO; +LACT10SO3 PO; -MIRALAX *UNIT DOSE* 17GM PACKET PO SCH; +PANT-23 PO; +PROP20TA72 PO
[2021-02-12 16:40] LABS: BASO % 0.5 % (0.0-1.0); EOS # 0.1 10^3/uL (0.0-0.5); EOS % 2.5 % (0.0-3.0); HEMATOCRIT 26.6 % (36.0-47.0); HEMOGLOBIN 8.3 g/dl (12.0-15.5); LYMPH # 0.7 10^3/uL (1.5-5.0); MEAN CORPUSCULAR HEMOGLOBIN 27.2 pg (27.0-33.0); MEAN CORPUSCULAR HGB CONC 31.2 g/dl (32.0-36.5); MEAN CORPUSCULAR VOLUME 87.2 fl (80.0-96.0); MONO # 0.4 10^3/uL (0.0-0.8); MONO % 9.9 % (2.0-8.0); NEUTROPHILS # 2.7 10^3/uL (1.5-8.5); NEUTROPHILS % 69.6 % (36.0-66.0); RED BLOOD COUNT 3.05 10^6/uL (4.00-5.40); WHITE BLOOD COUNT 3.9 10^3/uL (4.0-10.0)
[2021-02-12 17:48] LABS: CREATININE FOR GFR 1.33 MG/DL (0.55-1.30); GLOMERULAR FILTRATION RATE 41.6 (>39); POTASSIUM SERUM 3.8 MEQ/L (3.5-5.1)
[2021-02-12 17:49] LABS: ALBUMIN 2.8 GM/DL (3.2-5.2); BILIRUBIN,TOTAL 0.4 MG/DL (0.2-1.0); CALCIUM LEVEL 8.5 MG/DL (8.8-10.2); FOLATE 6.1 NG/ML; FREE T4 0.87 NG/DL (0.76-1.46); PHOSPHORUS LEVEL 2.8 MG/DL (2.5-4.9); THYROID STIMULATING HORMONE 1.86 uIU/ML (0.358-3.740); TOTAL PROTEIN 6.6 GM/DL (6.4-8.2)
== END ==
LOC: M SFHCCLAY 11:34
PROVIDERS: ATTEND Family Medicine
DX: R41.0 Disorientation, unspecified (principal); K70.30 Alcoholic cirrhosis of liver without ascites; D50.0 Iron deficiency anemia secondary to blood loss (chronic)

== ENCOUNTER → 2021-03-02 | Outpatient (REF) | payer MEDICARE, MEDICAID ==
[2021-03-02 16:43] LABS: BASO % 0.5 % (0.0-1.0); EOS # 0.1 10^3/uL (0.0-0.5); EOS % 1.6 % (0.0-3.0); HEMATOCRIT 24.4 % (36.0-47.0); HEMOGLOBIN 7.2 g/dl (12.0-15.5); LYMPH # 0.6 10^3/uL (1.5-5.0); MEAN CORPUSCULAR HEMOGLOBIN 26.4 pg (27.0-33.0); MEAN CORPUSCULAR HGB CONC 29.5 g/dl (32.0-36.5); MEAN CORPUSCULAR VOLUME 89.4 fl (80.0-96.0); MONO # 0.4 10^3/uL (0.0-0.8); NEUTROPHILS # 2.6 10^3/uL (1.5-8.5); NEUTROPHILS % 69.6 % (36.0-66.0); RED BLOOD COUNT 2.73 10^6/uL (4.00-5.40); WHITE BLOOD COUNT 3.7 10^3/uL (4.0-10.0)
[2021-03-02 17:19] LABS: BILIRUBIN,TOTAL 0.5 MG/DL (0.2-1.0); CALCIUM LEVEL 8.8 MG/DL (8.8-10.2); CREATININE FOR GFR 1.42 MG/DL (0.55-1.30); GLOMERULAR FILTRATION RATE 38.6 (>39); TOTAL PROTEIN 6.9 GM/DL (6.4-8.2)
== END ==
LOC: M SFHCCLAY 10:40
PROVIDERS: ATTEND Physician Assistant
DX: K72.90 Hepatic failure, unspecified without coma (principal); N17.9 Acute kidney failure, unspecified; K70.30 Alcoholic cirrhosis of liver without ascites; E11.9 Type 2 diabetes mellitus without complications
CPT/HCPCS: 80053; 82140; 85025; G0463

== ENCOUNTER → 2021-03-13 | Outpatient (REF) | payer MEDICARE, MEDICAID ==
[2021-03-13 16:12] LABS: HEMATOCRIT 25.8 % (36.0-47.0); HEMOGLOBIN 7.6 g/dl (12.0-15.5); MEAN CORPUSCULAR HEMOGLOBIN 26.4 pg (27.0-33.0); MEAN CORPUSCULAR HGB CONC 29.5 g/dl (32.0-36.5); MEAN CORPUSCULAR VOLUME 89.6 fl (80.0-96.0); RED BLOOD COUNT 2.88 10^6/uL (4.00-5.40); WHITE BLOOD COUNT 4.6 10^3/uL (4.0-10.0)
[2021-03-13 16:33] LABS: CALCIUM LEVEL 8.4 MG/DL (8.8-10.2); CREATININE FOR GFR 1.31 MG/DL (0.55-1.30); GLOMERULAR FILTRATION RATE 42.4 (>39); POTASSIUM SERUM 4.2 MEQ/L (3.5-5.1)
== END ==
LOC: M SFHCCLAY 11:46
PROVIDERS: ATTEND Family Medicine
DX: N18.32 Chronic kidney disease, stage 3b (principal); D63.8 Anemia in other chronic diseases classified elsewhere; R79.89 Other specified abnormal findings of blood chemistry

== ENCOUNTER → 2021-06-04 | Outpatient (REF) | payer MEDICARE, MEDICAID ==
[~2021-06-04] MED LIST changes: -AMIO200T3 PO; +AMIO200T49 PO; +FLUO-96 PO; -FLUO20CA20 PO; +LOSA100T45 PO; -LOSA100T50 PO
[2021-06-04 16:10] LABS: HEMATOCRIT 26.6 % (36.0-47.0); HEMOGLOBIN 7.9 g/dl (12.0-15.5); MEAN CORPUSCULAR HGB CONC 29.7 g/dl (32.0-36.5); MEAN CORPUSCULAR VOLUME 80.9 fl (80.0-96.0); RED BLOOD COUNT 3.29 10^6/uL (4.00-5.40); WHITE BLOOD COUNT 3.3 10^3/uL (4.0-10.0)
[2021-06-04 16:27] LABS: CALCIUM LEVEL 8.4 MG/DL (8.8-10.2); CREATININE FOR GFR 1.46 MG/DL (0.55-1.30); GLOMERULAR FILTRATION RATE 37.4 (>39)
== END ==
LOC: M SFHCCLAY 11:38
PROVIDERS: ATTEND Family Medicine
DX: N18.32 Chronic kidney disease, stage 3b (principal); I87.2 Venous insufficiency (chronic) (peripheral); D63.8 Anemia in other chronic diseases classified elsewhere

== ENCOUNTER → 2021-06-16 | Outpatient (REF) | payer MEDICARE, MEDICAID ==
[2021-06-16 16:25] LABS: BASO % 0.7 % (0.0-1.0); EOS # 0.1 10^3/uL (0.0-0.5); EOS % 2.6 % (0.0-3.0); HEMATOCRIT 27.5 % (36.0-47.0); HEMOGLOBIN 8.1 g/dl (12.0-15.5); LYMPH # 0.6 10^3/uL (1.5-5.0); MEAN CORPUSCULAR HEMOGLOBIN 23.8 pg (27.0-33.0); MEAN CORPUSCULAR HGB CONC 29.5 g/dl (32.0-36.5); MEAN CORPUSCULAR VOLUME 80.6 fl (80.0-96.0); MONO # 0.3 10^3/uL (0.0-0.8); MONO % 10.8 % (2.0-8.0); NEUTROPHILS % 64.6 % (36.0-66.0); RED BLOOD COUNT 3.41 10^6/uL (4.00-5.40); WHITE BLOOD COUNT 3.1 10^3/uL (4.0-10.0)
[2021-06-16 16:41] LABS: ALT/SGPT 18 U/L (12-78); BILIRUBIN,DIRECT 0.2 MG/DL (0.0-0.2); BILIRUBIN,TOTAL 0.5 MG/DL (0.2-1.0); BLOOD UREA NITROGEN 19 MG/DL (7-18); CALCIUM LEVEL 8.2 MG/DL (8.8-10.2); CARBON DIOXIDE LEVEL 24 MEQ/L (21-32); CHLORIDE LEVEL 110 MEQ/L (98-107); CREATININE FOR GFR 1.58 MG/DL (0.55-1.30); GLOMERULAR FILTRATION RATE 34.1 (>39); GLUCOSE, FASTING 164 MG/DL (70-100); POTASSIUM SERUM 3.9 MEQ/L (3.5-5.1); SODIUM LEVEL 141 MEQ/L (136-145); TOTAL PROTEIN 6.9 GM/DL (6.4-8.2)
== END ==
LOC: M LABDRAWC 15:27
PROVIDERS: ATTEND Internal Medicine Gastroenterology
DX: K74.60 Unspecified cirrhosis of liver (principal); I85.01 Esophageal varices with bleeding

== ENCOUNTER → 2021-12-08 | Outpatient (REF) | payer MEDICARE, MEDICAID ==
[2021-12-08 18:55] LABS: HEMATOCRIT 29.2 % (36.0-47.0); HEMOGLOBIN 8.9 g/dl (12.0-15.5); MEAN CORPUSCULAR HEMOGLOBIN 24.6 pg (27.0-33.0); MEAN CORPUSCULAR HGB CONC 30.5 g/dl (32.0-36.5); MEAN CORPUSCULAR VOLUME 80.7 fl (80.0-96.0); RED BLOOD COUNT 3.62 10^6/uL (4.00-5.40); WHITE BLOOD COUNT 4.2 10^3/uL (4.0-10.0)
[2021-12-08 19:48] LABS: ALBUMIN 2.5 GM/DL (3.2-5.2); BILIRUBIN,TOTAL 0.7 MG/DL (0.2-1.0); CREATININE FOR GFR 1.1 MG/DL (0.55-1.30); GLOMERULAR FILTRATION RATE 51.8 (>39); POTASSIUM SERUM 4.1 MEQ/L (3.5-5.1); TOTAL PROTEIN 6.4 GM/DL (6.4-8.2)
== END ==
LOC: M SFHCCLAY 11:48
PROVIDERS: ATTEND Nurse Practitioner Family
DX: K70.30 Alcoholic cirrhosis of liver without ascites (principal); E72.20 Disorder of urea cycle metabolism, unspecified